=== PATIENT | female | born 1940 | race Caucasian/White ===

== ENCOUNTER 2016-04-25 06:57 | Day surgery (SDC) | payer BC ==
[~2016-04-25] VITALS: Ht 152.4 cm; Wt 88.5 kg
[~2016-04-25 06:57] MED LIST: AMLO-110 PO; AMR2 PO; ATEN-173 PO; ATOR-24 PO; EPP3 IM; FESO8TAB PO; MULT-506 PO; OXYC-57 PO; PRLSR20 PO; TRIA0.1C20 TOP; VITAMIN D TOP; [UNRECOGNIZED DRUG - OTHER] TOP
[2016-04-25] MEDS ORDERED: B-CO1CAP17 PO (07:25)
[2016-04-25] MEDS ORDERED: SEVE800T7 PO (07:26)
[2016-04-25 07:27] VITALS: BP 184/77; PULSE 78; TEMP 36.5; O2SAT 96; Ht 152.4 cm; Wt 88.5 kg
--- NOTE | 2016-04-25 08:01 | History and Physical ---
History & Physical CC: End stage renal disease and functioning right arm av fistula HPI: Mrs. Barboza has a right arm av fistula which is functioning well. She is here for removal of her permcath. The patient denies any complaints at this time, including headaches, fevers, chills, dizziness, chest pain, shortness of breath, abdominal pain, nausea, vomiting, diarrhea, constipation, dysuria, hematuria, rest pain, claudication or other complaints. The patient's allergies include bee stings and neosporin. Her home medications are reconciled in the chart and include the following: Amaryl, amlodipine, atenolol, Ditropan, Lipitor, omega 3 fatty acids, omeprazole, vitamin A and vitamin D3. The patient's past medical history is positive for diabetes mellitus, hypercholesterolemia, hypertension, heartburn, sleep apnea, skin cancer and chronic kidney disease stage IV. The patient's surgical history is positive for a fusion of her right ankle, carpal tunnel release, left knee replacement, right knee replacement, throat surgery and tubal ligation. Her family history is positive for heart disease in her father, type 2 diabetes mellitus in her mother. Social history is negative for tobacco, alcohol or drug use. Her review of systems is negative for fatigue, fever, sweats, weight loss, exercise intolerance, abnormal moles or rashes, vision changes or photophobia, ear pain, sinus problems or sore throat, cough, shortness of breath, hemoptysis or wheezing, chest pain, palpitations or syncope. The patient does admit to bilateral lower extremity mild edema, which is chronic. The patient denies abdominal pain, nausea, vomiting, diarrhea or constipation, dysuria, hematuria, muscle weakness, headaches, dizziness, numbness or seizures. On physical examination, patient's vital signs today are as follows: Blood pressure 138/72 with a heart rate of 72, respiratory rate of 18. Patient weighs 200 pounds. Constitutional: General: Patient is an obese, healthy- appearing, well-nourished, well-developed, elderly female in no acute distress. She ambulates without assistance and is active, alert and oriented x4 with normal recent and remote memory. Her head is normocephalic and atraumatic. Eyes: EOMI. ENMT exam demonstrates no hearing loss, rhinorrhea or pharyngeal erythema. Her neck is supple, nontender with midline trachea without masses or crepitus. Her lung exam demonstrates no dyspnea. They are clear to auscultation bilaterally. Cardiovascular exam demonstrate nondisplaced apical impulse with regular rate and rhythm without murmurs, lifts, heaves, thrills or gallops. Her peripheral pulses are full and equal in all extremities unless otherwise noted. Specifically, they are normal in her carotids, brachial, radial and femoral area. Her posterior tibial and dorsalis pedis pulses are +2 bilaterally. The patient demonstrates no bruits in her carotid, abdominal or femoral areas. Her abdomen is soft and nontender with normoactive bowel sounds in all 4 quadrants without guarding or rebound. There is no flank or CVA tenderness. Her musculoskeletal exam demonstrates normal tone and strength for age. Her bilateral upper extremities demonstrate no cyanosis, edema, clubbing, varicosities or ulcers. There is a right arm avf with a thrill and bruit. The patient's bilateral lower extremities demonstrate 1+ edema but no cyanosis, mottling, ulceration or gangrene. Neurologically, the patient has normal gait and station with grossly intact cranial nerves and grossly intact sensation. Assessment: Functioning avf right arm Plan: The patient is admitted for removal of her permcath. The procedure, as well as the risks, benefits and alternatives were discussed at length with the patient and her family. She expressed her understanding and agreement to proceed.
--- NOTE | 2016-04-25 08:01 | Procedure Note ---
Pre-Mod Sedation Assessment General Date of Moderate Sedation: Apr 25, 2016. Vital Signs: Vital Signs Past 12 Hours Date Time Temp Pulse Resp B/P Pulse Ox O2 Delivery O2 Flow Rate FiO2 04/25/16 07:27 36.5 78 20 184/77 96 Room Air Pre-Sedation Airway Assessment Smoking Status: Never Smoker Mallampati Classification: Class I ASA Classification: Class II Notes The planned sedation has been discussed with the patient and consent obtained. I have identified the patient, determined the appropriateness of sedation and have assessed the patient immediately prior to the procedure. All medicine(s) and interventions are by my order.
[2016-04-25] MEDS ORDERED: LIDOCAINE HCL 1% 20 ML VIAL ONE (08:11)
[2016-04-25] MEDS ORDERED: LIDOCAINE HCL 1% 20 ML VIAL INJ ONE (08:54)
--- NOTE | 2016-04-25 09:08 | [facility] Post Operative Brief Note ---
Immediate Operative Summary Operative Date Apr 25, 2016. Pre-Operative Diagnosis Functioning fistula Post-Operative Diagnosis same Procedure(s) Performed Perm Catheter Removal Surgeon Dr. Archibald Molybdenum Steamer Operator Surgeon(s) none Estimated Blood Loss 0 Findings Catheter and cuff removed Specimens A. explanted perm catheter Anesthesia local Complication(s) None Disposition
[2016-04-25 09:09] VITALS: BP 156/78; PULSE 81; TEMP 36.8; O2SAT 99
--- NOTE | 2016-04-25 09:10 | Discharge Instructions ---
Discharge Instructions Visit Reason for Visit: End Stage Renal Disease Discharge Discharge Diagnosis / Problem: Functioning fistla Discharge Goals Goal(s): Therapeutic intervention Activity Recommendations Activity Limitations: per Instructions/Follow-up section Anesthesia . Post Anesthesia Instructions: If you have had General Anesthesia or IV Sedation: * Do not drive today. * Resume driving when surgeon permits. * Do not make important decisions or sign legal documents today. * Call surgeon for: 1. Temperature elevations greater than 101 degrees F. 2. Uncontrollable pain. 3. Excessive bleeding. 4. Persistent nausea and vomiting. 5. Medication intolerance (nausea, vomiting or rash). * For nausea and vomiting use only clear liquids such as: tea, soda, bouillon until nausea subsides, then gradually increase diet as tolerated. * If you have any concerns or questions, call your surgeon's office. If physician is unavailable and it is an emergency, call 911 or go to the nearest emergency room. . Instructions / Follow-Up Instructions / Follow-Up Call [phone] with any questions or concerns. SPECIAL CARE INSTRUCTIONS: Medications: * Continue to take your medications as directed. If you have been given a prescription for Plavix, please fill it immediately and take as directed. Incision Care: * Your puncture site may have some bruising and minor swelling for about one week. * You will have a small dressing covering your puncture site. You may remove the dressing after 24 hours and shower. You may let the warm soapy water run over it, but be sure to dry the puncture site well and keep it dry. * DO NOT IMMERSE THE INCISION IN A TUB/POOL/etc. UNTIL HEALED. * Puncture sites should be kept covered with a band-aid until it begins to heal. Restrictions: * Depending on whether you leg or arm was punctured to access the arteries, you will be required to lay flat, hold your arm still, or both, for about 4 hours after the procedure to prevent bleeding. * Limit your activity for the first 48 hours. You may walk and go up and down steps. Avoid excessive bending or movement at the puncture site. Possible Complications: * Excessive Swelling - after blood flow is improved you may notice increased swelling in the lower legs. This is a normal response. This usually depends on the amount of blockages in the leg, how long they have been there prior to your procedure and how much blood flow was restored. Elevating your legs will help to improve this. Please notify our office ([phone] ) if the swelling does not go away after lying in bed overnight. * Infection/Drainage/Bleeding - Drainage or bleeding from the puncture site should be minimal. If you have excessive bleeding or drainage, call our office ([phone]) right away. * Pain - You may experience some mild pain or soreness at your puncture site. If your pain does not improve, please contact our office ([phone]). Call your doctor and seek emergent treatment if you develop: * Temperature above 101 degrees * Any fever or chills * Any redness or purulent drainage from the puncture site * Any new dusky/blue colored toes or feet with coolness or sharp or aching pain. SKIN IRRITATION: * You may experience some redness and/or swelling in the area where radiation was administered. If any skin irritation occurs, please contact your family physician. FOLLOW UP VISIT: Keep any scheduled doctor appointments. Diet Recommendations Recommended Home Diet: resume previous diet Procedures Procedures Performed: Perm Catheter Removal Pending Studies Studies pending at discharge: no Medical Emergencies . Who to Call and When: Medical Emergencies: If at any time you feel your situation is an emergency, please call 911 immediately. . Non-Emergent Contact Non-Emergency issues call your: Surgeon . . "Provider Documentation" section prepared by Jame Archibald.
--- NOTE | 2016-04-25 09:23 | DIAGNOSTIC IMAGING REPORT ---
DATE OF PROCEDURE: 04/25/2016 PREOPERATIVE DIAGNOSIS: Functioning fistula. POSTOPERATIVE DIAGNOSIS: Same. PROCEDURE: Removal of PermCath, right internal jugular vein. SURGEON: Dr. Archibald. ANESTHETIC: Local. PROCEDURE INDICATIONS: The patient is a 75-year-old female with a functioning fistula. She is here for removal of her PermCath. The patient understood the risks, options and benefits, and agreed to have this procedure. The patient was taken to the angio suite and placed in supine position. After right side of the neck, chest wall and catheter were prepped and draped in a sterile manner, local anesthetic was administered. Sutures were removed from the catheter. Using sharp and blunt dissection, the cuff was freed up. Using sharp dissection, the sheath around the catheter was incised. The catheter and cuff was removed in its entirety. Pressure was applied, adequate hemostasis was obtained. Sterile dressings were applied to the wound. The patient left the angio suite in good condition and tolerated the procedure well.
[2016-04-25 09:27] VITALS: BP 148/78; PULSE 77; O2SAT 98
[2016-04-25 09:40] VITALS: BP 159/80; PULSE 80; TEMP 36.7; O2SAT 99
[2016-04-25 09:55] VITALS: BP 176/91; PULSE 82; O2SAT 97
== END 2016-04-25 09:55 | disposition home or self-care (01) ==
LOC: C.ACU 06:57
PROVIDERS: ATTEND Surgery Vascular Surgery
DX: Z45.2 Encounter for adjustment and management of vascular access device (principal); I12.9 Hypertensive chronic kidney disease with stage 1 through stage 4 chronic kidney disease, or unspecified chronic kidney disease; N18.4 Chronic kidney disease, stage 4 (severe); E78.00 Pure hypercholesterolemia, unspecified; E11.22 Type 2 diabetes mellitus with diabetic chronic kidney disease; Z98.890 Other specified postprocedural states; Z96.653 Presence of artificial knee joint, bilateral; Z98.51 Tubal ligation status; Z82.49 Family history of ischemic heart disease and other diseases of the circulatory system; Z83.3 Family history of diabetes mellitus

== ENCOUNTER → 2016-05-11 | Outpatient (CLI) | payer BC ==
[~2016-05-11] MED LIST changes: -AMLO-110 PO; +B-CO1CAP17 PO; -MULT-506 PO; -OXYC-57 PO; +SEVE800T7 PO; -VITAMIN D TOP; -[UNRECOGNIZED DRUG - OTHER] TOP
--- NOTE | 2016-05-11 16:56 | MAMMOGRAPHY REPORT ---
BILATERAL DIGITAL SCREENING MAMMOGRAM WITH CAD: 05/11/2016 CLINICAL HISTORY: Routine screening. Patient has no complaints. TECHNIQUE: Current study was also evaluated with a Computer Aided Detection (CAD) system. Bilatera l CC and MLO views were obtained. COMPARISON: Comparison is made to exams dated: 02/26/2015 mammogram, 02/22/2013 mammogram, 02/25/2014 mammogram, 01/24/2012 mammogram, 01/17/2011 mammogram, and 01/14/2010 mammogram - [facility]. BREAST COMPOSITION: The tissue of both breasts is heterogeneously dense, which may obscure small ma sses. FINDINGS: No suspicious masses, calcifications, or areas of architectural distortion are noted in e ither breast. There has been no significant interval change compared to prior exams. Again noted ar e fluctuating multiple small round/oval benign-appearing masses scattered in bilateral breasts, most prominent in the right breast, which are considered benign given the multiplicity and bilaterality and likely represent cysts. IMPRESSION: ACR BI-RADS CATEGORY 2: BENIGN There is no mammographic evidence of malignancy. A 1 year screening mammogram is recommended. The p atient will receive written notification of the results. Approximately 10% of breast cancers are not detected with mammography. A negative mammographic repor t should not delay biopsy if a clinically suggestive mass is present. Marcia Garcia M.D. /:05/11/2016 16:44:53 Tube Room Cashier: Ondina MATOS)(M), [facility] letter sent: Normal 1/2 BI-RADS Code: ACR BI-RADS Category 2: Benign
== END | disposition home or self-care (01) ==
LOC: C.MAMM 13:57
PROVIDERS: ATTEND Obstetrics & Gynecology
DX: Z12.31 Encounter for screening mammogram for malignant neoplasm of breast (principal)

== ENCOUNTER → 2016-05-12 | Outpatient (CLI) | payer BC ==
--- NOTE | 2016-05-17 10:15 | CODING QUERY NO DIAGNOSIS ---
: 1940 TREATMENT RENDERED WITHOUT A DIAGNOSIS To promote full compliance with coding requirements relating to patient care, physician participation is requested in all cases of inventory transcriber uncertainty. Please assist us with providing a diagnosis/symptom for the test(s) below: A diagnosis/symptom was not documented on your Order. A valid diagnosis/symptom is required to bill all insurances. Please remember that we are unable to code a diagnosis of rule out, probable, possible, questionable, or suspected. Tests that require a diagnosis: * CALCIUM DOS: 05/12/16 DIAGNOSIS: Provider Signature: Date: Thank you Amie Suero Health Information Management Once completed, please kindly fax back to [phone] For questions please call [phone]
== END ==
LOC: C.LABSPEC 17:03
PROVIDERS: ATTEND Internal Medicine Nephrology
DX: E83.52 Hypercalcemia (principal)

== ENCOUNTER → 2016-11-09 | Outpatient (CLI) | payer BC ==
[2016-11-09 11:24] LABS: CHOLESTEROL/HDL RATIO 3.6; THYROID STIMULATING HORMONE 2.55 uIu/ml (0.300-4.500)
[2016-11-09 11:49] LABS: ESTIMATED AVERAGE GLUCOSE 103 mg/dl; HA1C FLAG Normal (Normal)
== END | disposition home or self-care (01) ==
LOC: C.LABBC 08:26
PROVIDERS: ATTEND Internal Medicine Pulmonary Disease
DX: I10 Essential (primary) hypertension (principal); E11.9 Type 2 diabetes mellitus without complications; G47.33 Obstructive sleep apnea (adult) (pediatric); E78.5 Hyperlipidemia, unspecified

== ENCOUNTER → 2017-05-15 | Outpatient (CLI) | payer BC ==
--- NOTE | 2017-05-16 14:38 | MAMMOGRAPHY REPORT ---
BILATERAL DIGITAL SCREENING MAMMOGRAM TOMOSYNTHESIS WITH CAD: 05/15/2017 CLINICAL HISTORY: Routine screening. TECHNIQUE: Breast tomosynthesis in addition to standard 2D mammography was performed. Current study was also evaluated with a Computer Aided Detection (CAD) system. COMPARISON: Comparison is made to exams dated: 05/11/2016 mammogram, 02/26/2015 mammogram, 02/25/2014 m ammogram, 02/22/2013 mammogram, 01/24/2012 mammogram, and 01/17/2011 mammogram - [facility] enter. BREAST COMPOSITION: The tissue of both breasts is heterogeneously dense, which may obscure small mas ses. FINDINGS: There are scattered punctate benign-appearing microcalcifications and minimal vascular calc ification in the breasts. Multiple bilateral circumscribed masses are scattered bilaterally, fluctua ting in size comparing to prior mammograms, most likely representing fluctuating cysts/fibrocystic ch maria esther. No suspicious spiculated or irregular mass, architectural distortion or cluster of suspicious microcalcifications is seen. IMPRESSION: ACR BI-RADS CATEGORY 1: NEGATIVE There is no mammographic evidence of malignancy. A 1 year screening mammogram is recommended. The pa tient will receive written notification of the results. Approximately 10% of breast cancers are not detected with mammography. A negative mammographic report should not delay biopsy if a clinically suggestive mass is present. Tiesha Garcia M.D. ay/:05/15/2017 16:39:29 Traffic Control Flagger: Pankaj MATOS)(Kamila), [facility] [address] letter sent: Normal 1/2 BI-RADS Code: ACR BI-RADS Category 1: Negative
== END | disposition home or self-care (01) ==
LOC: C.MAMM 14:03
PROVIDERS: ATTEND Obstetrics & Gynecology
DX: Z12.31 Encounter for screening mammogram for malignant neoplasm of breast (principal)

== ENCOUNTER → 2017-07-07 | Outpatient (CLI) | payer BC | END | disposition home or self-care (01) | LOC: C.RDSM 10:29 | PROVIDERS: ATTEND Orthopaedic Surgery | DX: M25.572 Pain in left ankle and joints of left foot (principal) ==

== ENCOUNTER 2019-02-15 06:13 | Inpatient (IN) ==
--- NOTE | 2019-02-01 16:02 | PAT Medication Instructions ---
Medication Instructions Date of Service February 01, 2019 Home Medications Medication Instructions Recorded apixaban 5 mg tablet 5 mg PO BID #60 tab 12/21/18 Myrbetriq 50 mg PO QAM ProRenal 1 dose PO UD atenolol 25 mg PO QAM atorvastatin [Lipitor] 40 mg PO PM glimepiride 2 mg PO QAM omeprazole 20 mg PO QAM docusate sodium [Stool Softener] 100 mg PO QAM epinephrine 0.3 mg/0.3 mL injection, auto-injector 0.3 mg SUBCUT UD PRN sevelamer carbonate 800 mg tablet 1,600 mg PO QPM apixaban 5 mg tablet 5 mg PO BID Continue as directed epinephrine 0.3 mg/0.3 mL injection, auto-injector 0.3 mg SUBCUT UD PRN ASK your prescriber and surgeon apixaban 5 mg tablet 5 mg PO BID DO NOT take the morning of surgery Myrbetriq 50 mg PO QAM ProRenal 1 dose PO UD glimepiride 2 mg PO QAM docusate sodium [Stool Softener] 100 mg PO QAM Take morning of surgery With a small sip of water, OTHERWISE NOTHING TO EAT OR DRINK AFTER MIDNIGHT: atenolol 25 mg PO QAM omeprazole 20 mg PO QAM Take evening before surgery ProRenal 1 dose PO UD atorvastatin [Lipitor] 40 mg PO PM sevelamer carbonate 800 mg tablet 1,600 mg PO QPM Other Notes If you have any questions please call us at [phone] or [phone] or [phone] or [phone]
--- NOTE | 2019-02-04 11:33 | Anesthesiology Consultation ---
Date of Service February 04, 2019 Assessment & Plan (1) Encounter for pre-operative examination: - Awaiting review preop testing (labs, EKG). - Awaiting PCP office visit scheduled 02/11 (Karla Leon, PAC; [facility])- per patient, visit is for preop evaulation. - ESRD: dialysis T/Th/Sat via RUE fisutla (RUE limb restriction). Ambrose gibbs BMP AM DOS. - Check BSG AM DOS - Eliquis s/p DVT 12/12/18- rx'd x two months (will be completed 02/11/19*)- surgeon aware Chart Review Chart Review: Patient seen in Pre Admission Testing Teaching & Discussion Pre-Anesthesia Teaching/Discussion Notes: Instructed NPO after midnight before surgery,except medications with 15 cc of water. Medication instructions provided according to the PAT guidelines. History Surgery Operation Date: 02/15/19 10:25 Proposed Procedures p L3-L4, L4-L5 Decompression and Fusion, Spinal Cord Monitoring - Celso Martinez, Height/Weight Height: 5 ft 0.25 in Weight: 87.3 kg Allergies Allergy/AdvReac Type Severity Reaction Status Date / Time bee venom protein (honey bee) Allergy Severe Anaphylaxis Verified 02/04/19 11:42 hornet venom Allergy Severe Anaphylaxis Verified 02/04/19 11:42 adhesive Allergy Mild local skin Verified 01/30/19 10:49 irritation bacitracin Allergy Mild Rash Verified 02/04/19 11:42 neomycin Allergy Mild Rash Verified 02/04/19 11:42 polymyxin B Allergy Mild Rash Verified 02/04/19 11:42 Medications Home Medications Medication Instructions Recorded Confirmed Last Taken Myrbetriq 50 mg PO QAM 07/19/18 01/30/19 11/28/18 ProRenal 1 dose PO UD 07/19/18 01/30/19 11/28/18 atenolol 25 mg PO QAM 07/19/18 01/30/19 11/28/18 atorvastatin [Lipitor] 40 mg PO PM 07/19/18 01/30/19 11/28/18 glimepiride 2 mg PO QAM 07/19/18 01/30/19 11/28/18 omeprazole 20 mg PO QAM 07/19/18 01/30/19 11/28/18 docusate sodium [Stool Softener] 100 mg PO QAM 10/11/18 01/30/19 11/28/18 epinephrine 0.3 mg/0.3 mL 0.3 mg SUBCUT UD PRN #1 ea 11/28/18 01/30/19 11/28/18 injection, auto-injector sevelamer carbonate 800 mg tablet 1,600 mg PO QPM tab 12/14/18 01/30/19 Unknown apixaban 5 mg tablet 5 mg PO BID #60 tab 12/21/18 01/30/19 Unknown Past Medical History Medical History DVT (deep venous thrombosis) RLE (12/12/18) felt 2/2 decreased mobility d/t spinal stenosis-- prescribed Eliquis x 2 months (to be completed 02/11/19*) Diabetes mellitus, type 2 NIDDM ESRD (end stage renal disease) T/Th/Sat at [facility] [place] via RUE AVF (follows with nephrology/Dr. Calhoun) GERD (gastroesophageal reflux disease) controlled History of basal cell carcinoma s/p excision Hyperlipemia Hypertension Limb alert care status RUE fistula Osteoarthritis Osteoporosis Peripheral neuropathy Sleep apnea CPAP Spastic bladder Spinal stenosis Exercise / Class Metabolic Activity III < 4 Walking/Shop/Light housework (walker for short distances, wheelchair for longer distances in setting of worsening back pain) Past Family History Family History Mother Family history of diabetes mellitus Arthritis Diabetes Brother Family hx of colon cancer Spina bifida Hypertension Colon cancer Father Kidney stones Past Surgical History Surgical History H/O dilation and curettage History of ankle fusion B/L History of basal cell carcinoma (BCC) excision History of bilateral tubal ligation History of carpal tunnel release B/L History of cataract surgery History of colonoscopy History of esophagogastroduodenoscopy (EGD) History of oral surgery History of tonsillectomy History of tooth extraction History of total knee replacement B/L S/P arteriovenous (AV) fistula creation X3 TO RUE (RUE + REVISIONS) Past Anesthesia History No Family Hx of Anesthesia Complications and Other "Slow to wake" History of PONV History of PONV Social History Smoking Status: Never smoker Do You Dip or Chew Tobacco: No Hx Alcohol Use: Yes Alcohol type: hard liquor alcohol intake frequency: holidays/special occasions only Alcohol Intake Frequency Comment: MIXED DRINK Hx Substance Use: No substance use type: does not use Review of Systems Patient denies chest pain, shortness of breath, cough, wheezing, palpitations. Physical Exam Vital Signs VITALS BP 125/75 P 74 TEMP 98.2 SP02 100%RA RESP 18 PHYSICAL Full neck and c-spine range of motion. Full TMJ range of motion. TMD 3 finger breaths Mallampati Score 3 Dentition: intact, several implants "all over" Lungs: clear throughout to auscultation Cardiac: regular rate and rhythm, no murmurs noted Spine: normal Carotid arteries: negative bruit Extremities: no edema Testing Chest X-Ray Date: 12/12/18 Findings: + NAD
[2019-02-04 12:53] LABS: Basophils # (auto) 0.02 K/uL (0-0.2); Basophils % (auto) 0.3 %; Eosinophils # (auto) 0.12 K/uL (0-0.5); Eosinophils % (auto) 2.1 %; Hematocrit (blood only) 37.1 % (37-47); Hemoglobin 11.7 g/dL (12.0-16.0); Immature Granulocytes # (auto) 0.02 K/uL (0.00-0.02); Immature Granulocytes % (auto) 0.3 %; Lymphocytes # (auto) 1.19 K/uL (1.2-3.4); Lymphocytes % (auto) 20.5 %; Mean Corpuscular Hemoglobin 31.5 pg (25-34); Mean Corpuscular Hgb Conc 31.5 g/dL (32-36); Mean Platelet Volume 12.1 fL (7.4-10.4); Monocytes # (auto) 0.55 K/uL (0.11-0.59); Monocytes % (auto) 9.5 %; Neutrophils % (auto) 67.3 %; Platelet Count 134 K/uL (130-400); RDW Coefficient of Variation 16.2 % (11.5-14.5); Red Blood Count 3.71 M/uL (4.2-5.4)
[2019-02-04 13:02] LABS: Appearance Urine Cloudy (Clear); Bilirubin Urine Negative (Negative); Blood Urine Trace (Negative); Color Urine Yellow; Glucose Urine UA Trace (Negative); Ketones Urine Negative (Negative); Leukocyte Esterase Urine 1+ (Negative); Nitrite Urine Negative (Negative); Urobilinogen Urine Negative (Negative); pH Urine 8.5 (4.5-7.5)
[2019-02-04 13:06] LABS: INR 1.1 (0.9-1.1); Partial Thromboplastin Time 27.2 Seconds (21.0-31.0); Prothrombin Time 11.4 Seconds (9.0-12.0)
[2019-02-04 13:10] LABS: Protein Urine 2+ (Negative)
[2019-02-04 13:11] LABS: Sulfosalicylic Acid Urine Positive (Negative)
[2019-02-04 13:16] LABS: Estimated Average Glucose 108 mg/dl; Hemoglobin A1C 5.4 % (4.5-5.6)
[2019-02-04 13:33] LABS: BUN Creatinine Ratio 11.2 (10-20); Calcium 9.1 mg/dl (8.5-10.1); Creatinine Clr Calc Pharmacy 9.5 ml/min; Est GFR (African American) 9.1; Est GFR (Non-African American) 7.8; Potassium 4.1 mmol/L (3.5-5.1)
[2019-02-04 13:42] LABS: Bacteria Urine 4+ (Negative); Epithelial Cell Urine >30 /lpf (0-5); RBC Urine 0-4 /hpf (0-4); WBC Urine >30 /hpf (0-5)
[~2019-02-15 06:13] MED LIST changes: +ACETAMINOPHEN 500 MG TAB PO SCH; -AMR2 PO; -ATEN-173 PO; -ATOR-24 PO; -B-CO1CAP17 PO; +CEFAZOLIN 2000MG 2,000 MG/15 ML SYR IV SCH; +CeleBREX 200 MG CAP PO SCH; -EPP3 IM; -FESO8TAB PO; +GABAPENTIN 300 MG CAP PO SCH; -PRLSR20 PO; -SEVE800T7 PO; +SODIUM CHLORIDE 0.9% 1000ML IV SCH; -TRIA0.1C20 TOP
[2019-02-15] MEDS ORDERED: LIDOCAINE HCL 2% 2 ML VIAL/AMP(20MG/ML) INFIL ONE (06:56)
[2019-02-15] MEDS ORDERED: fentaNYL citrate 100 MCG/2 ML VIAL ONE (06:56)
[2019-02-15] MEDS ORDERED: MIDAZOLAM HCL 1 MG/ML 2ML VIAL ONE (06:56)
[2019-02-15] MEDS ORDERED: DEXAMETHASONE SOD INJ 4 MG/ML VIAL ONE (06:56)
[2019-02-15] MEDS ORDERED: ONDANSETRON INJ 2 MG/ML 2 ML VIAL ONE (06:56)
[2019-02-15] MEDS ORDERED: PROPOFOL IV EMULSION 10 MG/ML 20 ML VIAL IV ONE (06:56)
[2019-02-15] MEDS ORDERED: GLYCOPYRROLATE 0.2 MG/ML VIAL ONE (06:56)
[2019-02-15] MEDS ORDERED: NEOSTIGMINE METHYLSULFATE 1 MG/ML 10ML VIAL ONE (06:56)
[2019-02-15] MEDS ORDERED: SCOPOLAMINE 1.5 MG TDSY TD ONE (06:59)
[2019-02-15] MEDS ORDERED: BUPIVACAINE/EPINEPHRINE 0.5% MPF 1:200,000 30 ML VIAL ONE (07:01)
[2019-02-15] MEDS ORDERED: SCOPOLAMINE 1.5 MG TDSY ONE (07:01)
[2019-02-15 07:14] LABS: BUN Creatinine Ratio 9.7 (10-20); Calcium 8.7 mg/dl (8.5-10.1); Creatinine Clr Calc Pharmacy 13.1 ml/min; Est GFR (African American) 13.3; Est GFR (Non-African American) 11.5; Potassium 3.9 mmol/L (3.5-5.1)
[2019-02-15] MEDS ORDERED: HYDROmorphone INJ 1 MG/ML SYRINGE IV PRN ×2 (07:25→12:51)
[2019-02-15] MEDS ORDERED: ONDANSETRON INJ 2 MG/ML 2 ML VIAL IV PRN ×2 (07:25→12:51)
[2019-02-15] MEDS ORDERED: ATROPINE SULFATE 0.1 MG/ML 10ML SYR IV PRN (07:25)
[2019-02-15] MEDS ORDERED: PROMETHAZINE HCL 12.5 MG in SODIUM CHLORIDE 0.9% 50 ML IV PRN ×2 (07:25→12:51)
[2019-02-15] MEDS ORDERED: LABETALOL HCL IV 5 MG/ML 20ML IV PRN (07:25)
--- NOTE | 2019-02-15 07:28 | History & Physical Bridge Note ---
Date of Service February 15, 2019 History & Physical Bridge Note I have examined the patient, reviewed the History & Physical and in the interval since the performance of the History & Physical I have noted the following changes of clinical significance: no changes noted
--- NOTE | 2019-02-15 07:29 | History & Physical Report ---
Date of Service February 15, 2019 Assessment & Plan (1) Spinal stenosis, lumbar region with neurogenic claudication: Decompression and fusion L3-L4 L4-L5 Present on Admission?: Yes History of Present Illness Chief Complaint: Back and leg pain Primary Care Provider: Lee Flores MD This is a 78-year-old female presents with chronic persistent back and leg pain. After failing extensive course of nonoperative care is here for surgical intervention. Allergies Allergy/AdvReac Type Severity Reaction Status Date / Time bee venom protein (honey bee) Allergy Severe Anaphylaxis Verified 02/15/19 06:34 hornet venom Allergy Severe Anaphylaxis Verified 02/15/19 06:34 adhesive Allergy Mild local skin Verified 02/15/19 06:34 irritation bacitracin Allergy Mild Rash Verified 02/15/19 06:34 neomycin Allergy Mild Rash Verified 02/15/19 06:34 polymyxin B Allergy Mild Rash Verified 02/15/19 06:34 Home Medications Home Medications Medication Instructions Recorded Confirmed Type Myrbetriq 50 mg PO QAM 07/19/18 02/15/19 History ProRenal 1 dose PO UD 07/19/18 02/15/19 History atenolol 25 mg PO QAM 07/19/18 02/15/19 History atorvastatin [Lipitor] 40 mg PO PM 07/19/18 02/15/19 History glimepiride 2 mg PO QAM 07/19/18 02/15/19 History omeprazole 20 mg PO QAM 07/19/18 02/15/19 History docusate sodium [Stool Softener] 100 mg PO QAM 10/11/18 02/15/19 History epinephrine 0.3 mg/0.3 mL 0.3 mg SUBCUT UD PRN #1 ea 11/28/18 02/15/19 History injection, auto-injector sevelamer carbonate 800 mg tablet 1,600 mg PO QPM tab 12/14/18 02/15/19 History Past Med/Surg History Family History Mother Family history of diabetes mellitus Arthritis Diabetes Brother Family hx of colon cancer Spina bifida Hypertension Colon cancer Father Kidney stones Social History Preferred Language: Jordanian Communication Ability: Effective Academic Coordinator Required: No Beliefs That Will Affect Care: None Current Living Situation: Spouse Other Information That Helps Us Care for You: No Feels Safe at Home: Yes Safety Concerns: Feels Safe At This Time Smoking Status: Never smoker Do You Dip or Chew Tobacco: No ; Second Hand Exposure: No ; Tobacco Cessation Education Requested by Patient: No Hx Alcohol Use: Yes Alcohol type: hard liquor Hx Substance Use: No Physical Exam Physical Exam: Patient is alert and oriented neurologically intact. Results & Data Vital Signs (Past 12 Hours) Vital Signs Temp Pulse Resp BP Pulse Ox 02/15/19 06:40 36.7 C 70 18 166/77 H 98
[2019-02-15] MEDS ORDERED: CHECK SCOPOLAMINE PATCH PLACEMENT SCH (08:00)
[2019-02-15] MEDS ORDERED: FLOSEAL HEMOSTATIC MATRIX 10ML TOP ONE (08:26)
[2019-02-15] MEDS ORDERED: HYDROmorphone INJ 2 MG/ML SYR/VIAL ONE (08:35)
[2019-02-15] MEDS ORDERED: ROCURONIUM BROMIDE 10 MG/ML 5 ML VIAL ONE (08:41)
[2019-02-15] MEDS ORDERED: PHENYLEPHRINE 100MCG/ML 5ML SYR ONE (08:41)
--- NOTE | 2019-02-15 10:25 | Operative Report ---
Post Operative Report Pre & Post Diagnosis Operation Date: 02/15/19 10:25 Pre-Op Diagnosis: Spinal stenosis, lumbar region with neurogenic claudication Spondylolisthesis L4-5. Post-Op Diagnosis: Spinal stenosis, lumbar region with neurogenic claudication Spondylolisthesis L4-5 I identified the patient and participated in the time-out.: Yes Procedure Operation Date: 02/15/19 10:25 Actual Procedures #1 lumbar decompression with bilateral medial facetectomies foraminotomies L2-3 L3-4 L4-5. #2 posterior spinal fusion L3-4 L4-5. #3 placement posterior instrumentation L3-4 L4-5. #4 placement of local autograft in the posterior lateral gutters. #5 placement infuse collagen sponge, mass graft in the posterior lateral gutters. Surgeon Celso Martinez, Private Client Advisor Bennie Aburto Estimated Blood Loss 200 Findings See Below The patient is 5 foot tall weighing over 88 kg with a BMI in excess of 37. The patient's body habitus did create significant technical difficulty throughout the procedure at at least 50% increase in operative time. Specimens None Indications Year spinal stenosis after failing extensive course of nonoperative care is here for surgical intervention. Description of Procedure Patient was met with identified and informed consent obtained. Patient was then taken to the operative suite underwent intubation placed in the prone position on the Piter table on top of the Chandler frame. All bony prominences well- padded eyes inspected to ensure no external pressure placed upon the peer at this point the lumbar spine was prepped and draped in normal sterile fashion. Sharp dissection with the assistance of Bovie cautery was then performed down to and exposing the lamina and transverse processes of L3-L4-L5 bilaterally. From a caudal cephalad fashion complete laminectomy of L4 L3 and partial laminectomy of L2 was performed including bilateral medial facetectomies and foraminotomies addressing severe stenosis. Pedicle screws were then placed in L3-L4-L5 bilaterally with assistance of fluoroscopy and the probably size keshia placed. Transverse processes of L3-L4-L5 were then burred to subcortical bleeding bone. Infuse collagen sponge master graft and local autograft placed in the posterior lateral gutters. 15 round MYRTLE drain inserted. The incision was then closed with 1 Vicryl in the fascia 2-0 Vicryl substantially and 4 Monocryl for final skin closure. Steri-Strips dressings placed. Patient will continue PACU stable condition. Please note Bennie Aburto present at the entire procedure involved the patient positioning complex portions of the surgery and final skin closure. Lastly spinal cord monitoring was utilized that the procedure no changes noted. I attest to the content of the Intraoperative Record and any orders documented therein. Any exceptions are noted below.
--- NOTE | 2019-02-15 10:53 | Fluoroscopy Report ---
INTRAOPERATIVE RADIOGRAPHS CLINICAL HISTORY: L3-L5 spinal fusion. Fluoroscopy time: 20 seconds. FINDINGS: 2 spot fluoroscopic views of the lumbar spine are obtained. There has been laminectomy and posterior fusion from L3-L5. Interpedicular screws are present at all levels. Orthopedic hardware ced ears intact. Minimal anterolisthesis is noted at L3-L4. IMPRESSION: Intraoperative images from laminectomy and posterior fusion from L3-L5 as above. Electronically signed by: Valentin Esquivel M.D. 02/15/2019 10:52 AM
--- NOTE | 2019-02-15 12:28 | Anesthesiology Progress Note ---
Date of Service February 15, 2019 Anesthesia Post Procedure Vital Signs Vital Signs: Temp Pulse Pulse Resp BP Pulse Ox 02/15/19 12:15 70 12 137/58 L 96 02/15/19 12:05 68 12 122/53 L 96 02/15/19 11:55 69 13 131/55 L 96 02/15/19 11:45 36.5 C 74 15 141/61 H 95 02/15/19 11:35 70 15 132/57 L 96 02/15/19 11:25 68 13 140/56 L 96 02/15/19 11:15 36.7 C 70 15 134/55 L 96 02/15/19 11:05 68 14 143/62 H 95 02/15/19 10:55 81 22 180/74 H 98 02/15/19 10:48 36.2 C L 81 15 163/57 H 97 02/15/19 06:40 36.7 C 70 18 166/77 H 98 Transfer of Care Handoff Completed per policy Notes Mental Status: alert / awake / arousable Patient Amnestic to Procedure: Yes Nausea / Vomiting: adequately controlled Pain: adequately controlled Airway Patency, RR, SpO2: stable & adequate BP & HR: stable & adequate Hydration State: stable & adequate Anesthetic Complications: no major complications apparent
[2019-02-15] MEDS: SODIUM CHLORIDE 0.9% 1000ML 1,000 ML IV SCH ×2 (12:50→21:01)
[2019-02-15] MEDS ORDERED: ALUMINUM/MAGNESIUM SUSP 30 ML UDC PO PRN (12:51)
[2019-02-15] MEDS ORDERED: ONDANSETRON 4 MG TAB PO PRN (12:51)
[2019-02-15] MEDS ORDERED: METOCLOPRAMIDE HCL INJ 5 MG/ML 2 ML VIAL IV PRN (12:51)
[2019-02-15] MEDS ORDERED: DO NOT ADMINISTER PNEUMOCOCCAL VACCINE PRN (12:51)
[2019-02-15] MEDS ORDERED: VIT B C IRON FUM FA D3 ZINC OX PO SCH (12:51)
[2019-02-15] MEDS ORDERED: LORazepam 0.5 MG TAB PO PRN (12:51)
[2019-02-15] MEDS ORDERED: MAGNESIUM HYDROXIDE SUSP 30 ML UDC PO PRN (12:51)
[2019-02-15] MEDS ORDERED: bisacodyL 10 MG SUPP PR PRN (12:51)
[2019-02-15] MEDS ORDERED: NALOXONE HCL 0.4 MG/1 ML VIAL/CARP IV PRN (12:51)
[2019-02-15] MEDS ORDERED: DO NOT ADMINISTER FLU VACCINE PRN (12:51)
[2019-02-15] MEDS ORDERED: ACETAMINOPHEN 1,000 MG/100 ML VIAL IV PRN (12:51)
[2019-02-15] MEDS ORDERED: HYDROmorphone INJ 0.5 MG/0.5 ML SYR IV PRN (12:51)
[2019-02-15] MEDS ORDERED: LORazepam 0.5 MG/1 ML VIAL IV PRN (12:51)
[2019-02-15] MEDS ORDERED: SOD PHOSPHATE/SOD BIPHOSPHATE ENEMA 132 ML BTL PR PRN (12:51)
[2019-02-15] MEDS ORDERED: OXYCODONE HCL IR 5 MG TAB (IMMEDIATE RELEASE) PO PRN (12:51)
[2019-02-15] MEDS ORDERED: ACETAMINOPHEN 500 MG TAB PO PRN (12:51)
[2019-02-15] MEDS ORDERED: FAMOTIDINE 20 MG TAB PO PRN (12:51)
--- NOTE | 2019-02-15 13:26 | Hospitalist Consultation ---
Date of Consultation February 15, 2019 Assessment & Plan (1) Lumbar spinal stenosis: (2) Spinal stenosis, lumbar region with neurogenic claudication: - POD #0 for elective decompression/fusion of L3-L5 by Dr. Martinez - Pain management, bowel regimen, PT/OT per the primary team - Repeat cbc with am labs (3) Hypertension: - Continue atenolol 25 mg QAM - BP appears stable at this point (4) Hyperlipidemia: - Continue on atorvastatin 40 mg QPM (5) Diabetes mellitus: - ISS with accuchecks achs, holding glimepiride while inpatient - HH/DM diet - Last A1C = 5.4 on 05/07/18 (6) ESRD (end stage renal disease) on dialysis: - Receives HD on -Mon, plan for nephro consultation to continue on normally scheduled dialysis for tomorrow. Pt reports got full session of dialysis yesterday. - Nephro consult - Continue Prorenal and sevelamer carbonate 1600 mg QPM as per COLLECTION MANAGER meds (7) Hx of deep venous thrombosis: - Holding eliquis 5 mg BID for now, hx of DVT (diagnosed 12/12/18) for which she was placed on this. On 02/06/19 repeat doppler determine no evidence of DVT within the right lower extremity. Has been off Eliquis since 02/10/19. Resume once cleared by surgical standpoint, can stop anticoagulation after 3 mo as long as was the first time provoked thromboembolic event, if pt with hx of other thromboembolic disease or unprovoked event then would recommend continue for life. (8) Obstructive sleep apnea: - Continue CPAP HS, family bringing in from home. (9) Secondary hyperparathyroidism: - Noted (10) Osteoporosis: - Noted, continue supplementation (11) Esophageal reflux: - Continue omeprazole Dispo: From home Thank you for involving us in the care of Mrs. Barboza. Please do not hesitate to call with questions or concerns. Medicine service will follow along. Supervising Physician Co-Signing Physician Notes I have seen the patient with Yulissa Barrios and agree with exam , assessment and plan. History of Present Illness Reason for Consultation: Medical management Requesting Physician: Dr. Martinez Attending Physician: Celso Martinez, DO History of Present Illness This is a 78 yo F with PMHx of HTN, HLD, hx of DVT on eliquis, DM type II, ESRD on HD (), GERD, spinal stenosis, DJD, diverticulosis of the sigmoid colon, ANA PAULA on CPAP therapy, osteoporosis, osteopenia, and secondary hyperparathyroidism. Pt underwent elective decompression and fusion of L3-L4 and L4-L5 today, 02/15/[address] Martinez. She was seen and examined on the floor. She is still quite groggy and falls asleep easily during my exam, but is able to answer questions appropriately, and follows commands such as moving her lower extremities. She denies any pain. Pt has not yet attempted to eat or drink anything. She reports family is coming to visit her soon and is bringing her CPAP to the hospital. Allergies Allergy/AdvReac Type Severity Reaction Status Date / Time bee venom protein (honey bee) Allergy Severe Anaphylaxis Verified 02/15/19 06:34 hornet venom Allergy Severe Anaphylaxis Verified 02/15/19 06:34 adhesive Allergy Mild local skin Verified 02/15/19 06:34 irritation bacitracin Allergy Mild Rash Verified 02/15/19 06:34 neomycin Allergy Mild Rash Verified 02/15/19 06:34 polymyxin B Allergy Mild Rash Verified 02/15/19 06:34 Home Medications Home Medications Medication Instructions Recorded Confirmed Type Myrbetriq 50 mg PO QAM 07/19/18 02/15/19 History ProRenal 1 dose PO UD 07/19/18 02/15/19 History atenolol 25 mg PO QAM 07/19/18 02/15/19 History atorvastatin [Lipitor] 40 mg PO PM 07/19/18 02/15/19 History glimepiride 2 mg PO QAM 07/19/18 02/15/19 History omeprazole 20 mg PO QAM 07/19/18 02/15/19 History docusate sodium [Stool Softener] 100 mg PO QAM 10/11/18 02/15/19 History epinephrine 0.3 mg/0.3 mL 0.3 mg SUBCUT UD PRN #1 ea 11/28/18 02/15/19 History injection, auto-injector sevelamer carbonate 800 mg tablet 1,600 mg PO QPM tab 12/14/18 02/15/19 History Patient History Family History Mother Family history of diabetes mellitus Arthritis Diabetes Brother Family hx of colon cancer Spina bifida Hypertension Colon cancer Father Kidney stones Social History Preferred Language: Amharic Communication Ability: Effective Sales Coach Required: No Beliefs That Will Affect Care: None Current Living Situation: Spouse Other Information That Helps Us Care for You: No Feels Safe at Home: Yes Safety Concerns: Feels Safe At This Time Smoking Status: Never smoker Do You Dip or Chew Tobacco: No ; Second Hand Exposure: No ; Tobacco Cessation Education Requested by Patient: No Hx Alcohol Use: Yes Alcohol type: hard liquor Hx Substance Use: No Review of Systems Review of Systems: Constitutional: No fever, sweats or chills Eyes: No diplopia, no worsening or blurred vision ENT: normal hearing, no trouble swallowing Respiratory: No cough, sputum, dyspnea at rest or on exertion Cardiovascular: No chest pain, tightness or palpitations Abdomen: No pain, nausea, vomiting, diarrhea or constipation Musculoskeletal: No joint pain, calf pain, swelling Neurologic: No weakness, numbness/tingling, , able to move feet, toes and sensation to light touch is diminished but present. Psychiatric: No anxiety or depression Skin: No rash or itch Physical Exam Physical Exam: General: awake, alert, no apparent distress, +obese Head: Normocephalic, atraumatic ENT: PERRL, EOMI, no pharyngeal exudate, mucous membranes moist Chest: Clear to auscultation, on 1L via NC, no adventitious breath sounds Cardiac: Regular rate and rhythm, no murmur, no JVD, normal peripheral pulses, good capillary refill Abdominal: NABS x 4 quadrants, soft, nontender to palpation, no rebound, guarding or tenderness Back: bandage c/d/i, MYRTLE drain in place Extremities: Normal inspection, 1+ peripheral edema, no erythema Psych: Normal mood and affect Neuro: AAO x 3, able to move toes and feet on command, reports sensation is dull but present and equal bilaterally, otherwise no gross motor deficits, speech is clear, no peripheral sensory deficits Results & Data Vital Signs (Past 12 Hours) Vital Signs Temp Pulse Pulse Resp BP Pulse Ox 02/15/19 12:35 36.5 C 68 14 124/55 L 96 02/15/19 12:25 71 14 140/56 L 97 02/15/19 12:15 70 12 137/58 L 96 02/15/19 12:05 68 12 122/53 L 96 02/15/19 11:55 69 13 131/55 L 96 02/15/19 11:45 36.5 C 74 15 141/61 H 95 02/15/19 11:35 70 15 132/57 L 96 02/15/19 11:25 68 13 140/56 L 96 02/15/19 11:15 36.7 C 70 15 134/55 L 96 02/15/19 11:05 68 14 143/62 H 95 02/15/19 10:55 81 22 180/74 H 98 02/15/19 10:48 36.2 C L 81 15 163/57 H 97 02/15/19 06:40 36.7 C 70 18 166/77 H 98 PG Care Time/CCT Total # of Minutes Spent Total Time Spent with Patient: Total time spent is greater than 50% in coordination of care (as documented) at patient's floor/unit and/or counseling patient:
[2019-02-15] MEDS ORDERED: GLUCOSE 10 TABS/TUBE PO PRN (13:34)
[2019-02-15] MEDS ORDERED: GLUCOSE 40% GEL 15 GM TUBE PO PRN (13:34)
[2019-02-15] MEDS ORDERED: GLUCAGON FOR INJ 1 MG VIAL SQ PRN (13:34)
[2019-02-15] MEDS ORDERED: CARBOHYDRATES FOR HYPOGLYCEMIA PO PRN (13:34)
[2019-02-15] MEDS ORDERED: DEXTROSE 50% 50 ML SYRINGE IV PRN (13:34)
[2019-02-15] MEDS: CEFAZOLIN 2000MG 2,000 MG/15 ML SYR IV SCH ×2 (15:44→23:19)
[2019-02-15] MEDS: INSULIN ASPART 100 UNITS/ML 3 ML PEN SC SCH ×2 (17:55→20:51)
[2019-02-15] MEDS: SEVELAMER HCL 800 MG TABLET PO SCH (20:50)
[2019-02-15] MEDS: DOCUSATE SODIUM/SENNA 50/8.6MG TAB PO SCH (20:50)
[2019-02-15] MEDS: ATORVASTATIN 40 MG TAB PO SCH (20:50)
[2019-02-16 05:24] LABS: Basophils # (auto) 0.01 K/uL (0-0.2); Basophils % (auto) 0.1 %; Eosinophils # (auto) 0.01 K/uL (0-0.5); Eosinophils % (auto) 0.1 %; Hematocrit (blood only) 29.1 % (37-47); Hemoglobin 9.6 g/dL (12.0-16.0); Immature Granulocytes # (auto) 0.05 K/uL (0.00-0.02); Immature Granulocytes % (auto) 0.4 %; Lymphocytes # (auto) 1.16 K/uL (1.2-3.4); Lymphocytes % (auto) 8.2 %; Mean Corpuscular Hemoglobin 31.5 pg (25-34); Mean Corpuscular Volume 95.4 fL (80-100); Mean Platelet Volume 10.9 fL (7.4-10.4); Monocytes % (auto) 8.5 %; Neutrophils # (auto) 11.72 K/uL (1.4-6.5); Neutrophils % (auto) 82.7 %; Platelet Count 141 K/uL (130-400); RDW Coefficient of Variation 16.8 % (11.5-14.5); RDW Standard Deviation 57.7 fL (36.4-46.3); Red Blood Count 3.05 M/uL (4.2-5.4); White Blood Count 14.15 K/uL (4.8-10.8)
[2019-02-16] MEDS: POLYETHYLENE (MIRALAX) 17 GM PACK PO SCH ×4 (05:55→23:11)
[2019-02-16 06:03] LABS: Calcium 8.2 mg/dl (8.5-10.1); Creatinine Clr Calc Pharmacy 10.6 ml/min; Est GFR (African American) 10.3; Est GFR (Non-African American) 8.8; Potassium 4.1 mmol/L (3.5-5.1)
[2019-02-16] MEDS ORDERED: Nursing to Pharmacy Communication ONE (07:05)
[2019-02-16] MEDS ORDERED: SODIUM CHLORIDE 0.9% 1000ML 1,000 ML IV PRN ×2 (08:59→09:22)
[2019-02-16] MEDS ORDERED: DOCUSATE SODIUM 100 MG CAP PO SCH (09:00)
[2019-02-16] MEDS: PANTOprazole 40 MG TAB PO SCH (09:29)
[2019-02-16] MEDS: GLIMEPIRIDE 2 MG TAB PO SCH (09:29)
[2019-02-16] MEDS: MIRABEGRON ER 25 MG TAB PO SCH (09:29)
[2019-02-16] MEDS: INSULIN ASPART 100 UNITS/ML 3 ML PEN SC SCH ×4 (09:31→20:58)
--- NOTE | 2019-02-16 09:38 | Orthopedic Progress Note ---
Date of Service February 16, 2019 Assessment & Plan (1) Spinal stenosis, lumbar region with neurogenic claudication: This time will initiate physical therapy monitor MYRTLE output anticipate rehab placement hopefully Monday. Present on Admission?: Yes Subjective Back pain is controlled leg symptoms improved. Physical Exam Physical Exam: On exam patient is in bed. She is good strength testing. Appears comfortable. Results & Data Vital Signs (Past 12 Hours) Vital Signs Temp Pulse Pulse Resp BP Pulse Ox 02/16/19 06:59 36.6 C 87 16 123/69 97 02/16/19 03:06 36.4 C L 75 16 125/74 98 02/15/19 23:15 36.4 C L 76 18 136/78 95
[2019-02-16] MEDS ORDERED: IRON SUCROSE 100 MG in SYRINGE 0 ML IV SCH (10:00)
[2019-02-16] MEDS ORDERED: EPOETIN ALFA 4,000 UNIT/ML VIAL IV SCH (10:00)
--- NOTE | 2019-02-16 12:18 | Nephrology Consultation ---
Date of Consultation February 16, 2019 Assessment & Plan (1) Spinal stenosis, lumbar region with neurogenic claudication: Postoperative day 1. Patient hopes to be discharged to in [facility] for continued therapy. (2) ESRD (end stage renal disease) on dialysis: On hemodialysis TTS. Orders for hemodialysis today were entered into the EMR discussed with the dialysis nurse electronics supervisor. The patient was seen evaluated during hemodialysis treatment. Av fistula is functioning well. Patient has an adequate blood flow. Blood pressure is acceptable. A fluid goal of 2 liters was established. This will bring the patient within range of her estimated dry weight. Electrolytes are acceptable. She will be maintained on a renal diet while inpatient. Medications are appropriate for kidney function. She remains on sevelamer q.a.c. for hyperphosphatemia. (3) Hypercalcemia: History of Present Illness Attending Physician: Celso Martinez, DO History of Present Illness Joan Barboza is a 78-year-old female with end-stage renal disease. She is on hemodialysis in center at [facility]. She dialyzes on a Monday, , Monday schedule. Joan completed her last hemodialysis treatment on without complications. She left at her estimated dry weight of 117.5 kilograms. Her renal impairment has been attributed to microvascular disease, hypertensive nephrosclerosis, interstitial scarring associated with manager terminal NSAID therapy. She started hemodialysis in November of 2015. The patient underwent surgical creation of a right wrist AV fistula by Dr. Archibald 12/05. She required revision of the fistula 07/06 when the venous limb had clotted off. The fistula was revised and the clot removed. [facility] elective decompression and fusion of L3-L4 and L4-L5. Past medical history is notable for longstanding hypertension, obesity, obstructive sleep apnea treated with CPAP, hyperlipidemia, history of DVT for which she had been treated with Eliquis. Diabetes mellitus type 2, severe osteoarthritis, spinal stenosis with her neurogenic claudication. Joan has anemia of chronic kidney disease as well as secondary hyperparathyroidism. She has had chronic hypercalcemia. She was seen and evaluated this morning prior to hemodialysis. I also re- evaluated the patient during hemodialysis later in the morning. Allergies Allergy/AdvReac Type Severity Reaction Status Date / Time bee venom protein (honey bee) Allergy Severe Anaphylaxis Verified 02/15/19 06:34 hornet venom Allergy Severe Anaphylaxis Verified 02/15/19 06:34 adhesive Allergy Mild local skin Verified 02/15/19 06:34 irritation bacitracin Allergy Mild Rash Verified 02/15/19 06:34 neomycin Allergy Mild Rash Verified 02/15/19 06:34 polymyxin B Allergy Mild Rash Verified 02/15/19 06:34 Home Medications Home Medications Medication Instructions Recorded Confirmed Type Myrbetriq 50 mg PO QAM 07/19/18 02/15/19 History ProRenal 1 dose PO UD 07/19/18 02/15/19 History atenolol 25 mg PO QAM 07/19/18 02/15/19 History atorvastatin [Lipitor] 40 mg PO PM 07/19/18 02/15/19 History glimepiride 2 mg PO QAM 07/19/18 02/15/19 History omeprazole 20 mg PO QAM 07/19/18 02/15/19 History docusate sodium [Stool Softener] 100 mg PO QAM 10/11/18 02/15/19 History epinephrine 0.3 mg/0.3 mL 0.3 mg SUBCUT UD PRN #1 ea 11/28/18 02/15/19 History injection, auto-injector sevelamer carbonate 800 mg tablet 1,600 mg PO QPM tab 12/14/18 02/15/19 History Patient History Medical History DVT (deep venous thrombosis) RLE (12/12/18) felt 2/2 decreased mobility d/t spinal stenosis-- prescribed Eliquis x 2 months (to be completed 02/11/19*) History of basal cell carcinoma s/p excision Limb alert care status RUE fistula Spastic bladder Surgical History H/O dilation and curettage (Resolved) History of ankle fusion (Resolved) B/L History of basal cell carcinoma (BCC) excision (Resolved) History of bilateral tubal ligation (Resolved) History of carpal tunnel release (Resolved) B/L History of cataract surgery (Resolved) History of colonoscopy (Resolved) History of esophagogastroduodenoscopy (EGD) (Resolved) History of oral surgery (Resolved) History of tonsillectomy (Resolved) History of tooth extraction (Resolved) History of total knee replacement (Resolved) B/L S/P arteriovenous (AV) fistula creation (Resolved) X3 TO RUE (RUE + REVISIONS) Family History Mother Family history of diabetes mellitus Arthritis Diabetes Brother Family hx of colon cancer Spina bifida Hypertension Colon cancer Father Kidney stones Social History Preferred Language: Central African Communication Ability: Effective Gullet Slitter Required: No Beliefs That Will Affect Care: None Current Living Situation: Spouse Other Information That Helps Us Care for You: No Feels Safe at Home: Yes Safety Concerns: Feels Safe At This Time Smoking Status: Never smoker Do You Dip or Chew Tobacco: No ; Second Hand Exposure: No ; Tobacco Cessation Education Requested by Patient: No Hx Alcohol Use: Yes Alcohol type: hard liquor Hx Substance Use: No Review of Systems Review of Systems: All systems reviewed & are unremarkable except as noted in HPI & below Physical Exam Constitutional: well developed and + obese; no acute distress Eyes: no scleral abnormality and no corneal abnormality ENMT: Mouth: no oral mucosal abnormality and oral mucous membranes not dry Neck: normal visual inspection, trachea midline and + thick neck Respiratory: normal respiratory effort Auscultation: lungs clear to auscultation bilaterally Cardiovascular: Rate/Rhythm: regular rate Heart Sounds: normal S1 and normal S2 Extremities: + AV fistula; no edema Gastrointestinal (Abdomen): Percussion/Palpation: abdomen soft; abdomen nontender Musculoskeletal: Extremities: no cyanosis and no clubbing Skin: normal turgor; no lesions Neurologic: Motor/Sensory: no tremor and no asterixis Psychiatric: Orientation: alert and oriented x 3 Results & Data Vital Signs (Past 12 Hours) Vital Signs Temp Pulse Pulse Pulse Resp BP BP 02/16/19 10:40 64 116/61 02/16/19 10:20 67 128/64 02/16/19 10:10 37.3 C 70 02/16/19 06:59 36.6 C 87 16 123/69 02/16/19 03:06 36.4 C L 75 16 125/74 Pulse Ox 02/16/19 10:40 02/16/19 10:20 02/16/19 10:10 02/16/19 06:59 97 02/16/19 03:06 98 Laboratory Results Laboratory Results - last 24 hr 02/15/19 02/15/19 02/15/19 13:41 17:13 20:40 WBC RBC Hgb Hct MCV MCH MCHC RDW Std Deviation RDW Coeff of Luis Plt Count MPV Immature Gran % (Auto) Neut % (Auto) Lymph % (Auto) Arthur % (Auto) Eos % (Auto) Baso % (Auto) Immature Gran # (Auto) Neut # (Auto) Lymph # (Auto) Arthur # (Auto) Eos # (Auto) Baso # (Auto) Sodium Potassium Chloride Carbon Dioxide Anion Gap BUN Creatinine Est Cr Clr Drug Dosing Est GFR ( Amer) Est GFR (Non-Af Amer) BUN/Creatinine Ratio Glucose POC Glucose 165 H 213 H Calcium Nasal Screen MRSA (PCR) Negative 02/16/19 02/16/19 02/16/19 04:47 04:47 08:15 WBC 14.15 H RBC 3.05 L Hgb 9.6 L Hct 29.1 L MCV 95.4 MCH 31.5 MCHC 33.0 RDW Std Deviation 57.7 H RDW Coeff of Luis 16.8 H Plt Count 141 MPV 10.9 H Immature Gran % (Auto) 0.4 Neut % (Auto) 82.7 Lymph % (Auto) 8.2 Arthur % (Auto) 8.5 Eos % (Auto) 0.1 Baso % (Auto) 0.1 Immature Gran # (Auto) 0.05 H Neut # (Auto) 11.72 H Lymph # (Auto) 1.16 L Arthur # (Auto) 1.20 H Eos # (Auto) 0.01 Baso # (Auto) 0.01 Sodium 140 Potassium 4.1 Chloride 104 Carbon Dioxide 27 Anion Gap 9.0 BUN 45 H Creatinine 4.51 H* D Est Cr Clr Drug Dosing 10.6 Est GFR ( Amer) 10.3 Est GFR (Non-Af Amer) 8.8 BUN/Creatinine Ratio 10.0 Glucose 76 POC Glucose 89 Calcium 8.2 L Nasal Screen MRSA (PCR) PG Care Time/CCT Total # of Minutes Spent Total Time Spent with Patient: Total time spent is greater than 50% in coordination of care (as documented) at patient's floor/unit and/or counseling patient:
[2019-02-16] MEDS: ATENOLOL 25 MG TABLET PO SCH (14:26)
[2019-02-16] MEDS: TRAMADOL HCL 50 MG TABLET PO PRN (14:30)
[2019-02-16] MEDS: ATORVASTATIN 40 MG TAB PO SCH (20:58)
[2019-02-16] MEDS: SEVELAMER HCL 800 MG TABLET PO SCH (20:58)
[2019-02-16] MEDS: DOCUSATE SODIUM/SENNA 50/8.6MG TAB PO SCH (20:58)
[2019-02-17] MEDS: POLYETHYLENE (MIRALAX) 17 GM PACK PO SCH ×3 (05:38→17:41)
[2019-02-17 06:37] LABS: Basophils # (auto) 0.02 K/uL (0-0.2); Basophils % (auto) 0.2 %; Eosinophils # (auto) 0.08 K/uL (0-0.5); Eosinophils % (auto) 0.7 %; Hematocrit (blood only) 29.5 % (37-47); Hemoglobin 9.5 g/dL (12.0-16.0); Immature Granulocytes # (auto) 0.06 K/uL (0.00-0.02); Immature Granulocytes % (auto) 0.5 %; Lymphocytes # (auto) 1.25 K/uL (1.2-3.4); Lymphocytes % (auto) 11.3 %; Mean Corpuscular Hemoglobin 31.5 pg (25-34); Mean Corpuscular Hgb Conc 32.2 g/dL (32-36); Mean Corpuscular Volume 97.7 fL (80-100); Mean Platelet Volume 10.5 fL (7.4-10.4); Monocytes % (auto) 11.8 %; Neutrophils # (auto) 8.34 K/uL (1.4-6.5); Neutrophils % (auto) 75.5 %; Platelet Count 117 K/uL (130-400); RDW Coefficient of Variation 17.2 % (11.5-14.5); RDW Standard Deviation 60.1 fL (36.4-46.3); Red Blood Count 3.02 M/uL (4.2-5.4); White Blood Count 11.05 K/uL (4.8-10.8)
[2019-02-17 07:08] LABS: BUN Creatinine Ratio 8.7 (10-20); Calcium 8.5 mg/dl (8.5-10.1); Creatinine Clr Calc Pharmacy 11.8 ml/min; Est GFR (African American) 11.7; Est GFR (Non-African American) 10.1; Potassium 4.3 mmol/L (3.5-5.1)
[2019-02-17] MEDS: ATENOLOL 25 MG TABLET PO SCH (09:33)
[2019-02-17] MEDS: PANTOprazole 40 MG TAB PO SCH (09:33)
[2019-02-17] MEDS: GLIMEPIRIDE 2 MG TAB PO SCH (09:33)
[2019-02-17] MEDS: MIRABEGRON ER 25 MG TAB PO SCH (09:34)
[2019-02-17] MEDS: INSULIN ASPART 100 UNITS/ML 3 ML PEN SC SCH ×4 (09:35→20:52)
--- NOTE | 2019-02-17 10:18 | Orthopedic Progress Note ---
Date of Service February 17, 2019 Assessment & Plan (1) Spinal stenosis, lumbar region with neurogenic claudication: At this time we will continue with physical therapy occupational therapy and I have encouraged her to get to the chair as much as possible certainly with every meal. Hoping for rehab placement Monday or Monday. Present on Admission?: Yes Subjective Back pain is controlled leg symptoms are improving. Physical Exam Physical Exam: On exam she is good strength testing appears comfortable. Results & Data Vital Signs (Past 12 Hours) Vital Signs Temp Pulse Pulse Resp BP Pulse Ox 02/17/19 07:16 36.8 C 73 16 136/72 94 02/17/19 06:12 36.4 C L 131/71 02/16/19 23:03 37.8 C H 82 18 133/65 94
--- NOTE | 2019-02-17 11:33 | Nephrology Progress Note ---
Date of Service February 17, 2019 Assessment & Plan (1) Spinal stenosis, lumbar region with neurogenic claudication: Postoperative day 2. Plan for discharge to inpatient rehabilitation for continued physical therapy within the next 24-48 hours. If the patient is discharged to [facility], we will be happy to continue to monitor. (2) ESRD (end stage renal disease) on dialysis: On hemodialysis TTS. AVF is functioning well. Estimated dry weight 86.2 kilograms. Patient dialyzes on 180 Optiflux dialyzer with a 2 potassium and 2 calcium bath. Blood pressure is acceptable. Electrolytes are acceptable. She has been maintained on a renal diet. Patient has known chronic hypercalcemia. Medications are appropriate for kidney function. She remains on sevelamer q.a.c. for hyperphosphatemia. (3) Hypercalcemia: (4) Anemia: 100 milligrams IV Venofer provided with hemodialysis yesterday. 62204 units of Epogen provided with hemodialysis yesterday. Subjective No acute events overnight. Tolerated hemodialysis yesterday without complications. Net UF 2 liters. Overall, she early feels well this morning. Pain is well controlled. Review of Systems Review of Systems: All systems reviewed & are unremarkable except as noted in HPI & below Physical Exam Constitutional: well developed and + obese; no acute distress Eyes: no scleral abnormality and no corneal abnormality ENMT: Mouth: no oral mucosal abnormality and oral mucous membranes not dry Neck: normal visual inspection, trachea midline and + thick neck Respiratory: normal respiratory effort Auscultation: lungs clear to auscultation bilaterally Cardiovascular: Rate/Rhythm: regular rate Heart Sounds: normal S1 and normal S2 Extremities: + AV fistula; no edema Gastrointestinal (Abdomen): Percussion/Palpation: abdomen soft; abdomen nontender Musculoskeletal: Extremities: no cyanosis and no clubbing Skin: normal turgor; no lesions Neurologic: Motor/Sensory: no tremor and no asterixis Psychiatric: Orientation: alert and oriented x 3 Results & Data Vital Signs (Past 12 Hours) Vital Signs Temp Pulse Resp BP Pulse Ox 02/17/19 07:16 36.8 C 73 16 136/72 94 02/17/19 06:12 36.4 C L 131/71 Laboratory Results Laboratory Results - last 24 hr 02/16/19 02/16/19 02/16/19 14:23 17:24 20:24 WBC RBC Hgb Hct MCV MCH MCHC RDW Std Deviation RDW Coeff of Luis Plt Count MPV Immature Gran % (Auto) Neut % (Auto) Lymph % (Auto) Elbert % (Auto) Eos % (Auto) Baso % (Auto) Immature Gran # (Auto) Neut # (Auto) Lymph # (Auto) Elbert # (Auto) Eos # (Auto) Baso # (Auto) Sodium Potassium Chloride Carbon Dioxide Anion Gap BUN Creatinine Est Cr Clr Drug Dosing Est GFR ( Amer) Est GFR (Non-Af Amer) BUN/Creatinine Ratio Glucose POC Glucose 115 H 186 H 164 H Calcium 02/17/19 02/17/19 02/17/19 06:24 06:24 08:04 WBC 11.05 H RBC 3.02 L Hgb 9.5 L Hct 29.5 L MCV 97.7 MCH 31.5 MCHC 32.2 RDW Std Deviation 60.1 H RDW Coeff of Luis 17.2 H Plt Count 117 L MPV 10.5 H Immature Gran % (Auto) 0.5 Neut % (Auto) 75.5 Lymph % (Auto) 11.3 Elbert % (Auto) 11.8 Eos % (Auto) 0.7 Baso % (Auto) 0.2 Immature Gran # (Auto) 0.06 H Neut # (Auto) 8.34 H Lymph # (Auto) 1.25 Elbert # (Auto) 1.30 H Eos # (Auto) 0.08 Baso # (Auto) 0.02 Sodium 136 Potassium 4.3 Chloride 102 Carbon Dioxide 24 Anion Gap 10.0 BUN 35 H Creatinine 4.04 H D Est Cr Clr Drug Dosing 11.8 Est GFR ( Amer) 11.7 Est GFR (Non-Af Amer) 10.1 BUN/Creatinine Ratio 8.7 L Glucose 118 H POC Glucose 120 H Calcium 8.5 PG Care Time/CCT Total # of Minutes Spent Total Time Spent with Patient: Total time spent is greater than 50% in coordination of care (as documented) at patient's floor/unit and/or counseling patient:
[2019-02-17] MEDS: TRAMADOL HCL 50 MG TABLET PO PRN (17:40)
[2019-02-17] MEDS: SEVELAMER HCL 800 MG TABLET PO SCH (20:38)
[2019-02-17] MEDS: ATORVASTATIN 40 MG TAB PO SCH (20:39)
[2019-02-17] MEDS: DOCUSATE SODIUM/SENNA 50/8.6MG TAB PO SCH (20:39)
[2019-02-18] MEDS: POLYETHYLENE (MIRALAX) 17 GM PACK PO SCH ×3 (02:38→13:12)
--- NOTE | 2019-02-18 08:04 | Anesthesiology Progress Note ---
Date of Service February 18, 2019 Anesthesia Post Procedure Vital Signs Vital Signs: Temp Pulse Resp BP Pulse Ox 02/18/19 07:15 36.7 C 75 18 135/78 95 02/17/19 22:48 36.5 C 69 16 138/67 94 02/17/19 15:12 36.8 C 66 16 129/66 99 Pain Intensity Back: Pain Intensity: 2 Notes Mental Status: alert / awake / arousable and participated in evaluation Nausea / Vomiting: adequately controlled Pain: adequately controlled Airway Patency, RR, SpO2: stable & adequate BP & HR: stable & adequate Hydration State: stable & adequate
[2019-02-18] MEDS: PANTOprazole 40 MG TAB PO SCH (08:07)
[2019-02-18] MEDS: GLIMEPIRIDE 2 MG TAB PO SCH (08:07)
[2019-02-18] MEDS: ATENOLOL 25 MG TABLET PO SCH (08:08)
[2019-02-18] MEDS: MIRABEGRON ER 25 MG TAB PO SCH (08:08)
[2019-02-18] MEDS: INSULIN ASPART 100 UNITS/ML 3 ML PEN SC SCH ×4 (08:10→21:09)
[2019-02-18] MEDS: TRAMADOL HCL 50 MG TABLET PO PRN (08:17)
--- NOTE | 2019-02-18 10:20 | Orthopedic Progress Note ---
Date of Service February 18, 2019 Assessment & Plan (1) Spinal stenosis, lumbar region with neurogenic claudication: This time she will continue physical therapy occupational therapy as tolerated. Will most likely discontinue her drain today. She is okay for discharge to rehab today or tomorrow. Present on Admission?: Yes Subjective Patient's leg pain is improving. Back pain well controlled. Physical Exam Physical Exam: On exam she is good strength testing appears comfortable. She is in bed. Results & Data Vital Signs (Past 12 Hours) Vital Signs Temp Pulse Resp BP Pulse Ox 02/18/19 07:15 36.7 C 75 18 135/78 95 02/17/19 22:48 36.5 C 69 16 138/67 94
--- NOTE | 2019-02-18 10:34 | Nephrology Progress Note ---
Date of Service February 18, 2019 Assessment & Plan (1) ESRD (end stage renal disease) on dialysis: -- Last HD Monday. Clinically euvolemic. No acute indication for HD today. Will schedule heparin free HD for am -- TTS HD: 3.5hrs, 2K 2Ca, F-180NR, EDW 86.2 kg (2) Anemia: -- Will provide KHANH w/ HD (3) Spinal stenosis, lumbar region with neurogenic claudication: -- POD #3 lumbar decompression -- Starting physical therapy Subjective Mrs. Barboza was seen & examined in her hospital room this morning. Her back discomfort is improved. Her primary concern is weakness. She hopes to get up and ambulate w/ physical therapy today Review of Systems Constitutional: + weakness; no fever and no chills Eyes: no worsening vision and no problem reported Ear, Nose, Mouth, Throat: no problem reported Respiratory: no cough and no dyspnea Cardiovascular: no chest pain, no palpitations and no edema Gastrointestinal: no abdominal pain, no nausea, no vomiting and no diarrhea/loose stools Genitourinary: no dysuria and no hematuria Musculoskeletal: + back pain Integumentary: no rash Neurologic: no falls, no dizziness and no confusion Physical Exam Constitutional: + frail appearing; not in distress Eyes: PERRL, conjunctivae normal, anicteric sclerae ENMT: external ear and nose normal, oropharynx normal Neck: trachea midline, no thyromegaly Respiratory: normal respiratory effort, lungs clear to auscultation Cardiovascular: RRR, no murmur, no edema Extremities: + AV fistula (+ bruit) Gastrointestinal (Abdomen): normal bowel sounds, soft, nontender, no hepatosplenomegaly Musculoskeletal: Extremities: no cyanosis Skin: no rashes, warm and dry Neurologic: awake; not confused Results & Data Vital Signs (Past 12 Hours) Vital Signs Temp Pulse Resp BP Pulse Ox 02/18/19 07:15 36.7 C 75 18 135/78 95 02/17/19 22:48 36.5 C 69 16 138/67 94 Laboratory Results Laboratory Tests 02/17/19 02/17/19 06:24 06:24 WBC 11.05 H Hgb 9.5 L Hct 29.5 L Plt Count 117 L Sodium 136 Potassium 4.3 Chloride 102 Carbon Dioxide 24 BUN 35 H Creatinine 4.04 H D Glucose 118 H PG Care Time/CCT Total # of Minutes Spent Total Time Spent with Patient: Total time spent is greater than 50% in coordination of care (as documented) at patient's floor/unit and/or counseling patient:
--- NOTE | 2019-02-18 13:17 | Hospitalist Progress Note ---
Date of Service February 18, 2019 Assessment & Plan (1) Lumbar spinal stenosis: (2) Spinal stenosis, lumbar region with neurogenic claudication: - s/p elective decompression/fusion of L3-L5 by Dr. Martinez - Pain management, bowel regimen, PT/OT per the primary team - hgb stable (3) Hypertension: - Continue atenolol 25 mg QAM - BP stable (4) Hyperlipidemia: - Continue on atorvastatin 40 mg QPM (5) Diabetes mellitus: - ISS with accuchecks achs, holding glimepiride while inpatient - HH/DM diet - Last A1C = 5.4 on 05/07/18 (6) ESRD (end stage renal disease) on dialysis: - Receives HD on -Mon, - Nephro consult - Continue Prorenal and sevelamer carbonate 1600 mg QPM as per RN VISITING meds - to have dialysis tomorrow (7) Hx of deep venous thrombosis: - Eliquis held since 02/10- had been taking since 12/12 for DVT. - On 02/06/19 repeat doppler determine no evidence of DVT within the right lower extremity. - Resume once cleared by surgical standpoint, follow with pcp for duration of therapy . (8) Obstructive sleep apnea: - Continue CPAP HS, (9) Secondary hyperparathyroidism: - Noted (10) Osteoporosis: - Noted, continue supplementation (11) Esophageal reflux: - Continue omeprazole Dispo: From home Thank you for involving us in the care of Mrs. Barboza. Please do not hesitate to call with questions or concerns. Medicine sign off at this time Supervising Physician Co-Signing Physician Notes I have seen and examined patient with ANTONY Soliz and agree with her assessment and plan. Subjective Ms. Barboza has no complaints. Tolerated therapy well. ROS Constitutional: no chills, aches, sweats or fever Respiratory: no sob,cough, sputum, or wheezing Cardiac: no chest pain, palpitations, edema, orthopnea or lightheadedness GI: no abdominal pain, nausea, vomiting, diarrhea or constipation : no dysuria or hesitancy Extremities: no joint pain or weakness Skin: no rash All other systems reviewed and negative Physical Exam Physical Exam: General: no distress Eyes: normal inspection, PERLL Respiratory: chest non tender, clear to auscultation, normal breath sounds, no respiratory distress, no accessory muscle use Cardiac: regular rate and rhythm, no rub or gallop, no murmur, no edema, no jvd GI/: active bowel sounds, no abd pain or tenderness, soft, non distended Extremities: normal range of motion, normal strength, non tender Neuro/Psych: alert and oriented x 3, normal mood and affect Skin: normal color, dry Results & Data Vital Signs (Past 12 Hours) Vital Signs Temp Pulse Resp BP Pulse Ox 02/18/19 07:15 36.7 C 75 18 135/78 95 PG Care Time/CCT Total # of Minutes Spent Total Time Spent with Patient: Total time spent is greater than 50% in co ordination of care (as documented) at patient's floor/unit and/or counseling patient:
[2019-02-18 15:18] VITALS: O2SAT 96
[2019-02-18] MEDS: DOCUSATE SODIUM/SENNA 50/8.6MG TAB PO SCH (20:49)
[2019-02-18] MEDS: ATORVASTATIN 40 MG TAB PO SCH (20:50)
[2019-02-18] MEDS: SEVELAMER HCL 800 MG TABLET PO SCH (20:50)
[2019-02-19 06:20] LABS: Hematocrit (blood only) 25.7 % (37-47); Hemoglobin 8.7 g/dL (12.0-16.0); Mean Corpuscular Hemoglobin 31.4 pg (25-34); Mean Corpuscular Hgb Conc 33.9 g/dL (32-36); Mean Corpuscular Volume 92.8 fL (80-100); Mean Platelet Volume 10.9 fL (7.4-10.4); Platelet Count 136 K/uL (130-400); RDW Coefficient of Variation 16.3 % (11.5-14.5); RDW Standard Deviation 55.2 fL (36.4-46.3); Red Blood Count 2.77 M/uL (4.2-5.4); White Blood Count 11.35 K/uL (4.8-10.8)
[2019-02-19 06:22] LABS: BUN Creatinine Ratio 10.8 (10-20); Calcium 8.2 mg/dl (8.5-10.1); Creatinine Clr Calc Pharmacy 7.8 ml/min; Est GFR (African American) 7.1; Est GFR (Non-African American) 6.1; Potassium 4.1 mmol/L (3.5-5.1)
[2019-02-19] MEDS ORDERED: EPOETIN ALFA 10,000 UNITS/ML VIAL IV SCH (07:00)
[2019-02-19] MEDS ORDERED: SODIUM CHLORIDE 0.9% 1000ML 1,000 ML IV PRN (07:00)
[2019-02-19] MEDS: PANTOprazole 40 MG TAB PO SCH (08:06)
[2019-02-19] MEDS: MIRABEGRON ER 25 MG TAB PO SCH (08:06)
[2019-02-19] MEDS: ATENOLOL 25 MG TABLET PO SCH (08:06)
[2019-02-19] MEDS: GLIMEPIRIDE 2 MG TAB PO SCH (08:06)
[2019-02-19] MEDS: TRAMADOL HCL 50 MG TABLET PO PRN ×2 (08:08→14:11)
[2019-02-19] MEDS: INSULIN ASPART 100 UNITS/ML 3 ML PEN SC SCH ×2 (08:47→12:59)
--- NOTE | 2019-02-19 10:21 | Nephrology Progress Note ---
Date of Service February 19, 2019 Assessment & Plan (1) ESRD (end stage renal disease) on dialysis: -- Heparin free HD today. Orders placed in EMR and HD RN notified -- TTS HD: 3.5hrs, 2K 2Ca, F-180NR, EDW 86.2 kg -- Outpatient orders for HD at [facility] written this am and provided to HD RN. Outpatient HD MD notified of pending transfer (2) Anemia: -- Will provide KHANH w/ HD (3) Spinal stenosis, lumbar region with neurogenic claudication: -- POD #4 lumbar decompression -- Starting physical therapy Subjective Mrs. Barboza was seen & examined in preparation for HD today. She was able to ambulate to the bathroom w/ physical therapy assistance this morning. She reports discomfort from her recent surgery but hopes to transfer to [facility] this afternoon for ongoing physical therapy Review of Systems Constitutional: + weakness; no fever and no chills Eyes: no worsening vision and no problem reported Ear, Nose, Mouth, Throat: no problem reported Respiratory: no cough and no dyspnea Cardiovascular: no chest pain, no palpitations and no edema Gastrointestinal: no abdominal pain, no nausea, no vomiting and no diarrhea/loose stools Genitourinary: no dysuria and no hematuria Musculoskeletal: + back pain Integumentary: no rash Neurologic: no falls, no dizziness and no confusion Physical Exam Constitutional: + frail appearing; not in distress Eyes: PERRL, conjunctivae normal, anicteric sclerae ENMT: external ear and nose normal, oropharynx normal Neck: trachea midline, no thyromegaly Respiratory: normal respiratory effort, lungs clear to auscultation Cardiovascular: RRR, no murmur, no edema Extremities: + AV fistula (+ bruit) Gastrointestinal (Abdomen): normal bowel sounds, soft, nontender, no hepatosplenomegaly Musculoskeletal: Extremities: no cyanosis Skin: no rashes, warm and dry Neurologic: awake; not confused Results & Data Vital Signs (Past 12 Hours) Vital Signs Temp Pulse Pulse Pulse Resp BP BP 02/19/19 10:00 64 130/60 02/19/19 09:54 37.1 C 71 66 16 146/67 H 02/19/19 09:40 64 130/68 02/19/19 09:17 37.1 C 71 02/18/19 23:35 36.6 C 66 16 146/67 H Pulse Ox 02/19/19 10:00 02/19/19 09:54 96 02/19/19 09:40 02/19/19 09:17 02/18/19 23:35 96 Laboratory Results Laboratory Tests 02/19/19 02/19/19 04:44 04:44 WBC 11.35 H Hgb 8.7 L Hct 25.7 L Plt Count 136 Sodium 132 L Potassium 4.1 Chloride 100 Carbon Dioxide 21 BUN 67 H D Creatinine 6.14 H* D PG Care Time/CCT Total # of Minutes Spent Total Time Spent with Patient: Total time spent is greater than 50% in coordination of care (as documented) at patient's floor/unit and/or counseling patient:
--- NOTE | 2019-02-19 11:16 | Discharge Summary ---
Date of Service February 19, 2019 Admission HPI Per Admitting Provider This is a 78-year-old female presents with chronic persistent back and leg pain. After failing extensive course of nonoperative care is here for surgical intervention. Principal Diagnosis Lumbar spinal stenosis with neurogenic claudication Discharge Data Allergies Allergy/AdvReac Type Severity Reaction Status Date / Time bee venom protein (honey bee) Allergy Severe Anaphylaxis Verified 02/15/19 06:34 hornet venom Allergy Severe Anaphylaxis Verified 02/15/19 06:34 adhesive Allergy Mild local skin Verified 02/15/19 06:34 irritation bacitracin Allergy Mild Rash Verified 02/15/19 06:34 neomycin Allergy Mild Rash Verified 02/15/19 06:34 polymyxin B Allergy Mild Rash Verified 02/15/19 06:34 Consultations 02/15/19 12:51 Consult Case Management - Discharge Planning Routine Consult Hospitalist Routine 02/15/19 18:08 Consult Nephrology Routine Procedures Performed Operation Date: 02/15/19 10:25 Actual Procedures p L3-L4, L4-L5 Decompression and Fusion, Application of BMP, with Spinal Cord Monitoring(Not Applicable) - Celso Martinez DO Ordered Studies 02/15/19 10:25 FL fluoroscopy <1hr Routine FL lumbar spine 2-3V Routine Hospital Course (1) Spinal stenosis, lumbar region with neurogenic claudication: Patient underwent multilevel lumbar decompression fusion tolerated as well as taken to the orthopedic floor postoperative. Postop day #1 to begin mob ilization tolerated physical therapy and Occupational Therapy progress the postop day #2 and 3 MYRTLE drain decreasing probably. Subsequent discharge to rehab on the postop day #4. Discharge orders instructions from the chart for further review. Total Time Total Time Spent Total Time Spent (In Minutes): 30 minutes Discharge Plan Discharge Items Patient Disposition: Transfer Inpatient Rehab Fac Reason For Visit: Spondylolisthesis Lumbosacral Region Discharge Diagnosis: ACTIVITY RECOMMENDATIONS: SELF CARE INSTRUCTIONS AFTER THORACIC/LUMBAR FUSIONS 1. You may walk to your tolerance. It is good exercise for your legs and back. Expect some back and intermittent leg aches and pains. 2. You may perform "counter-top" level activities (make a sandwich, jeanne with a project, etc.). 3. No bending or lifting of more than 10 pounds or back twisting of any nature (roll like a log when turning in bed). 4. You may ride in a car for 20-30 minutes at a time. No driving until after your first visit with your doctor. 5. Frequent changes of position and restricting sitting to 30 minutes at a time will help limit the amount of back spasms and stiffness you may experience. 6. You may discontinue the use of ambulatory aids (cane, crutches, etc.) once your strength and confidence allow. 7. You may solar business developer the shower and let water strike your incision when you arrive home at least once daily. Do not take a tub bath, sit in a hot tub or go into a swimming pool until after your first recheck in the office. SPECIAL CARE INSTRUCTIONS: VERY IMPORTANT TO READ AND REVIEW A. Your surgical incision has been closed with a cosmetic suture under the skin that will dissolve in about 6 weeks. In 14 days, you can use a pair of clean scissors and cut the suture that is left outside of the skin at the ends of your incision. 1. The small skin tapes can be removed 7 days after surgery if they have not fallen off by that point. 2. You may keep the wound open to air as much as possible to promote healing after post-op day number 5 unless told otherwise by your doctor. 3. If you think the wound looks like it is becoming infected (redness or worsening drainage) and/or you are experiencing fever, chill or worsening back pain and muscle spasms, contact the office so that we may evaluate you as soon as possible. B. Complications are uncommon, but please contact us if you have any signs or symptoms of: 1. wound infection (fever higher than 102.5 degrees F, redness, separation of wound, drainage, or increasing pain from the incision) 2. blood clots in legs (pain, swelling, redness and warmth in legs) 3. urinary tract infection (fever higher than 102.5 degrees F, burning upon urination or increased frequency of urination) 4. nerve problems (inability to walk on your toes or heels, numbness, loss of bowel or bladder control) 5. any other symptoms that concern you C. Please call the office at if you have any concerns or questions about your operation or recovery. D. No smoking! Smoking drastically decreases the chance of a solid fusion. E. Do not take any anti-inflammatory medications (Indocin, Advil, Motrin, Aspirin, Naprosyn, etc.) as these may inhibit the chance of a solid fusion. Tylenol is okay to take for pain. MANAGING PAIN AFTER SPINAL SURGERY 1. Narcotic medication is intended for short-term use and will be provided for surgical pain. Surgical pain usually lasts for a period of 4-6 weeks. Narcotic medication includes Percocet, Vicodin, Darvocet, Tylenol #3 or Lortab. 2. Longer-term pain is more appropriately treated with non-narcotic medication such as Tylenol ES. 3. Muscle spasm is not appropriately treated with narcotics. Muscle relaxers such as Soma, Flexeril or Skelaxin can be used along with Tylenol ES. 4. Remember that we all live with some "aches and pains". This is not unusual or uncommon after an injury or as we get older. a. Back pain is expected and may include muscle spasms for 4 to 6 weeks after surgery. The pain should gradually improve. If the pain worsens for no apparent reason, please contact the office. b. Intermittent leg pain may also be experienced and should not be concerned about unless it worsens for no apparent reason. If so, please contact the office. 5. We will provide appropriate medication within the normal guidelines of their prescribed use. We will also be very cautious and aware of potential abuse and extended duration of patients' medication needs. a. Pain medications are for your comfort and to assist with sleep and rest so that the tissue can heal. They are not provided in order to return to normal activity and should not be used through the day. To do so or worsening pain at night can result from ongoing tissue damage and d evelopment of tolerance to the prescribed medicine. 6. Please allow 2-3 days to process refills. Prescriptions will not be mailed but must be picked up at the office. FOLLOW UP VISIT: Keep your scheduled follow-up appointment. Any questions, please call the office at . Activity: Per Instructions section Non-emergency contact: Primary Care Provider Call non-emergency contact if: you have any medication questions Follow-up/Referrals: Lee Flores MD [Primary Care Provider] - Diet: Regular Addtl Attending Provider Instructions: ACTIVITY RECOMMENDATIONS: SELF CARE INSTRUCTIONS AFTER THORACIC/LUMBAR FUSIONS 1. You may walk to your tolerance. It is good exercise for your legs and back. Expect some back and intermittent leg aches and pains. 2. You may perform "counter-top" level activities (make a sandwich, jeanne with a project, etc.). 3. No bending or lifting of more than 10 pounds or back twisting of any nature (roll like a log when turning in bed). 4. You may ride in a car for 20-30 minutes at a time. No driving until after your first visit with your doctor. 5. Frequent changes of position and restricting sitting to 30 minutes at a time will help limit the amount of back spasms and stiffness you may experience. 6. You may discontinue the use of ambulatory aids (cane, crutches, etc.) once your strength and confidence allow. 7. You may solar business developer the shower and let water strike your incision when you arrive home at least once daily. Do not take a tub bath, sit in a hot tub or go into a swimming pool until after your first recheck in the office. SPECIAL CARE INSTRUCTIONS: VERY IMPORTANT TO READ AND REVIEW A. Your surgical incision has been closed with a cosmetic suture under the skin that will dissolve in about 6 weeks. In 14 days, you can use a pair of clean scissors and cut the suture that is left outside of the skin at the ends of your incision. 1. The small skin tapes can be removed 7 days after surgery if they have not fallen off by that point. 2. You may keep the wound open to air as much as possible to promote healing after post-op day number 5 unless told otherwise by your doctor. 3. If you think the wound looks like it is becoming infected (redness or worsening drainage) and/or you are experiencing fever, chill or worsening back pain and muscle spasms, contact the office so that we may evaluate you as soon as possible. B. Complications are uncommon, but please contact us if you have any signs or symptoms of: 1. wound infection (fever higher than 102.5 degrees F, redness, separation of wound, drainage, or increasing pain from the incision) 2. blood clots in legs (pain, swelling, redness and warmth in legs) 3. urinary tract infection (fever higher than 102.5 degrees F, burning upon urination or increased frequency of urination) 4. nerve problems (inability to walk on your toes or heels, numbness, loss of bowel or bladder control) 5. any other symptoms that concern you C. Please call the office at if you have any concerns or questions about your operation or recovery. D. No smoking! Smoking drastically decreases the chance of a solid fusion. E. Do not take any anti-inflammatory medications (Indocin, Advil, Motrin, Aspirin, Naprosyn, etc.) as these may inhibit the chance of a solid fusion. Tylenol is okay to take for pain. MANAGING PAIN AFTER SPINAL SURGERY 1. Narcotic medication is intended for short-term use and will be provided for surgical pain. Surgical pain usually lasts for a period of 4-6 weeks. Narcotic medication includes Percocet, Vicodin, Darvocet, Tylenol #3 or Lortab. 2. Longer-term pain is more appropriately treated with non-narcotic medication such as Tylenol ES. 3. Muscle spasm is not appropriately treated with narcotics. Muscle relaxers such as Soma, Flexeril or Skelaxin can be used along with Tylenol ES. 4. Remember that we all live with some "aches and pains". This is not unusual or uncommon after an injury or as we get older. a. Back pain is expected and may include muscle spasms for 4 to 6 weeks after surgery. The pain should gradually improve. If the pain worsens for no apparent reason, please contact the office. b. Intermittent leg pain may also be experienced and should not be concerned about unless it worsens for no apparent reason. If so, please contact the office. 5. We will provide appropriate medication within the normal guidelines of their prescribed use. We will also be very cautious and aware of potential abuse and extended duration of patients' medication needs. a. Pain medications are for your comfort and to assist with sleep and rest so that the tissue can heal. They are not provided in order to return to normal activity and should not be used through the day. To do so or worsening pain at night can result from ongoing tissue damage and development of tolerance to the prescribed medicine. 6. Please allow 2-3 days to process refills. Prescriptions will not be mailed but must be picked up at the office. FOLLOW UP VISIT: Keep your scheduled follow-up appointment. Any questions, please call the office at . Pending Studies at Discharge: No Stand-Alone Forms: [facility] Skilled Items Patient informed of condition?: Yes DNR: No Discharge Level of Care: Acute rehab Communicable Disease: No Discharge Prognosis: Stable Lines: None Urinary Catheter: No Medications and DC Order Prescriptions: Continued epinephrine 0.3 mg/0.3 mL auto-injector 0.3 mg subcut UD PRN (Reason: ALLERGY RELIEF) Qty: 1 RF: 0 sevelamer carbonate 800 mg tablet 1,600 mg PO QPM RF: 0 atorvastatin [Lipitor] 40 mg Tablet 40 mg PO PM RF: 0 atenolol 25 mg Tablet 25 mg PO QAM RF: 0 glimepiride 2 mg Tablet 2 mg PO QAM RF: 0 omeprazole 20 mg Tablet,Delayed Release (Dr/Ec) 20 mg PO QAM RF: 0 ProRenal 8 mg iron-800 mcg-1,000 unit Tablet 1 dose PO UD RF: 0 Myrbetriq 50 mg Tablet Extended Release 24 Hr 50 mg PO QAM RF: 0 docusate sodium [Stool Softener] 100 mg Capsule 100 mg PO QAM RF: 0 Discharge Orders: Discharge Order (Routine); Ordered 02/19/19 Ordered By: Celso Martinez Admission Data Admit Date/Time: 02/15/19 10:32 Attending Provider: Celso Martinez Admit Provider: Celso Martinez Primary Care Provider: Lee Flores Other Providers: [facility] ; Germaine Weiner ; Maksim Sandoval Other Interventions: Discharge Summary Assessment (RN) Last Done: 02/19/19 09:54
[2019-02-19 13:14] VITALS: BP 138/64; PULSE 64; TEMP 98.4
== END 2019-02-19 16:06 | DRG 459 ==
LOC: ASU 06:13 → 3E 10:32

== ENCOUNTER 2020-02-18 06:40 | Observation (INO) ==
--- NOTE | 2020-01-21 14:55 | PAT Medication Instructions ---
Medication Instructions Date of Service January 21, 2020 Home Medications Medication Instructions Recorded atenolol 25 mg tablet 25 mg PO QAM #90 tab 05/15/19 atorvastatin 40 mg tablet 40 mg PO PM #90 tab 05/15/19 blood sugar diagnostic #100 ea 05/15/19 glimepiride 2 mg tablet 2 mg PO QAM #90 tab 05/15/19 lancets 25 gauge #100 ea 05/15/19 mirabegron 50 mg tablet,extended 50 mg PO QAM #90 tab 05/15/19 release 24 hr omeprazole 20 mg tablet,delayed 20 mg PO QAM #90 tab 05/15/19 release fluticasone propionate 50 2 spray INTNAS DAILY #15.8 gm 05/20/19 mcg/actuation nasal spray,suspension epinephrine 0.3 mg/0.3 mL 0.3 mg SUBCUT UD PRN #1 ea 10/04/19 injection, auto-injector ProRenal 1 dose PO BID docusate sodium [Stool Softener] 100 mg PO QAM sevelamer carbonate 800 mg tablet 800 mg PO UD atenolol 25 mg tablet 25 mg PO QAM atorvastatin 40 mg tablet 40 mg PO PM glimepiride 2 mg tablet 2 mg PO QAM mirabegron 50 mg tablet,extended release 24 hr 50 mg PO QAM omeprazole 20 mg tablet,delayed release 20 mg PO QAM fluticasone propionate 50 mcg/actuation nasal spray,suspension 2 spray INTNAS DAILY epinephrine 0.3 mg/0.3 mL injection, auto-injector 0.3 mg SUBCUT UD PRN Continue as directed epinephrine 0.3 mg/0.3 mL injection, auto-injector 0.3 mg SUBCUT UD PRN STOP taking 2 weeks before surgery If surgery is within 2 weeks, stop taking as soon as possible. ProRenal 1 dose PO BID DO NOT take the morning of surgery docusate sodium [Stool Softener] 100 mg PO QAM glimepiride 2 mg tablet 2 mg PO QAM mirabegron 50 mg tablet,extended release 24 hr 50 mg PO QAM Take morning of surgery With a small sip of water, OTHERWISE NOTHING TO EAT OR DRINK AFTER MIDNIGHT: atenolol 25 mg tablet 25 mg PO QAM omeprazole 20 mg tablet,delayed release 20 mg PO QAM fluticasone propionate 50 mcg/actuation nasal spray,suspension 2 spray INTNAS DAILY sevelamer carbonate 800 mg tablet 800 mg PO UD Take evening before surgery atorvastatin 40 mg tablet 40 mg PO PM Other Notes If you have any questions please call us at [phone] or [phone] or [phone] or [phone]
--- NOTE | 2020-01-22 12:05 | Anesthesiology Consultation ---
Date of Service January 22, 2020 Assessment & Plan (1) Encounter for pre-operative examination: COVID Status: As of 01/21 assessment, patient denies travel to endemic area, known exposure/sick contacts, or symptoms of COVID19. Patient instructed that they and their household members must follow strict social distancing guidelines, wear a mask in public and avoid travel for 14 days prior to surgery. Preoperative COVID19 testing to be completed prior to surgery per surgeon's a rrangements (will do on 02/11). Patient made aware to self-isolate as much as possible between COVID testing and surgery. Patient is on dialysis T//MON. She is aware she cannot have surgery on her dialysis day and plans to [facility] move her to Monday for dialysis for that week (02/16). BMP AM DOS. Chart Review Chart Review: Acceptable Risk for Surgery (pending PCP clearance 01/28) and Patient seen in Pre Admission Testing Teaching & Discussion Instructed NPO after midnight before surgery, except medications with 15 cc of water. Medication instructions provided according to the PAT guidelines. History Surgery Operation Date: 02/18/20 10:50 Proposed Procedures p Right Total Knee Revision - Reggie Ramirez MD Height/Weight Height: 4 ft 11 in Weight: 85 kg Allergies Allergy/AdvReac Type Severity Reaction Status Date / Time bee venom protein (honey bee) Allergy Severe Anaphylaxis Verified 01/13/20 11:33 hornet venom Allergy Severe Anaphylaxis Verified 01/13/20 11:33 adhesive Allergy Mild local skin Verified 01/13/20 11:33 irritation bacitracin Allergy Mild Rash Verified 01/13/20 11:33 neomycin Allergy Mild Rash Verified 01/13/20 11:33 polymyxin B Allergy Mild Rash Verified 01/13/20 11:33 Medications Home Medications Medication Instructions Recorded Confirmed Last Taken ProRenal 1 dose PO BID 07/19/18 01/13/20 02/14/19 18:00 docusate sodium [Stool Softener] 100 mg PO QAM 10/11/18 01/13/20 02/14/19 08:00 sevelamer carbonate 800 mg tablet 800 mg PO UD tab 12/14/18 01/13/20 Unknown atenolol 25 mg tablet 25 mg PO QAM #90 tab 05/15/19 01/13/20 Unknown atorvastatin 40 mg tablet 40 mg PO PM #90 tab 05/15/19 01/13/20 Unknown blood sugar diagnostic #100 ea 05/15/19 11/01/19 Unknown glimepiride 2 mg tablet 2 mg PO QAM #90 tab 05/15/19 01/13/20 Unknown lancets 25 gauge #100 ea 05/15/19 11/01/19 Unknown mirabegron 50 mg tablet,extended 50 mg PO QAM #90 tab 05/15/19 01/13/20 Unknown release 24 hr omeprazole 20 mg tablet,delayed 20 mg PO QAM #90 tab 05/15/19 01/13/20 Unknown release fluticasone propionate 50 2 spray INTNAS DAILY #15.8 gm 05/20/19 01/13/20 Unknown mcg/actuation nasal spray,suspension epinephrine 0.3 mg/0.3 mL 0.3 mg SUBCUT UD PRN #1 ea 10/04/19 01/13/20 Unknown injection, auto-injector Past Medical History Medical History Aseptic loosening of prosthetic knee Deviated nasal septum Dialysis patient [facility] - yamin[facility], [place], [place] (has been on dialysis x 4 years) Diverticulosis DM type 2 (diabetes mellitus, type 2) DVT (deep venous thrombosis) RLE (12/12/18) felt 2/2 decreased mobility d/t spinal stenosis-- prescribed Eliquis x 2 months ESRD (end stage renal disease) Follows w/ Dr. Calhoun GERD (gastroesophageal reflux disease) History of basal cell carcinoma s/p excision HTN (hypertension) Hyperlipidemia Limb alert care status RUE fistula Osteoarthritis Sleep apnea CPAP Spastic bladder Spinal stenosis s/p lumbar fusion, ~ L4-L5, pt to have follow-up with Dr Martinez prior to surgery Exercise / Class Metabolic Activity III < 4 Walking/Shop/Light housework (Uses walker 2/2 lumbar surgery and knee instability; denies any SOB or CP with ambulation) Past Family History Family History Mother Family history of diabetes mellitus Arthritis Diabetes Stroke Brother Family hx of colon cancer Spina bifida Hypertension Colon cancer Heart disease Cancer Father Kidney stones Past Surgical History Surgical History H/O dilation and curettage History of ankle fusion B/L History of basal cell carcinoma (BCC) excision History of bilateral knee replacement History of bilateral tubal ligation History of carpal tunnel release B/L History of cataract surgery History of colonoscopy History of esophagogastroduodenoscopy (EGD) History of lumbosacral spine surgery decompression and fusion; hardware present; 02/15/2019 [place] History of oral surgery History of tonsillectomy History of tooth extraction S/P arteriovenous (AV) fistula creation X3 TO RUE (RUE + REVISIONS) Past Anesthesia History No Hx of Anesthesia Complications and No Family Hx of Anesthesia Complications History of PONV History of PONV (with general anesthesia, not spinals) and Hx of Motion Sickness (remote hx) Social History Smoking Status: Never smoker Do You Dip or Chew Tobacco: No Hx Alcohol Use: Yes Alcohol type: hard liquor alcohol intake frequency: holidays/special occasions only Hx Substance Use: No substance use type: does not use Review of Systems Pt denies any recent chest pain, shortness of breath, palpitations, cough, fever, URI, or uncontrolled acid reflux. Physical Exam Vital Signs BP: 143/70 P: 76bpm SPO2: 98% RA T: 98.6 F R: 16 ENMT Mouth: + dental restorations (many crowns and implants); no chipped teeth and no loose teeth Thyromental Distance: > or= 3.5 Finger Breadths Mallampati Class: I Neck + short neck and + limited neck extension Respiratory normal respiratory effort Auscultation: lungs clear to auscultation bilaterally Cardiovascular Rate/Rhythm: regular rate and regular rhythm Heart Sounds: no murmur Testing Laboratory Results 01/22/20 12:29 01/22/20 11:25 PT 11.1 Seconds (9.0-12.0) 01/22/20 12:29 INR 1.1 (0.9-1.1) 01/22/20 12:29 APTT 24.5 Seconds (21.0-31.0) 01/22/20 12:29 Hemoglobin A1c 5.5 % (4.5-5.6) 01/22/20 12:29 Blood Type A Positive 01/22/20 12:29 Antibody Screen NEGATIVE 01/22/20 12:29 Electrocardiogram Date: 01/22/20 Findings: + NSR @ (73bpm) iRBBB. Cannot r/o anterior infarct, age undetermined. Compared to EKG from 02/04/19, iRBBB is now present. Chest X-Ray Date: 01/22/20 Findings: + NAD
[2020-01-22 12:45] LABS: Basophils # (auto) 0.02 K/uL (0-0.2); Basophils % (auto) 0.3 %; Eosinophils # (auto) 0.08 K/uL (0-0.5); Eosinophils % (auto) 1.1 %; Hematocrit (blood only) 35.1 % (37-47); Hemoglobin 11.1 g/dL (12.0-16.0); Immature Granulocytes # (auto) 0.02 K/uL (0.00-0.02); Immature Granulocytes % (auto) 0.3 %; Lymphocytes # (auto) 1.41 K/uL (1.2-3.4); Lymphocytes % (auto) 19.9 %; Mean Corpuscular Hemoglobin 31.3 pg (25-34); Mean Corpuscular Hgb Conc 31.6 g/dL (32-36); Mean Corpuscular Volume 98.9 fL (80-100); Mean Platelet Volume 10.9 fL (7.4-10.4); Monocytes # (auto) 0.38 K/uL (0.11-0.59); Monocytes % (auto) 5.4 %; Neutrophils # (auto) 5.19 K/uL (1.4-6.5); Platelet Count 170 K/uL (130-400); RDW Coefficient of Variation 14.9 % (11.5-14.5); RDW Standard Deviation 52.5 fL (36.4-46.3); Red Blood Count 3.55 M/uL (4.2-5.4)
[2020-01-22 12:55] LABS: INR 1.1 (0.9-1.1); Partial Thromboplastin Ratio 0.9; Partial Thromboplastin Time 24.5 Seconds (21.0-31.0); Prothrombin Time 11.1 Seconds (9.0-12.0)
[2020-01-22 13:03] LABS: Estimated Average Glucose 111 mg/dl; Hemoglobin A1C 5.5 % (4.5-5.6)
--- NOTE | 2020-01-22 13:41 | XRay Report ---
XR chest Pre-admission PA/Lat CLINICAL HISTORY: Preoperative evaluation. COMPARISON STUDY: Chest radiograph December 12, 2018. FINDINGS: Lung volumes are normal. Lungs are clear. There is no pneumothorax or pleural effusion. Car diac size is stable. Mediastinal contours are normal. There is no evidence for pulmonary edema. IMPRESSION: No acute cardiopulmonary findings. ACT 112: Negative or not required by law. Electronically signed by: Andrew Kincaid M.D. 01/22/2020 1:40 PM
[2020-01-22 15:16] LABS: BUN Creatinine Ratio 7.8 (10-20); C Reactive Protein 0.29 mg/dl (0-0.29); Calcium 9.5 mg/dl (8.5-10.1); Creatinine Clr Calc Pharmacy 9.6 ml/min; Est GFR (African American) 9.8; Est GFR (Non-African American) 8.4; Potassium 3.7 mmol/L (3.5-5.1)
--- NOTE | 2020-02-15 12:23 | History and Physical Report ---
DATE OF ADMISSION: 02/18/2020 CHIEF COMPLAINT: Right knee pain, discomfort and disability. HISTORY OF PRESENT ILLNESS: The patient is a 79-year-old white female with multiple medical comorbidities including end-stage renal disease, long-term diabetes and history of a DVT in the past who presents for surgical treatment of her right knee. She had a right knee replaced by Dr. Zachary godinez in 1999. She did pretty well, but over the past several years, she has developed increased pain, discomfort and decreased ability to walk on this leg. She would really try and avoid surgery, but has become more debilitated by this and really cannot walk much at all. She does use an assistance device, but still having difficulty with that. She describes mostly velasquez pain. She gets startup pain. She uses a walker to get around. She is concerned that this immobility is only getting worse and she is almost wheelchair bound. There is no history of infection at the time of surgery. She has had no fevers. Otherwise, feeling well. PAST MEDICAL HISTORY: Significant for: 1. End-stage renal disease on dialysis. 2. Longstanding diabetes with fairly well controlled A1c of 5.5. 3. History of DVT in the calf without a PE. She is off anticoagulation. 4. Hypertension. 5. Sleep apnea with CPAP machine. 6. Obesity with a BMI of 38. 7. Spine arthritis. 8. Basal cell skin cancer. PAST SURGICAL HISTORY: Include: 1. Ankle fusion. 2. Back surgery years ago by Dr. Martinez. 3. Right knee replacement done 02/10/2000. 4. Left knee replacement 07/18/2002. 5. Carpal tunnel release. 6. Cataract surgery. 7. Oral surgery. 8. Tonsillectomy. 9. AV fistula placement. ALLERGIES: BACITRACIN, WHICH CAUSES A RASH. ALSO DESCRIBES RASHES TO NEOMYCIN, POLYMYXIN. CURRENT MEDICINES: Include: 1. Atenolol 25 mg a day. 2. Lipitor 40 mg a day. 3. Docusate sodium 100 mg a day. 4. Fluticasone nasal steroid spray. 5. Glimepiride 2 mg in the morning. 6. Omeprazole 20 mg a day. 7. Myrbetriq 50 mg in the morning. 8. Vitamin C. 9. Iron. 10. Sevelamer. SOCIAL HISTORY: A 79-year-old white female. She is . Does not smoke. FAMILY HISTORY: Noncontributory. REVIEW OF SYSTEMS: As above. She does have a history of a DVT in the past, but no PE. She is off anticoagulation. There is no known clotting disorder. It sounds like this is more of a superficial thrombosis. She has end-stage renal disease, on dialysis. No bleeding problems. No chest pain or shortness of breath. PHYSICAL EXAMINATION: GENERAL: Shows a pleasant elderly female. HEENT: Benign. NECK: Supple, no lymphadenopathy. LUNGS: Clear to auscultation. HEART: Has a regular rate and rhythm. ABDOMEN: Soft, nontender, nondistended. EXTREMITIES: Grossly neurovascularly intact except as follows. Examination of the right knee reveals the patient walks with use of a walker. Examination of the right knee reveals a moderate soft tissue envelope. She has got a well-healed incision. She has got varus deformity to her knee, which is increased with weightbearing. Range of motion is about 0-90. There is quite a bit of laxity to varus valgus stressing. She is neurologically intact. X-RAYS: X-rays of the right knee reviewed. Shows evidence of posterior stabilized total knee arthroplasty. The tibial tray is clearly loose and debonded from the cement mantle. Her tibia is tip into varus. There has been remodeling of the proximal tibia. The femoral component looks to be still afixed. ASSESSMENT: A 79-year-old white female with multiple medical comorbidities including end-stage renal disease, diabetes, history of deep venous thrombosis in the past, obesity, hypertension, sleep apnea with a loose total knee replacement, now 20 years out. Looks to be aseptic loosening. Her sed rate and C-reactive protein were normal. There are no clinical signs of infection. PLAN: We talked about treatment. We tried to treat her conservatively, but she has become more debilitated with this and she would like to have her knee fixed. We are going to take her to the operating room and do a right revision total knee arthroplasty. The risks and benefits of this procedure were explained to the patient including but not limited to deep venous thrombosis, pulmonary embolism, , infection, neurological injury, vascular injury, bleeding problem, pain, limited range of motion, stiffness, failure to relieve her symptoms, incomplete relief of symptoms, pain, fracture, need for blood transfusion, etc. I did talk to her that she is certainly at increased risk from any surgery due to her multiple comorbidities. She is aware of that. We will use deep venous thrombosis prophylaxis including thigh-high TEDs and SCDs. We will likely use a baby aspirin twice a day. We will see how she does in the hospital. She might need to go to rehab for a brief rehab stay postoperatively.
[~2020-02-18 06:40] MED LIST changes: +BUPIVACAINE 0.5 % 5 MG/1 ML PF 10ML VIAL ONE; +BUPIVACAINE LIPOSOME/PF 266 MG, BUPIVACAINE/EPINEPHRINE 50 ML, SODIUM CHLORIDE 0.9% 30 ... INFIL SCH; -CEFAZOLIN 2000MG 2,000 MG/15 ML SYR IV SCH; -CeleBREX 200 MG CAP PO SCH; +FAMOTIDINE 20 MG TAB PO SCH; +LR 60ML/HR IV SCH; +METOCLOPRAMIDE HCL 10 MG TABLET PO SCH; +MIDAZOLAM HCL 1 MG/ML 2ML VIAL ONE; +SODIUM CHLORIDE 0.9% 1,000 ML IV SCH; -SODIUM CHLORIDE 0.9% 1000ML IV SCH; +ceFAZolin 2000MG 2,000 MG/15 ML SYR IV SCH; +fentaNYL citrate 100 MCG/2 ML VIAL ONE
--- NOTE | 2020-02-18 06:54 | History & Physical Bridge Note ---
Date of Service February 18, 2020 History & Physical Bridge Note I have examined the patient, reviewed the History & Physical and in the interval since the performance of the History & Physical I have noted the following changes of clinical significance: no changes noted
[2020-02-18 08:05] LABS: Calcium 8.8 mg/dl (8.5-10.1); Creatinine Clr Calc Pharmacy 11.1 ml/min; Est GFR (African American) 11.7; Est GFR (Non-African American) 10.1; Potassium 3.7 mmol/L (3.5-5.1)
[2020-02-18] MEDS ORDERED: BUPIVACAINE/EPINEPHRINE 0.25% 1:200,000 30 ML VIAL ONE (08:51)
[2020-02-18] MEDS ORDERED: VANCOMYCIN HCL 1000MG/20ML VIAL ONE (08:52)
[2020-02-18] MEDS ORDERED: BACITRACIN INJ 50,000 UNIT VIAL ONE (08:52)
[2020-02-18] MEDS ORDERED: BUPIVACAINE LIPOSOME 1.3% 266 MG/20 ML VIAL ONE (08:52)
[2020-02-18] MEDS ORDERED: SODIUM CHLORIDE 0.9% PF 50 ML VIAL ONE (08:52)
[2020-02-18] MEDS ORDERED: PROPOFOL IV EMULSION 10 MG/ML 20 ML VIAL IV ONE (11:08)
[2020-02-18] MEDS ORDERED: TRANEXAMIC ACID / 0.7% NACL 1,000 MG/100 ML BAG IV STA (11:24)
--- NOTE | 2020-02-18 12:20 | Post Operative Brief Note ---
PG Immediate Post Op with CF Date of Surgery February 18, 2020 Pre & Post Diagnosis Operation Date: 02/18/20 08:50 Pre-Op Diagnosis: Aseptic Loosening Right Total Knee Replacement Post-Op Diagnosis: Aseptic Loosening Right Total Knee Replacement I identified the patient and participated in the time-out.: Yes Procedure Operation Date: 02/18/20 08:50 Actual Procedures p Right Total Knee Revision, Cemented(Right) - Reggie Ramirez MD Surgeon Reggie Ramirez MD Control Room Helper Mikel, PAC Estimated Blood Loss 200 Findings Consistent with Post-Op Diagnosis Fluids 350 cc Specimens Specimen Description: Microbiology #1- Right knee synovial fluid, out of room at 0949 Frozen #1- Right knee synovium, out of room at 0955 Drains Dowd Catheter Anesthesia Type Spinal MAC Complications none Disposition Accompanied Patient To Recovery: No Disposition: Recovery Room
[2020-02-18] MEDS ORDERED: CARBOHYDRATES FOR HYPOGLYCEMIA PO PRN (12:26)
[2020-02-18] MEDS ORDERED: GLUCOSE 10 TABS/TUBE PO PRN (12:26)
[2020-02-18] MEDS ORDERED: DEXTROSE 50% 50 ML SYRINGE IV PRN (12:26)
[2020-02-18] MEDS ORDERED: GLUCAGON FOR INJ 1 MG VIAL SQ PRN (12:26)
[2020-02-18] MEDS ORDERED: GLUCOSE 40% GEL 15 GM TUBE PO PRN (12:26)
--- NOTE | 2020-02-18 12:50 | XRay Report ---
XR knee RT 1 or 2V routine CLINICAL HISTORY: Postoperative evaluation. COMPARISON: Right tibia and fibula radiographs December 12, 2018. FINDINGS: Alignment of the revision longstem right knee arthroplasty is anatomic. The hardware is in tact. There is no periprosthetic fracture. There are no unexpected radiopaque foreign bodies. There a re skin laine. Intramedullary keshia within the distal right tibia is partially imaged. IMPRESSION: Expected findings following revision total right knee arthroplasty. ACT 112: Negative or not required by law. Electronically signed by: Andrew Kincaid M.D. 02/18/2020 12:49 PM
--- NOTE | 2020-02-18 13:31 | Operative Report ---
Post Operative Report Pre & Post Diagnosis Operation Date: 02/18/20 08:50 Pre-Op Diagnosis: Aseptic Loosening Right Total Knee Replacement Post-Op Diagnosis: Aseptic Loosening Right Total Knee Replacement I identified the patient and participated in the time-out.: Yes Procedure Operation Date: 02/18/20 08:50 Actual Procedures p Right Total Knee Revision, Cemented(Right) - Reggie Ramirez MD Surgeon Reggie Ramirez MD Facer Operator Mikel, PAC Estimated Blood Loss 200 Findings Consistent with Post-Op Diagnosis Operative findings revealed aseptic loosening of the tibial tray. She had a gross motion and destruction of the proximal tibia with extensive erosion around the tibial component. The femoral component was not grossly loose but was easily removed after using the salt lightly and a osteotome removal technique. The patella was still well fixed with fairly minimal wear. She did have extensive osteolysis around the entire knee. She had a very thin cortical shell around the proximal tibia around the tibial tubercle. She had extensive synovitis. Frozen section of the knee synovium revealed less than 5 polys per high-power field. Fluids 350 cc. Specimens Right knee synovium sent for a frozen section which revealed less than 5 polys per high-power field. Right knee joint fluid sent for stat Gram stain aerobic anaerobic culture. Drains None. Anesthesia Type Spinal MAC Complications none Disposition Accompanied Patient To Recovery: No Disposition: Recovery Room Indications Patient is a 79-year-old female with multiple medical comorbidities who has had a several year history of increasing right knee pain discomfort and disability. She had a right knee replaced about 20 years ago. Over the past several years she is developed increased pain discomfort and inability to ambulate. X-rays showed obvious debonding and loosening the tibial tray. She tried to manage this without surgery but her function continued to deteriorate. She now elected proceed with surgical treatment. She did have an infectious work-up with a normal sent sed rate and C-reactive protein. There is no clinical suspicion for infection. Description of Procedure : 1. Biomet Vanguard III 6062.5 right posterior stabilized femoral component with a 16 x 80 mm stem and a 5 mm offset. 2. Biomet size 67 tibial tray with a 14 x 80 mm stem with a 2.5 mm offset and small cruciate wing. 3. 16mm posterior stabilized polyethylene insert. The patient was taken to the operating identified and placed on the operating table supine position protectors were properly padded. IV antibiotics tried by anesthesia team. A spinal anesthetic and abductor canal block had provided in the holding area. Dowd catheter was placed in sterile fashion. Right thigh turn was then placed in the right lower extremities and prepped and draped in u sual sterile fashion. The right leg was elevated exsanguinated with use of an Esmarch and turns placed at 3 mmHg. An anterior approach to the right knee was then performed to longitudinal incision using the previous incision site. This was not extended. Sharp dissection was got through subcutaneous tissue down the extensor mechanism. A medial parapatellar arthrotomy incision was made. Some fluid was sent off for stat Gram stain and aerobic and anaerobic culture. The fluid did not look suspicious or infectious at all. Some subperiosteal dissection was carried out medially. There was a small crack in a hole in the proximal medial tibia from the a loose tibial tray. Down the fat tissue and scar tissue was resected from beneath patella tendon. The patella was then subluxated laterally and the knee was flexed. I then exposed the proximal tibia. The polyethylene was removed without difficulty. We could see that the tibial tray was also loose. I elected proceed with the femoral component at next. The margins of the femoral component were defined with use of a rongeur as well as a curette. The small saw was then used to break up the interface between the femoral component and the bone. I then used a stacked osteotome technique to remove the femoral component with very minimal bone damage. She did have quite a bit of underlying osteolysis. Attention drawn back to the tibia. The tibial component was now removed. I spent some time removing the cement which was in the IM canal. We were very careful not to do any more damage as the anterior shell was extremely thin where the patella tendon attached in the tibial tubercle proximally. Once the cement was removed I began reaming and reamed up to a size 14. I then used this to cut the tibia with about a 1 mm cut from the lateral side which was more prominent. This did leave a fairly large defect medially but it was a contained defect with some mild surrounding support. I then prepared the tibia for a 2.5 mm offset stem with a small cruciate wing. This implant was assembled in place. It covered the tibia fairly nicely. There was a defect medially but it was contained in the I decided just to fill that with cement. We left this implant in place and attention was drawn back to the femoral side. The distal femur turned with a sharp drill. I then reamed up to a size 16. We then used a 5 mm offset device. The distal femoral cut was made at 5 degrees and just a very thin cleanup cut of 1 mm. I then sized the femur to a 62.5. The AP cutting block was pinned parallel to the epicondylar axis and the anterior cut, anterior chamfer, posterior cut, posterior chamfer cuts were made. I then placed the box component and the box cut was made. The trial implant was assembled and placed and fit nicely in the femur. We then trialed the knee. The 16mm insert fit most appropriately. I examined the patella and I did not feel it needed any additional work. All trial implants were removed. We spent quite a bit of time debriding the bone edges of all fibrous tissue to allow for cement interdigitation. The permanent implants were assembled on the back table. I did inject locally with 100 cc of combination of 20 cc of Exparel, 30 cc normal saline, 50 cc of quarter percent Marcaine with epinephrine. I then did I did leave the tourniquet down for about 5 minutes as the components were finished being assembled. This tourniquet time was 100 minutes and and I did not initially think that we had enough time to cement before the 2-hour time limit. The tourniquet was let down for 5 minutes. Wrap the knee impacted. Once the components were assembled we reexsanguinated the knee. The wound was irrigated extensively. A double batch of Palacos G cement was mixed with additional gram of vancomycin. The femoral component was placed cementing the metaphyseal and surface. The tibial tray was then placed as well taking great care to protect the tenuous bone proximally. Of note, there was a defect in the anteromedial tibia but we bypassed this by quite a long distance and was felt to be acceptable. All extraneous cement was removed. A trial insert was placed and the knee was reduced and held in extension total cement hardened. I then examined the knee finally in elect to go with the 16mm implant. The trial implant was removed. I removed some extra pieces of cement posteriorly. I irrigated the wound extensively. The tourniquet was let down and hemostasis assured use electrocautery. The final total tourniquet time was 120minutes with a 5-minute break at the a 100-minute point. The 16mm mm permanent bearing was then placed and locked in place. Knee was reduced. The patella tracked nicely with no thumbs test. Attention drawn toward closing. The wound was irrigated cups ounce pulsatile lavage solution. The extensor mechanism closed with combination 1 PDS suture #1 Vicryl suture. The extensor mechanism checked found to be intact with the subcutaneous tissue then closed with 2 Dexon suture in a buried interrupted fashion skin was closed skin laine. Leg was then cleaned dried a sterile dressed composed Xeroform, 4 x 4's, sterile cast padding, Henry bandage were applied. Patient then transferred to the recovery room in stable condition. The patient tolerated procedure well and there are no complications. Brian Morin, my physician pathologist assistant, was present for the entire procedure. His assistance was essential and required for appropriate patient positioning, prepping and draping, surgical exposure, performing the technical details of the operation, placement the implants, closure of the wound, and placement of the sterile bandage. I attest to the content of the Intraoperative Record and any orders documented therein. Any exceptions are noted below.
[2020-02-18] MEDS ORDERED: NALOXONE HCL 0.4 MG/1 ML VIAL/CARP IV PRN (13:50)
[2020-02-18] MEDS ORDERED: HYDROmorphone INJ 0.5 MG/0.5 ML SYR IV PRN (13:50)
[2020-02-18] MEDS ORDERED: ONDANSETRON INJ 2 MG/ML 2 ML VIAL IV PRN (13:50)
[2020-02-18] MEDS ORDERED: SODIUM CHLORIDE 0.9% 1000ML 1,000 ML IV SCH (13:50)
[2020-02-18] MEDS ORDERED: MAGNESIUM HYDROXIDE SUSP 30 ML UDC PO PRN (13:50)
[2020-02-18] MEDS ORDERED: METOCLOPRAMIDE HCL INJ 5 MG/ML 2 ML VIAL IV PRN (13:50)
[2020-02-18] MEDS ORDERED: bisacodyL 10 MG SUPP PR PRN (13:50)
[2020-02-18] MEDS ORDERED: NO NSAIDS SCH (13:50)
--- NOTE | 2020-02-18 13:58 | Anesthesiology Progress Note ---
Date of Service February 18, 2020 Anesthesia Post Procedure Vital Signs Vital Signs: Temp Pulse Pulse Resp BP Pulse Ox 02/18/20 13:55 97.7 F 75 14 133/66 95 02/18/20 13:15 97.5 F L 70 16 120/64 95 02/18/20 13:05 97.5 F L 70 16 123/53 L 95 02/18/20 12:55 70 15 117/63 96 02/18/20 12:45 79 18 164/82 H 95 02/18/20 12:26 97.5 F L 79 18 142/80 H 95 02/18/20 07:51 69 18 137/66 98 02/18/20 07:16 99.1 F 76 16 124/55 L 95 Transfer of Care Handoff Completed per policy Notes Mental Status: alert / awake / arousable and participated in evaluation Patient Amnestic to Procedure: Yes Nausea / Vomiting: adequately controlled Pain: adequately controlled Airway Patency, RR, SpO2: stable & adequate BP & HR: stable & adequate Hydration State: stable & adequate Neuraxial Anesthesia: was administered and sensory block is resolving Anesthetic Complications: no major complications apparent and Pt Satisfied with anesthetic care
[2020-02-18] MEDS ORDERED: PHARMACY GLYCEMIC MGMT CONSULT PRN (13:59)
--- NOTE | 2020-02-18 14:13 | Nephrology Consultation ---
Date of Consultation February 18, 2020 Assessment & Plan (1) ESRD (end stage renal disease) on dialysis: ESRD on HD, on TTS schedule at [facility]. She was admitted and had elective right knee replacement. Had dialysis yesterday in anticipation of surgery today, currently electrolyte, blood pressure, volume status acceptable. -- No need for dialysis today, will monitor electrolyte and volume status tomorrow for any need for urgent dialysis otherwise plan for dialysis as her regular schedule. However, if Ortho plan to discharge pt on , we will do HD tomorrow to avoid dialysis day discharge. -- avoid IV fluid, fluid restriction to less than 1 L per day, low-salt, low- potassium diet. -- dose medications for GFR less than 10 -- continue on phosphate binder with meals -- Epogen for hemoglobin less than 10 will follow Thank you for allowing me to participate in your patient's care. It was a pleasure to see Joan (2) Hypertension: (3) Hyperlipidemia: (4) Anemia: (5) Secondary hyperparathyroidism: (6) Aseptic loosening of prosthetic knee: History of Present Illness Reason for Consultation: end-stage renal disease on hemodialysis Attending Physician: Reggie Ramirez MD History of Present Illness Joan Barboza is a 78-year-old female with ESRD on HD at [facility]. Admitted to the hospital and had elective right total knee arthroplasty. Nephrology consult requested to manage hemodialysis while inpatient. EMR records are reviewed in detail during patient's visit. Joan was admitted to hospital [facility] for elective right knee replacement and had the surgery this morning. Tolerated the surgery well. 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 She did have dialysis yesterday prior to hospital admission as surgery was planned for today. blood pressure, volume status and electrolyte acceptable. She had right wrist AV fistula by Dr. Archibald 12/05. Past medical history is notable for longstanding hypertension, obesity, obstructive sleep apnea treated with CPAP, hyperlipidemia, history of DVT for which she had been treated with Eliquis. Diabetes mellitus type 2, severe osteoarthritis, spinal stenosis with her neurogenic claudication. She denies any other symptom except postsurgical pain. Allergies Allergy/AdvReac Type Severity Reaction Status Date / Time bee venom protein (honey bee) Allergy Severe Anaphylaxis Verified 02/18/20 07:06 hornet venom Allergy Severe Anaphylaxis Verified 02/18/20 07:06 adhesive Allergy Mild local skin Verified 02/18/20 07:06 irritation bacitracin Allergy Mild Rash Verified 02/18/20 07:06 neomycin Allergy Mild Rash Verified 02/18/20 07:06 polymyxin B Allergy Mild Rash Verified 02/18/20 07:06 Home Medications Home Medications Medication Instructions Recorded Confirmed Type ProRenal 1 dose PO BID 07/19/18 02/18/20 History docusate sodium [Stool Softener] 100 mg PO QAM 10/11/18 02/18/20 History sevelamer carbonate 800 mg tablet 800 mg PO UD tab 12/14/18 01/13/20 History fluticasone propionate 50 2 spray INTNAS DAILY #15.8 gm 05/20/19 02/18/20 Rx mcg/actuation nasal spray,suspension epinephrine 0.3 mg/0.3 mL 0.3 mg SUBCUT UD PRN #1 ea 10/04/19 02/18/20 Rx injection, auto-injector atenolol 25 mg tablet 25 mg PO QAM #90 tab 01/29/20 02/18/20 Rx atorvastatin 40 mg tablet 40 mg PO PM #90 tab 01/29/20 02/18/20 Rx blood sugar diagnostic #100 ea 01/29/20 01/29/20 Rx glimepiride 2 mg tablet 2 mg PO QAM #90 tab 01/29/20 02/18/20 Rx lancets 25 gauge #100 ea 01/29/20 01/29/20 Rx mirabegron 50 mg tablet,extended 50 mg PO QAM #90 tab 01/29/20 02/18/20 Rx release 24 hr omeprazole 20 mg tablet,delayed 20 mg PO QAM #90 tab 01/29/20 02/18/20 Rx release Patient History Medical History Aseptic loosening of prosthetic knee Deviated nasal septum Dialysis patient [facility], [place] (has been on dialysis x 4 years) Diverticulosis DM type 2 (diabetes mellitus, type 2) DVT (deep venous thrombosis) RLE (12/12/18) felt 2/2 decreased mobility d/t spinal stenosis-- prescribed Eliquis x 2 months ESRD (end stage renal disease) Follows w/ Dr. Calhoun GERD (gastroesophageal reflux disease) History of basal cell carcinoma s/p excision HTN (hypertension) Hyperlipidemia Limb alert care status RUE fistula Osteoarthritis Sleep apnea CPAP Spastic bladder Spinal stenosis s/p lumbar fusion, ~ L4-L5, pt to have follow-up with Dr Martinez prior to surgery Surgical History H/O dilation and curettage History of ankle fusion B/L History of basal cell carcinoma (BCC) excision History of bilateral knee replacement History of bilateral tubal ligation History of carpal tunnel release B/L History of cataract surgery History of colonoscopy History of esophagogastroduodenoscopy (EGD) History of lumbosacral spine surgery decompression and fusion; hardware present; 02/15/2019 [place] History of oral surgery History of tonsillectomy History of tooth extraction S/P arteriovenous (AV) fistula creation X3 TO RUE (RUE + REVISIONS) Family History Mother Family history of diabetes mellitus Arthritis Diabetes Stroke Brother Family hx of colon cancer Spina bifida Hypertension Colon cancer Heart disease Cancer Father Kidney stones Social History Smoking Status: Never smoker Second Hand Exposure: No; Do You Dip or Chew Tobacco: No; Hx Alcohol Use: Yes Alcohol type: hard liquor Hx Substance Use: No Preferred Language: Azerbaijani Communication Ability: Effective Information Technology Coordinator Required: No Beliefs That Will Affect Care: None Current Living Situation: Spouse current occupational status: retired Feels Safe at Home: Yes Safety Concerns: Feels Safe At This Time Assistive Devices: None Review of Systems Review of Systems: All systems reviewed & are unremarkable except as noted in HPI & below Physical Exam Constitutional: WD/WN, vitals as above no acute distress Eyes: PERRL, conjunctivae normal, anicteric sclerae ENMT: external ear and nose normal, oropharynx normal Ears: no hearing impairment Neck: trachea midline Respiratory: normal respiratory effort, lungs clear to auscultation no respiratory distress and no cough Auscultation: no crackles, no rales and no wheezes Cardiovascular: RRR, no murmur, no edema Extremities: + AV fistula Gastrointestinal (Abdomen): normal bowel sounds, soft, nontender, no hepatosplenomegaly Percussion/Palpation: abdomen nontender, no guarding and abdomen not rigid Musculoskeletal: right lower extremity immobile, in dressing Skin: no rashes, warm and dry Neurologic: moves all extremities and awake Psychiatric: A+Ox3, euthymic affect Results & Data ([facility]) Vital Signs (Past 12 Hours) Vital Signs Temp Pulse Pulse Resp BP Pulse Ox 02/18/20 13:55 36.5 C 75 14 133/66 95 02/18/20 13:15 36.4 C L 70 16 120/64 95 02/18/20 13:05 36.4 C L 70 16 123/53 L 95 02/18/20 12:55 70 15 117/63 96 02/18/20 12:45 79 18 164/82 H 95 02/18/20 12:26 36.4 C L 79 18 142/80 H 95 02/18/20 07:51 69 18 137/66 98 02/18/20 07:16 37.3 C 76 16 124/55 L 95 PG Care Time/CCT Total # of Minutes Spent Total Time Spent with Patient: Total time spent is greater than 50% in coordination of care (as documented) at patient's floor/unit and/or counseling patient: Coding Level of Care Code 01791 Inpt Consult Level 5 Diagnoses ESRD (end stage renal disease) on dialysis N18.6; Z99.2 Hypertension I10 Hyperlipidemia E78.5 Anemia D64.9 Secondary hyperparathyroidism N25.81 Aseptic loosening of prosthetic knee T84.038A; Z96.659
--- NOTE | 2020-02-18 14:17 | Pharmacy Report ---
Glycemic Control Consultation - Date of Service February 18, 2020 - Scope Scope: Glycemic Pharmacist consulted for glycemic control and to write orders per [facility] inpatient glycemic control protocol. - Objective Weight: 85 kg Accuchecks BSG (last 24hrs): 02/18/20 02/18/20 02/18/20 07:11 07:13 12:29 Glucose 85 POC Glucose 92 125 H Laboratory Data (last 24hrs): 02/18/20 07:11 Potassium 3.7 Carbon Dioxide 32 Anion Gap 7.0 Creatinine 4.01 H Est Cr Clr Drug Dosing 11.1 HbA1c: Hemoglobin A1c 5.5 % (4.5-5.6) 01/22/20 12:29 - Recent Pertinent Medications Outpatient Anti-diabetic Regimen: * Glimepiride 2 mg PO qAM * A1c = 5.5% (01/22/2020) Risk Factors for Insulin Resistance: * Recent Surgery * POD #0 * Diet: * T2DM - Assessment & Plan Assessment & Plan: ASSESSMENT: * 79 yo F admitted s/p R TKA. Pharmacy is consulted for inpatient glycemic management. * Preop BSG was 92 mg/dL. Postop BSG was 125 mg/dL. * No steroids were administered perioperatively that I can see. * Start only bolus insulin based on weight/stress of 1-2 PLAN FOR INPATIENT GLYCEMIC CONTROL: * Holding outpatient oral diabetes medications * Basal insulin * None * Bolus insulin * NovoLog per scale ACHS or Q6hrs while NPO * Goal Range: Low 110 mg/dL - High 140 mg/dL * Correction Factor: 30 mg/dL/unit * Nutritional / Prandial insulin per carb ratio of 1 unit per 10 grams CHO consumed * Please note that the plan above was derived based on current level of insulin resistance and hospital stress. These recommendations are appropriate for inpatient admission only. Plan of care upon discharge will need to be reassessed to avoid potential outpatient hypo/hyperglycemia. Thank you.
[2020-02-18] MEDS: ACETAMINOPHEN 500 MG TAB PO SCH ×2 (14:48→21:07)
[2020-02-18] MEDS: FERROUS GLUCONATE 324 MG TAB PO SCH (17:36)
[2020-02-18] MEDS: SEVELAMER HCL 800 MG TABLET PO SCH (17:36)
[2020-02-18] MEDS: INSULIN ASPART 100 UNITS/ML 3 ML PEN SC SCH ×2 (17:38→21:08)
[2020-02-18] MEDS: ceFAZolin 2000MG 2,000 MG/15 ML SYR IV SCH (17:39)
--- NOTE | 2020-02-18 18:08 | Hospitalist Consultation ---
Date of Consultation February 18, 2020 Assessment & Plan (1) Post-operative state: S/p Right total knee revision with Dr. Ramirez 02/17 Pain control, dvt proph per primary Monitor for acute blood loss (2) Anemia: Anemia of chronic disease, baseline is around 9-11 CBC am (3) ESRD (end stage renal disease) on dialysis: Nephrology is consulted to manage dialysis Continue home sevalamer (4) Diabetes mellitus: Pharmacy consulted for diabetes management (5) Hyperlipidemia: Continue home atorvastatin (6) Hypertension: Continue home atenolol, Supervising Physician Co-Signing Physician Notes Patient seen and examined with Osiris HARDY. I agree with her exam findings, review of systems, assessment and plan. I personally reviewed the lab work and imaging as well. patient doing well after total knee revision, she said her TKA is 20 years old no chest pain, no dyspnea, no fever/chills appreciate nephrology consultation, likely plan for HD tomorrow - ESRD: had HD on Monday in anticipation of surgery on 02/17 likely get HD on 02/18 so as to avoid same day HD discharge - TKA revision: pain controlled, plan for PT/OT, discharge planning per ortho History of Present Illness Attending Physician: Reggie Ramirez MD History of Present Illness Ms. Barboza is doing well post op, no complaints. Pmhx: DMII, hld, GERD, overactive bladder, htn, ESRD Social: lives with , retired, never smoker, occasional alcohol Family: DMII, heart disease, pancreatic cancer, colon cancer Allergies Allergy/AdvReac Type Severity Reaction Status Date / Time bee venom protein (honey bee) Allergy Severe Anaphylaxis Verified 02/18/20 07:06 hornet venom Allergy Severe Anaphylaxis Verified 02/18/20 07:06 adhesive Allergy Mild local skin Verified 02/18/20 07:06 irritation bacitracin Allergy Mild Rash Verified 02/18/20 07:06 neomycin Allergy Mild Rash Verified 02/18/20 07:06 polymyxin B Allergy Mild Rash Verified 02/18/20 07:06 Home Medications Home Medications Medication Instructions Recorded Confirmed Type ProRenal 1 dose PO BID 07/19/18 02/18/20 History docusate sodium [Stool Softener] 100 mg PO QAM 10/11/18 02/18/20 History sevelamer carbonate 800 mg tablet 800 mg PO UD tab 12/14/18 01/13/20 History fluticasone propionate 50 2 spray INTNAS DAILY #15.8 gm 05/20/19 02/18/20 Rx mcg/actuation nasal spray,suspension epinephrine 0.3 mg/0.3 mL 0.3 mg SUBCUT UD PRN #1 ea 10/04/19 02/18/20 Rx injection, auto-injector atenolol 25 mg tablet 25 mg PO QAM #90 tab 01/29/20 02/18/20 Rx atorvastatin 40 mg tablet 40 mg PO PM #90 tab 01/29/20 02/18/20 Rx blood sugar diagnostic #100 ea 01/29/20 01/29/20 Rx glimepiride 2 mg tablet 2 mg PO QAM #90 tab 01/29/20 02/18/20 Rx lancets 25 gauge #100 ea 01/29/20 01/29/20 Rx mirabegron 50 mg tablet,extended 50 mg PO QAM #90 tab 01/29/20 02/18/20 Rx release 24 hr omeprazole 20 mg tablet,delayed 20 mg PO QAM #90 tab 01/29/20 02/18/20 Rx release Patient History Medical History Aseptic loosening of prosthetic knee Deviated nasal septum Dialysis patient [facility], Sat (has been on dialysis x 4 years) Diverticulosis DM type 2 (diabetes mellitus, type 2) DVT (deep venous thrombosis) RLE (12/12/18) felt 2/2 decreased mobility d/t spinal stenosis-- prescribed Eliquis x 2 months ESRD (end stage renal disease) Follows w/ Dr. Calhoun GERD (gastroesophageal reflux disease) History of basal cell carcinoma s/p excision HTN (hypertension) Hyperlipidemia Limb alert care status RUE fistula Osteoarthritis Sleep apnea CPAP Spastic bladder Spinal stenosis s/p lumbar fusion, ~ L4-L5, pt to have follow-up with Dr Martinez prior to surgery Surgical History (Updated 02/19/20 @ 07:13 by Kaleb Vick PA-C) H/O dilation and curettage History of ankle fusion B/L History of basal cell carcinoma (BCC) excision History of bilateral knee replacement History of bilateral tubal ligation History of carpal tunnel release B/L History of cataract surgery History of colonoscopy History of esophagogastroduodenoscopy (EGD) History of lumbosacral spine surgery decompression and fusion; hardware present; 02/15/2019 [place] History of oral surgery History of tonsillectomy History of tooth extraction S/P arteriovenous (AV) fistula creation X3 TO RUE (RUE + REVISIONS) Family History Mother Family history of diabetes mellitus Arthritis Diabetes Stroke Brother Family hx of colon cancer Spina bifida Hypertension Colon cancer Heart disease Cancer Father Kidney stones Social History Smoking Status: Never smoker Second Hand Exposure: No; Do You Dip or Chew Tobacco: No; Hx Alcohol Use: Yes Alcohol type: hard liquor Hx Substance Use: No Preferred Language: Yi Communication Ability: Effective Rural Service Engineer Required: No Beliefs That Will Affect Care: None marital status: Current Living Situation: Spouse current occupational status: retired Feels Safe at Home: Yes Safety Concerns: Feels Safe At This Time Assistive Devices: Walker Review of Systems Constitutional: no fever, no sweats and no body aches Respiratory: no cough and no dyspnea Cardiovascular: no chest pain, no palpitations and no lightheadedness Gastrointestinal: no abdominal pain, no nausea and no vomiting Genitourinary: no dysuria Musculoskeletal: no back pain and no joint pain Integumentary: no rash Physical Exam Physical Exam: General: no distress Eyes: normal inspection, PERLL Respiratory: chest non tender, clear to auscultation, normal breath sounds, no respiratory distress, no accessory muscle use Cardiac: regular rate and rhythm, no rub or gallop, no murmur, no edema, no jvd GI/: active bowel sounds, no abd pain or tenderness, soft, non distended Extremities: normal range of motion, normal strength, non tender Neuro/Psych: alert and oriented x 3, normal mood and affect Skin: normal color, dry Results & Data Results & Data ([facility]) Vital Signs (Past 12 Hours) Vital Signs Temp Pulse Pulse Resp BP Pulse Ox 02/18/20 16:24 36.2 C L 81 17 159/67 H 98 02/18/20 15:29 36.3 C L 82 16 153/74 H 97 02/18/20 14:43 36.4 C L 73 14 134/72 99 02/18/20 13:55 36.5 C 75 14 133/66 95 02/18/20 13:36 36.5 C 72 14 133/73 95 02/18/20 13:15 36.4 C L 70 16 120/64 95 02/18/20 13:05 36.4 C L 70 16 123/53 L 95 02/18/20 12:55 70 15 117/63 96 02/18/20 12:45 79 18 164/82 H 95 02/18/20 12:26 36.4 C L 79 18 142/80 H 95 02/18/20 07:51 69 18 137/66 98 02/18/20 07:16 37.3 C 76 16 124/55 L 95 PG Care Time/CCT Total # of Minutes Spent Total Time Spent with Patient: Total time spent is greater than 50% in coordination of care (as documented) at patient's floor/unit and/or counseling patient: Coding Level of Care Code 19048 Inpt Consult Level 4 Diagnoses Post-operative state Z98.890 Anemia D64.9 ESRD (end stage renal disease) on dialysis N18.6; Z99.2 Diabetes mellitus E11.9 Hyperlipidemia E78.5 Hypertension I10
[2020-02-18] MEDS ORDERED: TRANEXAMIC ACID / 0.7% NACL 1,000 MG/100 ML BAG IV SCH (18:23)
[2020-02-18] MEDS: SENNA 8.6 MG TAB PO SCH (21:07)
[2020-02-18] MEDS: DOCUSATE SODIUM 100 MG CAP PO SCH (21:07)
[2020-02-18] MEDS: ATORVASTATIN 40 MG TAB PO SCH (21:07)
[2020-02-18] MEDS: ASPIRIN 81 MG ECTAB PO SCH (21:07)
[2020-02-18] MEDS: traMADol HCL 50 MG TABLET PO PRN (22:35)
[2020-02-19] MEDS: ceFAZolin 2000MG 2,000 MG/15 ML SYR IV SCH (01:51)
[2020-02-19] MEDS: ACETAMINOPHEN 500 MG TAB PO SCH ×3 (06:08→21:39)
[2020-02-19] MEDS: traMADol HCL 50 MG TABLET PO PRN ×2 (06:09→12:17)
[2020-02-19 07:04] LABS: Hematocrit (blood only) 28.6 % (37-47); Hemoglobin 9.5 g/dL (12.0-16.0); Mean Corpuscular Hgb Conc 33.2 g/dL (32-36); Mean Corpuscular Volume 96.3 fL (80-100); Mean Platelet Volume 11.1 fL (7.4-10.4); Platelet Count 168 K/uL (130-400); RDW Coefficient of Variation 15.1 % (11.5-14.5); RDW Standard Deviation 52.3 fL (36.4-46.3); Red Blood Count 2.97 M/uL (4.2-5.4); White Blood Count 12.02 K/uL (4.8-10.8)
--- NOTE | 2020-02-19 07:18 | Orthopedic Progress Note ---
Date of Service February 19, 2020 Assessment & Plan (1) Status post revision of total replacement of right knee: Patient is postop day 1. Continue plan of care. Her pain is well controlled. Her nausea is improving. She will remain weightbearing as tolerated. She will continue DVT prophylaxis with ALESIA stockings and aspirin. She will likely be discharged to home health tomorrow. Admission and Anticipated Discharge Date Admission Date: February 18, 2020 Henri Franco is a 79-year-old female who Is 1 day status post right total knee revision. Patient denies any shortness of breath, chest pain, lightheadedness, dizziness. She states her nausea is subsiding. She has no new complaints today. She states her pain is mostly well controlled. Hemoglobin is 9.5 today. She has slightly elevated blood pressure today, otherwise vitals appear stable. Review of Systems Constitutional: no fever, no chills and no problem reported Eyes: as per Subjective / HPI; no problem reported Ear, Nose, Mouth, Throat: as per Subjective / HPI; no problem reported Respiratory: as per Subjective / HPI; no problem reported Cardiovascular: no edema and no problem reported Gastrointestinal: no nausea, no vomiting and no problem reported Musculoskeletal: as per Subjective / HPI Integumentary: as per Subjective / HPI; no problem reported Neurologic: no tingling, no paresthesia and no problem reported Psychiatric: no problem reported Endocrine: as per Subjective / HPI Hematologic / Lymphatic: as per Subjective / HPI Allergy / Immunological: no problem reported Physical Exam Musculoskeletal: Patient was laying comfortably in bed in no acute distress. She is well-developed well-nourished. She is alert and oriented x3. Right lower extremity: Patient is able to actively plantarflex and dorsiflex her bilateral feet. No erythema or ecchymosis. Incision site is covered with dressings. No obvious discharge. Leg lengths appear equal. +2 distal pulses. Neurovascularly intact. Results & Data ([facility]) Vital Signs (Past 12 Hours) Vital Signs Temp Pulse Resp BP Pulse Ox 02/19/20 06:27 89 20 144/77 H 91 02/19/20 04:00 36.7 C 89 20 130/70 95 02/18/20 23:10 36.7 C 78 18 113/63 98 02/18/20 19:20 36.4 C L 76 17 132/67 97 PG Care Time/CCT Total # of Minutes Spent Total Time Spent with Patient: Total time spent is greater than 50% in coordination of care (as documented) at patient's floor/unit and/or counseling patient: Coding Level of Care Code 01919 Subseq Hosp Care Lvl 1 Diagnoses Status post revision of total replacement of right knee Z96.651
[2020-02-19 07:51] LABS: BUN Creatinine Ratio 7.7 (10-20); Calcium 8.4 mg/dl (8.5-10.1); Creatinine Clr Calc Pharmacy 8.2 ml/min; Est GFR (African American) 8.1; Potassium 4.3 mmol/L (3.5-5.1)
[2020-02-19] MEDS: ATENOLOL 25 MG TABLET PO SCH (08:10)
[2020-02-19] MEDS: DOCUSATE SODIUM 100 MG CAP PO SCH ×2 (08:10→21:40)
[2020-02-19] MEDS: MIRABEGRON ER 25 MG TAB PO SCH (08:10)
[2020-02-19] MEDS: MULTIVITAMIN TAB PO SCH (08:10)
[2020-02-19] MEDS: FLUTICASONE PROPIONATE NA SPR 16 GM BTL NAE SCH (08:11)
[2020-02-19] MEDS: FERROUS GLUCONATE 324 MG TAB PO SCH ×2 (08:11→18:55)
[2020-02-19] MEDS: ASPIRIN 81 MG ECTAB PO SCH ×2 (08:11→21:40)
[2020-02-19] MEDS: SEVELAMER HCL 800 MG TABLET PO SCH ×3 (08:11→18:54)
[2020-02-19] MEDS: PANTOprazole 40 MG TAB PO SCH (08:11)
[2020-02-19] MEDS: NEPHROCAPS PO SCH (08:11)
[2020-02-19] MEDS: INSULIN ASPART 100 UNITS/ML 3 ML PEN SC SCH ×4 (08:41→21:38)
[2020-02-19] MEDS ORDERED: GLIMEPIRIDE 2 MG TAB PO SCH (09:00)
[2020-02-19] MEDS ORDERED: DOCUSATE SODIUM 100 MG CAP PO SCH (09:00)
--- NOTE | 2020-02-19 09:51 | Hospitalist Progress Note ---
Date of Service February 19, 2020 Assessment & Plan (1) Post-operative state: S/p Right total knee revision with Dr. Ramirez 02/17 Pain control, dvt proph per primary Monitor for acute blood loss, Hb is down a little at 9 but this appears to be around baseline repeat CBC tomorrow patient is stable from medical perspective will sign off for now plan for discharge to home with home health tomorrow please call with any changes (2) Anemia: Anemia of chronic disease, baseline is around 9-11 CBC am shows Hb is in the 9 range no concerns for excessive blood loss (3) ESRD (end stage renal disease) on dialysis: Nephrology is consulted to manage dialysis Continue home [facility] plan for HD today and then she can be discharged to home tomorrow, plan for HD on Monday which is normal schedule (4) Diabetes mellitus: Pharmacy consulted for diabetes management sugars stable (5) Hyperlipidemia: Continue home atorvastatin (6) Hypertension: Continue home atenolol, Admission and Anticipated Discharge Date Admission Date: February 18, 2020 Subjective patient doing great walked with therapy last night, therapy here this morning and she feels strong pain in knee is controlled eating well discussed plans with Dr. Weiner, will get HD today with plans for discharge tomorrow, orders written reviewed labs, hb is 9 but around her baseline electrolytes stable Review of Systems Review of Systems: All systems reviewed & are unremarkable except as noted in Subjective Musculoskeletal: + joint pain (right knee) Physical Exam Constitutional: WD/WN, vitals as above + overweight Neck: trachea midline, no thyromegaly Respiratory: normal respiratory effort, lungs clear to auscultation Cardiovascular: RRR, no murmur, no edema Extremities: + AV fistula (good thrill and bruit) Gastrointestinal (Abdomen): normal bowel sounds, soft, nontender, no hepatosplenomegaly Musculoskeletal: no cyanosis or clubbing, extremities motor strength 5/5 Skin: no rashes, warm and dry Neurologic: patellar DTR's 2+ bilat, sensation intact and PERRL, EOMI, accommodation nl, no face palsy, no dysarthria Psychiatric: A+Ox3, euthymic affect Results & Data Results & Data ([facility]) Vital Signs (Past 12 Hours) Vital Signs Temp Pulse Resp BP Pulse Ox 02/19/20 07:19 36.6 C 78 16 146/70 H 93 02/19/20 06:27 89 20 144/77 H 91 02/19/20 04:00 36.7 C 89 20 130/70 95 02/18/20 23:10 36.7 C 78 18 113/63 98 Laboratory Results Laboratory Results - last 24 hr 02/18/20 02/18/20 02/18/20 12:29 17:05 20:26 WBC RBC Hgb Hct MCV MCH MCHC RDW Std Deviation RDW Coeff of Luis Plt Count MPV Sodium Potassium Chloride Carbon Dioxide Anion Gap BUN Creatinine Est Cr Clr Drug Dosing Est GFR ( Amer) Est GFR (Non-Af Amer) BUN/Creatinine Ratio Glucose POC Glucose 125 H 216 H 150 H Calcium Hep Bs Antigen Hep Bs Antibody Hep Bs Antibody, Quant 02/19/20 02/19/20 02/19/20 06:27 06:27 06:27 WBC 12.02 H RBC 2.97 L Hgb 9.5 L Hct 28.6 L MCV 96.3 MCH 32.0 MCHC 33.2 RDW Std Deviation 52.3 H RDW Coeff of Luis 15.1 H Plt Count 168 MPV 11.1 H Sodium 136 Potassium 4.3 D Chloride 98 Carbon Dioxide 30 Anion Gap 8.0 BUN 42 H Creatinine 5.46 H* D Est Cr Clr Drug Dosing 8.2 Est GFR ( Amer) 8.1 Est GFR (Non-Af Amer) 7.0 BUN/Creatinine Ratio 7.7 L Glucose 102 H POC Glucose Calcium 8.4 L Hep Bs Antigen Pending Hep Bs Antibody Pending Hep Bs Antibody, Quant Pending 02/19/20 08:14 WBC RBC Hgb Hct MCV MCH MCHC RDW Std Deviation RDW Coeff of Luis Plt Count MPV Sodium Potassium Chloride Carbon Dioxide Anion Gap BUN Creatinine Est Cr Clr Drug Dosing Est GFR ( Amer) Est GFR (Non-Af Amer) BUN/Creatinine Ratio Glucose POC Glucose 106 H Calcium Hep Bs Antigen Hep Bs Antibody Hep Bs Antibody, Quant Medications Administered Current Inpatient Medications Acetaminophen (Acetaminophen 500 Mg Tab) 1,000 mg PO Q8 ELISE Stop: 03/19/20 13:59 Last Admin: 02/19/20 06:08 Dose: 1,000 mg Documented by: Aspirin (Aspirin 81 Mg Ectab) 81 mg PO BID ELISE Stop: 03/19/20 20:59 Last Admin: 02/19/20 08:11 Dose: 81 mg Documented by: Atenolol (Atenolol 25 Mg Tablet) 25 mg PO QAM [facility] Stop: 03/20/20 08:59 Last Admin: 02/19/20 08:10 Dose: 25 mg Documented by: Atorvastatin Calcium (Atorvastatin 40 Mg Tab) 40 mg PO PM [facility] Stop: 03/19/20 20:59 Last Admin: 02/18/20 21:07 Dose: 40 mg Documented by: Bisacodyl (Bisacodyl 10 Mg Supp) 10 mg SD DAILY PRN PRN Reason: Constipation Stop: 03/19/20 13:49 Dextrose (Dextrose 50% 50 Ml Syringe) 25 - 50 ml IV UD PRN; Protocol PRN Reason: Hypoglycemia Protocol Stop: 03/19/20 12:25 Docusate Sodium (Docusate Sodium 100 Mg Cap) 100 mg PO BID [facility] Stop: 03/19/20 20:59 Last Admin: 02/19/20 08:10 Dose: 100 mg Documented by: Ferrous Gluconate (Ferrous Gluconate 324 Mg Tab) 324 mg PO BIDM [facility] Stop: 03/19/20 16:59 Last Admin: 02/19/20 08:11 Dose: 324 mg Documented by: Fluticasone Propionate (Fluticasone Propionate Na Spr 16 Gm Btl) 2 sprays APRIL DAILY [facility] Stop: 03/20/20 08:59 Last Admin: 02/19/20 08:11 Dose: 2 sprays Documented by: Glucagon (Glucagon For Inj 1 Mg Vial) 1 mg SQ UD PRN; Protocol PRN Reason: Hypoglycemia Protocol Stop: 03/19/20 12:25 Glucose (Glucose 10 Tabs/Tube) 4 - 8 tabs PO UD PRN; Protocol PRN Reason: Hypoglycemia Protocol Stop: 03/19/20 12:25 Glucose (Glucose 40% Gel 15 Gm Tube) 15 - 30 gm PO UD PRN; Protocol PRN Reason: Hypoglycemia Protocol Stop: 03/19/20 12:25 Hydromorphone HCl (Hydromorphone Inj 0.5 Mg/0.5 Ml Syr) 0.5 mg IV Q4H PRN PRN Reason: Pain or Pre PT Stop: 03/03/20 13:49 Insulin Aspart (Insulin Aspart 100 Units/Ml 3 Ml Pen) 0 units SC ACHS [facility]; Protocol Stop: 03/19/20 16:29 Last Admin: 02/19/20 08:41 Dose: 1 units Documented by: Magnesium Hydroxide (Magnesium Hydroxide Susp 30 Ml Udc) 30 ml PO Q6H PRN PRN Reason: Constipation Stop: 03/19/20 13:49 Metoclopramide HCl (Metoclopramide Hcl Inj 5 Mg/Ml 2 Ml Vial) 10 mg IV Q6H PRN PRN Reason: Nausea And Vomiting Stop: 03/19/20 13:49 Mirabegron (Mirabegron Er 25 Mg Tab) [facility] Stop: 03/20/20 08:59 Last Admin: 02/19/20 08:10 Dose: 50 mg Documented by: Miscellaneous (Carbohydrates For Hypoglycemia ) 15 - 30 gm PO UD PRN PRN Reason: Hypoglycemia Protocol Stop: 03/19/20 12:25 Miscellaneous Information (Pharmacy Glycemic Mgmt Consult) 1 ea N/A UD PRN PRN Reason: Consult Stop: 03/19/20 13:58 Miscellaneous Medication (No Nsaids) 1 ea N/A UD [facility] Stop: 03/19/20 13:49 Multivitamins (Multivitamin Tab) 1 tab PO [facility] Stop: 03/20/20 08:59 Last Admin: 02/19/20 08:10 Dose: 1 tab Documented by: Naloxone HCl (Naloxone Hcl 0.4 Mg/1 Ml Vial/Carp) 0.1 mg IV Q5M PRN PRN Reason: Oversedation/Resp Depression Stop: 03/19/20 13:49 Ondansetron HCl (Ondansetron Inj 2 Mg/Ml 2 Ml Vial) 4 mg IV Q6H PRN PRN Reason: Nausea And Vomiting Stop: 03/19/20 13:49 Last Admin: 02/18/20 18:13 Dose: 4 mg Documented by: Pantoprazole Sodium (Pantoprazole 40 Mg Tab) 40 mg PO [facility]; Protocol Stop: 03/20/20 08:59 Last Admin: 02/19/20 08:11 Dose: 40 mg Documented by: Sennosides (Senna 8.6 Mg Tab) 17.[address] [facility] Stop: 03/19/20 20:59 Last Admin: 02/18/20 21:07 Dose: 17.2 mg Documented by: Sevelamer HCl (Sevelamer Hcl 800 Mg Tablet) 800 mg PO BID@0800,1200 [facility] Stop: 03/20/20 07:59 Last Admin: 02/19/20 08:11 Dose: 800 mg Documented by: Sevelamer HCl (Sevelamer Hcl 800 Mg Tablet) 1,600 mg PO QDD [facility]ISE Stop: 03/19/20 16:29 Last Admin: 02/18/20 17:36 Dose: 1,600 mg Documented by: Tramadol HCl (Tramadol Hcl 50 Mg Tablet) 50 - 100 mg PO Q6H PRN PRN Reason: Pain & Pre PT Stop: 03/19/20 13:49 Last Admin: 02/19/20 06:09 Dose: 50 mg Documented by: Vitamin B Complex/Folic Acid (Nephrocaps) 1 cap PO DAILY [facility]; Protocol Stop: 03/20/20 08:59 Last Admin: 02/19/20 08:11 Dose: 1 cap Documented by: PG Care Time/CCT Total # of Minutes Spent Total Time Spent with Patient: Total time spent is greater than 50% in coordination of care (as documented) at patient's floor/unit and/or counseling patient: Coding Level of Care Code 01334 Subseq Hosp Care Lvl 2 Diagnoses Post-operative state Z98.890 Anemia D64.9 ESRD (end stage renal disease) on dialysis N18.6; Z99.2 Diabetes mellitus E11.9 Hyperlipidemia E78.5 Hypertension I10
--- NOTE | 2020-02-19 10:09 | Pharmacy Report ---
Pharmacy Glycemic Sign Off Nt - Date of Service February 19, 2020 - Assessment & Plan ASSESSMENT: * Pharmacy was consulted by Dr. Zachariah Ramirez on 02/18/2020 for glycemic control and to write orders per [facility] inpatient glycemic control protocol. * Major changes made by pharmacy to antidiabetic regimen include: * Addition of Novolog to correct/cover carbohydrates * Patient has been receiving/requiring 5 units of insulin per day for adequate glycemic control * BSGs ranging 92 - 216 mg/dl * Regimen has only required minor adjustments over the past 48hrs to achieve this level of control * Do not anticipate further changes in patient status that would quickly deteriorate glycemic control (i.e. patient to be NPO for upcoming procedure, steroids tapering, starting tube feedings, etc). * Please see recommendations for outpatient antidiabetic regimen below. PLAN FOR INPATIENT GLYCEMIC CONTROL: No changes needed to current regimen. * Continue holding home glimepiride * Continue NovoLog per scale ACHS/Q6hrs while NPO * Goal range = 110 - 140 mg/dl * CF = 30 mg/dl/unit * CR = 1 unit for ever 10 g CHO consumed * Pharmacy is signing off of glycemic consult and will no longer be making adjustments to inpatient regimen. Please feel free to re-consult if needed. Thank you. DISCHARGE RECOMMENDATIONS: * A1c 5.5% on 01/22/2020. Would recommend discontinuing Glimepiride as patient's A1c is well below her goal.
--- NOTE | 2020-02-19 11:59 | Nephrology Progress Note ---
Date of Service February 19, 2020 Assessment & Plan (1) ESRD (end stage renal disease) on dialysis: ESRD on HD, on TTS schedule at [facility]. She was admitted and had elective right knee replacement. Had dialysis yesterday in anticipation of surgery today, currently electrolyte, blood pressure, volume status acceptable. -- dialysis today, with plan for discharge tomorrow to avoid dialysis day discharge. Next HD will be on Monday as out pt unit. -- avoid IV fluid, fluid restriction to less than 1 L per day, low-salt, low- potassium diet. -- dose medications for GFR less than 10 -- continue on phosphate binder with meals -- Epogen with HD today will follow (2) Hypertension: (3) Hyperlipidemia: (4) Anemia: (5) Secondary hyperparathyroidism: (6) Aseptic loosening of prosthetic knee: Admission and Anticipated Discharge Date Admission Date: February 18, 2020 Henri Franco was seen and examined in her room this am. Overall doing well, recovering form Rt knee surgery, doing PT. Review of Systems Review of Systems: All systems reviewed & are unremarkable except as noted in HPI & below Physical Exam Constitutional: well developed and well nourished; no acute distress Respiratory: normal respiratory effort, lungs clear to auscultation Cardiovascular: RRR, no murmur, no edema Neurologic: moves all extremities and awake; not confused Psychiatric: A+Ox3, euthymic affect Results & Data ([facility]) Vital Signs (Past 12 Hours) Vital Signs Temp Pulse Resp BP Pulse Ox 02/19/20 07:19 36.6 C 78 16 146/70 H 93 02/19/20 06:27 89 20 144/77 H 91 02/19/20 04:00 36.7 C 89 20 130/70 95 PG Care Time/CCT Total # of Minutes Spent Total Time Spent with Patient: Total time spent is greater than 50% in coordination of care (as documented) at patient's floor/unit and/or counseling patient: Coding Level of Care Code 10882 Subseq Hosp Care Lvl 3 Diagnoses ESRD (end stage renal disease) on dialysis N18.6; Z99.2 Hypertension I10 Hyperlipidemia E78.5 Anemia D64.9 Secondary hyperparathyroidism N25.81 Aseptic loosening of prosthetic knee T84.038A; Z96.659
[2020-02-19] MEDS ORDERED: EPOETIN ALFA 4,000 UNIT/ML VIAL IV SCH (12:30)
[2020-02-19] MEDS: SENNA 8.6 MG TAB PO SCH (21:40)
[2020-02-19] MEDS: ATORVASTATIN 40 MG TAB PO SCH (21:40)
[2020-02-20] MEDS: ACETAMINOPHEN 500 MG TAB PO SCH ×2 (05:57→14:10)
--- NOTE | 2020-02-20 08:03 | Progress Notes ---
DATE: 02/20/2020 SUBJECTIVE: A 79-year-old white female postop day 2 from a right revision knee arthroplasty. She is doing pretty well. Pain is controlled. She had dialysis yesterday. Denies any chest pain or shortness of breath. OBJECTIVE: VITAL SIGNS: Temperature 36.9. Vital signs stable. GENERAL: Shows a pleasant elderly female. She is lying in bed, looks reasonably comfortable this morning. EXTREMITIES: Examination of the right leg reveals the leg to be well aligned. Her incisions and dressings clean, dry and intact. She can dorsiflex and plantarflex her foot appropriately. She is neurologically intact. ASSESSMENT: A 79-year-old white female postop day 2 from a right knee revision arthroplasty. She is doing reasonably well. Pain is controlled. PLAN: 1. DVT prophylaxis including thigh-high TEDs, SCDs, and aspirin twice a day for 6 weeks. 2. PT/OT. She can fully weightbear as tolerated right leg. 3. Pain control, doing well with current pain regimen. 4. Medical management as per the medicine service. 5. Dialysis. She had dialysis yesterday. She will resume her normal schedule when she goes home. 6. Disposition: Plan to discharge to home with some home health later today.
[2020-02-20] MEDS: ASPIRIN 81 MG ECTAB PO SCH (08:31)
[2020-02-20] MEDS: NEPHROCAPS PO SCH (08:31)
[2020-02-20] MEDS: FERROUS GLUCONATE 324 MG TAB PO SCH (08:31)
[2020-02-20] MEDS: DOCUSATE SODIUM 100 MG CAP PO SCH (08:31)
[2020-02-20] MEDS: PANTOprazole 40 MG TAB PO SCH (08:31)
[2020-02-20] MEDS: MIRABEGRON ER 25 MG TAB PO SCH (08:31)
[2020-02-20] MEDS: SEVELAMER HCL 800 MG TABLET PO SCH ×2 (08:31→12:29)
[2020-02-20] MEDS: ATENOLOL 25 MG TABLET PO SCH (08:31)
[2020-02-20] MEDS: MULTIVITAMIN TAB PO SCH (08:31)
[2020-02-20] MEDS: FLUTICASONE PROPIONATE NA SPR 16 GM BTL NAE SCH (08:32)
[2020-02-20] MEDS: INSULIN ASPART 100 UNITS/ML 3 ML PEN SC SCH (08:33)
--- NOTE | 2020-02-20 10:33 | Nephrology Progress Note ---
Date of Service February 20, 2020 Assessment & Plan (1) ESRD (end stage renal disease) on dialysis: ESRD on HD, on TTS schedule at [facility]. She was admitted and had elective right knee replacement. Had dialysis yesterday in anticipation of surgery today, currently electrolyte, blood pressure, volume status acceptable. -- had dialysis yesterday with plan for discharge today.. Next HD will be on Monday as out pt unit. -- avoid IV fluid, fluid restriction to less than 1 L per day, low-salt, low- potassium diet. -- dose medications for GFR less than 10 -- continue on phosphate binder with meals -- Epogen with HD yesterday. will follow (2) Hypertension: (3) Hyperlipidemia: (4) Anemia: (5) Secondary hyperparathyroidism: (6) Aseptic loosening of prosthetic knee: Admission and Anticipated Discharge Date Admission Date: February 18, 2020 Henri Franco was seen and examined in her room this am. Overall doing well, re covering form Rt knee surgery, doing PT. Ready to go home. Review of Systems Review of Systems: All systems reviewed & are unremarkable except as noted in HPI & below Physical Exam Constitutional: well developed and well nourished; no acute distress Respiratory: normal respiratory effort, lungs clear to auscultation Cardiovascular: RRR, no murmur, no edema Neurologic: moves all extremities and awake; not confused Psychiatric: A+Ox3, euthymic affect Results & Data ([facility]) Vital Signs (Past 12 Hours) Vital Signs Temp Pulse Pulse Resp BP Pulse Ox 02/20/20 07:29 36.6 C 71 16 112/64 96 02/19/20 23:36 36.9 C 81 16 122/64 94 PG Care Time/CCT Total # of Minutes Spent Total Time Spent with Patient: Total time spent is greater than 50% in coordination of care (as documented) at patient's floor/unit and/or counseling patient: Coding Level of Care Code 55084 Subseq Hosp Care Lvl 2 Diagnoses ESRD (end stage renal disease) on dialysis N18.6; Z99.2 Hypertension I10 Hyperlipidemia E78.5 Anemia D64.9 Secondary hyperparathyroidism N25.81 Aseptic loosening of prosthetic knee T84.038A; Z96.659
[2020-02-20 15:33] LABS: Hepatitis B Surface Ab Quant 18.28 mIU/mL (>or=10mIU/mL Immune); Hepatitis B Surface Antibody Immune
[2020-02-20 15:42] LABS: Hepatitis B Surface Antigen Neg (Neg)
--- NOTE | 2020-02-24 15:31 | Discharge Summary ---
Date of Service February 24, 2020 Admission HPI Per Admitting Provider Documented in the H &P Admission Exam (Per Admitting) Constitutional Documented in the H & P Discharge Data Consultations 02/18/20 13:50 Consult Case Management - Discharge Planning Routine Consult Hospitalist Stat Consult Nephrology Routine Procedures Performed Operation Date: 02/18/20 08:50 Actual Procedures p Right Total Knee Revision, Cemented(Right) - Reggie Ramirez MD Hospital Course (1) Status post revision of total replacement of right knee: This patient is a 79 year old female admitted on 02/18/20 and underwent revision knee arthroplasty . She tolerated the procedure well and there were no complications. Transferred to the PACU post op and later to the orthopedic floor for further care. She was given ancef for antibiotic prophylaxis. She was also given ALESIA stockings, SCDs, and aspirin for DVT prophylaxis. Hemoglobin, hematocrit, and vital signs were monitored during her hospital stay and remained stable. Did not require any blood transfusions. The hospitalist service was consulted and saw him during his stay. There were no complications during his hospital stay. By post op day #2 the patient was tolerating a diabetic diet, pain was reasonably controlled with oral pain medicine, and she was participating in physical therapy. On post op day #2 the patient was discharged home and set up with home health care. she was given printed discharge instructions including prescriptions for extra strength tylenol, aspirin, iron supplement, and tramadol. Continue physical therapy, weight bearing as tolerated. Continue ALESIA stockings. Follow up approximately 2 weeks post op or sooner if there are problems or concerns. Coding Level of Care Code None Diagnoses Status post revision of total replacement of right knee Z96.651
== END 2020-02-20 14:38 | disposition home health service (06) ==
LOC: 3E 06:40 → ASU 06:40

== ENCOUNTER 2023-08-26 17:44 | Inpatient (IN) ==
--- NOTE | 2023-08-26 18:50 | Emergency Department Note ---
Impression & Plan Intractable low back pain, ESRD (end stage renal disease) on dialysis, Lumbosacral radiculopathy, Ambulatory dysfunction ED Provider Note NAME: AMOS THORNTON AGE: 82 SEX: F : 1940 ARRIVES VIA: Ambulance INFORMANT: Patient ED PROVIDER(S): Naresh De La O MD CHIEF COMPLAINT: Back pain PLAN: Disposition: Admit MEDICAL DECISION MAKING: The patient is a pleasant 82-year-old woman with a past medical history of end- stage renal disease on hemodialysis, Monday, osteoporosis, hyperparathyroidism, ANA PAULA, hypertension, hyperlipidemia who presents to the emergency department via EMS and accompanied by family for evaluation of worsening flare of back pain in the setting of being managed for sciatica where she was recently started on a prednisone taper and reports having improvement over the past couple of days but then worsening after having traveled for her granddaughters nursing graduation/"pending". She reports that she arranged to have dialysis yesterday because she wanted to go to the ceremony today with her family. She reports that it was an hour and a half drive to the location but due to a flare of her sciatica she had to be in a wheelchair the entire time and when they returned home from the day she was unable to ambulate getting out of the car and so EMS was called to bring her to the hospital. She denies any falls or acute onset of symptoms with heavy lifting. She reports she is scheduled to have an injection which she has had in the past but this is not until next week. Otherwise she denies any recent fevers, chills, cough, congestion. She does urinate daily and denies any burning with urination. On evaluation the patient is no acute distress, afebrile with stable vital signs. She appears euvolemic. She has a positive right straight leg raise. She has difficulty even sitting up due to flare of pain in her right lower lumbar/gluteal region. She has mild discomfort of the right lower lumbar region extending distally over the right PSIS. Distal PMS is intact. WBC and platelets within normal limits. H/H similar to prior. Chemistry without metabolic acidosis. Creatinine 3.4 in the setting of known end-stage renal disease on dialysis. Potassium 3.2 and electrolytes otherwise unremarkable. AST is 51, nonspecific and LFTs without significant abnormality. The patient was treated with IV APAP and Decadron as well as 1 mg of oral Valium. On reassessment the patient did report some improvement and was able to at least move her leg in the bed which was difficult to previously however still unable to even sit up on the side of the bed to perform an ambulatory trial. Thus, patient and family agree with plan for admission for PT OT and possible placement. Case was discussed with LARRY Mike PAC, with LARRY Prasad hospitalist who will evaluate the patient for admission. Triage Nursing notes reviewed and agree them. Prior/external medical records reviewed Vital Signs: reviewed Differential diagnosis: Musculoskeletal, disc herniation, fracture, metastatic disease, cord compression, discitis, sciatica, cauda equina, infection, aortic disease, renal colic, gastrointestinal, as well as other pathologies. ER treatment provided: See below. Diagnostics interpreted by me: Cardiac Monitoring: An order for continuous cardiac monitoring was placed and demonstrated normal sinus rhythm, 80 bpm, no ectopy. Laboratory studies: See below Imaging studies: See below Consultation(s): LARRY Mike PAC, with LARRY Prasad hospitalist HPI: The patient is a pleasant 82-year-old woman with a past medical history of end-stage renal disease on hemodialysis, Monday, osteoporosis, hyperparathyroidism, ANA PAULA, hypertension, hyperlipidemia who presents to the emergency department via EMS and accompanied by family for evaluation of worsening flare of back pain in the setting of being managed for sciatica where she was recently started on a prednisone taper and reports having improvement over the past couple of days but then worsening after having traveled for her granddaughters nursing graduation/"pending". She reports that she arranged to have dialysis yesterday because she wanted to go to the ceremony today with her family. She reports that it was an hour and a half drive to the location but due to a flare of her sciatica she had to be in a wheelchair the entire time and when they returned home from the day she was unable to ambulate getting out of the car and so EMS was called to bring her to the hospital. She denies any falls or acute onset of symptoms with heavy lifting. She reports she is scheduled to have an injection which she has had in the past but this is not until next week. Otherwise she denies any recent fevers, chills, cough, congestion. She does urinate daily and denies any burning with urination. ROS: See above HPI for pertinent positives & negatives. A total of 10 systems reviewed and were otherwise negative. VITALS:See Below PHYSICAL EXAMINATION: GENERAL: Awake, alert, in no distress, BMI 36.5. HENT: Normocephalic, atraumatic. Oropharynx unremarkable. EYES: Normal conjunctiva. Sclera non-icteric. NECK: Supple. No nuchal rigidity. FROM. No JVD. RESPIRATORY: Clear to auscultation. CARDIAC: Regular rate, normal rhythm. Extremities warm and well perfused. Pulses equal. ABDOMEN: Soft, non-distended. No tenderness to palpation. No rebound or guarding. No masses. MUSCULOSKELETAL: Chest examination reveals no tenderness. The back is symmetrical on inspection without obvious abnormality. There is no CVA tenderness to palpation. Positive right straight leg raise. She has difficulty even sitting up due to flare of pain in her right lower lumbar/gluteal region. She has mild discomfort of the right lower lumbar region extending distally over the right PSIS. Distal PMS is intact. LOWER EXTREMITIES: Calves are equal size bilaterally and non-tender. No edema. No discoloration. NEURO: Normal sensorium. No sensory or motor deficits noted. DTRs wnl. No clonus. SKIN: No rash or jaundice noted. Naresh De La O MD Past Med/Surg History Medical History Chronic SI joint pain injection 05/2023 [place] Nausea and vomiting after administration of anesthetic agent Constipation Dysphagia History of revision of total replacement of right knee joint (~02/18/20) @ [facility] Trochanteric bursitis, right hip Deviated nasal septum Osteoarthritis Diverticulosis GERD (gastroesophageal reflux disease) Spinal stenosis s/p lumbar fusion, ~ L4-L5, pt to have follow-up with Dr Martinez prior to surgery Hyperlipidemia HTN (hypertension) Sleep apnea CPAP DM type 2 (diabetes mellitus, type 2) hx -- no current medication Dialysis patient [facility] [place], [place], [place] (has been on dialysis x 4 years) ESRD (end stage renal disease) Follows w/ Dr. Calhoun DVT (deep venous thrombosis) RLE (12/12/18) felt 2/2 decreased mobility d/t spinal stenosis-- prescribed Eliquis x 2 months Spastic bladder History of basal cell carcinoma s/p excision Limb alert care status RUE fistula Surgical History S/P epidural steroid injection right SI joint injection History of bilateral knee replacement History of lumbosacral spine surgery decompression and fusion; hardware present; 02/15/2019 [place] H/O dilation and curettage S/P arteriovenous (AV) fistula creation X3 TO RUE (RUE + REVISIONS) History of cataract surgery History of oral surgery History of tooth extraction History of tonsillectomy History of bilateral tubal ligation History of carpal tunnel release B/L History of ankle fusion B/L History of esophagogastroduodenoscopy (EGD) History of colonoscopy Family History Mother Family history of diabetes mellitus Arthritis Diabetes Stroke Brother Family hx of colon cancer Spina bifida Hypertension Colon cancer Heart disease Cancer Father Kidney stones Social History Smoking Status: Never smoker Second Hand Exposure: No; Do You Dip or Chew Tobacco: No; Hx Alcohol Use: Yes Alcohol type: hard liquor Hx Substance Use: No Preferred Language: Kazakh Communication Ability: Effective Visual Impairment: No Limitations Ceramic Coater Machine Required: No Beliefs That Will Affect Care: None marital status: Current Living Situation: Spouse current occupational status: retired Other Information That Helps Us Care for You: No Feels Safe at Home: Yes Safety Concerns: Feels Safe At This Time Assistive Devices: CPAP, Glasses and Walker Allergies Allergies Allergy/AdvReac Type Severity Reaction Status Date / Time bee venom protein (honey bee) Allergy Severe Anaphylaxis Verified 08/15/23 09:51 hornet venom Allergy Severe Anaphylaxis Verified 08/15/23 09:51 adhesive Allergy Mild local skin Verified 08/15/23 09:51 irritation bacitracin Allergy Mild Rash Verified 08/15/23 09:51 neomycin Allergy Mild Rash Verified 08/15/23 09:51 polymyxin B Allergy Mild Rash Verified 08/15/23 09:51 Home Meds Home Medications Medication Instructions Recorded Confirmed docusate sodium 100 mg capsule 100 mg PO QAM 10/11/18 08/26/23 (Stool Softener) sevelamer carbonate 800 mg tablet 800 mg PO UD 12/14/18 08/26/23 (Renvela) vit B complx, C-iron 8 mg-folic 1 tab PO DAILY 02/22/22 08/26/23 acid 800 mcg-D3 1,000 unit-zinc tablet (ProRenal) prednisone 10 mg tablet 10 mg PO UD 08/26/23 08/26/23 Previous Rx's Medication Instructions Recorded epinephrine 0.3 mg/0.3 mL 0.3 mg (0.3 mL) subcut Q15M PRN 10/26/22 injection, auto-injector anaphylaxis #1 ea atorvastatin 40 mg tablet (Lipitor) 40 mg PO PM #90 tabs 07/03/23 metoprolol succinate 50 mg 50 mg PO DAILY #90 tabs 07/03/23 tablet,extended release 24 hr mirabegron 50 mg tablet,extended 50 mg PO QAM #90 tabs 07/03/23 release 24 hr (Myrbetriq) omeprazole 20 mg tablet,delayed 20 mg PO QAM #90 tabs 07/03/23 release Results & Data (ED) Vital Signs Vital Signs - 24 hr 08/26/23 17:53 08/26/23 18:34 08/26/23 19:41 Temperature 36.4 C L Temperature Source Oral Pulse Rate 85 Pulse Rate [Right Finger] 74 Respiratory Rate 19 17 17 Respiratory Effort / Characteristics Non-Labored Non-Labored Spontaneous Non-Labored Respiratory Depth Normal Normal Normal Blood Pressure 180/78 H Blood Pressure [Left Arm] 142/76 H Blood Pressure Mean 112 Blood Pressure Mean [Left Arm] 98 Pulse Oximetry 99 97 98 Oxygen Delivery Method Room Air Room Air Room Air Sepsis Recent Fever Within 48 Hours No Sepsis New/Unexplained Change in Mental Status N/A Sepsis Action Taken by Nursing No Action Required Laboratory Data Attestation: I reviewed the patient's lab results. 08/26/23 19:16 08/26/23 19:16 Lab Results 08/26/23 Range/Units 19:16 WBC 10.23 (4.8-10.8) K/ul RBC 3.63 L (4.20-5.40) M/uL Hgb 11.0 L (12.0-16.0) g/dl Hct 34.0 L (37.0-47.0) % MCV 93.7 (80.0-100.0) fL MCH 30.3 (25.0-34.0) pg MCHC 32.4 (32.0-36.0) g/dL RDW Std Deviation 51.9 H (36.4-46.3) fL RDW Coeff of Luis 15.2 H (11.5-14.5) % Plt Count 177 (130-400) K/uL MPV 11.0 (9.4-12.4) fL Immature Gran % (Auto) 1.0 % Neut % (Auto) 80.1 % Lymph % (Auto) 9.6 % Lamar % (Auto) 8.8 % Eos % (Auto) 0.2 % Baso % (Auto) 0.3 % Neut # (Auto) 8.20 H (1.40-6.50) K/uL Lymph # (Auto) 0.98 L (1.20-3.40) K/uL Lamar # (Auto) 0.90 H (0.11-0.59) K/uL Eos # (Auto) 0.02 (0.00-0.50) K/uL Baso # (Auto) 0.03 (0.00-0.20) K/uL Immature Gran # (Auto) 0.10 (0.01-0.20) K/uL PT 10.9 (9.0-12.0) Seconds INR 1.0 (0.9-1.1) Sodium 141 (136-145) mmol/L Potassium 3.2 L (3.5-5.1) mmol/L Chloride 100 (98-107) mmol/L Carbon Dioxide 30 (21-32) mmol/L Anion Gap 11 (3-11) BUN 28 H (6-23) mg/dl Creatinine 3.48 H (0.6-1.2) mg/dl Est Cr Clr Drug Dosing 12.0 ml/min Est GFR ( Amer) 13.6 ml/min Est GFR (Non-Af Amer) 11.8 ml/min BUN/Creatinine Ratio 8.0 L (10-20) Glucose 150 H (70-99(Fasting)) mg/dl Calcium 7.9 L (8.6-10.3) mg/dl Phosphorus 2.7 (2.5-4.9) mg/dl Magnesium 1.7 (1.7-2.4) mg/dl Total Bilirubin 0.6 (0.2-1.0) mg/dl AST 51 H (13-39) U/L ALT 30 (7-52) U/L Alkaline Phosphatase 143 H (34-104) U/L Total Protein 6.4 (6.0-8.3) gm/dl Albumin 3.4 (3.4-5.0) gm/dl Globulin 3.0 (2.5-4.0) gm/dl Albumin/Globulin Ratio 1.1 (0.9-2) Administered Medications Acetaminophen (Acetaminophen 325 Mg Tab) 650 mg PO Q6H ELISE Stop: 09/26/23 00:00 Last Admin: 08/26/23 23:17 Dose: 650 mg Documented By: RAJNI Hydromorphone HCl (Hydromorphone Inj 0.5 Mg/0.5 Ml Syr) 0.5 mg IV Q4H PRN PRN Reason: Pain(5+) Stop: 09/09/23 21:42 Last Admin: 08/27/23 00:48 Dose: 0.5 mg Documented By: RAJNI Insulin Aspart (Insulin Aspart Per Unit Charge) 0 units SC ACHS ELISE Stop: 09/25/23 21:59 Last Admin: 08/26/23 22:52 Dose: Not Given Documented By: DAVID Co-signed By: RAJNI Discontinued Medications Dexamethasone Sodium Phosphate (DexamethasonePf 10 Mg/Ml Vial) 10 mg IV NOW ONE Stop: 08/26/23 19:05 Last Admin: 08/26/23 19:29 Dose: 10 mg Documented By: DAVID Diazepam (Diazepam 2 Mg Tablet) 1 mg PO NOW ONE Stop: 08/26/23 19:05 Last Admin: 08/26/23 19:29 Dose: 1 mg Documented By: DAVID Acetaminophen (Ofirmev) 1,000 mg in 100 mls @ 400 mls/hr IV NOW STA Stop: 08/26/23 19:18 Last Infusion: 08/26/23 19:51 Dose: Infused Documented By: Admin: 08/26/23 19:29 Dose: 400 mls/hr Documented By: DAVID Potassium Chloride (Potassium Chloride Crtab 20 Meq Tabcr) 20 meq PO NOW STA Stop: 08/26/23 21:48 Last Admin: 08/26/23 22:05 Dose: 20 meq Documented By: [facility] Discharge Plan Visit Data Chief Complaint: Leg Injury/Pain ED Provider: Naresh De La O Discharge Problem: Intractable low back pain, ESRD (end stage renal disease) on dialysis, Lumbosacral radiculopathy, Ambulatory dysfunction Discharge Instructions Interventions: ED Discharge Assessment Last Done: 08/27/23 00:19
[2023-08-26] MEDS: diazePAM 2 MG TABLET PO ONE (19:29)
[2023-08-26] MEDS: ACETAMINOPHEN 1,000 MG/100 ML VIAL IV STA (19:29)
[2023-08-26] MEDS: dexAMETHasone**PF** 10 MG/ML VIAL IV ONE (19:29)
[2023-08-26 19:34] LABS: Basophils # (auto) 0.03 K/uL (0.00-0.20); Basophils % (auto) 0.3 %; Eosinophils # (auto) 0.02 K/uL (0.00-0.50); Eosinophils % (auto) 0.2 %; Lymphocytes # (auto) 0.98 K/uL (1.20-3.40); Lymphocytes % (auto) 9.6 %; Mean Corpuscular Hemoglobin 30.3 pg (25.0-34.0); Mean Corpuscular Hgb Conc 32.4 g/dL (32.0-36.0); Mean Corpuscular Volume 93.7 fL (80.0-100.0); Monocytes % (auto) 8.8 %; Neutrophils % (auto) 80.1 %; Platelet Count 177 K/uL (130-400); RDW Coefficient of Variation 15.2 % (11.5-14.5); RDW Standard Deviation 51.9 fL (36.4-46.3); Red Blood Count 3.63 M/uL (4.20-5.40); White Blood Count 10.23 K/ul (4.8-10.8)
[2023-08-26 19:40] LABS: Prothrombin Time 10.9 Seconds (9.0-12.0)
[2023-08-26 19:59] LABS: Albumin Globulin Ratio 1.1 (0.9-2); Albumin Level 3.4 gm/dl (3.4-5.0); Bilirubin,Total 0.6 mg/dl (0.2-1.0); Calcium 7.9 mg/dl (8.6-10.3); Est GFR (African American) 13.6 ml/min; Est GFR (Non-African American) 11.8 ml/min; Magnesium 1.7 mg/dl (1.7-2.4); Phosphorus 2.7 mg/dl (2.5-4.9); Potassium 3.2 mmol/L (3.5-5.1); Total Protein 6.4 gm/dl (6.0-8.3)
--- NOTE | 2023-08-26 21:19 | History & Physical Report ---
Date of Service August 26, 2023 Assessment & Plan (1) Acute exacerbation of chronic low back pain: Plan: -Admit to med/tele -Currently stable and non-toxic appearing -Was recovering from an acute exacerbation of her chronic low back pain with prednisone taper started on 08/23 >No recent trauma, initial exacerbation occurred after long episode of house cleaning -Was unable to get out of the car this evening after a long day of travel and sitting -No red flag symptoms -Will obtain CT of the lumbar spine wo con for further evaluation -Will continue daily IV dexamethasone at 10 mg for now -Start heat, scheduled tylenol, prn dilaudid for severe pain -Fall precautions, PT/OT consults -BL SCD's for DVT PPX -DMII/Renal diet -AM CBC, CMP, mag (2) Hypokalemia: Plan: -3.2 on arrival -Will give 20 meq PO KCL to avoid hyperkalemia with her ESRD -Monitor am electrolytes (3) ESRD (end stage renal disease) on dialysis: Plan: -Normal schedule is TTSat -Adjusted her schedule this past week so last round of HD was 08/24 -Renal function and electrolytes are stable -Continue home meds -Nephrology consult placed (4) Diabetes mellitus: Plan: -Monitor BSG ACHS, goal is 110-160 -Will start CF 50 and CR 15 for now -Pharmacy glycemic consult placed while on steroids (5) Obstructive sleep apnea: Plan: -HS CPAP ordered Plan The patient was discussed with Dr. Church at the time of the admission History of Present Illness Chief Complaint: Acute on chronic back pain Primary Care Provider: Lee Flores MD Joan is an 82 year old female with a PMH significant for lumbar spinal stenosis, ESRD on HD TTSat, previous hx of DVT. DM, HTN, ANA PAULA, gastritis who presented to the [facility] ED on 08/26/23 after her chronic low back pain flared due to increased time sitting today while traveling to and from her Granddaughter's graduation. The patient reported had recently started a prednisone taper on 08/24/23 from her PCP for the initial flare and was improving. She had a long car ride to and from her Granddaughter's graduation and also was in a wheelchair during the ceremony itself. When she returned home this evening her pain was so severe she could not get out of the car. She was initially noted to be hypertensive on arrival at 180/76 but was otherwise stable. Labs were significant for a potassium of 3.2. Imaging was not obtained in the ED as the patient did not have recent trauma and symptoms slowly progressed during the day without red flag symptoms. The patient was given 10 mg IV dexamethasone, 1gm IV tylenol, and 1mg PO Diazepam with minimal improvement in symptoms. At the time of the exam the patient was lying in bed in no acute distress with her and daughter bedside. Her initial back flare occurred approximately 3 weeks ago. She was cleaning up a mess on the floor of their home and had to bend over multiple times. No recent trauma. She started the prednisone taper from her PCP on 08/23 which seemed to be helping. Confirms that her back was very still this evening with radicular back pain down the RLE, which she experiences with exacerbation of her chronic back pain. Denies saddle anesthesia, loss of bowel or bladder function compared to baseline, and new pa resthesias. She last had dialysis yesterday as she adjusted her schedule so she could see her Granddaughter graduate. She is a full code. Please refer to Dr. Cassidy's attestation for any changes to the treatment plan Allergies Allergy/AdvReac Type Severity Reaction Status Date / Time bee venom protein (honey bee) Allergy Severe Anaphylaxis Verified 08/15/23 09:51 hornet venom Allergy Severe Anaphylaxis Verified 08/15/23 09:51 adhesive Allergy Mild local skin Verified 08/15/23 09:51 irritation bacitracin Allergy Mild Rash Verified 08/15/23 09:51 neomycin Allergy Mild Rash Verified 08/15/23 09:51 polymyxin B Allergy Mild Rash Verified 08/15/23 09:51 Home Medications Medication Instructions Recorded Confirmed Type docusate sodium 100 mg capsule 100 mg PO QAM 10/11/18 08/26/23 History (Stool Softener) sevelamer carbonate 800 mg tablet 800 mg PO UD 12/14/18 08/26/23 History (Renvela) vit B complx, C-iron 8 mg-folic 1 tab PO DAILY 02/22/22 08/26/23 History acid 800 mcg-D3 1,000 unit-zinc tablet (ProRenal) epinephrine 0.3 mg/0.3 mL 0.3 mg (0.3 mL) subcut Q15M PRN 10/26/22 08/26/23 Rx injection, auto-injector anaphylaxis #1 ea atorvastatin 40 mg tablet (Lipitor) 40 mg PO PM #90 tabs 07/03/23 08/26/23 Rx metoprolol succinate 50 mg 50 mg PO DAILY #90 tabs 07/03/23 08/26/23 Rx tablet,extended release 24 hr mirabegron 50 mg tablet,extended 50 mg PO QAM #90 tabs 07/03/23 08/26/23 Rx release 24 hr (Myrbetriq) omeprazole 20 mg tablet,delayed 20 mg PO QAM #90 tabs 07/03/23 08/26/23 Rx release prednisone 10 mg tablet 10 mg PO UD 08/26/23 08/26/23 History Past Med/Surg History Medical History Chronic SI joint pain injection 05/2023 [place] Nausea and vomiting after administration of anesthetic agent Constipation Dysphagia History of revision of total replacement of right knee joint (~02/18/20) @ [facility] Trochanteric bursitis, right hip Deviated nasal septum Osteoarthritis Diverticulosis GERD (gastroesophageal reflux disease) Spinal stenosis s/p lumbar fusion, ~ L4-L5, pt to have follow-up with Dr Martinez prior to surgery Hyperlipidemia HTN (hypertension) Sleep apnea CPAP DM type 2 (diabetes mellitus, type 2) hx -- no current medication Dialysis patient [facility], [facility], [place] (has been on dialysis x 4 years) ESRD (end stage renal disease) Follows w/ Dr. Calhoun DVT (deep venous thrombosis) RLE (12/12/18) felt 2/2 decreased mobility d/t spinal stenosis-- prescribed Eliquis x 2 months Spastic bladder History of basal cell carcinoma s/p excision Limb alert care status RUE fistula Surgical History S/P epidural steroid injection right SI joint injection History of bilateral knee replacement History of lumbosacral spine surgery decompression and fusion; hardware present; 02/15/2019 [place] H/O dilation and curettage S/P arteriovenous (AV) fistula creation X3 TO RUE (RUE + REVISIONS) History of cataract surgery History of oral surgery History of tooth extraction History of tonsillectomy History of bilateral tubal ligation History of carpal tunnel release B/L History of ankle fusion B/L History of esophagogastroduodenoscopy (EGD) History of colonoscopy Family History Mother Family history of diabetes mellitus Arthritis Diabetes Stroke Brother Family hx of colon cancer Spina bifida Hypertension Colon cancer Heart disease Cancer Father Kidney stones Social History Smoking Status: Never smoker Second Hand Exposure: No; Do You Dip or Chew Tobacco: No; Hx Alcohol Use: Yes Alcohol type: hard liquor Hx Substance Use: No Preferred Language: [place] Communication Ability: Effective Visual Impairment: No Limitations Neuro Intensivist Physician Required: No Beliefs That Will Affect Care: None marital status: Current Living Situation: Spouse current occupational status: retired Feels Safe at Home: Yes Assistive Devices: CPAP, Glasses and Walker Physical Exam Physical Exam: Physical Exam: General: In no acute distress, stated age, well-nourished, non-toxic appearing HEENT: Normocephalic, atraumatic, no scleral icterus, pupils around round, symmetrical, and reactive to light, moist mucus membranes, trachea midline, no thyromegaly Chest/Pulm: No respiratory distress, symmetrical chest expansion, clear breath sounds throughout Cardiac: RRR, no murmurs noted Abdomen: Negative for ascites and bruising, normoactive bowel sounds, soft, non-tender to palpation throughout Musculoskeletal: Tenderness to palpation over the right buttocks with radiation down the RLE, symmetrical strength in BL LE's with significant exacerbation of pain with straight leg raise of the RLE Extremities: Radial, dorsalis pedis, and posterior tibial pulses are intact and symmetrical, no edema noted in the BL LE's Skin: Warm, dry, no rashes , lesions, or scars noted Neuro: Alert and oriented to person, place, month, year, and president, no focal defects, intact sensation and distal reflexes in the BL LE's Psych: No acute distress, calm and cooperative during the exam Results & Data Results & Data Vital Signs (Past 12 Hours) Vital Signs Temp Pulse Pulse Resp BP BP Pulse Ox 08/26/23 19:41 74 17 142/76 H 98 08/26/23 18:34 17 97 08/26/23 17:53 36.4 C L 85 19 180/78 H 99 O2 Del Method 08/26/23 19:41 Room Air 08/26/23 18:34 Room Air 08/26/23 17:53 Room Air Laboratory Results Abnormal lab results 08/26/23 Range/Units 19:16 RBC 3.63 L (4.20-5.40) M/uL Hgb 11.0 L (12.0-16.0) g/dl Hct 34.0 L (37.0-47.0) % RDW Std Deviation 51.9 H (36.4-46.3) fL RDW Coeff of Luis 15.2 H (11.5-14.5) % Neut # (Auto) 8.20 H (1.40-6.50) K/uL Lymph # (Auto) 0.98 L (1.20-3.40) K/uL Will # (Auto) 0.90 H (0.11-0.59) K/uL Potassium 3.2 L (3.5-5.1) mmol/L BUN 28 H (6-23) mg/dl Creatinine 3.48 H (0.6-1.2) mg/dl BUN/Creatinine Ratio 8.0 L (10-20) Glucose 150 H (70-99(Fasting)) mg/dl Calcium 7.9 L (8.6-10.3) mg/dl AST 51 H (13-39) U/L Alkaline Phosphatase 143 H (34-104) U/L Code Status & VTE Plan Code Status Full code VTE Prophylaxis Plan VTE Prophylaxis will be ordered: Yes Supervising Physician Co-Signing Physician Notes Attending addendum: I have physically seen this patient, have supervised the BELKIS's activities, and agree with the H&P unless as otherwise noted. Assessment and Plan: Acute exacerbation of chronic low back pain- Had been on a prednisone taper, but then had a flareup yesterday due to prolonged standing at the ceremony No recent CT scan, so will order CT lumbar spine Dexamethasone 10 mg IV daily Has appointment for follow-up injections with Dr. Wilson next week, which have been helpful in the past Hypokalemia Potassium 3.2 on admission Give a single dose of KCl 20 mEq ESRD on HD- Usual schedule is Monday, and Monday Consult nephrology Diabetes mellitus- Glucose 150 on admission Placed on Accu-Cheks with NovoLog SSI as noted ANA PAULA- CPAP at bedtime PG Care Time/CCT Total # of Minutes Spent Total Time Spent with Patient: Total time spent is greater than 50% in coordination of care (as documented) at patient's floor/unit and/or counseling patient: C[place] [address] INT INP/OBS CARE 2/55MIN Patient Type Established Medical Decision Making Moderate Complexity Diagnoses Acute exacerbation of chronic low back pain M54.50; G89.29 Hypokalemia E87.6 ESRD (end stage renal disease) on dialysis N18.6; Z99.2 Diabetes mellitus E11.9 Obstructive sleep apnea G47.33
[2023-08-26] MEDS ORDERED: CARBOHYDRATES FOR HYPOGLYCEMIA PO PRN (21:36)
[2023-08-26] MEDS ORDERED: DEXTROSE 50% 50 ML SYRINGE IV PRN (21:36)
[2023-08-26] MEDS ORDERED: GLUCOSE 40% GEL 15 GM TUBE PO PRN (21:36)
[2023-08-26] MEDS ORDERED: GLUCAGON FOR INJ 1 MG VIAL SQ PRN (21:36)
[2023-08-26] MEDS ORDERED: GLUCOSE 10 TAB/TUBE PO PRN (21:36)
[2023-08-26] MEDS ORDERED: PHARMACY GLYCEMIC MGMT CONSULT PRN (21:37)
[2023-08-26] MEDS ORDERED: NALOXONE HCL 0.4 MG/1 ML VIAL/CARP IV PRN (21:41)
[2023-08-26] MEDS: POTASSIUM CHLORIDE CRTAB 20 MEQ TABCR PO STA (22:05)
[2023-08-26] MEDS: INSULIN ASPART PER UNIT CHARGE SC SCH (22:52)
[2023-08-26] MEDS: ACETAMINOPHEN 325 MG TAB PO SCH (23:17)
[2023-08-27] MEDS: HYDROmorphone INJ 0.5 MG/0.5 ML SYR IV PRN (00:48)
[2023-08-27 05:13] LABS: Basophils # (auto) 0.01 K/uL (0.00-0.20); Basophils % (auto) 0.1 %; Hematocrit (blood only) 33.6 % (37.0-47.0); Hemoglobin 10.8 g/dl (12.0-16.0); Immature Granulocytes # (auto) 0.12 K/uL (0.01-0.20); Immature Granulocytes % (auto) 1.4 %; Lymphocytes # (auto) 0.72 K/uL (1.20-3.40); Lymphocytes % (auto) 8.6 %; Mean Corpuscular Hgb Conc 32.1 g/dL (32.0-36.0); Mean Corpuscular Volume 93.3 fL (80.0-100.0); Monocytes # (auto) 0.36 K/uL (0.11-0.59); Monocytes % (auto) 4.3 %; Neutrophils # (auto) 7.15 K/uL (1.40-6.50); Neutrophils % (auto) 85.6 %; Platelet Count 158 K/uL (130-400); RDW Standard Deviation 51.8 fL (36.4-46.3); White Blood Count 8.36 K/ul (4.8-10.8)
[2023-08-27 05:14] LABS: Prothrombin Time 10.9 Seconds (9.0-12.0)
[2023-08-27 05:29] LABS: BUN Creatinine Ratio 9.6 (10-20); Creatinine Clr Calc Pharmacy 11.4 ml/min; Est GFR (African American) 12.8 ml/min; Est GFR (Non-African American) 11.1 ml/min; Magnesium 1.7 mg/dl (1.7-2.4); Potassium 3.5 mmol/L (3.5-5.1)
--- NOTE | 2023-08-27 08:32 | Hospitalist Progress Note ---
Date of Service August 27, 2023 Assessment & Plan (1) Acute exacerbation of chronic low back pain: Plan: Acute on chronic low back pain with RLE radicular pain or sciatica, history of lumbar spinal stenosis Typically gets injections for this pain from Dr. Wilson, she has 1 scheduled on 08/30 -Was recovering from an acute exacerbation of her chronic low back pain with prednisone taper started on 08/23 >No recent trauma, initial exacerbation occurred after long episode of house cleaning, then long car ride and sitting in wheelchair for her granddaughters graduation this weekend -No red flag symptoms other than her age, no fevers chills no leukocytosis no personal history of cancer. Does have osteoporosis recently completed treatment with Dr. Arteaga -CT of the lumbar spine pending -Treated with IV dexamethasone and benzodiazepine - continue prednisone 40 mg daily and taper -cont heat, scheduled tylenol, prn dilaudid for severe pain, added as needed low-dose oxycodone for moderate pain -Fall precautions, PT/OT consults may be on medical unit, no indication for tele (2) Hypokalemia: Plan: -3.2 on arrival, treated with 20 K po and resolved. 3.5 today (3) ESRD (end stage renal disease) on dialysis: Plan: -Normal schedule is TTSat, access RUE AVF -Adjusted her schedule this past week so last round of HD was 08/24 -Continue home meds -Nephrology consulted -A.m. labs ordered, dialysis tomorrow versus Monday (4) Diabetes mellitus: Plan: -Monitor BSG ACHS, goal is 110-160 -Will start CF 50 and CR 15 for now -Pharmacy glycemic consult placed while on steroids (5) Obstructive sleep apnea: Plan: -HS CPAP ordered Plan DVT ppx - history of DVT. SCDs currently. Start SQ heparin Admission and Anticipated Discharge Date Admission Date: August 26, 2023 Subjective She really feels much better today with respect to right lower extremity sciatica type pain. Yesterday she was completely locked up. Overnight she had an episode of severe pain radiating down right leg from buttock area was treated with 0.5 mg hydromorphone IV x 1 reports significant relief after that. Moving her right leg around in bed still causes pain however improved compared to yesterday Physical Exam 2 Physical Exam: PHYSICAL EXAMINATION Last 24h vital signs reviewed, see documentation in flowsheet General: comfortable appearing, no distress, lying pretty flat on bed HEENT: Normocephalic, atraumatic, pupils round and equal, sclerae anicteric, no conjunctival injection, moist mucus membranes Lungs: Normal respiratory effort. Clear to auscultation bilaterally. No RRW Heart: Regular rate and rhythm, no murmurs. No JVD Abdomen: Soft, nontender, nondistended. Bowel sounds present. Extremities: Warm, dry, well-perfused. No extremity edema. Right upper extremity with AV fistula positive for thrill, right lower extremity notable for TKR incision well-healed, tolerates some range of motion at the hip and minimal amount of straight leg raise both of these maneuvers aggravate pain Neuro: Alert and oriented x 4, face symmetric, moves 4 extremities well Psych: Normal affect and behavior Results & Data Results & Data Vital Signs (Past 12 Hours) Vital Signs Pulse Pulse Pulse Resp BP BP Pulse Ox 08/27/23 07:35 08/27/23 07:25 70 14 96 08/27/23 07:22 71 08/27/23 04:00 74 18 173/83 H 95 08/27/23 03:59 69 13 95 08/27/23 03:02 73 14 161/77 H 93 08/27/23 02:20 74 20 175/90 H 92 08/27/23 02:00 80 17 175/90 H 96 08/27/23 01:45 75 17 178/93 H 95 08/27/23 01:11 78 16 158/80 H 93 08/27/23 01:11 78 16 158/80 H 96 08/27/23 00:30 08/27/23 00:18 80 08/26/23 23:03 81 21 164/94 H 96 08/26/23 23:00 88 20 164/94 H 08/26/23 22:09 82 17 173/83 H 95 08/26/23 21:59 77 21 98 Pulse Ox O2 Del Method O2 Del Method 08/27/23 07:35 96 Room Air 08/27/23 07:25 08/27/23 07:22 08/27/23 04:00 08/27/23 03:59 08/27/23 03:02 08/27/23 02:20 CPAP 08/27/23 02:00 08/27/23 01:45 08/27/23 01:11 08/27/23 01:11 CPAP 08/27/23 00:30 Room Air, CPAP 08/27/23 00:18 08/26/23 23:03 Room Air 08/26/23 23:00 08/26/23 22:09 Room Air 08/26/23 21:59 Laboratory Results 08/27/23 04:18 08/27/23 04:18 PG Care Time/CCT Total # of Minutes Spent Total Time Spent with Patient: Total time spent is greater than 50% in coordination of care (as documented) at patient's floor/unit and/or counseling patient: Coding Level of Care Code 90577 SUB INP/OBS CARE 2/35MIN Diagnoses Acute exacerbation of chronic low back pain M54.50; G89.29 Hypokalemia E87.6 ESRD (end stage renal disease) on dialysis N18.6; Z99.2 Diabetes mellitus E11.9 Obstructive sleep apnea G47.33
[2023-08-27] MEDS ORDERED: DEXAMETHASONE SOD INJ 4 MG/ML VIAL IV SCH (09:00)
[2023-08-27] MEDS ORDERED: dexAMETHasone 10 MG in SYRINGE 0 ML IV SCH (09:00)
[2023-08-27] MEDS: SEVELAMER CARBONATE 800 MG TAB PO SCH ×2 (09:23→17:36)
[2023-08-27] MEDS: NEPHROCAPS PO SCH (09:23)
[2023-08-27] MEDS: predniSONE 20 MG TAB PO SCH (09:23)
[2023-08-27] MEDS: METOPROLOL SUCC 50MG EXT REL TAB PO SCH (09:23)
[2023-08-27] MEDS: DOCUSATE SODIUM 100 MG CAP PO SCH (09:23)
[2023-08-27] MEDS: PANTOprazole 40 MG TAB PO SCH (09:23)
[2023-08-27] MEDS: VIBEGRON 75 MG TAB PO SCH (09:23)
--- NOTE | 2023-08-27 10:44 | Nephrology Consultation ---
Date of Consultation August 27, 2023 Assessment & Plan (1) ESRD (end stage renal disease) on dialysis: TTS. BP and volume status are acceptable. Electrolytes controlled. Outpatient Rx 3.5 hrs, 180 optiflux, 350/800, 2K, 137Na, 35HCO3. RUE AVF. EDW 79. Medications are appropriately dosed for IHD. Chronic, stable anemia. Renal diet. Repeat metabolic profile and CBC tomorrow AM. Next HD tomorrow versus Monday. (2) Secondary hyperparathyroidism: Maintained on Sensipar as outpatient. Renvela with meals for hyperphosphatemia. (3) Spinal stenosis, lumbar region with neurogenic claudication: Physical therapy evaluation pending. Pain controlled with Valium and dexamethasone. Restarted PO prednisone. History of Present Illness Reason for Consultation: ESRD TTSat, amitted for back pain Requesting Physician: Osiris Duran MD Attending Physician: Osiirs Duran MD History of Present Illness Mrs. 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 Medical history notable for obesity, DMII, hypertension, lower extremity DVT --> Eliquis, osteoporosis (Evenity completed May), CKD/MBD with sPTH, and severe OA/DJD (s/p ankle fusion, lumbar spine fusion, TKA). She dialyzes TTS at [facility] under the care of Dr. Calhoun. Joan has been tolerating dialysis well. No recent complications with treatment noted. Her outpatient Rx is TTS 3.5 hours, 180 optiflux, 350/800, 2K, 137Na, 35HCO3. EDW 79 kg. Joan has a well functioning RUE AVF. She dialyzed on an adjusted schedule last week so she could attend her granddaughter's graduation yesterday. Dialysis treatments were completed on 08/21, 08/23, and 08/24. She left treatment on 08/24 at 78.5 kg. Clearances have been at goal. Joan has not required KHANH therapy since June. sPTH is managed with Sensipar 60 mg QHD with Renvela for hyperphosphatemia. In July, GI evaluation was completed for dysphagia and change in bowel habits. Several polyps were removed from the colon. EGD demonstrated mild chronic gastritis. Joan follows closely with orthopedics and rheumatology for her osteoarthritis. She has been struggling with recent sciatica. Symptoms flared after bending over to clean her home. She started oral prednisone with some initial relief on August 24. Unfortunately, after traveling yesterday, pain was significantly worse and she was unable to transfer. She presented to the ER for additional evaluation. Joan has been admitted for symptom control and PT evaluation. Allergies Allergy/AdvReac Type Severity Reaction Status Date / Time bee venom protein (honey bee) Allergy Severe Anaphylaxis Verified 08/15/23 09:51 hornet venom Allergy Severe Anaphylaxis Verified 08/15/23 09:51 adhesive Allergy Mild local skin Verified 08/15/23 09:51 irritation bacitracin Allergy Mild Rash Verified 08/15/23 09:51 neomycin Allergy Mild Rash Verified 08/15/23 09:51 polymyxin B Allergy Mild Rash Verified 08/15/23 09:51 Home Medications Medication Instructions Recorded Confirmed Type docusate sodium 100 mg capsule 100 mg PO QAM 10/11/18 08/26/23 History (Stool Softener) sevelamer carbonate 800 mg tablet 800 mg PO UD 12/14/18 08/26/23 History (Renvela) vit B complx, C-iron 8 mg-folic 1 tab PO DAILY 02/22/22 08/26/23 History acid 800 mcg-D3 1,000 unit-zinc tablet (ProRenal) epinephrine 0.3 mg/0.3 mL 0.3 mg (0.3 mL) subcut Q15M PRN 10/26/22 08/26/23 Rx injection, auto-injector anaphylaxis #1 ea atorvastatin 40 mg tablet (Lipitor) 40 mg PO PM #90 tabs 07/03/23 08/26/23 Rx metoprolol succinate 50 mg 50 mg PO DAILY #90 tabs 07/03/23 08/26/23 Rx tablet,extended release 24 hr mirabegron 50 mg tablet,extended 50 mg PO QAM #90 tabs 07/03/23 08/26/23 Rx release 24 hr (Myrbetriq) omeprazole 20 mg tablet,delayed 20 mg PO QAM #90 tabs 07/03/23 08/26/23 Rx release prednisone 10 mg tablet 10 mg PO UD 08/26/23 08/26/23 History Patient History Medical History Chronic SI joint pain injection 05/2023 [place] Nausea and vomiting after administration of anesthetic agent Constipation Dysphagia History of revision of total replacement of right knee joint (~02/18/20) @ [facility] Trochanteric bursitis, right hip Deviated nasal septum Osteoarthritis Diverticulosis GERD (gastroesophageal reflux disease) Spinal stenosis s/p lumbar fusion, ~ L4-L5, pt to have follow-up with Dr Martinez prior to surgery Hyperlipidemia HTN (hypertension) Sleep apnea CPAP DM type 2 (diabetes mellitus, type 2) hx -- no current medication Dialysis patient [facility] [place], [place], [place] (has been on dialysis x 4 years) ESRD (end stage renal disease) Follows w/ Dr. Calhoun DVT (deep venous thrombosis) RLE (12/12/18) felt 2/2 decreased mobility d/t spinal stenosis-- prescribed Eliquis x 2 months Spastic bladder History of basal cell carcinoma s/p excision Limb alert care status RUE fistula Surgical History S/P epidural steroid injection right SI joint injection History of bilateral knee replacement History of lumbosacral spine surgery decompression and fusion; hardware present; 02/15/2019 [place] H/O dilation and curettage S/P arteriovenous (AV) fistula creation X3 TO RUE (RUE + REVISIONS) History of cataract surgery History of oral surgery History of tooth extraction History of tonsillectomy History of bilateral tubal ligation History of carpal tunnel release B/L History of ankle fusion B/L History of esophagogastroduodenoscopy (EGD) History of colonoscopy Family History Mother Family history of diabetes mellitus Arthritis Diabetes Stroke Brother Family hx of colon cancer Spina bifida Hypertension Colon cancer Heart disease Cancer Father Kidney stones Social History Smoking Status: Never smoker Second Hand Exposure: No; Do You Dip or Chew Tobacco: No; Hx Alcohol Use: Yes Alcohol type: hard liquor Hx Substance Use: No Preferred Language: Cambodian Communication Ability: Effective Visual Impairment: No Limitations Histotechnologist Supervisor Required: No Beliefs That Will Affect Care: None marital status: Current Living Situation: Spouse current occupational status: retired Other Information That Helps Us Care for You: No Feels Safe at Home: Yes Safety Concerns: Feels Safe At This Time Assistive Devices: CPAP, Glasses and Walker Review of Systems Review of Systems: All systems reviewed & are unremarkable except as noted in HPI & below Physical Exam Constitutional: well developed; no acute distress Eyes: no scleral abnormality and no corneal abnormality ENMT: Mouth: no oral mucosal abnormality and oral mucous membranes not dry Neck: normal visual inspection, trachea midline and + thick neck Respiratory: normal respiratory effort Auscultation: lungs clear to auscultation bilaterally Cardiovascular: Rate/Rhythm: regular rate Heart Sounds: normal S1 and normal S2 Extremities: + AV fistula; no edema Gastrointestinal (Abdomen): Percussion/Palpation: abdomen soft; abdomen nontender Musculoskeletal: Extremities: no cyanosis and no clubbing Skin: normal turgor; no lesions Neurologic: Motor/Sensory: no tremor and no asterixis Psychiatric: Orientation: alert and oriented x 3 Results & Data Vital Signs (Past 12 Hours) Vital Signs Temp Pulse Pulse Resp BP BP Pulse Ox 08/27/23 09:16 36.5 C 77 24 151/76 H 97 08/27/23 07:35 08/27/23 07:25 70 14 96 08/27/23 07:22 71 08/27/23 04:00 74 18 173/83 H 95 08/27/23 03:59 69 13 95 08/27/23 03:02 73 14 161/77 H 93 08/27/23 02:20 74 20 175/90 H 92 08/27/23 02:00 80 17 175/90 H 96 08/27/23 01:45 75 17 178/93 H 95 08/27/23 01:11 78 16 158/80 H 93 08/27/23 01:11 78 16 158/80 H 96 08/27/23 00:30 08/27/23 00:18 80 08/26/23 23:03 81 21 164/94 H 96 08/26/23 23:00 88 20 164/94 H Pulse Ox O2 Del Method O2 Del Method 08/27/23 09:16 Room Air 08/27/23 07:35 96 Room Air 08/27/23 07:25 08/27/23 07:22 08/27/23 04:00 08/27/23 03:59 08/27/23 03:02 08/27/23 02:20 CPAP 08/27/23 02:00 08/27/23 01:45 08/27/23 01:11 08/27/23 01:11 CPAP 08/27/23 00:30 Room Air, CPAP 08/27/23 00:18 08/26/23 23:03 Room Air 08/26/23 23:00 Laboratory Results Laboratory Results - last 24 hr 08/26/23 08/26/23 08/26/23 19:16 22:08 23:20 WBC 10.23 RBC 3.63 L Hgb 11.0 L Hct 34.0 L MCV 93.7 MCH 30.3 MCHC 32.4 RDW Std Deviation 51.9 H RDW Coeff of Luis 15.2 H Plt Count 177 MPV 11.0 Immature Gran % (Auto) 1.0 Neut % (Auto) 80.1 Lymph % (Auto) 9.6 [place] % (Auto) 8.8 Eos % (Auto) 0.2 Baso % (Auto) 0.3 Neut # (Auto) 8.20 H Lymph # (Auto) 0.98 L [place] # (Auto) 0.90 H Eos # (Auto) 0.02 Baso # (Auto) 0.03 Immature Gran # (Auto) 0.10 PT 10.9 INR 1.0 Sodium 141 Potassium 3.2 L Chloride 100 Carbon Dioxide 30 Anion Gap 11 BUN 28 H Creatinine 3.48 H Est Cr Clr Drug Dosing 12.0 Est GFR ( Amer) 13.6 Est GFR (Non-Af Amer) 11.8 BUN/Creatinine Ratio 8.0 L Glucose 150 H POC Glucose 136 H Calcium 7.9 L Phosphorus 2.7 Magnesium 1.7 Total Bilirubin 0.6 AST 51 H ALT 30 Alkaline Phosphatase 143 H Total Protein 6.4 Albumin 3.4 Globulin 3.0 Albumin/Globulin Ratio 1.1 Nasal Screen MRSA (PCR) Negative 08/27/23 08/27/23 04:18 07:56 WBC 8.36 RBC 3.60 L Hgb 10.8 L Hct 33.6 L MCV 93.3 MCH 30.0 MCHC 32.1 RDW Std Deviation 51.8 H RDW Coeff of Luis 15.0 H Plt Count 158 MPV 11.0 Immature Gran % (Auto) 1.4 Neut % (Auto) 85.6 Lymph % (Auto) 8.6 [place] % (Auto) 4.3 Eos % (Auto) 0.0 Baso % (Auto) 0.1 Neut # (Auto) 7.15 H Lymph # (Auto) 0.72 L [place] # (Auto) 0.36 Eos # (Auto) 0.00 Baso # (Auto) 0.01 Immature Gran # (Auto) 0.12 PT 10.9 INR 1.0 Sodium 140 Potassium 3.5 Chloride 100 Carbon Dioxide 29 Anion Gap 11 BUN 35 H Creatinine 3.66 H Est Cr Clr Drug Dosing 11.4 Est GFR ( Amer) 12.8 Est GFR (Non-Af Amer) 11.1 BUN/Creatinine Ratio 9.6 L Glucose 160 H POC Glucose 129 H Calcium 8.0 L Phosphorus Magnesium 1.7 Total Bilirubin AST ALT Alkaline Phosphatase Total Protein Albumin Globulin Albumin/Globulin Ratio Nasal Screen MRSA (PCR) PG Care Time/CCT Total # of Minutes Spent Total Time Spent with Patient: Total time spent is greater than 50% in coordination of care (as documented) at patient's floor/unit and/or counseling patient: Coding Level of Care Code 03403 IN/OBS CONSULT LVL 4,60M Diagnoses ESRD (end stage renal disease) on dialysis N18.6; Z99.2 Secondary hyperparathyroidism N25.81 Spinal stenosis, lumbar region with neurogenic claudication M48.062
[2023-08-27] MEDS: oxyCODONE HCL IR 5 MG TAB (IMMEDIATE RELEASE) PO PRN (15:48)
[2023-08-27] MEDS: ATORVASTATIN 40 MG TAB PO SCH (20:45)
[2023-08-27] MEDS: HEPARIN SOD 5,000 UNIT/0.5 ML VIAL SQ SCH (20:58)
[2023-08-28 06:47] LABS: Hemoglobin 11.8 g/dl (12.0-16.0); Mean Corpuscular Hemoglobin 30.1 pg (25.0-34.0); Mean Corpuscular Hgb Conc 32.8 g/dL (32.0-36.0); Mean Corpuscular Volume 91.8 fL (80.0-100.0); Mean Platelet Volume 11.3 fL (9.4-12.4); Platelet Count 192 K/uL (130-400); RDW Coefficient of Variation 15.2 % (11.5-14.5); RDW Standard Deviation 50.7 fL (36.4-46.3); Red Blood Count 3.92 M/uL (4.20-5.40)
[2023-08-28 06:59] LABS: BUN Creatinine Ratio 10.8 (10-20); Calcium 7.9 mg/dl (8.6-10.3); Creatinine Clr Calc Pharmacy 8.7 ml/min; Est GFR (African American) 9.7 ml/min; Est GFR (Non-African American) 8.4 ml/min; Magnesium 1.6 mg/dl (1.7-2.4); Potassium 3.3 mmol/L (3.5-5.1)
--- NOTE | 2023-08-28 10:21 | Nephrology Progress Note ---
Date of Service August 28, 2023 Assessment & Plan (1) ESRD (end stage renal disease) on dialysis: Plan: TTS. BP and volume status are acceptable. Electrolytes controlled. Outpatient Rx 3.5 hrs, 180 optiflux, 350/800, 2K, 137Na, 35HCO3. RUE AVF. EDW 79. Medications are appropriately dosed for IHD. Chronic, stable anemia. Renal diet. Repeat metabolic profile and CBC tomorrow AM. Next HD tomorrow. (2) Secondary hyperparathyroidism: Plan: Maintained on Sensipar as outpatient. Renvela with meals for hyperphosphatemia. (3) Spinal stenosis, lumbar region with neurogenic claudication: Plan: Physical therapy. Pain controlled. Remains on PO prednisone. Admission and Anticipated Discharge Date Admission Date: August 26, 2023 Subjective No acute events overnight. Joan feels well this morning. Back pain improved. Denies significant radicular symptoms at this time. Review of Systems Review of Systems: All systems reviewed & are unremarkable except as noted in HPI & below Physical Exam Constitutional: well developed; no acute distress Eyes: no scleral abnormality and no corneal abnormality ENMT: Mouth: no oral mucosal abnormality and oral mucous membranes not dry Neck: normal visual inspection, trachea midline and + thick neck Respiratory: normal respiratory effort Auscultation: lungs clear to auscultation bilaterally Cardiovascular: Rate/Rhythm: regular rate Heart Sounds: normal S1 and normal S2 Extremities: + AV fistula; no edema Gastrointestinal (Abdomen): Percussion/Palpation: abdomen soft; abdomen nontender Musculoskeletal: Extremities: no cyanosis and no clubbing Skin: normal turgor; no lesions Neurologic: Motor/Sensory: no tremor and no asterixis Psychiatric: Orientation: alert and oriented x 3 Results & Data Vital Signs (Past 12 Hours) Vital Signs Temp Pulse Pulse Resp BP Pulse Ox Pulse Ox 08/28/23 09:15 08/28/23 07:11 36.5 C 76 20 160/75 H 97 08/28/23 07:05 97 08/28/23 03:04 71 16 94 08/27/23 22:30 74 18 96 O2 Del Method O2 Del Method 08/28/23 09:15 Room Air 08/28/23 07:11 Room Air 08/28/23 07:05 Room Air 08/28/23 03:04 08/27/23 22:30 Laboratory Results Laboratory Results - last 24 hr 08/27/23 08/27/23 08/27/23 12:18 16:46 16:47 WBC RBC Hgb Hct MCV MCH MCHC RDW Std Deviation RDW Coeff of Luis Plt Count MPV Sodium Potassium Chloride Carbon Dioxide Anion Gap BUN Creatinine Est Cr Clr Drug Dosing Est GFR ( Amer) Est GFR (Non-Af Amer) BUN/Creatinine Ratio Glucose POC Glucose 183 H 328 H* 145 H Calcium Magnesium 08/27/23 08/27/23 08/28/23 16:50 20:14 05:54 WBC 12.90 H RBC 3.92 L Hgb 11.8 L Hct 36.0 L MCV 91.8 MCH 30.1 MCHC 32.8 RDW Std Deviation 50.7 H RDW Coeff of Luis 15.2 H Plt Count 192 MPV 11.3 Sodium 139 Potassium 3.3 L Chloride 100 Carbon Dioxide 29 Anion Gap 10 BUN 50 H Creatinine 4.61 H* D Est Cr Clr Drug Dosing 8.7 Est GFR ( Amer) 9.7 Est GFR (Non-Af Amer) 8.4 BUN/Creatinine Ratio 10.8 Glucose 103 H POC Glucose 122 H 147 H Calcium 7.9 L Magnesium 1.6 L 08/28/23 07:41 WBC RBC Hgb Hct MCV MCH MCHC RDW Std Deviation RDW Coeff of Luis Plt Count MPV Sodium Potassium Chloride Carbon Dioxide Anion Gap BUN Creatinine Est Cr Clr Drug Dosing Est GFR ( Amer) Est GFR (Non-Af Amer) BUN/Creatinine Ratio Glucose POC Glucose 101 H Calcium Magnesium PG Care Time/CCT Total # of Minutes Spent Total Time Spent with Patient: Total time spent is greater than 50% in coordination of care (as documented) at patient's floor/unit and/or counseling patient: Coding Level of Care Code 50540 SUB INP/OBS CARE 3/50MIN Diagnoses ESRD (end stage renal disease) on dialysis N18.6; Z99.2 Secondary hyperparathyroidism N25.81 Spinal stenosis, lumbar region with neurogenic claudication M48.062
--- NOTE | 2023-08-28 17:16 | Hospitalist Progress Note ---
Date of Service August 28, 2023 Assessment & Plan (1) Acute exacerbation of chronic low back pain: Plan: Acute on chronic low back pain with RLE radicular pain or sciatica, history of lumbar spinal stenosis (moderate on previous MRI) Typically gets injections for this pain from Dr. Wilson, she has 1 scheduled on 08/30 -Was recovering from an acute exacerbation of her chronic low back pain with prednisone taper started on 08/23 >No recent trauma, initial exacerbation occurred after long episode of house cleaning, then long car ride and sitting in wheelchair for her granddaughters graduation this weekend -No red flag symptoms other than her age, no fevers chills no leukocytosis no personal history of cancer. Does have osteoporosis recently completed treatment with Dr. Arteaga -Treated with IV dexamethasone and benzodiazepine, hydromorphone IV in the ED - continue prednisone 40 mg daily and taper -cont heat, scheduled tylenol, prn dilaudid for severe pain, added as needed low-dose oxycodone for moderate pain -Fall precautions, PT/OT consults - not able to ambulate, rehab recommended -consider repeat spine imaging if not improved. hip fracture seems unlikely because pain starts in buttock/SI region and radiates down in radicular pattern. (2) Hypokalemia: Plan: -3.2 on arrival, treated with 20 K po and resolved to 3.5, 3.3 today did not replace because of ESRD, not dialyzing until tomorrow -AM BMP (3) ESRD (end stage renal disease) on dialysis: Plan: -Normal schedule is TTSat, access RUE AVF -Adjusted her schedule this past week so last round of HD was 08/24 -Continue home meds -Nephrology consulted -dialysis tomorrow per patient (4) Diabetes mellitus: Plan: -Monitor BSG ACHS, goal is 110-160 -Will start CF 50 and CR 15 for now -Pharmacy glycemic consult placed while on steroids -BG at goal 08/27 (5) Obstructive sleep apnea: Plan: -HS CPAP ordered Plan DVT ppx - history of DVT. cont SQ heparin Admission and Anticipated Discharge Date Admission Date: August 26, 2023 Subjective RLE sciatica pain improved but continues Was unable to ambulate with PT/OT - required max and mod assist just to stand and could only side step minimally Endorses she feels weaker than normal Physical Exam 2 Physical Exam: PHYSICAL EXAMINATION Last 24h vital signs reviewed, see documentation in flowsheet General: comfortable appearing, no distress, sitting EOB HEENT: Normocephalic, atraumatic, pupils round and equal, sclerae anicteric, no conjunctival injection, moist mucus membranes Lungs: Normal respiratory effort. Clear to auscultation bilaterally. No RRW Heart: Regular rate and rhythm, no murmurs. No JVD Abdomen: Soft, nontender, nondistended. Bowel sounds present. Extremities: Warm, dry, well-perfused. has lower extremity edema. Right upper extremity with AV fistula positive for thrill, right lower extremity notable for TKR incision well-healed, observed sit-->stand with OT required max 1PA and stood 2 minutes, could not side step - resulted in buckling Neuro: Alert and oriented x 4, face symmetric, moves 4 extremities well Psych: Normal affect and behavior Results & Data Results & Data Vital Signs (Past 12 Hours) Vital Signs Temp Pulse Pulse Resp BP Pulse Ox Pulse Ox 08/28/23 15:27 36.6 C 70 18 184/78 H 97 08/28/23 09:15 08/28/23 07:11 36.5 C 76 20 160/75 H 97 08/28/23 07:05 97 O2 Del Method O2 Del Method 08/28/23 15:27 Room Air 08/28/23 09:15 Room Air 08/28/23 07:11 Room Air 08/28/23 07:05 Room Air Laboratory Results 08/28/23 05:54 08/28/23 05:54 PG Care Time/CCT Total # of Minutes Spent Total Time Spent with Patient: Total time spent is greater than 50% in coordination of care (as documented) at patient's floor/unit and/or counseling patient: Coding Level of Care Code 95322 SUB INP/OBS CARE 2/35MIN Diagnoses Acute exacerbation of chronic low back pain M54.50; G89.29 Hypokalemia E87.6 ESRD (end stage renal disease) on dialysis N18.6; Z99.2 Diabetes mellitus E11.9 Obstructive sleep apnea G47.33
[2023-08-29 08:53] LABS: BUN Creatinine Ratio 12.5 (10-20); Calcium 7.9 mg/dl (8.6-10.3); Est GFR (African American) 7.1 ml/min; Est GFR (Non-African American) 6.1 ml/min; Magnesium 1.7 mg/dl (1.7-2.4); Potassium 3.6 mmol/L (3.5-5.1)
--- NOTE | 2023-08-29 11:15 | Nephrology Progress Note ---
Date of Service August 29, 2023 Assessment & Plan (1) ESRD (end stage renal disease) on dialysis: Plan: TTS. Orders for HD today were entered into the EHR and reviewed with the pipe connector. Outpatient Rx 3.5 hrs, 180 optiflux, 350/800, 2K, 137Na, 35HCO3. RUE AVF. EDW 79. Medications are appropriately dosed for IHD. Chronic, stable anemia. Renal diet. Repeat metabolic profile and CBC tomorrow AM. Next HD tomorrow. (2) Secondary hyperparathyroidism: Plan: Maintained on Sensipar as outpatient. Renvela with meals for hyperphosphatemia. (3) Spinal stenosis, lumbar region with neurogenic claudication: Plan: Physical therapy. Pain controlled. Remains on PO prednisone. Admission and Anticipated Discharge Date Admission Date: August 26, 2023 Subjective No acute events overnight. Joan feels reasonably well this morning. Activity tolerance limited by pain. She was able to sit on the side of the bed but not comfortably. Back pain started to flare and is now improving back in bed. She is looking forward to working with PT at rehab. Review of Systems Review of Systems: All systems reviewed & are unremarkable except as noted in HPI & below Physical Exam Constitutional: well developed; no acute distress Eyes: no scleral abnormality and no corneal abnormality ENMT: Mouth: no oral mucosal abnormality and oral mucous membranes not dry Neck: normal visual inspection, trachea midline and + thick neck Respiratory: normal respiratory effort Auscultation: lungs clear to auscultation bilaterally Cardiovascular: Rate/Rhythm: regular rate Heart Sounds: normal S1 and normal S2 Extremities: + AV fistula; no edema Gastrointestinal (Abdomen): Percussion/Palpation: abdomen soft; abdomen nontender Musculoskeletal: Extremities: no cyanosis and no clubbing Skin: normal turgor; no lesions Neurologic: Motor/Sensory: no tremor and no asterixis Psychiatric: Orientation: alert and oriented x 3 Results & Data Vital Signs (Past 12 Hours) Vital Signs Temp Pulse Pulse Resp BP Pulse Ox O2 Del Method 08/29/23 07:56 36.3 C L 71 16 186/66 H 97 Room Air 08/29/23 02:32 70 22 93 Laboratory Results Laboratory Results - last 24 hr 08/28/23 08/28/23 08/28/23 11:43 16:47 20:12 Sodium Potassium Chloride Carbon Dioxide Anion Gap BUN Creatinine Est Cr Clr Drug Dosing Est GFR ( Amer) Est GFR (Non-Af Amer) BUN/Creatinine Ratio Glucose POC Glucose 133 H 172 H 130 H Calcium Magnesium 08/29/23 08/29/23 07:30 07:51 Sodium 138 Potassium 3.6 Chloride 99 Carbon Dioxide 26 Anion Gap 13 H BUN 75 H D Creatinine 5.98 H* D Est Cr Clr Drug Dosing 7.0 Est GFR ( Amer) 7.1 Est GFR (Non-Af Amer) 6.1 BUN/Creatinine Ratio 12.5 Glucose 100 H POC Glucose 103 H Calcium 7.9 L Magnesium 1.7 PG Care Time/CCT Total # of Minutes Spent Total Time Spent with Patient: Total time spent is greater than 50% in coordination of care (as documented) at patient's floor/unit and/or counseling patient: Coding Level of Care Code 22927 SUB INP/OBS CARE 3/50MIN Diagnoses ESRD (end stage renal disease) on dialysis N18.6; Z99.2 Secondary hyperparathyroidism N25.81 Spinal stenosis, lumbar region with neurogenic claudication M48.062
--- NOTE | 2023-08-29 13:09 | Pharmacy Report ---
Pharmacy Glycemic Short Note 2 - Date of Service August 29, 2023 - Glycemic Short BSG Results (Last 24 hours): 08/28/23 08/28/23 08/29/23 16:47 20:12 07:30 Glucose 100 H POC Glucose 172 H 130 H 08/29/23 08/29/23 07:51 11:57 Glucose POC Glucose 103 H 141 H OUTPATIENT ANTIDIABETIC REGIMEN: * n/a * HbA1c: unreliable in the setting of HD ASSESSMENT: * Ms Barboza is an 82yo diabetic F admitted on 08/25 for back pain. * Pt received one dose of IV dexamethasone on 08/25 and has been receiving prednisone 40mg PO daily for the past few days. * Novolog was added to provide correctional/prandial coverage while on steroids. * BSGs have been well-controlled on current regimen. * Pt is to receive dialysis today and again tomorrow. PLAN FOR INPATIENT GLYCEMIC CONTROL: * Hold outpatient oral diabetes medications * Basal insulin * none at this time * Bolus insulin * NovoLog per scale ACHS or Q6hrs while NPO * Goal Range: Low 120 mg/dL - High 150 mg/dL * Correction Factor: 25 mg/dL/unit * Nutritional / Prandial insulin per carb ratio of 1 unit per 7 grams CHO consumed
--- NOTE | 2023-08-29 14:17 | Hospitalist Progress Note ---
Date of Service August 29, 2023 Assessment & Plan (1) Acute exacerbation of chronic low back pain: Plan: Ongoing Acute on chronic low back pain with RLE radicular pain Last MRI of l-spine was several years ago Does have prior history of lumbar spinal stenosis surgery - fusion L3-L5 by Dr Martinez in 2019 Typically gets steroid injections by Dr. Wilson - next was scheduled on 08/30 recently prescribed prednisone on 08/23 as outpatient this has been continued in the hospital No fall or trauma, but pain worsened after long episode of house cleaning, then long car ride and sitting in wheelchair for her granddaughters graduation recently remains on scheduled tylenol, prn dilaudid for severe pain, low-dose oxycodone for moderate pain add lidoderm patches due to inability to ambulate -- and previously was independent & very functional - will obtain x-rays of l-spine and MRI of l-spine once results are available will consult appropriate services (Dr Martinez, etc) if needed (2) Right hip pain: Plan: patient with significant pain in right hip, particularly lateral aspect has severe limitation in ROM both active & passive although no reported trauma or fall will obtain x-rays of right hip to assess for OA, etc contributing to dysfunction & pain (3) Abdominal distension: Plan: constipation? check KUB x-ray and go from there (4) Hypokalemia: Plan: replaced resolved (5) ESRD (end stage renal disease) on dialysis: Plan: appreciate nephrology assistance typical schedule - //Sat access - RUE AVF (6) Diabetes mellitus: Plan: most recent a1c was <6% but may not be accurate due to mild anemia however, with that said, BSGs have been well-controlled even on steroids appreciate Pharmacy glycemic consult (7) Obstructive sleep apnea: Plan: cont HS CPAP Plan DVT ppx - cont SQ heparin 5000 units BID Admission and Anticipated Discharge Date Admission Date: August 26, 2023 Subjective patient lying in bed comfortably during the visit she reports she overall feels better from pain standpoint, but she "can't even sit at the side of the bed" prior to coming to hospital she was fully ambulatory and doing most ADLs at home she mentions attending her grand-daughter's nursing school graduation last week as well PT note from yesterday states she stood at side of bed with rolling walker unable to take any steps or lift her feet due to pain max assist x 2 to get back to bed reports pain in right thigh and pain in low back on right can't lift her right thigh off the bed but able to do so on left Review of Systems Review of Systems: gen - no fevers; chronic poor-fair appetite cv - no chest pain pulm - no dyspnea GI - no abd pain but states she was constipated yesterday Physical Exam Physical Exam: gen - pleasant, lying in bed neck - no JVD mouth - MMM heart - RRR, s1 s2, 1/6 MINI LSB lungs - CTA b/l abd - distended, BS+, NT ext - pulses 2+ b/l, no edema musculo - right passive ROM of right hip she has pain; with active ROM she has severely limited ability to flex the right hip; tender over lateral aspect of right hip to palpation; mildly tender to palpation over right paraspinal lumbar region neuro - distal strength of b/l ankles 5/5 (dorsiflexion/plantarflexion); left hip flexion 5/5 strength Results & Data Results & Data Vital Signs (Past 12 Hours) Vital Signs Temp Pulse Pulse Resp BP Pulse Ox O2 Del Method 08/29/23 07:56 36.3 C L 71 16 186/66 H 97 Room Air 08/29/23 02:32 70 22 93 Laboratory Results Laboratory Results - last 48 hr 08/28/23 08/28/23 08/28/23 11:43 16:47 20:12 WBC RBC Hgb Hct MCV MCH MCHC RDW Std Deviation RDW Coeff of Luis Plt Count MPV Immature Gran % (Auto) Neut % (Auto) Lymph % (Auto) [place] % (Auto) Eos % (Auto) Baso % (Auto) Neut # (Auto) Lymph # (Auto) [place] # (Auto) Eos # (Auto) Baso # (Auto) Immature Gran # (Auto) ESR Sodium Potassium Chloride Carbon Dioxide Anion Gap BUN Creatinine Est Cr Clr Drug Dosing Est GFR ( Amer) Est GFR (Non-Af Amer) BUN/Creatinine Ratio Glucose POC Glucose 133 H 172 H 130 H Calcium Magnesium Total Bilirubin AST ALT Alkaline Phosphatase C-Reactive Protein Total Protein Albumin Globulin Albumin/Globulin Ratio 08/29/23 08/29/23 08/29/23 07:30 07:51 11:57 WBC RBC Hgb Hct MCV MCH MCHC RDW Std Deviation RDW Coeff of Luis Plt Count MPV Immature Gran % (Auto) Neut % (Auto) Lymph % (Auto) [place] % (Auto) Eos % (Auto) Baso % (Auto) Neut # (Auto) Lymph # (Auto) [place] # (Auto) Eos # (Auto) Baso # (Auto) Immature Gran # (Auto) ESR Sodium 138 Potassium 3.6 Chloride 99 Carbon Dioxide 26 Anion Gap 13 H BUN 75 H D Creatinine 5.98 H* D Est Cr Clr Drug Dosing 7.0 Est GFR ( Amer) 7.1 Est GFR (Non-Af Amer) 6.1 BUN/Creatinine Ratio 12.5 Glucose 100 H POC Glucose 103 H 141 H Calcium 7.9 L Magnesium 1.7 Total Bilirubin AST ALT Alkaline Phosphatase C-Reactive Protein Total Protein Albumin Globulin Albumin/Globulin Ratio 08/29/23 08/29/23 17:50 20:07 WBC RBC Hgb Hct MCV MCH MCHC RDW Std Deviation RDW Coeff of Luis Plt Count MPV Immature Gran % (Auto) Neut % (Auto) Lymph % (Auto) [place] % (Auto) Eos % (Auto) Baso % (Auto) Neut # (Auto) Lymph # (Auto) [place] # (Auto) Eos # (Auto) Baso # (Auto) Immature Gran # (Auto) ESR Sodium Potassium Chloride Carbon Dioxide Anion Gap BUN Creatinine Est Cr Clr Drug Dosing Est GFR ( Amer) Est GFR (Non-Af Amer) BUN/Creatinine Ratio Glucose POC Glucose 163 H 144 H Calcium Magnesium Total Bilirubin AST ALT Alkaline Phosphatase C-Reactive Protein Total Protein Albumin Globulin Albumin/Globulin Ratio PG Care Time/CCT Total # of Minutes Spent Total Time Spent with Patient: Total time spent is greater than 50% in coordination of care (as documented) at patient's floor/unit and/or counseling patient: Coding Level of Care Code 54937 SUB INP/OBS CARE 3/50MIN Diagnoses Acute exacerbation of chronic low back pain M54.50; G89.29 Right hip pain M25.551 Abdominal distension R14.0 Hypokalemia E87.6 ESRD (end stage renal disease) on dialysis N18.6; Z99.2 Diabetes mellitus E11.9 Obstructive sleep apnea G47.33
[2023-08-29] MEDS: POLYETHYLENE (MIRALAX) 17 GM PACK PO SCH (17:54)
[2023-08-29] MEDS: LIDOCAINE 5% 1 PATCH TD SCH (17:54)
--- NOTE | 2023-08-29 22:05 | Magnetic Resonance Report ---
Exam(s): MRI L SPINE Without Contrast EXAM: MR Lumbar Spine Without Intravenous Contrast CLINICAL HISTORY: Reason for exam: severe RLE radic pain, known L-spine disease. TECHNIQUE: Magnetic resonance images of the lumbar spine without intravenous contrast in multiple planes. COMPARISON: Comparison made to prior plain film images of the lumbar spine from August 29, 2023. FINDINGS: Vertebrae: There are 5 lumbar type vertebral bodies with a mild levoscoliosis and normal lumbar lordosis. There is a mild grade 1 antral listhesis of L4 on L5 measuring 7 mm and anterolisthesis of L5 on S1 measuring 7 mm. Otherwise, there is normal vertebral body height and alignment. Patient is status post posterior decompression and fusion of L3, L4 and L5 with a stricture screws and connecting rods in place. No acute fracture. There is increased edema signal at L2-3, L3-4 and L5-S1. Spinal cord: The conus is normal size, shape and signal characteristics, terminating at L1-L2. Soft tissues: There is extensive edema within the paraspinous muscles and left to the right prevertebral soft tissues. There is advanced atrophy of the iliopsoas, paraspinous and intraspinous musculature. The aorta and IVC flow voids are intact. Advanced atrophy of the kidneys with bilateral cysts. IMPRESSION: Findings concerning for early acute discovertebral osteomyelitis at L2-3 and L3-4 with extensive prevertebral soft tissue swelling. Recommend postcontrast imaging for further evaluation. Communications: Verify Receipt Electronically signed by: Arlen Jean Baptiste MD 08/29/23 22:04 PM
[2023-08-30] MEDS ORDERED: VANCOMYCIN CONSULT ACTIVE PRN (01:20)
--- NOTE | 2023-08-30 01:51 | Communication Note ---
Date of Service: August 30, 2023 Patient underwent lumbar spine MRI as ordered by daytime hospitalist, I was contacted by nursing regarding the report of the MRI. The MRI result showed "findings consistent for early acute discovertebral osteomyelitis at L2-3 and L3-4 with extensive prevertebral soft tissue swelling. Recommend postcontrast imaging for further evaluation". Upon receiving this result, I ordered new blood work including CBC with diff, CMP, ESR, CRP and blood cultures. IV antibiotics were also started with Ceftriaxone and Vancomycin, considering the patient has ESRD on dialysis I notified pharmacy to assist with appropriate renal dosing. Regarding the additional post-contrast imaging recommended, due to her ESRD this would have to be timed in relation to her next dialysis session (she typically has dialysis Tues/Thurs/Sat). I went to bedside and discussed the above findings with Joan and the tentative plan to start antibiotics to which she was agreeable.
[2023-08-30 02:03] LABS: Basophils # (auto) 0.03 K/uL (0.00-0.20); Basophils % (auto) 0.2 %; Eosinophils # (auto) 0.02 K/uL (0.00-0.50); Eosinophils % (auto) 0.1 %; Hematocrit (blood only) 34.5 % (37.0-47.0); Hemoglobin 11.4 g/dl (12.0-16.0); Immature Granulocytes # (auto) 0.44 K/uL (0.01-0.20); Immature Granulocytes % (auto) 3.2 %; Lymphocytes # (auto) 1.12 K/uL (1.20-3.40); Mean Corpuscular Hemoglobin 30.2 pg (25.0-34.0); Mean Corpuscular Volume 91.5 fL (80.0-100.0); Mean Platelet Volume 10.7 fL (9.4-12.4); Monocytes # (auto) 0.97 K/uL (0.11-0.59); Neutrophils # (auto) 11.34 K/uL (1.40-6.50); Neutrophils % (auto) 81.5 %; Platelet Count 171 K/uL (130-400); RDW Coefficient of Variation 15.5 % (11.5-14.5); RDW Standard Deviation 51.9 fL (36.4-46.3); Red Blood Count 3.77 M/uL (4.20-5.40); White Blood Count 13.92 K/ul (4.8-10.8)
[2023-08-30] MEDS: VANCOMYCIN HCL 1,750 MG in SODIUM CHLORIDE 0.9% 500 ML IV STA (02:13)
[2023-08-30 02:33] LABS: Albumin Globulin Ratio 1.1 (0.9-2); Albumin Level 3.2 gm/dl (3.4-5.0); BUN Creatinine Ratio 10.8 (10-20); Bilirubin,Total 0.5 mg/dl (0.2-1.0); C Reactive Protein 2.19 mg/dl (0-0.5); Calcium 8.1 mg/dl (8.6-10.3); Creatinine Clr Calc Pharmacy 8.9 ml/min; Est GFR (African American) 9.6 ml/min; Est GFR (Non-African American) 8.3 ml/min; Globulin 2.8 gm/dl (2.5-4.0); Potassium 3.8 mmol/L (3.5-5.1)
[2023-08-30] MEDS: cefTRIAXone SODIUM 2,000 MG/50 ML BAG IV SCH (02:50)
--- NOTE | 2023-08-30 07:05 | XRay Report ---
KUB CLINICAL HISTORY: Abdominal distension; impaction? COMPARISON STUDY: CT of the abdomen and pelvis February 22, 2022. FINDINGS: There are postoperative findings within the lumbosacral spine. The bowel gas pattern is nor mal. There is a moderate amount stool within the colon and rectum. Note is made of a displaced angula niru basicervical fracture of the right femoral neck. IMPRESSION: 1. Displaced angulated right basicervical femoral neck fracture. 2. No evidence for a bowel obstruction. 3. Moderate amount of stool within the colon and rectum. ACT 112: Negative or not required by law. Electronically signed by: Andrew Kincaid M.D. 08/30/2023 7:03 AM
--- NOTE | 2023-08-30 07:17 | XRay Report ---
XR lumbar spine 2-3V CLINICAL HISTORY: h/o lumbar fusion, back pain COMPARISON STUDY: Lumbar spine MRI December 14, 2018. Lumbar spine fluoroscopic images February 15 9. FINDINGS: There are postoperative findings consistent with L3-L5 decompression and fusion. The hardwa re is intact. There is grade one anterolisthesis of L3 on L4, L4 and L5 and L5 and S1. No acute fract ures are identified. There is moderate disc space narrowing at L2-L3. IMPRESSION: 1. No lumbar spine fractures. 2. Status post L3-L5 decompression and fusion. 3. Grade I anterolisthesis of L3 on L4, L4 on L5 and L5 on S1. ACT 112: Negative or not required by law. Electronically signed by: Andrew Kincaid M.D. 08/30/2023 7:16 AM
--- NOTE | 2023-08-30 07:23 | XRay Report ---
XR hip RT min 2V CLINICAL HISTORY: ?OA right hip? TECHNIQUE: 2 views of the right hip and single frontal view of the pelvis were obtained. Comparison: Comparison is made to pelvic radiograph 06/27/2018 FINDINGS: There is impacted and angulated fracture of the right femoral neck. Degenerative changes are seen and there is posterior fixation hardware spanning L4-S1. Vascular calcifications are noted. IMPRESSION: Impacted angulated fracture of the right femoral neck. ACT 112: Negative or not required by law. Electronically signed by: Samir Garcia M.D. 08/30/2023 7:21 AM
[2023-08-30] MEDS ORDERED: Nursing to Pharmacy Communication SCH ×2 (08:15→16:15)
--- NOTE | 2023-08-30 09:09 | Hospitalist Progress Note ---
Date of Service August 30, 2023 Assessment & Plan (1) Pathological fracture of right hip due to age-related osteoporosis: Plan: x-rays obtained last yesterday which demonstrated R hip fracture. suspect this is subacute - probably occurred 7+ days ago when she began to have severe back pain, right leg pain, and ambulatory dysfunction. no h/o fall or trauma. patient made complete bedrest. NPO. I spoke directly with MANGO Cox as well as Dr Reggie Ramirez from [facility]. To OR today for ORIF. From CV standpoint she is optimized. Prior to her recent back injury and right leg injury she was very active & functional carrying on all ADLs without limitation. Stable from nephrology standpoint - she received HD yesterday and volume status is euvolemic. Electrolytes are acceptable. Although MRI lumbar spine (see below) is abnormal and shows ? diskitis there is fairly low suspicion for this. [id number] we will be consulting Dr Minor for his opinion. Even if there is brewing diskitis the hip needs to be addressed especially since it likely happened 7+ days ago. appreciate ortho assistance. I updated the patient and her this am with all of the above information. (2) Acute exacerbation of chronic low back pain: Plan: Ongoing Acute on chronic low back pain with RLE radicular pain Last MRI of l-spine was several years ago Does have prior history of lumbar spinal stenosis surgery - fusion L3-L5 by Dr Martinez in 2019 Typically gets steroid injections by Dr. Wilson - next was scheduled on 08/30 recently prescribed prednisone on 08/23 as outpatient this has been continued in the hospital No fall or trauma, but pain worsened after long episode of house cleaning, then long car ride and sitting in wheelchair for her granddaughters graduation recently remains on scheduled tylenol, prn dilaudid for severe pain, low-dose oxycodone for moderate pain, lidoderm patches MRI l-spine with ?diskitis --> Dr Minor consulted I did speak with him by phone We discussed that ideally she have repeat MRI w/ contrast to get a better look at this but there is risk in CKD patients of nephrogenic fibrosis would need to speak with Dr Mai about IV gadolinium if MRI w/ contrast not possible then perhaps CT w/ contrast or tagged wbc scan/bone scan? started on IV vancomycin last pm blood cx's drawn and are pending CRP noted - 2 low suspicion for diskitis but need to see this thru (3) Abnormal MRI, lumbar spine: Plan: see above in #1, #2 (4) Right hip pain: Plan: 2nd to fracture see #1 above to OR today with Dr Ramirez -- appreciate his assistance (5) Abdominal distension: Plan: 2nd constipation KUB x-ray with mod-severe constipation will address post-op after her R hip surgery -- will need senna + miralax at minimum (6) Hypokalemia: Plan: replaced resolved (7) ESRD (end stage renal disease) on dialysis: Plan: appreciate nephrology assistance typical schedule - //Mon access - RUE AVF (8) Diabetes mellitus: Plan: most recent a1c was <6% but may not be accurate due to mild anemia however, with that said, BSGs have been well-controlled even on steroids appreciate Pharmacy glycemic consult (9) Obstructive sleep apnea: Plan: cont HS CPAP Plan DVT ppx - cont SQ heparin 5000 units BID - held for surgery today lengthy discussions held with MANGO Cox from orthopedics; Dr Ramirez from ortho; and Dr Minor from ortho-spine update given to pt's at bedside also had correspondence with Dr Mai re: safety of using gadolinium contrast for MRI l-spine he will behavioral school counselors patient tomorrow about this from CV standpoint patient is optimized for surgery which at this point is urgent as the hip fracture is likely 7+ days old CV risk is at least moderate complex care coordination today - about 90 minutes of time spent today on all care activities Admission and Anticipated Discharge Date Admission Date: August 26, 2023 Subjective I had a lengthy discussion early this morning with patient and her about all test results from yesterday Informed them that the hip x-rays on right showed a fracture of hip Suspect subacute - probably happened 7+ days ago when her back & right leg started hurting at home Again no trauma/fall by history Also informed them about MRI l-spine showing ?diskitis and that I have consulted ortho-spine to review her case Explained that the diskitis is questionable at this point - will need more imaging also discussed the KUB x-ray showing mod-severe constipation patient's pain is largely unchanged from yesterday - same locations in right low back and right hip/right thigh Review of Systems Review of Systems: CV - no chest pain pulm - no dyspnea GI - no pain or N/V Physical Exam Physical Exam: gen - pleasant, lying in bed comfortably during the visit neck - no JVD mouth - MM dry this morning heart - RRR, s1 s2, 1/6 MINI LSB lungs - CTA b/l abd - distended - no change; BS+, NT ext - pulses 2+ b/l, <1+ edema b/l musculo - I did not examine the hip or back today - that portion was deferred Results & Data Results & Data Vital Signs (Past 12 Hours) Vital Signs Temp Pulse Pulse Resp BP Pulse Ox O2 Del Method 08/30/23 07:07 36.8 C 74 18 177/70 H 96 Room Air 08/30/23 03:43 16 08/29/23 22:59 78 30 H 96 Laboratory Results Laboratory Results - last 24 hr 08/29/23 08/29/23 08/29/23 11:57 17:50 20:07 WBC RBC Hgb Hct MCV MCH MCHC RDW Std Deviation RDW Coeff of Luis Plt Count MPV Immature Gran % (Auto) Neut % (Auto) Lymph % (Auto) [place] % (Auto) Eos % (Auto) Baso % (Auto) Neut # (Auto) Lymph # (Auto) [place] # (Auto) Eos # (Auto) Baso # (Auto) Immature Gran # (Auto) ESR Sodium Potassium Chloride Carbon Dioxide Anion Gap BUN Creatinine Est Cr Clr Drug Dosing Est GFR ( Amer) Est GFR (Non-Af Amer) BUN/Creatinine Ratio Glucose POC Glucose 141 H 163 H 144 H Calcium Total Bilirubin AST ALT Alkaline Phosphatase C-Reactive Protein Total Protein Albumin Globulin Albumin/Globulin Ratio 08/30/23 08/30/23 01:41 07:44 WBC 13.92 H RBC 3.77 L Hgb 11.4 L Hct 34.5 L MCV 91.5 MCH 30.2 MCHC 33.0 RDW Std Deviation 51.9 H RDW Coeff of Luis 15.5 H Plt Count 171 MPV 10.7 Immature Gran % (Auto) 3.2 Neut % (Auto) 81.5 Lymph % (Auto) 8.0 [place] % (Auto) 7.0 Eos % (Auto) 0.1 Baso % (Auto) 0.2 Neut # (Auto) 11.34 H Lymph # (Auto) 1.12 L [place] # (Auto) 0.97 H Eos # (Auto) 0.02 Baso # (Auto) 0.03 Immature Gran # (Auto) 0.44 H ESR 49 H Sodium 136 Potassium 3.8 Chloride 101 Carbon Dioxide 25 Anion Gap 10 BUN 50 H D Creatinine 4.65 H* D Est Cr Clr Drug Dosing 8.9 Est GFR ( Amer) 9.6 Est GFR (Non-Af Amer) 8.3 BUN/Creatinine Ratio 10.8 Glucose 119 H POC Glucose 98 Calcium 8.1 L Total Bilirubin 0.5 AST 33 ALT 29 Alkaline Phosphatase 110 H C-Reactive Protein 2.19 H Total Protein 6.0 Albumin 3.2 L Globulin 2.8 Albumin/Globulin Ratio 1.1 Diagnostic Findings Hip X-Ray 08/29/23 14:15 XR hip RT min 2V CLINICAL HISTORY: ?OA right hip? TECHNIQUE: 2 views of the right hip and single frontal view of the pelvis were obtained. Comparison: Comparison is made to pelvic radiograph 06/27/2018 FINDINGS: There is impacted and angulated fracture of the right femoral neck. Degenerative changes are seen and there is posterior fixation hardware spanning L4-S1. Vascular calcifications are noted. IMPRESSION: Impacted angulated fracture of the right femoral neck. ACT 112: Negative or not required by law. Electronically signed by: Samir Garcia M.D. 08/30/2023 7:21 AM Lumbar Spine MRI 08/29/23 14:15 CR Exam(s): MRI L SPINE Without Contrast EXAM: MR Lumbar Spine Without Intravenous Contrast CLINICAL HISTORY: Reason for exam: severe RLE radic pain, known L-spine disease. TECHNIQUE: Magnetic resonance images of the lumbar spine without intravenous contrast in multiple planes. COMPARISON: Comparison made to prior plain film images of the lumbar spine from August 29, 2023. FINDINGS: Vertebrae: There are 5 lumbar type vertebral bodies with a mild levoscoliosis and normal lumbar lordosis. There is a mild grade 1 antral listhesis of L4 on L5 measuring 7 mm and anterolisthesis of L5 on S1 measuring 7 mm. Otherwise, there is normal vertebral body height and alignment. Patient is status post posterior decompression and fusion of L3, L4 and L5 with a stricture screws and connecting rods in place. No acute fracture. There is increased edema signal at L2-3, L3-4 and L5-S1. Spinal cord: The conus is normal size, shape and signal characteristics, terminating at L1-L2. Soft tissues: There is extensive edema within the paraspinous muscles and left to the right prevertebral soft tissues. There is advanced atrophy of the iliopsoas, paraspinous and intraspinous musculature. The aorta and IVC flow voids are intact. Advanced atrophy of the kidneys with bilateral cysts. IMPRESSION: Findings concerning for early acute discovertebral osteomyelitis at L2-3 and L3-4 with extensive prevertebral soft tissue swelling. Recommend postcontrast imaging for further evaluation. Communications: Verify Receipt Electronically signed by: Arlen Jean Baptiste MD 08/29/23 22:04 PM Lumbar Spine X-Ray 08/29/23 14:15 XR lumbar spine 2-3V CLINICAL HISTORY: h/o lumbar fusion, back pain COMPARISON STUDY: Lumbar spine MRI December 14, 2018. Lumbar spine fluoroscopic images February 15, 2019. FINDINGS: There are postoperative findings consistent with L3-L5 decompression and fusion. The hardware is intact. There is grade one anterolisthesis of L3 on L4, L4 and L5 and L5 and S1. No acute fractures are identified. There is moderate disc space narrowing at L2-L3. IMPRESSION: 1. No lumbar spine fractures. 2. Status post L3-L5 decompression and fusion. 3. Grade I anterolisthesis of L3 on L4, L4 on L5 and L5 on S1. ACT 112: Negative or not required by law. Electronically signed by: Andrew Kincaid M.D. 08/30/2023 7:16 AM KUB X-Ray 08/29/23 14:17 KUB CLINICAL HISTORY: Abdominal distension; impaction? COMPARISON STUDY: CT of the abdomen and pelvis February 22, 2022. FINDINGS: There are postoperative findings within the lumbosacral spine. The bowel gas pattern is normal. There is a moderate amount stool within the colon and rectum. Note is made of a displaced angulated basicervical fracture of the right femoral neck. IMPRESSION: 1. Displaced angulated right basicervical femoral neck fracture. 2. No evidence for a bowel obstruction. 3. Moderate amount of stool within the colon and rectum. ACT 112: Negative or not required by law. Electronically signed by: Andrew Kincaid M.D. 08/30/2023 7:03 AM PG Care Time/CCT Total # of Minutes Spent Total Time Spent with Patient: Total time spent is greater than 50% in coordination of care (as documented) at patient's floor/unit and/or counseling patient: Prolonged Care Time Prolonged Care Time: Yes Total Prolonged Care Time: 90 Coding Level of Care Code 31969 SUB INP/OBS CARE 3/50MIN (25 - SIGNIFICANT, SEPARATELY IDENTIFIABLE ) Diagnoses Pathological fracture 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 Acute exacerbation of chronic low back pain M54.50; G89.29 Abnormal MRI, lumbar spine R93.7 Right hip pain M25.551 Abdominal distension R14.0 Hypokalemia E87.6 ESRD (end stage renal disease) on dialysis N18.6; Z99.2 Diabetes mellitus E11.9 Obstructive sleep apnea G47.33 Additional Codes Prolonged Care Time - Prolonged Care Time: Yes ([id number])
--- NOTE | 2023-08-30 10:30 | Anesthesiology Consultation ---
Date of Service August 30, 2023 Assessment & Plan (1) Encounter for pre-operative examination: Chart Review Chart Review: Acceptable Risk for Surgery (will get preop baseline ECG) History Surgery Operation Date: 08/30/23 11:50 Proposed Procedures p Right Cemented Bipolar - Reggie Ramirez MD Height/Weight Height: 4 ft 11 in Weight: 81.9 kg Allergies Allergy/AdvReac Type Severity Reaction Status Date / Time bee venom protein (honey bee) Allergy Severe Anaphylaxis Verified 08/15/23 09:51 hornet venom Allergy Severe Anaphylaxis Verified 08/15/23 09:51 adhesive Allergy Mild local skin Verified 08/15/23 09:51 irritation bacitracin Allergy Mild Rash Verified 08/15/23 09:51 neomycin Allergy Mild Rash Verified 08/15/23 09:51 polymyxin B Allergy Mild Rash Verified 08/15/23 09:51 Medications Home Medications Medication Instructions Recorded Confirmed Last Taken docusate sodium 100 mg capsule 100 mg PO QAM 10/11/18 08/26/23 08/14/23 (Stool Softener) sevelamer carbonate 800 mg tablet 800 mg PO UD 12/14/18 08/26/23 06/08/22 (Renvela) vit B complx, C-iron 8 mg-folic 1 tab PO DAILY 02/22/22 08/26/23 08/14/23 acid 800 mcg-D3 1,000 unit-zinc tablet (ProRenal) epinephrine 0.3 mg/0.3 mL 0.3 mg (0.3 mL) subcut Q15M PRN 10/26/22 08/26/23 Unknown injection, auto-injector anaphylaxis #1 ea atorvastatin 40 mg tablet (Lipitor) 40 mg PO PM #90 tabs 07/03/23 08/26/23 08/14/23 metoprolol succinate 50 mg 50 mg PO DAILY #90 tabs 07/03/23 08/26/23 08/15/23 06:00 tablet,extended release 24 hr mirabegron 50 mg tablet,extended 50 mg PO QAM #90 tabs 07/03/23 08/26/23 08/14/23 release 24 hr (Myrbetriq) omeprazole 20 mg tablet,delayed 20 mg PO QAM #90 tabs 07/03/23 08/26/23 08/14/23 release prednisone 10 mg tablet 10 mg PO UD 08/26/23 08/26/23 Unknown Active Medications Generic Name Dose Route Start Last Admin Trade Name Freq PRN Reason Stop Dose Admin Acetaminophen 650 mg 08/27/23 00:00 08/30/23 04:54 Acetaminophen 325 Mg Tab PO 09/26/23 00:00 650 mg Q6H ELISE Administration Atorvastatin Calcium 40 mg 08/27/23 21:00 08/29/23 21:51 Atorvastatin 40 Mg Tab PO 09/26/23 20:59 40 mg PM ELISE Administration Docusate Sodium 100 mg 08/27/23 09:00 08/30/23 08:12 Docusate Sodium 100 Mg Cap PO 09/26/23 08:59 100 mg QAM ELISE Administration Heparin Sodium (Porcine) 5,000 units 08/27/23 21:00 08/30/23 07:58 Heparin Sod 5,000 Unit/0.5 Ml Vial SQ 09/26/23 20:59 Not Given Q12 ELISE Ceftriaxone Sodium 2,000 mg in 50 mls @ 100 mls/hr 08/30/23 01:30 08/30/23 03:20 Rocephin IV 10/11/23 01:29 Infused Q24H ELISE Infusion Lidocaine 2 patch 08/29/23 14:30 08/30/23 08:04 Lidocaine 5% 1 Patch TD 09/28/23 14:29 2 patch QAM ELISE Administration Metoprolol Succinate 50 mg 08/27/23 09:00 08/30/23 08:03 Metoprolol Succ 50mg Ext Rel Tab PO 09/26/23 08:59 50 mg DAILY ELISE Administration Miscellaneous 1 each 08/29/23 21:00 08/29/23 21:51 Remove Lidoderm Patch N/A 09/28/23 20:59 1 each DAILY@2100 ELISE Administration Oxycodone HCl 5 mg 08/27/23 13:50 08/27/23 15:48 Oxycodone Hcl Ir 5 Mg Tab (Immediate Release) PO 09/10/23 13:59 5 mg Q6H PRN Administration Moderate Pain (Scale 4, 5, 6) Pantoprazole Sodium 40 mg 08/27/23 09:00 08/30/23 08:03 Pantoprazole 40 Mg Tab PO 09/26/23 08:59 40 mg QAM ELISE Administration Polyethylene Glycol 17 gm 08/29/23 14:30 08/30/23 08:05 Polyethylene (Miralax) 17 Gm Pack PO 09/28/23 14:29 Not Given DAILY ELISE Prednisone 40 mg 08/27/23 09:00 08/29/23 08:01 Prednisone 20 Mg Tab PO 09/26/23 08:59 40 mg DAILY ELISE Administration Sevelamer Carbonate 800 mg 08/27/23 08:00 08/30/23 08:05 Sevelamer Carbonate 800 Mg Tab PO 09/26/23 07:59 Not Given BID@0800,1200 ELISE Sevelamer Carbonate 1,600 mg 08/27/23 17:00 08/29/23 17:55 Sevelamer Carbonate 800 Mg Tab PO 09/26/23 16:59 1,600 mg DAILY@1700 ELISE Administration Vibegron 75 mg 08/27/23 09:00 08/30/23 08:04 Vibegron 75 Mg Tab PO 09/26/23 08:59 75 mg DAILY ELISE Administration Vitamin B Complex/Folic Acid 1 cap 08/27/23 09:00 08/30/23 08:04 Nephrocaps PO 09/26/23 08:59 1 cap DAILY ELISE Administration Past Medical History Medical History Chronic SI joint pain injection 05/2023 [place] Nausea and vomiting after administration of anesthetic agent Constipation Dysphagia History of revision of total replacement of right knee joint (~02/18/20) @ [facility] Trochanteric bursitis, right hip Deviated nasal septum Osteoarthritis Diverticulosis GERD (gastroesophageal reflux disease) Spinal stenosis s/p lumbar fusion, ~ L4-L5, pt to have follow-up with Dr Martinez prior to surgery Hyperlipidemia HTN (hypertension) Sleep apnea CPAP DM type 2 (diabetes mellitus, type 2) hx -- no current medication Dialysis patient [facility] - [place], [place], [place] (has been on dialysis x 4 years) ESRD (end stage renal disease) Follows w/ Dr. Calhoun DVT (deep venous thrombosis) RLE (12/12/18) felt 2/2 decreased mobility d/t spinal stenosis-- prescribed Eliquis x 2 months Spastic bladder History of basal cell carcinoma s/p excision Limb alert care status RUE fistula Past Family History Family History Mother Family history of diabetes mellitus Arthritis Diabetes Stroke Brother Family hx of colon cancer Spina bifida Hypertension Colon cancer Heart disease Cancer Father Kidney stones Past Surgical History Surgical History S/P epidural steroid injection right SI joint injection History of bilateral knee replacement History of lumbosacral spine surgery decompression and fusion; hardware present; 02/15/2019 [place] H/O dilation and curettage S/P arteriovenous (AV) fistula creation X3 TO RUE (RUE + REVISIONS) History of cataract surgery History of oral surgery History of tooth extraction History of tonsillectomy History of bilateral tubal ligation History of carpal tunnel release B/L History of ankle fusion B/L History of esophagogastroduodenoscopy (EGD) History of colonoscopy Social History Smoking Status: Never smoker Do You Dip or Chew Tobacco: No Hx Alcohol Use: Yes Alcohol type: hard liquor alcohol intake frequency: holidays/special occasions only Hx Substance Use: No substance use type: does not use Physical Exam Vital Signs Last Vital Signs Temp 36.8 C 08/30/23 07:07 Pulse 74 08/30/23 07:07 Resp 18 08/30/23 07:07 BP 177/70 H 08/30/23 07:07 Pulse Ox 96 08/30/23 07:07 O2 Del Method Room Air 08/30/23 07:07 Testing Laboratory Results 08/30/23 01:41 08/30/23 01:41 PT 10.9 Seconds (9.0-12.0) 08/27/23 04:18 INR 1.0 (0.9-1.1) 08/27/23 04:18 08/30/23 07:44 POC Glucose 98 Laboratory Tests 06/21/23 08/30/23 08:18 01:41 WBC 13.92 H Hgb 11.4 L Plt Count 171 Potassium 3.8 Creatinine 4.65 H* D Hemoglobin A1c 5.6
--- NOTE | 2023-08-30 10:54 | Orthopedic Consultation ---
Date of Service August 30, 2023 Assessment & Plan (1) Pathological fracture of right hip due to age-related osteoporosis: She was educated on this problem with her hip and we discussed treatment for it. We recommend surgical management for this, specifically cemented arthroplasty. Procedure was explained including risks, benefits, and alternatives to surgery. She wishes to proceed, consent obtained. She is npo. Ortho spine has been consulted regarding this diskitis/osteomyelitis situation. Her esr and crp are elevated. Discussed with Dr. Ramirez. History of Present Illness Reason for Consultation: . right hip fracture Requesting Physician: . Attending Physician: Yadiel Elizondo MD .Joan is a 82 year old patient admitted 4 days ago with some back pain, buttock pain, and pain down her right leg. She states that about a month ago her had a colonoscopy, had some bleeding at night after the procedure, and she was cleaning that up. She feels maybe this contributed to her worsening back pain and symptoms. She does have a history of lumbar fusion and has also had injections in her back. 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 She was brought to [facility] by EMS. She did have some spine imaging done, which was questionable for possible osteomyelitis apparently. Xrays of her pelvis and right hip yesterday revealed a displaced right femoral neck fracture. She does have some lateral hip pain. No groin pain. She normally ambulates with a walker or cane. Allergies Allergy/AdvReac Type Severity Reaction Status Date / Time bee venom protein (honey bee) Allergy Severe Anaphylaxis Verified 08/15/23 09:51 hornet venom Allergy Severe Anaphylaxis Verified 08/15/23 09:51 adhesive Allergy Mild local skin Verified 08/15/23 09:51 irritation bacitracin Allergy Mild Rash Verified 08/15/23 09:51 neomycin Allergy Mild Rash Verified 08/15/23 09:51 polymyxin B Allergy Mild Rash Verified 08/15/23 09:51 Home Medications Medication Instructions Recorded Confirmed Type docusate sodium 100 mg capsule 100 mg PO QAM 10/11/18 08/26/23 History (Stool Softener) sevelamer carbonate 800 mg tablet 800 mg PO UD 12/14/18 08/26/23 History (Renvela) vit B complx, C-iron 8 mg-folic 1 tab PO DAILY 02/22/22 08/26/23 History acid 800 mcg-D3 1,000 unit-zinc tablet (ProRenal) epinephrine 0.3 mg/0.3 mL 0.3 mg (0.3 mL) subcut Q15M PRN 10/26/22 08/26/23 Rx injection, auto-injector anaphylaxis #1 ea atorvastatin 40 mg tablet (Lipitor) 40 mg PO PM #90 tabs 07/03/23 08/26/23 Rx metoprolol succinate 50 mg 50 mg PO DAILY #90 tabs 07/03/23 08/26/23 Rx tablet,extended release 24 hr mirabegron 50 mg tablet,extended 50 mg PO QAM #90 tabs 07/03/23 08/26/23 Rx release 24 hr (Myrbetriq) omeprazole 20 mg tablet,delayed 20 mg PO QAM #90 tabs 07/03/23 08/26/23 Rx release prednisone 10 mg tablet 10 mg PO UD 08/26/23 08/26/23 History Past Med/Surg History Medical History Chronic SI joint pain injection 05/2023 [place] Nausea and vomiting after administration of anesthetic agent Constipation Dysphagia History of revision of total replacement of right knee joint (~02/18/20) @ [facility] Trochanteric bursitis, right hip Deviated nasal septum Osteoarthritis Diverticulosis GERD (gastroesophageal reflux disease) Spinal stenosis s/p lumbar fusion, ~ L4-L5, pt to have follow-up with Dr Martinez prior to surgery Hyperlipidemia HTN (hypertension) Sleep apnea CPAP DM type 2 (diabetes mellitus, type 2) hx -- no current medication Dialysis patient [facility] - [place], [place], [place] (has been on dialysis x 4 years) ESRD (end stage renal disease) Follows w/ Dr. Calhoun DVT (deep venous thrombosis) RLE (12/12/18) felt 2/2 decreased mobility d/t spinal stenosis-- prescribed Eliquis x 2 months Spastic bladder History of basal cell carcinoma s/p excision Limb alert care status RUE fistula Surgical History S/P epidural steroid injection right SI joint injection History of bilateral knee replacement History of lumbosacral spine surgery decompression and fusion; hardware present; 02/15/2019 [place] H/O dilation and curettage S/P arteriovenous (AV) fistula creation X3 TO RUE (RUE + REVISIONS) History of cataract surgery History of oral surgery History of tooth extraction History of tonsillectomy History of bilateral tubal ligation History of carpal tunnel release B/L History of ankle fusion B/L History of esophagogastroduodenoscopy (EGD) History of colonoscopy Family History Mother Family history of diabetes mellitus Arthritis Diabetes Stroke Brother Family hx of colon cancer Spina bifida Hypertension Colon cancer Heart disease Cancer Father Kidney stones Social History Smoking Status: Never smoker Second Hand Exposure: No; Do You Dip or Chew Tobacco: No; Hx Alcohol Use: Yes Alcohol type: hard liquor Hx Substance Use: No Preferred Language: Hebrew Communication Ability: Effective Visual Impairment: No Limitations Content Development Specialist Required: No Beliefs That Will Affect Care: None marital status: Current Living Situation: Spouse current occupational status: retired Feels Safe at Home: Yes Assistive Devices: Cane, Walker and Wheelchair Review of Systems All systems reviewed & are unremarkable except as noted in HPI & below. Physical Exam .alert and oriented. NAD. Right leg: She has a lidocaine patch on the lateral hip area. She is tender to palpation around the right hip. She has pain with limited range of motion of the right hip. She can move her toes appropriately, has previous ankle fusion so ankles are stiff. Sensation intact to touch. Results & Data Results & Data Laboratory Results . Diagnostic Findings .xray of the pelvis and right hip shows a displaced femoral neck fracture PG Care Time/CCT Total # of Minutes Spent Total Time Spent with Patient: Total time spent is greater than 50% in coordination of care (as documented) at patient's floor/unit and/or counseling patient: Coding Level of Care Code 28261 IN/OBS CONSULT LVL 4,60M (57 - DECISION FOR SURGERY) Diagnoses Pathological fracture 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
[2023-08-30] MEDS ORDERED: PROPOFOL IV EMULSION 10 MG/ML 20 ML VIAL IV ONE (11:59)
[2023-08-30] MEDS ORDERED: DEXAMETHASONE SOD INJ 4 MG/ML VIAL ONE (11:59)
[2023-08-30] MEDS ORDERED: LIDOCAINE 2% 2 ML VIAL/AMP(20MG/ML) INFIL ONE (11:59)
[2023-08-30] MEDS ORDERED: fentaNYL citrate PF 100 MCG/2 ML VIAL ONE ×2 (11:59→13:48)
[2023-08-30] MEDS ORDERED: ONDANSETRON INJ 2 MG/ML 2 ML VIAL ONE (11:59)
[2023-08-30] MEDS ORDERED: MIDAZOLAM HCL 1 MG/ML 2ML VIAL ONE (11:59)
[2023-08-30] MEDS: INSULIN ASPART PER UNIT CHARGE SC SCH ×2 (12:07→17:13)
[2023-08-30] MEDS: SODIUM CHLORIDE 0.9% 1,000 ML IV SCH (12:18)
[2023-08-30] MEDS ORDERED: ATROPINE SULFATE 0.1 MG/ML 10ML SYR IV PRN (12:41)
--- NOTE | 2023-08-30 12:56 | History & Physical Bridge Note ---
Date of Service August 30, 2023 History & Physical Bridge Note I have examined the patient, reviewed the History & Physical and in the interval since the performance of the History & Physical I have noted the following changes of clinical significance: no changes noted
[2023-08-30] MEDS: ceFAZolin 2000MG 2,000 MG/15 ML SYR IV ONE (13:25)
[2023-08-30] MEDS ORDERED: ROCURONIUM BROMIDE 10 MG/ML 5 ML VIAL IV ONE (13:48)
[2023-08-30] MEDS ORDERED: SUGAMMADEX SODIUM 200 MG/2 ML VIAL IV ONE (13:49)
[2023-08-30] MEDS: VANCOMYCIN HCL 1000MG/20ML VIAL ONE (13:57)
--- NOTE | 2023-08-30 14:30 | Pharmacy Report ---
Pharmacy PK ABX Note - Date of Service August 30, 2023 - Assessment and Plan Assessment 82 year old F receiving vancomcyin/ceftriaxone for treatment of vertebral osteomyelitis. Blood cultures pending. Patient is ESRD with dialysis schedule [facility] Vancomycin will be dosed by levels. Will obtain pre-dialysis level 5/9 AM. Plan Vancomycin * Loading dose: 1750 mg IV x 1 * Random level ordered for 5/9 AM. Pharmacy will continue to follow and will adjust dose/frequency as necessary. Thank you. Pharmacy has transitioned to AUC monitoring for vancomycin. AUC/REHANA is the preferred PK/PD target and is associated with decreased risk of nephrotoxicity compared to traditional trough targets.
[2023-08-30] MEDS: BUPIVACAINE/EPINEPHRINE 0.5% MPF 1:200,000 30 ML VIAL ONE (14:32)
--- NOTE | 2023-08-30 14:54 | Operative Report ---
PG Post Operative Report Pre & Post Diagnosis Operation Date: 08/30/23 11:50 Pre-Op Diagnosis: Right subacute displaced femoral neck fracture Post-Op Diagnosis: Right subacute displaced femoral neck fracture I identified the patient and participated in the time-out.: Yes Procedure Operation Date: 08/30/23 11:50 Actual Procedures p Right Cemented Bipolar(Right) - Reggie Ramirez MD Surgeon Reggie Ramirez MD Truck Cleaner Brian Morin PA-C Estimated Blood Loss 150 Findings Consistent with Post-Op Diagnosis Specimens Right femoral head sent for pathology Anesthesia Type General Complications none Disposition Accompanied Patient To Recovery: No Indications Patient is an 82-year-old female with multiple medical comorbidities had about a week history of markedly increasing right hip and leg pain and decreased ability to ambulate. She was admitted to the hospital initially thinking this was coming from her back. She was fairly active in the past and then over the weekend was unable to ambulate. On exam today she was noticed to have increasing hip pain. X-rays reveal displaced femoral neck fracture. Patient is been medically optimized indicated for surgical repair. Description of Procedure Operative implants consist of: 1. Mark size 11 right LD/fracture femoral stem with a 10 the centralizer. 2. +3/22 mm articular ball. 3. 41 mm bipolar shell and liner. 4. Large cement restrictor. The patient was taken to the operating, identified, placed on the operating table in the supine position. All contact areas were appropriately padded. IV antibiotics were provided by anesthesia team. She has been getting vancomycin we also gave her some Ancef immediately preop. General anesthetic was implemented. A Dowd catheter was placed in sterile fashion. The patient was then placed in the left lateral cubitus position. An axillary roll was placed. Distal Birkett position was used for positioning. The right hip and leg were then scrubbed with Hibiclens, prepped with DuraPrep and then draped in the usual sterile fashion. A posterolateral approach to the right hip was then performed to a curvilinear incision centered over the greater trochanter. Sharp dissection carried through subcutaneous tissue down the hip abductor and IT band.. Tissues were quite edematous. An incision was made in the IT band gluteal fascia. The underlying greater bursa was very thickened and hemorrhagic and traumatized. We excised this. The piriformis and external rotators along with the posterior hip joint capsule were then released from the posterior aspect of the hip as a single layer. Great care was taken throughout the procedure protect the sciatic nerve at all times. The hip was then internally rotated. A femoral neck osteotomy cut was made towards the base of the fracture site. Did not go quite to the base of the fracture as it was holding down the lesser trochanter. The femoral neck was removed. The femur was retracted anteriorly. The femoral head was removed. I sized the femoral head to a size 41. The attention was then drawn the femur. The proximal femur was entered with a cookie cutter followed by canal finder and lateralizing reamer. I then broached beginning the size 10 progressing up to a 12. Could not quite get the 12 down. If it distally but proximally was fairly tight and I then went fracture her bone. We elected to place an 11 implant. We elected to use a +3 neck in order to maximize her length as the cut was pretty low. Unfortunately with her small head size we had to use a 22 head and the longus and neck length was a +3. We then trialed the hip and hip appeared stable. We elect to place these implants. All trial implants were removed. Just a large cement restrictor was placed distally. A double batch Palacos G cement was mixed. I did add an additional 2 g of vancomycin due to concern with some degree of systemic infection. A size 11 LDA/fracture stem was placed. I tried to maximize anteversion. Once the cement hardened a +3 articular ball and 41 bipolar shell and liner was placed. Hip was located and once again found to be stable. Attention then drawn toward closing. The wound was irrigated copious also pulsatile lavage solution. I did inject locally with 60 cc of half percent Marcaine with epinephrine. The posterior capsule was then repaired with #2 Tycron suture. The IT band gluteal fascia then closed in 1 PDS suture running fashion. Subcutaneous tissues then closed with 2 layers of the deep layer #2 Vicryl suture and then the subcutaneous tissue with 2-0 Dexon suture in a buried interrupted fashion. Skin was closed skin laine. Leg was then cleaned and dried and sterile Prevena VAC dressing was applied. I used this due to her very edematous soft tissue structure and fairly thick envelope. The patient was then brought out of general esthesia and transferred to the recovery room in stable condition. Patient tolerated the procedure well and there were no complications. Brian Morin, my physician reference assistant, was present for the entire procedure. His assistance was essential and required for appropriate patient positioning, prepping and draping, surgical exposure, performing the technical details of the operation, placement the implants, closure of the wound, and placement of the sterile bandage. I attest to the content of the Intraoperative Record and any orders documented therein. Any exceptions are noted below.
[2023-08-30] MEDS: ONDANSETRON INJ 2 MG/ML 2 ML VIAL IV PRN (15:11)
[2023-08-30] MEDS: HYDROmorphone INJ 1 MG/ML SYRINGE IV PRN (15:28)
[2023-08-30] MEDS: DROPERIDOL 5 MG/2 ML VIAL IV PRN (15:36)
--- NOTE | 2023-08-30 15:39 | XRay Report ---
AP PELVIS, CROSSTABLE LATERAL RIGHT HIP History: Right total hip arthroplasty. Right hip fracture. Postop. FINDINGS: The patient is status post a right hip hemiarthroplasty. The hardware is intact. No fractur e or dislocation. Skin laine are in place. IMPRESSION: Right hip hemiarthroplasty. No evidence for hardware complication ACT 112: Negative or not required by law. Electronically signed by: Pierre Burnett M.D. 08/30/2023 3:37 PM
--- NOTE | 2023-08-30 15:54 | Anesthesiology Progress Note ---
Date of Service August 30, 2023 Anesthesia Post Procedure Vital Signs Vital Signs: Temp Pulse Pulse Pulse Pulse Pulse Resp 08/30/23 15:45 88 12 08/30/23 15:35 91 H 19 08/30/23 15:25 95 H 21 08/30/23 15:15 96 H 17 08/30/23 15:05 96 H 21 08/30/23 14:56 36.2 C L 93 H 24 08/30/23 12:14 36.7 C 76 20 08/30/23 07:07 36.8 C 74 18 08/30/23 03:43 16 08/29/23 22:59 78 30 H 08/29/23 20:10 36.5 C 78 18 08/29/23 19:39 08/29/23 18:00 36.6 C 74 18 08/29/23 17:45 36.7 C 69 08/29/23 17:00 74 08/29/23 16:30 73 08/29/23 16:00 73 BP BP Pulse Ox O2 Del Method O2 Flow Rate 08/30/23 15:45 158/61 H 93 Room Air 0 08/30/23 15:35 164/83 H 96 Room Air 0 08/30/23 15:25 158/65 H 97 Room Air 0 08/30/23 15:15 159/65 H 96 Room Air 0 08/30/23 15:05 164/66 H 97 Room Air 0 08/30/23 14:56 184/98 H 98 Oxymask 8 08/30/23 12:14 155/77 H 98 Room Air 08/30/23 07:07 177/70 H 96 Room Air 08/30/23 03:43 08/29/23 22:59 96 08/29/23 20:10 167/69 H 95 Room Air 08/29/23 19:39 CPAP 08/29/23 18:00 145/74 H 96 Room Air 08/29/23 17:45 125/62 08/29/23 17:00 99/50 L 08/29/23 16:30 125/63 08/29/23 16:00 124/61 Pain Intensity Right Leg: Pain Intensity: 4 Transfer of Care Handoff Completed per policy Notes Mental Status: alert / awake / arousable Patient Amnestic to Procedure: Yes Nausea / Vomiting: adequately controlled Pain: adequately controlled Airway Patency, RR, SpO2: stable & adequate BP & HR: stable & adequate Hydration State: stable & adequate Anesthetic Complications: no major complications apparent and Pt Satisfied with anesthetic care
[2023-08-30] MEDS ORDERED: predniSONE 10 MG TABLET PO SCH (15:58)
--- NOTE | 2023-08-30 18:48 | Anesthesiology Progress Note ---
Date of Service August 30, 2023 Anesthesia Post Procedure Vital Signs Vital Signs: Temp Pulse Pulse Pulse Pulse Pulse Resp 08/30/23 18:10 36.4 C L 77 18 08/30/23 17:10 36.4 C L 78 18 08/30/23 16:37 36.4 C L 83 16 08/30/23 16:10 36.3 C L 88 16 08/30/23 15:55 85 16 08/30/23 15:45 88 12 08/30/23 15:35 91 H 19 08/30/23 15:25 95 H 21 08/30/23 15:15 96 H 17 08/30/23 15:05 96 H 21 08/30/23 14:56 36.2 C L 93 H 24 08/30/23 12:14 36.7 C 76 20 08/30/23 07:07 36.8 C 74 18 08/30/23 03:43 16 08/29/23 22:59 78 30 H 08/29/23 20:10 36.5 C 78 18 08/29/23 19:39 BP Pulse Ox O2 Del Method O2 Flow Rate 08/30/23 18:10 150/66 H 98 Nasal Cannula 2 08/30/23 17:10 150/66 H 98 Room Air 2 08/30/23 16:37 161/68 H 96 Nasal Cannula 2 08/30/23 16:10 163/68 H 93 Room Air 08/30/23 15:55 150/58 H 94 Room Air 0 08/30/23 15:45 158/61 H 93 Room Air 0 08/30/23 15:35 164/83 H 96 Room Air 0 08/30/23 15:25 158/65 H 97 Room Air 0 08/30/23 15:15 159/65 H 96 Room Air 0 08/30/23 15:05 164/66 H 97 Room Air 0 08/30/23 14:56 184/98 H 98 Oxymask 8 08/30/23 12:14 155/77 H 98 Room Air 08/30/23 07:07 177/70 H 96 Room Air 08/30/23 03:43 08/29/23 22:59 96 08/29/23 20:10 167/69 H 95 Room Air 08/29/23 19:39 CPAP Pain Intensity Right Leg: Pain Intensity: 4 Transfer of Care Handoff Completed per policy Notes Mental Status: alert / awake / arousable and participated in evaluation Patient Amnestic to Procedure: Yes Nausea / Vomiting: adequately controlled Pain: adequately controlled Airway Patency, RR, SpO2: stable & adequate BP & HR: stable & adequate Hydration State: stable & adequate Anesthetic Complications: no major complications apparent and Pt Satisfied with anesthetic care
--- NOTE | 2023-08-30 19:09 | Nephrology Progress Note ---
Date of Service August 30, 2023 Assessment & Plan (1) ESRD (end stage renal disease) on dialysis: Plan: TTS. Outpatient Rx 3.5 hrs, 180 optiflux, 350/800, 2K, 137Na, 35HCO3. RUE AVF. EDW 79. Medications are appropriately dosed for IHD. Renal diet. Repeat metabolic profile and CBC tomorrow AM. Next HD tomorrow. (2) Secondary hyperparathyroidism: Plan: Maintained on Sensipar as outpatient. Renvela with meals for hyperphosphatemia. (3) Spinal stenosis, lumbar region with neurogenic claudication: Plan: MRI concerning discitis/osteomyelitis in the lumber spine. Ortho spine consult pending. 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 POD#0 s/p ORIF by Dr. Ramirez. Admission and Anticipated Discharge Date Admission Date: August 26, 2023 Subjective No acute events overnight. HD treatment stopped early yesterday due to clotting at ~3 hours. Review of Systems Review of Systems: All systems reviewed & are unremarkable except as noted in HPI & below Physical Exam Constitutional: well developed; no acute distress Eyes: no scleral abnormality and no corneal abnormality ENMT: Mouth: no oral mucosal abnormality and oral mucous membranes not dry Neck: normal visual inspection, trachea midline and + thick neck Respiratory: normal respiratory effort Auscultation: lungs clear to auscultation bilaterally Cardiovascular: Rate/Rhythm: regular rate Heart Sounds: normal S1 and normal S2 Extremities: + AV fistula; no edema Gastrointestinal (Abdomen): Percussion/Palpation: abdomen soft; abdomen nontender Musculoskeletal: Extremities: no cyanosis and no clubbing Skin: normal turgor; no lesions Neurologic: Motor/Sensory: no tremor and no asterixis Psychiatric: Orientation: alert and oriented x 3 Results & Data Vital Signs (Past 12 Hours) Vital Signs Temp Pulse Pulse Resp BP Pulse Ox O2 Del Method 08/30/23 18:10 36.4 C L 77 18 150/66 H 98 Nasal Cannula 08/30/23 17:10 36.4 C L 78 18 150/66 H 98 Room Air 08/30/23 16:37 36.4 C L 83 16 161/68 H 96 Nasal Cannula 08/30/23 16:10 36.3 C L 88 16 163/68 H 93 Room Air 08/30/23 15:55 85 16 150/58 H 94 Room Air 08/30/23 15:45 88 12 158/61 H 93 Room Air 08/30/23 15:35 91 H 19 164/83 H 96 Room Air 08/30/23 15:25 95 H 21 158/65 H 97 Room Air 08/30/23 15:15 96 H 17 159/65 H 96 Room Air 08/30/23 15:05 96 H 21 164/66 H 97 Room Air 08/30/23 14:56 36.2 C L 93 H 24 184/98 H 98 Oxymask 08/30/23 12:14 36.7 C 76 20 155/77 H 98 Room Air O2 Flow Rate 08/30/23 18:10 2 08/30/23 17:10 2 08/30/23 16:37 2 08/30/23 16:10 08/30/23 15:55 0 08/30/23 15:45 0 08/30/23 15:35 0 08/30/23 15:25 0 08/30/23 15:15 0 08/30/23 15:05 0 08/30/23 14:56 8 08/30/23 12:14 Laboratory Results Laboratory Results - last 24 hr 08/29/23 08/30/23 08/30/23 20:07 01:41 07:44 WBC 13.92 H RBC 3.77 L Hgb 11.4 L Hct 34.5 L MCV 91.5 MCH 30.2 MCHC 33.0 RDW Std Deviation 51.9 H RDW Coeff of Luis 15.5 H Plt Count 171 MPV 10.7 Immature Gran % (Auto) 3.2 Neut % (Auto) 81.5 Lymph % (Auto) 8.0 [place] % (Auto) 7.0 Eos % (Auto) 0.1 Baso % (Auto) 0.2 Neut # (Auto) 11.34 H Lymph # (Auto) 1.12 L [place] # (Auto) 0.97 H Eos # (Auto) 0.02 Baso # (Auto) 0.03 Immature Gran # (Auto) 0.44 H ESR 49 H Sodium 136 Potassium 3.8 Chloride 101 Carbon Dioxide 25 Anion Gap 10 BUN 50 H D Creatinine 4.65 H* D Est Cr Clr Drug Dosing 8.9 Est GFR ( Amer) 9.6 Est GFR (Non-Af Amer) 8.3 BUN/Creatinine Ratio 10.8 Glucose 119 H POC Glucose 144 H 98 Calcium 8.1 L Total Bilirubin 0.5 AST 33 ALT 29 Alkaline Phosphatase 110 H C-Reactive Protein 2.19 H Total Protein 6.0 Albumin 3.2 L Globulin 2.8 Albumin/Globulin Ratio 1.1 Blood Type Antibody Screen 08/30/23 08/30/23 08/30/23 09:02 11:35 15:02 WBC RBC Hgb Hct MCV MCH MCHC RDW Std Deviation RDW Coeff of Luis Plt Count MPV Immature Gran % (Auto) Neut % (Auto) Lymph % (Auto) [place] % (Auto) Eos % (Auto) Baso % (Auto) Neut # (Auto) Lymph # (Auto) [place] # (Auto) Eos # (Auto) Baso # (Auto) Immature Gran # (Auto) ESR Sodium Potassium Chloride Carbon Dioxide Anion Gap BUN Creatinine Est Cr Clr Drug Dosing Est GFR ( Amer) Est GFR (Non-Af Amer) BUN/Creatinine Ratio Glucose POC Glucose 103 H 123 H Calcium Total Bilirubin AST ALT Alkaline Phosphatase C-Reactive Protein Total Protein Albumin Globulin Albumin/Globulin Ratio Blood Type A Positive Antibody Screen NEGATIVE 08/30/23 16:36 WBC RBC Hgb Hct MCV MCH MCHC RDW Std Deviation RDW Coeff of Luis Plt Count MPV Immature Gran % (Auto) Neut % (Auto) Lymph % (Auto) [place] % (Auto) Eos % (Auto) Baso % (Auto) Neut # (Auto) Lymph # (Auto) [place] # (Auto) Eos # (Auto) Baso # (Auto) Immature Gran # (Auto) ESR Sodium Potassium Chloride Carbon Dioxide Anion Gap BUN Creatinine Est Cr Clr Drug Dosing Est GFR ( Amer) Est GFR (Non-Af Amer) BUN/Creatinine Ratio Glucose POC Glucose 122 H Calcium Total Bilirubin AST ALT Alkaline Phosphatase C-Reactive Protein Total Protein Albumin Globulin Albumin/Globulin Ratio Blood Type Antibody Screen PG Care Time/CCT Total # of Minutes Spent Total Time Spent with Patient: Total time spent is greater than 50% in coordination of care (as documented) at patient's floor/unit and/or counseling patient: Coding Level of Care Code 18492 SUB INP/OBS CARE 3/50MIN Diagnoses ESRD (end stage renal disease) on dialysis N18.6; Z99.2 Secondary hyperparathyroidism N25.81 Spinal stenosis, lumbar region with neurogenic claudication M48.062 Pathological fracture 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
[2023-08-30] MEDS: ceFAZolin 2000MG 2,000 MG/15 ML SYR IV SCH (20:07)
[2023-08-31 05:59] LABS: Basophils # (auto) 0.06 K/uL (0.00-0.20); Basophils % (auto) 0.4 %; Eosinophils # (auto) 0.11 K/uL (0.00-0.50); Eosinophils % (auto) 0.7 %; Hematocrit (blood only) 32.5 % (37.0-47.0); Hemoglobin 10.9 g/dl (12.0-16.0); Immature Granulocytes % (auto) 3.2 %; Lymphocytes # (auto) 0.97 K/uL (1.20-3.40); Lymphocytes % (auto) 6.1 %; Mean Corpuscular Hemoglobin 30.6 pg (25.0-34.0); Mean Corpuscular Hgb Conc 33.5 g/dL (32.0-36.0); Mean Corpuscular Volume 91.3 fL (80.0-100.0); Mean Platelet Volume 11.1 fL (9.4-12.4); Monocytes # (auto) 1.43 K/uL (0.11-0.59); Neutrophils # (auto) 12.75 K/uL (1.40-6.50); Neutrophils % (auto) 80.6 %; Platelet Count 217 K/uL (130-400); RDW Coefficient of Variation 15.6 % (11.5-14.5); RDW Standard Deviation 51.9 fL (36.4-46.3); Red Blood Count 3.56 M/uL (4.20-5.40); White Blood Count 15.82 K/ul (4.8-10.8)
[2023-08-31 06:43] LABS: BUN Creatinine Ratio 12.3 (10-20); Calcium 8.1 mg/dl (8.6-10.3); Creatinine Clr Calc Pharmacy 8.3 ml/min; Est GFR (African American) 8.4 ml/min; Est GFR (Non-African American) 7.2 ml/min; Potassium 4.6 mmol/L (3.5-5.1)
--- NOTE | 2023-08-31 07:29 | Surgery Progress Note ---
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 Orthopedically she seems to be doing well. Pain is controlled. Hips located. She is neurologically intact. No other obvious issues. Plan: 1. DVT prophylaxis including thigh-high teds, SCDs, subcu heparin as per the primary care service. 2. PT/OT. She can fully weight-bear as tolerated. Does [place] hip precautions. 3. Pain control doing okay with current pain regimen. 4. Medical management as per the medicine service. 5. Disposition she is orthopedically okay for discharge anytime medically stable. I did see her back 2 to 3 weeks out from surgery. Any orthopedic questions can be directed at [phone] Admission and Anticipated Discharge Date Admission Date: August 26, 2023 Subjective 1 from a right cemented bipolar hip arthroplasty for fracture. She is doing pretty well this morning. Denies any real significant pain. No chest pain or shortness of breath. Not feeling dizzy or lightheaded. No new complaints. Physical Exam Physical Exam: The patient is a pleasant elderly female. She is lying in bed. She is awake alert and oriented. Examination of the right leg reveals a Prevena VAC dressing to be in place. Leg lengths are equal. Thigh is soft and supple. She is neurologically intact. Results & Data Vital Signs (Past 12 Hours) Vital Signs Temp Pulse Pulse Resp BP Pulse Ox Pulse Ox 08/31/23 06:56 36.7 C 86 16 148/69 H 95 08/31/23 03:00 37.2 C 80 18 168/70 H 96 08/31/23 02:25 18 08/30/23 23:00 37 C 71 20 165/67 H 100 08/30/23 21:55 75 24 94 08/30/23 20:07 08/30/23 20:07 100 O2 Del Method O2 Del Method O2 Flow Rate O2 Flow Rate 08/31/23 06:56 Room Air 08/31/23 03:00 Room Air 08/31/23 02:25 2 08/30/23 23:00 Nasal Cannula 2 08/30/23 21:55 2 08/30/23 20:07 Nasal Cannula, Nasal CPAP 2 08/30/23 20:07 Nasal Cannula, Nasal CPAP 2 Laboratory Results Hemoglobin is 10.9. Hematocrit is 32.5. 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
--- NOTE | 2023-08-31 10:05 | Nephrology Progress Note ---
Date of Service August 31, 2023 Assessment & Plan (1) ESRD (end stage renal disease) on dialysis: Plan: TTS. Orders for HD today entered into the EHR and reviewed with the aerobics instructor. Outpatient Rx 3.5 hrs, 180 optiflux, 350/800, 2K, 137Na, 35HCO3. RUE AVF. EDW 7 9. Medications are appropriately dosed for IHD. Renal diet. Iron profile will be updated with next set of labs. (2) Secondary hyperparathyroidism: Plan: Maintained on Sensipar as outpatient. Renvela with meals for hyperphosphatemia. (3) Spinal stenosis, lumbar region with neurogenic claudication: Plan: MRI concerning discitis/osteomyelitis in the lumber spine. I'd discussed possible follow up MRI with contrast with Dr. Elizondo. Ortho spine consultation pending. Joan and I discussed possible risks/benefits of MRI w/. She related that someone from ortho told her that no additional evaluation or imaging would be required. 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 POD#1 s/p ORIF by Dr. Ramirez. Admission and Anticipated Discharge Date Admission Date: August 26, 2023 Subjective No acute events overnight. Joan was able to sit up on the side of the bed this AM. She denies significant pain. She is pleased with her surgical outcome. She does not endorse back pain at this time. She denies any radicular pain. No fevers or chills. She is breathing comfortably. She does feel slightly constipated. Review of Systems Review of Systems: All systems reviewed & are unremarkable except as noted in HPI & below Physical Exam Constitutional: well developed; no acute distress Eyes: no scleral abnormality and no corneal abnormality ENMT: Mouth: no oral mucosal abnormality and oral mucous membranes not dry Neck: normal visual inspection, trachea midline and + thick neck Respiratory: normal respiratory effort Auscultation: lungs clear to auscultation bilaterally Cardiovascular: Rate/Rhythm: regular rate Heart Sounds: normal S1 and normal S2 Extremities: + AV fistula; no edema Gastrointestinal (Abdomen): Percussion/Palpation: abdomen soft; abdomen nontender Musculoskeletal: Extremities: no cyanosis and no clubbing Skin: normal turgor; no lesions Neurologic: Motor/Sensory: no tremor and no asterixis Psychiatric: Orientation: alert and oriented x 3 Results & Data Vital Signs (Past 12 Hours) Vital Signs Temp Pulse Resp BP Pulse Ox O2 Del Method O2 Flow Rate 08/31/23 09:28 Room Air 08/31/23 06:56 36.7 C 86 16 148/69 H 95 Room Air 08/31/23 03:00 37.2 C 80 18 168/70 H 96 Room Air 08/31/23 02:25 18 2 08/30/23 23:00 37 C 71 20 165/67 H 100 Nasal Cannula 2 Laboratory Results Laboratory Results - last 24 hr 08/30/23 08/30/23 08/30/23 09:02 11:35 15:02 WBC RBC Hgb Hct MCV MCH MCHC RDW Std Deviation RDW Coeff of Luis Plt Count MPV Immature Gran % (Auto) Neut % (Auto) Lymph % (Auto) [place] % (Auto) Eos % (Auto) Baso % (Auto) Neut # (Auto) Lymph # (Auto) [place] # (Auto) Eos # (Auto) Baso # (Auto) Immature Gran # (Auto) Sodium Potassium Chloride Carbon Dioxide Anion Gap BUN Creatinine Est Cr Clr Drug Dosing Est GFR ( Amer) Est GFR (Non-Af Amer) BUN/Creatinine Ratio Glucose POC Glucose 103 H 123 H Calcium 25-OH Vitamin D Total Random Vancomycin Blood Type A Positive Antibody Screen NEGATIVE 08/30/23 08/30/23 08/31/23 16:36 20:34 05:25 WBC 15.82 H RBC 3.56 L Hgb 10.9 L Hct 32.5 L MCV 91.3 MCH 30.6 MCHC 33.5 RDW Std Deviation 51.9 H RDW Coeff of Luis 15.6 H Plt Count 217 MPV 11.1 Immature Gran % (Auto) 3.2 Neut % (Auto) 80.6 Lymph % (Auto) 6.1 [place] % (Auto) 9.0 Eos % (Auto) 0.7 Baso % (Auto) 0.4 Neut # (Auto) 12.75 H Lymph # (Auto) 0.97 L [place] # (Auto) 1.43 H Eos # (Auto) 0.11 Baso # (Auto) 0.06 Immature Gran # (Auto) 0.50 H Sodium 137 Potassium 4.6 D Chloride 101 Carbon Dioxide 23 Anion Gap 13 H BUN 64 H Creatinine 5.20 H* D Est Cr Clr Drug Dosing 8.3 Est GFR ( Amer) 8.4 Est GFR (Non-Af Amer) 7.2 BUN/Creatinine Ratio 12.3 Glucose 114 H POC Glucose 122 H 172 H Calcium 8.1 L 25-OH Vitamin D Total 60.7 Random Vancomycin 13.0 Blood Type Antibody Screen 08/31/23 07:36 WBC RBC Hgb Hct MCV MCH MCHC RDW Std Deviation RDW Coeff of Luis Plt Count MPV Immature Gran % (Auto) Neut % (Auto) Lymph % (Auto) [place] % (Auto) Eos % (Auto) Baso % (Auto) Neut # (Auto) Lymph # (Auto) [place] # (Auto) Eos # (Auto) Baso # (Auto) Immature Gran # (Auto) Sodium Potassium Chloride Carbon Dioxide Anion Gap BUN Creatinine Est Cr Clr Drug Dosing Est GFR ( Amer) Est GFR (Non-Af Amer) BUN/Creatinine Ratio Glucose POC Glucose 108 H Calcium 25-OH Vitamin D Total Random Vancomycin Blood Type Antibody Screen PG Care Time/CCT Total # of Minutes Spent Total Time Spent with Patient: Total time spent is greater than 50% in coordination of care (as documented) at patient's floor/unit and/or counseling patient: Coding Level of Care Code 72262 SUB INP/OBS CARE 3/50MIN Diagnoses ESRD (end stage renal disease) on dialysis N18.6; Z99.2 Secondary hyperparathyroidism N25.81 Spinal stenosis, lumbar region with neurogenic claudication M48.062 Pathological fracture 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
--- NOTE | 2023-08-31 10:54 | Pharmacy Report ---
Pharmacy PK ABX Note - Date of Service August 31, 2023 - Assessment and Plan Assessment 08/30: * POD #1 s/p right cemented bipolar hip arthroplasty for fracture. * Random vanc level with AM labs resulted at 13 mcg/mL. * Patient is ordered HD today. Will redose patient post-HD. * Opted to repeat random level on 510 AM to assess for baseline clearance of vanc per patient appears to have significant urine output (200-800 ml/day per I&Os). After this, pre-HD levels are preferred. 08/29: 82 year old F receiving vancomcyin/ceftriaxone for treatment of vertebral osteomyelitis. Blood cultures pending. Patient is ESRD with dialysis schedule [facility] [place] Vancomycin will be dosed by levels. Will obtain pre-dialysis level 08/30 AM. Plan Vancomycin * 1000 mg IV x 1 after HD * Random level /10 AM Pharmacy will continue to follow and will adjust dose/frequency as necessary. Thank you. Pharmacy has transitioned to AUC monitoring for vancomycin. AUC/REHANA is the preferred PK/PD target and is associated with decreased risk of nephrotoxicity compared to traditional trough targets.
[2023-08-31] MEDS: HYDROmorphone INJ 0.5 MG/0.5 ML SYR IV PRN (11:06)
[2023-08-31] MEDS: SENNA 8.6 MG TAB PO SCH (13:36)
[2023-08-31] MEDS: VANCOMYCIN HCL 1,000 MG in SODIUM CHLORIDE 0.9% 250 ML IV SCH (13:59)
--- NOTE | 2023-08-31 15:16 | Hospitalist Progress Note ---
Date of Service August 31, 2023 Assessment & Plan (1) Pathological fracture of right hip due to age-related osteoporosis: Plan: POD #1 s/p ORIF by Dr Reggie Ramirez for her subacute right hip fracture. Ortho pleased today from hip standpoint. DVT proph - heparin 5000 BID. 25-OH vit D level - wnl. Pain meds - not tolerating oxycodone or dilaudid; stop both. Start scheduled tylenol 500mg TID. Start norco 7.5's q6h prn. Adjust as needed. Cont bowel regimen of senna/miralax. (2) Acute exacerbation of chronic low back pain: Plan: Ongoing but seems to be improved Acute on chronic low back pain with RLE radicular pain Does have prior history of lumbar spinal stenosis surgery - fusion L3-L5 by Dr Martinez in 2019 Typically gets steroid injections by Dr. Wilson - next was scheduled on 08/30 recently prescribed prednisone on 08/23 as outpatient this has been continued in the hospital - plan to wean from 40mg today to 20mg tomorrow then cont weaning to off No fall or trauma, but pain worsened after long episode of house cleaning, then long car ride and sitting in wheelchair for her granddaughters graduation recently MRI l-spine with ?diskitis --> Dr Minor consulted We discussed that ideally she have repeat MRI w/ contrast to get a better look at this but there is risk in CKD patients of nephrogenic fibrosis if MRI w/ contrast not possible then perhaps CT w/ contrast or tagged wbc scan /bone scan? other option is simply following clinically and repeating an MRI in about 1-2 weeks for interval change started on IV vancomycin, day #2 blood cx's drawn and are pending but thus far negative CRP noted - 2 low suspicion for diskitis but need to see this thru (3) Abnormal MRI, lumbar spine: Plan: see above in #2 (4) Right hip pain: Plan: 2nd to fracture see #1 above s/p ORIF by Dr Ramirez (5) Abdominal distension: Plan: 2nd constipation KUB x-ray with mod-severe constipation finally moving bowels cont senna + miralax for maintenance (6) Hypokalemia: Plan: replaced resolved (7) ESRD (end stage renal disease) on dialysis: Plan: appreciate nephrology assistance typical schedule - /Thurs/Sat access - RUE AVF (8) Diabetes mellitus: Plan: most recent a1c was <6% but may not be accurate due to mild anemia however, with that said, BSGs have been well-controlled even on steroids cont novolog SSI (9) Obstructive sleep apnea: Plan: cont HS CPAP Plan DVT ppx - cont SQ heparin 5000 units BID cont PT/OT - rehab advised post-d/c Admission and Anticipated Discharge Date Admission Date: August 26, 2023 Subjective pt very tearful during the visit apparently had gotten oxycodone for pain but it was not effective IV dilaudid then given following the above she became emotionally labile she was going from topic to topic, mentioning first names of people I did not know at one point she said "Alcides told me I was loopy-doopy" she would then start talking about having incontinence of bowel and how embarrassed she was during my visit she was free of right hip pain or back pain (again had just received IV pain meds) denied any dyspnea it was very hard to have her focus during the visit and provide meaningful history/ROS today Review of Systems Review of Systems: limited ROS - no chest pain, no dyspnea, no abd pain Physical Exam Physical Exam: gen - tearful, emotionally labile, but no pain/distress; confused neck - no JVD mouth - MM again slightly dry heart - RRR, s1 s2, 1/6 MINI LSB lungs - CTA b/l abd - distended - no change; BS+, NT ext - pulses 2+ b/l, trace edema b/l musculo - dressings intact right hip region/right lateral thigh psych - confused and emotionally labile Results & Data Results & Data Vital Signs (Past 12 Hours) Vital Signs Temp Pulse Pulse Pulse Resp BP BP 08/31/23 13:00 79 125/60 08/31/23 12:30 81 119/57 L 08/31/23 12:00 79 129/58 L 08/31/23 11:30 76 108/50 L 08/31/23 11:00 75 135/55 L 08/31/23 10:30 73 118/52 L 08/31/23 10:00 74 130/50 L 08/31/23 09:36 36.5 C 81 08/31/23 09:28 08/31/23 06:56 36.7 C 86 16 148/69 H Pulse Ox O2 Del Method 08/31/23 13:00 08/31/23 12:30 08/31/23 12:00 08/31/23 11:30 08/31/23 11:00 08/31/23 10:30 08/31/23 10:00 08/31/23 09:36 08/31/23 09:28 Room Air 08/31/23 06:56 95 Room Air Laboratory Results Laboratory Results - last 24 hr 08/30/23 08/30/23 08/31/23 16:36 20:34 05:25 WBC 15.82 H RBC 3.56 L Hgb 10.9 L Hct 32.5 L MCV 91.3 MCH 30.6 MCHC 33.5 RDW Std Deviation 51.9 H RDW Coeff of Luis 15.6 H Plt Count 217 MPV 11.1 Immature Gran % (Auto) 3.2 Neut % (Auto) 80.6 Lymph % (Auto) 6.1 [place] % (Auto) 9.0 Eos % (Auto) 0.7 Baso % (Auto) 0.4 Neut # (Auto) 12.75 H Lymph # (Auto) 0.97 L [place] # (Auto) 1.43 H Eos # (Auto) 0.11 Baso # (Auto) 0.06 Immature Gran # (Auto) 0.50 H Sodium 137 Potassium 4.6 D Chloride 101 Carbon Dioxide 23 Anion Gap 13 H BUN 64 H Creatinine 5.20 H* D Est Cr Clr Drug Dosing 8.3 Est GFR ( Amer) 8.4 Est GFR (Non-Af Amer) 7.2 BUN/Creatinine Ratio 12.3 Glucose 114 H POC Glucose 122 H 172 H Calcium 8.1 L 25-OH Vitamin D Total 60.7 Random Vancomycin 13.0 08/31/23 08/31/23 07:36 13:35 WBC RBC Hgb Hct MCV MCH MCHC RDW Std Deviation RDW Coeff of Luis Plt Count MPV Immature Gran % (Auto) Neut % (Auto) Lymph % (Auto) [place] % (Auto) Eos % (Auto) Baso % (Auto) Neut # (Auto) Lymph # (Auto) [place] # (Auto) Eos # (Auto) Baso # (Auto) Immature Gran # (Auto) Sodium Potassium Chloride Carbon Dioxide Anion Gap BUN Creatinine Est Cr Clr Drug Dosing Est GFR ( Amer) Est GFR (Non-Af Amer) BUN/Creatinine Ratio Glucose POC Glucose 108 H 196 H Calcium 25-OH Vitamin D Total Random Vancomycin PG Care Time/CCT Total # of Minutes Spent Total Time Spent with Patient: Total time spent is greater than 50% in coordination of care (as documented) at patient's floor/unit and/or counseling patient: Coding Level of Care Code 99444 SUB INP/OBS CARE 2/35MIN Diagnoses Pathological fracture 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 Acute exacerbation of chronic low back pain M54.50; G89.29 Abnormal MRI, lumbar spine R93.7 Right hip pain M25.551 Abdominal distension R14.0 Hypokalemia E87.6 ESRD (end stage renal disease) on dialysis N18.6; Z99.2 Diabetes mellitus E11.9 Obstructive sleep apnea G47.33
--- NOTE | 2023-08-31 15:32 | Orthopedic Consultation ---
Date of Service August 31, 2023 History of Present Illness Reason for Consultation: MRI abnormality potentially suggestive of discitis lumbar spine. Requesting Physician: . Attending Physician: Yadiel Elizondo MD 82 year old female with a PMH significant for lumbar spinal stenosis, status post prior L3-L5 fusion from [address] Martinez. ESRD on HD TTSat, previous hx of DVT. DM, HTN, ANA PAULA, gastritis who presented to the [facility] ED on 08/26/23. Developed pain in the right hip, she had been helping her who had bleeding status post a lower GI endoscopy procedure. She developed pain in the right hip, she did present to the emergency room with x-rays revealing a right hip fracture. On the thought that there may be some low back pain component, an MRI was performed, the interpretation suggested that along with degenerative changes there is a possibility of discitis involving L3-4 and L4-5 discs, along with degenerative changes involving L5-S1. She had been to her granddaughters graduation and tolerated this a fair without any significant issues or low back pain. Her initial back flare occurred approximately 3 weeks ago. She was cleaning up a mess on the floor of their home and had to bend over multiple times. No recent trauma. She started the prednisone taper from her PCP on 08/23 which seemed to be helping. Confirms that her back was very still this evening with radicular back pain down the RLE, which she experiences with exacerbation of her chronic back pain. Denies saddle anesthesia, loss of bowel or bladder function compared to baseline, and new paresthesias. She last had dialysis yesterday as she adjusted her schedule so she could see her Granddaughter graduate. She is a full code. Exam reveals the patient not to complain about any low back pain currently, palpation of her lower lumbar spine and mid lumbar spine was unremarkable. She had appropriate strength for EHL ankle plantar dorsiflexion also knee extension. EXAM: MR Lumbar Spine Without Intravenous Contrast from August 29, 2023. CLINICAL HISTORY: Reason for exam: severe RLE radic pain, known L-spine disease. TECHNIQUE: Magnetic resonance images of the lumbar spine without intravenous contrast in multiple planes. COMPARISON: Comparison made to prior plain film images of the lumbar spine from August 29, 2023. FINDINGS: Vertebrae: There are 5 lumbar type vertebral bodies with a mild levoscoliosis and normal lumbar lordosis. There is a mild grade 1 antral listhesis of L4 on L5 measuring 7 mm and anterolisthesis of L5 on S1 measuring 7 mm. Otherwise, there is normal vertebral body height and alignment. Patient is status post posterior decompression and fusion of L3, L4 and L5 with a stricture screws and connecting rods in place. No acute fracture. There is increased edema signal at L2-3, L3-4 and L5-S1. Spinal cord: The conus is normal size, shape and signal characteristics, terminating at L1-L2. Soft tissues: There is extensive edema within the paraspinous muscles and left to the right prevertebral soft tissues. There is advanced atrophy of the iliopsoas, paraspinous and intraspinous musculature. The aorta and IVC flow voids are intact. Advanced atrophy of the kidneys with bilateral cysts. IMPRESSION: Findings concerning for early acute discovertebral osteomyelitis at L2-3 and L3- 4 with extensive prevertebral soft tissue swelling. Recommend postcontrast imaging for further evaluation. MRI images from August 28 were reviewed, my separate interpretation, reveals degenerative changes at L5-S1 with some limited anterolisthesis due to facet arthropathy, fixation at L3-L5 appears to be unremarkable. There is no evidence of any fractures, there is some limited changes involving the L3-4 and L4-5 discs which may be degenerative versus indicating discitis. Impression: Patient is asymptomatic in terms of any low back pain, MRI findings as noted at the disc levels as stated. Plan: Today I spent time talking with the patient and her , I related that without her having low back pain, my suspicion for discitis is limited. Due to her renal issues we cannot obtain a contrast study to help with the decision making, the hip fracture needs to be addressed regardless. Continued monitoring would be the best next step, with potentially a follow-up MRI. Allergies Allergy/AdvReac Type Severity Reaction Status Date / Time bee venom protein (honey bee) Allergy Severe Anaphylaxis Verified 08/15/23 09:51 hornet venom Allergy Severe Anaphylaxis Verified 08/15/23 09:51 adhesive Allergy Mild local skin Verified 08/15/23 09:51 irritation bacitracin Allergy Mild Rash Verified 08/15/23 09:51 neomycin Allergy Mild Rash Verified 08/15/23 09:51 polymyxin B Allergy Mild Rash Verified 08/15/23 09:51 Home Medications Medication Instructions Recorded Confirmed Type docusate sodium 100 mg capsule 100 mg PO QAM 10/11/18 08/26/23 History (Stool Softener) sevelamer carbonate 800 mg tablet 800 mg PO UD 12/14/18 08/26/23 History (Renvela) vit B complx, C-iron 8 mg-folic 1 tab PO DAILY 02/22/22 08/26/23 History acid 800 mcg-D3 1,000 unit-zinc tablet (ProRenal) epinephrine 0.3 mg/0.3 mL 0.3 mg (0.3 mL) subcut Q15M PRN 10/26/22 08/26/23 Rx injection, auto-injector anaphylaxis #1 ea atorvastatin 40 mg tablet (Lipitor) 40 mg PO PM #90 tabs 07/03/23 08/26/23 Rx metoprolol succinate 50 mg 50 mg PO DAILY #90 tabs 07/03/23 08/26/23 Rx tablet,extended release 24 hr mirabegron 50 mg tablet,extended 50 mg PO QAM #90 tabs 07/03/23 08/26/23 Rx release 24 hr (Myrbetriq) omeprazole 20 mg tablet,delayed 20 mg PO QAM #90 tabs 07/03/23 08/26/23 Rx release prednisone 10 mg tablet 10 mg PO UD 08/26/23 08/26/23 History Past Med/Surg History Medical History Chronic SI joint pain injection 05/2023 [place] Nausea and vomiting after administration of anesthetic agent Constipation Dysphagia History of revision of total replacement of right knee joint (~02/18/20) @ [facility] Trochanteric bursitis, right hip Deviated nasal septum Osteoarthritis Diverticulosis GERD (gastroesophageal reflux disease) Spinal stenosis s/p lumbar fusion, ~ L4-L5, pt to have follow-up with Dr Martinez prior to surgery Hyperlipidemia HTN (hypertension) Sleep apnea CPAP DM type 2 (diabetes mellitus, type 2) hx -- no current medication Dialysis patient [facility] [place], [place], [place] (has been on dialysis x 4 years) ESRD (end stage renal disease) Follows w/ Dr. Calhoun DVT (deep venous thrombosis) RLE (12/12/18) felt 2/2 decreased mobility d/t spinal stenosis-- prescribed Eliquis x 2 months Spastic bladder History of basal cell carcinoma s/p excision Limb alert care status RUE fistula Surgical History S/P epidural steroid injection right SI joint injection History of bilateral knee replacement History of lumbosacral spine surgery decompression and fusion; hardware present; 02/15/2019 [place] H/O dilation and curettage S/P arteriovenous (AV) fistula creation X3 TO RUE (RUE + REVISIONS) History of cataract surgery History of oral surgery History of tooth extraction History of tonsillectomy History of bilateral tubal ligation History of carpal tunnel release B/L History of ankle fusion B/L History of esophagogastroduodenoscopy (EGD) History of colonoscopy Family History Mother Family history of diabetes mellitus Arthritis Diabetes Stroke Brother Family hx of colon cancer Spina bifida Hypertension Colon cancer Heart disease Cancer Father Kidney stones Social History Smoking Status: Never smoker Second Hand Exposure: No; Do You Dip or Chew Tobacco: No; Hx Alcohol Use: Yes Alcohol type: hard liquor Hx Substance Use: No Preferred Language: German Communication Ability: Effective Visual Impairment: No Limitations Retort Pre Cooker Required: No Beliefs That Will Affect Care: None marital status: Current Living Situation: Spouse current occupational status: retired Feels Safe at Home: Yes Assistive Devices: Cane, Walker and Wheelchair Review of Systems All systems reviewed & are unremarkable except as noted in HPI & below. Physical Exam . Results & Data Results & Data Laboratory Results . Diagnostic Findings . PG Care Time/CCT Total # of Minutes Spent Total Time Spent with Patient: Total time spent is greater than 50% in coordination of care (as documented) at patient's floor/unit and/or counseling patient: Coding Level of Care Code 51118 IN/OBS CONSULT LVL 3,45M
[2023-08-31] MEDS: ACETAMINOPHEN 500 MG TAB PO SCH (20:07)
--- NOTE | 2023-09-01 05:51 | Electrocardiogram Report ---
Test Reason : Blood Pressure : / mmHG Vent. Rate : 069 BPM Atrial Rate : 069 BPM P-R Int : 160 ms QRS Dur : 144 ms QT Int : 446 ms P-R-T Axes : 072 -13 -09 degrees QTc Int : 477 ms Normal sinus rhythm Right bundle branch block Abnormal ECG When compared with ECG of 22-FEB-2022 12:42, QT has shortened Confirmed by Sanjiv Ballard ([id number]) on 09/01/2023 5:50:43 AM Referred By: REFERRED SELF Confirmed By:Sanjiv Ballard
--- NOTE | 2023-09-01 07:50 | Surgery Progress Note ---
Date of Service September 01, 2023 Assessment & Plan (1) Pathological fracture of right hip due to age-related osteoporosis: Plan: 82-year-old female with multiple medical comorbidities now 2 days out from a right cemented bipolar hip arthroplasty for fracture. From the orthopedic standpoint she is doing fine. Got multiple medical issues. Plan: 1. DVT prophylaxis including thigh-high teds, SCDs, subcu heparin twice a day. 2. PT/OT. She can fully weight-bear as tolerated in the right leg. Does [employer] hip precautions. 3. Wound care. She got the Prevena VAC dressing in place. She will leave that in for a total of 1 week postop. 4. Medical management as per the medicine service. 5. Disposition. She is orthopedically okay for discharge anytime medically stable. I did see her back 2 to 3 weeks out from surgery date. Any orthopedic questions can be directly [phone] Admission and Anticipated Discharge Date Admission Date: August 26, 2023 Subjective 82-year-old female postop day 2 from cemented bipolar hip arthroplasty for fracture. Sounds like she had a bad day yesterday. Feeling better this morning. Pain is very well-controlled. Denies much in the way of pain. Physical Exam Physical Exam: Physical exam shows a pleasant elderly female. She is lying bed looks pretty pretty comfortable. A little difficulty making out what she is saying. Examination of the right hip reveals the dressing be clean dry and intact. She got a Prevena VAC dressing in place. Thigh is soft and supple. She can dorsiflex and plantarflex her foot appropriately. Results & Data Vital Signs (Past 12 Hours) Vital Signs Temp Pulse Pulse Resp BP Pulse Ox O2 Del Method 09/01/23 07:30 37.2 C 84 16 131/70 96 Room Air 09/01/23 04:14 17 08/31/23 21:00 72 23 96 08/31/23 20:05 36.7 C 90 14 133/70 96 Room Air 08/31/23 20:02 Room Air, Nasal CPAP Laboratory Results Labs are pending PG Care Time/CCT Total # of Minutes Spent Total Time Spent with Patient: Total time spent is greater than 50% in coordination of care (as documented) at patient's floor/unit and/or counseling patient: Coding Level of Care Code 92882 Post Operative Follow-Up Diagnoses Pathological fracture of right hip due to age-related osteoporosis M80.759I
[2023-09-01 07:59] LABS: Hematocrit (blood only) 32.9 % (37.0-47.0); Hemoglobin 10.8 g/dl (12.0-16.0); Mean Corpuscular Hemoglobin 30.1 pg (25.0-34.0); Mean Corpuscular Hgb Conc 32.8 g/dL (32.0-36.0); Mean Corpuscular Volume 91.6 fL (80.0-100.0); Mean Platelet Volume 11.1 fL (9.4-12.4); Platelet Count 175 K/uL (130-400); RDW Coefficient of Variation 15.7 % (11.5-14.5); RDW Standard Deviation 51.8 fL (36.4-46.3); Red Blood Count 3.59 M/uL (4.20-5.40); White Blood Count 15.37 K/ul (4.8-10.8)
[2023-09-01] MEDS: predniSONE 20 MG TAB PO SCH (08:05)
--- NOTE | 2023-09-01 10:43 | Nephrology Progress Note ---
Date of Service September 01, 2023 Assessment & Plan (1) ESRD (end stage renal disease) on dialysis: Plan: TTS. Completed treatment yesterday with adequate clearance and UF. Next HD planned for tomorrow. Outpatient Rx 3.5 hrs, 180 optiflux, 350/800, 2K, 137Na, 35HCO3. RUE AVF. EDW 79. Medications are appropriately dosed for IHD. Renal diet. Iron profile will be updated with next set of labs. (2) Secondary hyperparathyroidism: Plan: Maintained on Sensipar as outpatient. Renvela with meals for hyperphosphatemia. (3) Spinal stenosis, lumbar region with neurogenic claudication: Plan: MRI with possible discitis/osteomyelitis in the lumber spine. I'd discussed possible follow up MRI with contrast with Dr. Elizondo. Ortho spine consultation pending. Joan and I discussed possible risks/benefits of MRI w/. There is no plan for additional evaluation at this time. 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 POD#2 s/p ORIF by Dr. Ramirez. Admission and Anticipated Discharge Date Admission Date: August 26, 2023 Subjective Tolerated HD well yesterday. No complications with treatment. Noted changes in mental status with pain medications. This has improved this AM. Joan was resting comfortably in bed at the time of my assessment. She denies significant pain. She denies dyspnea. Review of Systems Review of Systems: All systems reviewed & are unremarkable except as noted in HPI & below Physical Exam Constitutional: well developed; no acute distress Eyes: no scleral abnormality and no corneal abnormality ENMT: Mouth: no oral mucosal abnormality and oral mucous membranes not dry Neck: normal visual inspection, trachea midline and + thick neck Respiratory: normal respiratory effort Auscultation: lungs clear to auscultation bilaterally Cardiovascular: Rate/Rhythm: regular rate Heart Sounds: normal S1 and normal S2 Extremities: + AV fistula; no edema Gastrointestinal (Abdomen): Percussion/Palpation: abdomen soft; abdomen nontender Musculoskeletal: Extremities: no cyanosis and no clubbing Skin: normal turgor; no lesions Neurologic: Motor/Sensory: no tremor and no asterixis Psychiatric: Orientation: alert and oriented x 3 Results & Data Vital Signs (Past 12 Hours) Vital Signs Temp Pulse Resp BP Pulse Ox O2 Del Method 09/01/23 07:30 36.8 C 84 16 131/82 96 Room Air 09/01/23 07:30 37.2 C 16 131/70 96 Room Air 09/01/23 04:14 17 Laboratory Results Laboratory Results - last 24 hr 08/31/23 08/31/23 08/31/23 13:35 16:37 20:21 WBC RBC Hgb Hct MCV MCH MCHC RDW Std Deviation RDW Coeff of Luis Plt Count MPV POC Glucose 196 H 262 H 182 H Random Vancomycin 09/01/23 09/01/23 07:24 07:37 WBC 15.37 H RBC 3.59 L Hgb 10.8 L Hct 32.9 L MCV 91.6 MCH 30.1 MCHC 32.8 RDW Std Deviation 51.8 H RDW Coeff of Luis 15.7 H Plt Count 175 MPV 11.1 POC Glucose 121 H Random Vancomycin 16.5 PG Care Time/CCT Total # of Minutes Spent Total Time Spent with Patient: Total time spent is greater than 50% in coordination of care (as documented) at patient's floor/unit and/or counseling patient: Coding Level of Care Code 44368 SUB INP/OBS CARE 3/50MIN Diagnoses ESRD (end stage renal disease) on dialysis N18.6; Z99.2 Secondary hyperparathyroidism N25.81 Spinal stenosis, lumbar region with neurogenic claudication M48.062 Pathological fracture 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
--- NOTE | 2023-09-01 12:44 | Pharmacy Report ---
Pharmacy PK ABX Note - Date of Service September 01, 2023 - Assessment and Plan Assessment 08/31: * Reviewed vancomycin random this AM 16.5mcg/mL, residual urine output continuing yesterday. Will give a small redose this afternoon to ensure achievement of therapeutic goal due to the severity of infection 08/30: * POD #1 s/p right cemented bipolar hip arthroplasty for fracture. * Random vanc level with AM labs resulted at 13 mcg/mL. * Patient is ordered HD today. Will redose patient post-HD. * Opted to repeat random level on 08/31 AM to assess for baseline clearance of vanc per patient appears to have significant urine output (200-800 ml/day per I&Os). After this, pre-HD levels are preferred. 08/29: 82 year old F receiving vancomcyin/ceftriaxone for treatment of vertebral osteomyelitis. Blood cultures pending. Patient is ESRD with dialysis schedule [facility] Vancomycin will be dosed by levels. Will obtain pre-dialysis level 08/30 AM. Plan Vancomycin * 500 mg IV x 1 this afternoon * Pre-dialysis level 09/01 AM Pharmacy will continue to follow and will adjust dose/frequency as necessary. Thank you. Pharmacy has transitioned to AUC monitoring for vancomycin. AUC/REHANA is the preferred PK/PD target and is associated with decreased risk of nephrotoxicity compared to traditional trough targets.
[2023-09-01] MEDS: VANCOMYCIN HCL 500 MG in NSS 100mL IV ONE (14:29)
--- NOTE | 2023-09-01 14:39 | Pharmacy Report ---
Pharmacy Glycemic Short Note 2 - Date of Service September 01, 2023 - Glycemic Short BSG Results (Last 24 hours): 08/31/23 08/31/23 09/01/23 16:37 20:21 07:37 POC Glucose 262 H 182 H 121 H 09/01/23 11:57 POC Glucose 190 H OUTPATIENT ANTIDIABETIC REGIMEN: * n/a * HbA1c: unreliable in the setting of HD ASSESSMENT: 08/31: * Joan received 25 units of bolus insulin yesterday * Fasting BSGs within goal range, no indication for basal insulin despite oral prednisone taper (prednisone 20mg today, 10mg starting tomorrow) * Novolog loosened proactively due to prednisone tapering, carbohydrate ratio tightened again with lunch due to BSG spike 08/28: * Ms Barboza is an 82yo diabetic F admitted on 08/25 for back pain. * Pt received one dose of IV dexamethasone on 08/25 and has been receiving prednisone 40mg PO daily for the past few days. * Novolog was added to provide correctional/prandial coverage while on steroids. * BSGs have been well-controlled on current regimen. * Pt is to receive dialysis today and again tomorrow. PLAN FOR INPATIENT GLYCEMIC CONTROL: * Hold outpatient oral diabetes medications * Basal insulin * none at this time * Bolus insulin * NovoLog per scale ACHS or Q6hrs while NPO * Goal Range: Low 120 mg/dL - High 150 mg/dL * Correction Factor: 30 mg/dL/unit * Nutritional / Prandial insulin per carb ratio of 1 unit per 9 grams CHO consumed
--- NOTE | 2023-09-01 20:26 | Hospitalist Progress Note ---
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 Ortho pleased with her hip status. DVT proph - heparin 5000 BID. 25-OH vit D level - wnl. Pain meds - cont scheduled tylenol 500mg TID. Cont norco 7.5's q6h prn. Cont bowel regimen of senna/miralax. (2) Acute exacerbation of chronic low back pain: Plan: Improved/resolved Acute on chronic low back pain with RLE radicular pain - latter seems improved/resolved as well Does have prior history of lumbar spinal stenosis surgery - fusion L3-L5 by Dr Martinez in 2019 Typically gets steroid injections by Dr. Wilson - next was scheduled on 08/30 recently prescribed prednisone on 08/23 as outpatient this has been continued in the hospital - plan to wean from 20mg today to 10mg tomorrow then stop steroids completely No fall or trauma, but pain worsened after long episode of house cleaning, then long car ride and sitting in wheelchair for her granddaughters graduation recently MRI l-spine with ?diskitis --> Dr Minor consulted CRP 2 We discussed that ideally she have repeat MRI w/ contrast to get a better look at this but there is risk in CKD patients of nephrogenic fibrosis if MRI w/ contrast not possible then perhaps CT w/ contrast or tagged wbc scan/bone scan? other option is simply following clinically and repeating an MRI in about 1-2 weeks for interval change at this point there is low suspicion overall for diskitis - no back pain today, no fevers, etc blood cx's remain negative if they stay negative overnight will stop rocephin & vancomycin IV (3) Abnormal MRI, lumbar spine: Plan: see above in #2 (4) Right hip pain: Plan: 2nd to fracture see #1 above s/p ORIF by Dr Ramirez (5) Abdominal distension: Plan: 2nd constipation KUB x-ray with mod-severe constipation finally moving bowels cont senna + miralax for maintenance does she have element of ileus ? (6) Hypokalemia: Plan: replaced resolved (7) ESRD (end stage renal disease) on dialysis: Plan: appreciate nephrology assistance typical schedule - /Thurs/Sat access - RUE AVF (8) Diabetes mellitus: Plan: most recent a1c was <6% but may not be accurate due to mild anemia however, with that said, BSGs have been well-controlled even on steroids cont novolog [facility] pharmacy glycemic management appreciated (9) Obstructive sleep apnea: Plan: cont HS CPAP (10) Acute encephalopathy: Plan: toxic, from pain meds resolved Plan DVT ppx - cont SQ heparin 5000 units BID cont PT/OT - rehab advised post-d/c, she is wanting [facility] updated at bedside today Admission and Anticipated Discharge Date Admission Date: August 26, 2023 Subjective resting comfortably in bed denies any significant back or R hip pain at rest she did sit in the chair for a while today states she worked with PT and did not have severe pain with walking (walked 6 feet with PT per their note) eating fair 2 stools documented for yesterday denies any radicular symptoms of the RLE no fevers or chills Review of Systems Review of Systems: gen - fatigued cv - no chest pain; no orthopnea pulm - no cough or congestion GI - still bloated but no N/V Physical Exam Physical Exam: gen - no confusion today; at bedside and says she is "more like herself today"; NAD; comfortable neck - no JVD mouth - MM less dry today heart - RRR, s1 s2, 1/6 MINI LSB lungs - CTA b/l abd - distended mod-severe;BS+, NT ext - pulses 2+ b/l, trace-1+ edema b/l psych - awake/alert/oriented Results & Data Results & Data Vital Signs (Past 12 Hours) Vital Signs Temp Pulse Resp BP Pulse Ox O2 Del Method 09/01/23 20:22 37.1 C 79 14 119/79 95 Room Air 09/01/23 16:22 36.4 C L 82 16 134/63 93 Room Air Laboratory Results Laboratory Results - last 24 hr 09/01/23 09/01/23 09/01/23 07:24 07:37 11:57 WBC 15.37 H RBC 3.59 L Hgb 10.8 L Hct 32.9 L MCV 91.6 MCH 30.1 MCHC 32.8 RDW Std Deviation 51.8 H RDW Coeff of Luis 15.7 H Plt Count 175 MPV 11.1 POC Glucose 121 H 190 H Random Vancomycin 16.5 09/01/23 16:28 WBC RBC Hgb Hct MCV MCH MCHC RDW Std Deviation RDW Coeff of Luis Plt Count MPV POC Glucose 176 H Random Vancomycin Diagnostic Findings blood cx's neg to date PG Care Time/CCT Total # of Minutes Spent Total Time Spent with Patient: Total time spent is greater than 50% in coordination of care (as documented) at patient's floor/unit and/or counseling patient: Coding Level of Care Code 51072 SUB INP/OBS CARE 2/35MIN Diagnoses Pathological fracture 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 Acute exacerbation of chronic low back pain M54.50; G89.29 Abnormal MRI, lumbar spine R93.7 Right hip pain M25.551 Abdominal distension R14.0 Hypokalemia E87.6 ESRD (end stage renal disease) on dialysis N18.6; Z99.2 Diabetes mellitus E11.9 Obstructive sleep apnea G47.33 Acute encephalopathy G93.40
[2023-09-02] MEDS: HYDROCODONE/ACETAMINOPHEN 7.5/325MG TAB PO PRN (05:38)
[2023-09-02 05:45] LABS: Hematocrit (blood only) 31.3 % (37.0-47.0); Hemoglobin 10.7 g/dl (12.0-16.0); Mean Corpuscular Hemoglobin 30.7 pg (25.0-34.0); Mean Corpuscular Hgb Conc 34.2 g/dL (32.0-36.0); Mean Corpuscular Volume 89.9 fL (80.0-100.0); Mean Platelet Volume 11.2 fL (9.4-12.4); Platelet Count 200 K/uL (130-400); RDW Coefficient of Variation 15.8 % (11.5-14.5); RDW Standard Deviation 51.2 fL (36.4-46.3); Red Blood Count 3.48 M/uL (4.20-5.40); White Blood Count 14.93 K/ul (4.8-10.8)
[2023-09-02 06:10] LABS: Albumin Level 2.9 gm/dl (3.4-5.0); BUN Creatinine Ratio 11.6 (10-20); Calcium 8.6 mg/dl (8.6-10.3); Creatinine Clr Calc Pharmacy 9.2 ml/min; Est GFR (African American) 9.4 ml/min; Est GFR (Non-African American) 8.1 ml/min; Phosphorus 4.6 mg/dl (2.5-4.9); Potassium 4.3 mmol/L (3.5-5.1)
[2023-09-02] MEDS: predniSONE 10 MG TABLET PO SCH (08:12)
--- NOTE | 2023-09-02 09:10 | Nephrology Progress Note ---
Date of Service September 02, 2023 Assessment & Plan (1) ESRD (end stage renal disease) on dialysis: Plan: * HD today. Orders have been entered into EMR and HD RN notified * Outpatient Rx 3.5 hrs, 180 optiflux, 350/800, 2K, 137Na, 35HCO3. RUE AVF. EDW 79. (2) Secondary hyperparathyroidism: Plan: * Maintained on Sensipar as outpatient. Renvela with meals for hyperphosphatemia. (3) Spinal stenosis, lumbar region with neurogenic claudication: Plan: * MRI with possible discitis/osteomyelitis in the lumber spine. 08/31/23 Orthopedic evaluation was that without low back pain concern for discitis was low. Recommended continued monitoring w/ follow up MRI if symptoms develop (4) Pathological fracture of right hip due to age-related osteoporosis: Plan: * R displaced femoral neck fracture s/p cemented bipolar arthroplasty 08/30/23 * Continue PT * Awaiting transfer to [facility] or [facility] Admission and Anticipated Discharge Date Admission Date: August 26, 2023 Subjective Mrs. Barboza was evaluated in her hospital room this morning. She denied fever, angina, dyspnea or hip discomfort. She was awaiting HD this am. Mrs. Barboza hopes to be transferred to [facility] once a bed is available Review of Systems Constitutional: no fever Eyes: no problem reported Ear, Nose, Mouth, Throat: no problem reported Respiratory: no cough and no dyspnea Cardiovascular: no chest pain Gastrointestinal: no abdominal pain, no nausea, no vomiting and no diarrhea/loose stools Genitourinary: no dysuria and no hematuria Physical Exam Constitutional: + frail appearing Eyes: PERRL, conjunctivae normal, anicteric sclerae ENMT: external ear and nose normal, oropharynx normal Neck: trachea midline, no thyromegaly Respiratory: normal respiratory effort, lungs clear to auscultation Cardiovascular: RRR, no murmur, no edema R arm AVF + bruit Gastrointestinal (Abdomen): normal bowel sounds, soft, nontender, no hepatosplenomegaly Skin: no rashes, warm and dry Neurologic: Speech / Cognition: normal speech and normal cognition Results & Data Vital Signs (Past 12 Hours) Vital Signs Temp Pulse Pulse Resp BP Pulse Ox O2 Del Method 09/02/23 07:13 36.4 C L 82 16 135/63 95 Room Air 09/01/23 22:14 79 24 96 Laboratory Results Laboratory Results - last 24 hr 09/01/23 09/01/23 09/01/23 11:57 16:28 20:44 WBC RBC Hgb Hct MCV MCH MCHC RDW Std Deviation RDW Coeff of Luis Plt Count MPV Sodium Potassium Chloride Carbon Dioxide Anion Gap BUN Creatinine Est Cr Clr Drug Dosing Est GFR ( Amer) Est GFR (Non-Af Amer) BUN/Creatinine Ratio Glucose POC Glucose 190 H 176 H 202 H Calcium Phosphorus Iron TIBC Unsaturated IBC Transferrin % Sat Ferritin Albumin Random Vancomycin 09/02/23 09/02/23 05:21 07:45 WBC 14.93 H RBC 3.48 L Hgb 10.7 L Hct 31.3 L MCV 89.9 MCH 30.7 MCHC 34.2 RDW Std Deviation 51.2 H RDW Coeff of Luis 15.8 H Plt Count 200 MPV 11.2 Sodium 133 L Potassium 4.3 Chloride 97 L Carbon Dioxide 24 Anion Gap 12 H BUN 55 H Creatinine 4.75 H* D Est Cr Clr Drug Dosing 9.2 Est GFR ( Amer) 9.4 Est GFR (Non-Af Amer) 8.1 BUN/Creatinine Ratio 11.6 Glucose 111 H POC Glucose 104 H Calcium 8.6 Phosphorus 4.6 Iron 62 TIBC 144 L Unsaturated IBC 82 L Transferrin % Sat 43 Ferritin 1817.0 H Albumin 2.9 L Random Vancomycin 16.2 PG Care Time/CCT Total # of Minutes Spent Total Time Spent with Patient: Total time spent is greater than 50% in coordination of care (as documented) at patient's floor/unit and/or counseling patient: Coding Level of Care Code 06395 SUB INP/OBS CARE 3/50MIN Diagnoses ESRD (end stage renal disease) on dialysis N18.6; Z99.2 Secondary hyperparathyroidism N25.81 Spinal stenosis, lumbar region with neurogenic claudication M48.062 Pathological fracture 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
--- NOTE | 2023-09-02 12:53 | Orthopedic Progress Note ---
Date of Service September 02, 2023 Subjective Patient seen and examined, she was sitting upright in a chair, she notes no significant low back pain. Palpation the lower lumbar spine did not reveal any pain and there was no findings to suggest an infectious process. White count today at 14.93 without increase from previous draw. Impression: At this time I suspect that the MRI findings do not reveal a discitis and less further findings were to indicate this is an active process, the changes may be related to just degeneration. Recommend continue monitoring and perhaps additional imaging if suspicion increases. Review of Systems All systems reviewed & are unremarkable except as noted in HPI & below. Physical Exam . Results & Data Results & Data Laboratory Results . Diagnostic Findings . PG Care Time/CCT Total # of Minutes Spent Total Time Spent with Patient: Total time spent is greater than 50% in coordination of care (as documented) at patient's floor/unit and/or counseling patient: Coding Level of Care Code 22865 SUB INP/OBS CARE 2/35MIN
[2023-09-02] MEDS ORDERED: VANCOMYCIN HCL 1,000 MG in SODIUM CHLORIDE 0.9% 250 ML IV SCH (16:00)
--- NOTE | 2023-09-02 18:23 | Hospitalist Progress Note ---
Date of Service September 02, 2023 Assessment & Plan (1) Pathological fracture of right hip due to age-related osteoporosis: Plan: POD #3 s/p ORIF by Dr Reggie Ramirez for her subacute right hip fracture. Very stable from ortho standpoint. DVT proph - heparin 5000 BID. 25-OH vit D level - wnl. Pain meds - cont scheduled tylenol 500mg TID. Cont norco 7.5's q6h prn. needing very little of such. Cont bowel regimen of senna/miralax. May need to titrate. WBAT on RLE. Cont PT/OT. Rehab plan post-d/c -- she is hopeful for [facility]; back up plan - [facility]. (2) Acute exacerbation of chronic low back pain: Plan: Resolved Acute on chronic low back pain with RLE radicular pain - latter also resolved Does have prior history of lumbar spinal stenosis surgery - fusion L3-L5 by Dr Martinez in 2019 Typically gets steroid injections by Dr. Wilson - next was scheduled on 08/30 recently prescribed prednisone on 08/23 as outpatient this has been continued in the hospital - plan to give 10mg today then stop all steroids No fall or trauma, but pain worsened after long episode of house cleaning, then long car ride and sitting in wheelchair for her granddaughters graduation recently MRI l-spine with ?diskitis --> Dr Minor consulted CRP only 2 She has NO back pain today; NO RLE radicular pain Thus, MRI findings likely due to advanced DJD rather than infection With that said in ideal setting would have contrast MRI but there is risk in CKD patients of nephrogenic fibrosis if MRI w/ contrast not possible then perhaps CT w/ contrast or tagged wbc scan/bone scan? other option is simply following clinically and repeating an MRI in about 1-2 weeks for interval change; favoring this option at this point there is low suspicion overall for diskitis blood cx's remain negative can stop rocephin & vancomycin IV (3) Abnormal MRI, lumbar spine: Plan: see above in #2 (4) Right hip pain: Plan: 2nd to fracture see #1 above s/p ORIF by Dr Ramirez (5) Abdominal distension: Plan: 2nd constipation KUB x-ray with mod-severe constipation finally moving bowels but they are small will likely need miralax titrated cont senna (6) Hypokalemia: Plan: replaced resolved (7) ESRD (end stage renal disease) on dialysis: Plan: appreciate nephrology assistance typical schedule - //Sat access - RUE AVF (8) Diabetes mellitus: Plan: most recent a1c was <6% but may not be accurate due to mild anemia however, with that said, BSGs have been well-controlled even on steroids cont novolog [facility] glycemic management appreciated (9) Obstructive sleep apnea: Plan: cont HS CPAP (10) Acute encephalopathy: Plan: toxic, from pain meds resolved (11) Candidiasis of mouth and esophagus: Plan: nystatin solution 5ml QID swish/spit x 7 days (12) Dietary restriction: Plan: I removed the mince/moist texture today - I am uncertain why she was on this Will have speech perform swallow eval but she reports no dysphagia Will ask nephrology if Low K portion of diet can be held - her dietary choices will increase dramatically with this gone she has had NO issues with her K (if anything it was low recently) Will ask nutrition/fitness sales associate to meet with her to go over her diet Plan DVT ppx - cont SQ heparin 5000 units BID cont PT/OT - rehab advised post-d/c, she is wanting [facility] will ask SW to submit for auth updated at bedside again today Admission and Anticipated Discharge Date Admission Date: August 26, 2023 Subjective no events overnight she was wanting to talk about her dietary choices today she is upset that she has very few options for her meals she is also on a minced/moist diet and doesn't understand why she denies any prior history of dysphagia or swallowing problem only has occasional problems with pills I reviewed her chart - can't find any note from speech therapy or video swallow minimal to no pain R hip; only had a small amount of discomfort with transferring to chair denies any back pain or right leg radicular pain Review of Systems Review of Systems: cv - no chest pain pulm - no dyspnea GI - still distended and not having good BMs psych - very emotional and tearful; "I get like this on dialysis days" Physical Exam Physical Exam: gen - sitting in bed comfortably, NAD, oriented; very upset about dietary choices and tearful as well neck - no JVD mouth - MMM; thrush plaques on buccal mucosa heart - RRR, s1 s2, 1/6 MINI LSB lungs - CTA b/l abd - distended mod-severe - no change;BS+, NT ext - pulses 2+ b/l, trace-1+ edema b/l psych - awake/alert/oriented but very tearful today skin - dressings intact R lateral hip; mild R thigh swelling Results & Data Results & Data Vital Signs (Past 12 Hours) Vital Signs Temp Pulse Pulse Pulse Resp BP BP 09/02/23 15:55 36.5 C 74 139/69 09/02/23 15:30 80 110/52 L 09/02/23 15:00 73 114/57 L 09/02/23 14:30 74 98/52 L 09/02/23 14:00 73 113/50 L 09/02/23 13:30 71 114/56 L 09/02/23 13:00 72 105/50 L 09/02/23 12:30 69 126/55 L 09/02/23 11:57 36.5 C 80 09/02/23 07:40 09/02/23 07:13 36.4 C L 82 16 135/63 Pulse Ox O2 Del Method 09/02/23 15:55 09/02/23 15:30 09/02/23 15:00 09/02/23 14:30 09/02/23 14:00 09/02/23 13:30 09/02/23 13:00 09/02/23 12:30 09/02/23 11:57 09/02/23 07:40 Room Air 09/02/23 07:13 95 Room Air Laboratory Results Laboratory Results - last 24 hr 09/01/23 09/02/23 09/02/23 20:44 05:21 07:45 WBC 14.93 H RBC 3.48 L Hgb 10.7 L Hct 31.3 L MCV 89.9 MCH 30.7 MCHC 34.2 RDW Std Deviation 51.2 H RDW Coeff of Luis 15.8 H Plt Count 200 MPV 11.2 Sodium 133 L Potassium 4.3 Chloride 97 L Carbon Dioxide 24 Anion Gap 12 H BUN 55 H Creatinine 4.75 H* D Est Cr Clr Drug Dosing 9.2 Est GFR ( Amer) 9.4 Est GFR (Non-Af Amer) 8.1 BUN/Creatinine Ratio 11.6 Glucose 111 H POC Glucose 202 H 104 H Calcium 8.6 Phosphorus 4.6 Iron 62 TIBC 144 L Unsaturated IBC 82 L Transferrin % Sat 43 Ferritin 1817.0 H Albumin 2.9 L Random Vancomycin 16.2 09/02/23 09/02/23 11:47 16:37 WBC RBC Hgb Hct MCV MCH MCHC RDW Std Deviation RDW Coeff of Luis Plt Count MPV Sodium Potassium Chloride Carbon Dioxide Anion Gap BUN Creatinine Est Cr Clr Drug Dosing Est GFR ( Amer) Est GFR (Non-Af Amer) BUN/Creatinine Ratio Glucose POC Glucose 142 H 111 H Calcium Phosphorus Iron TIBC Unsaturated IBC Transferrin % Sat Ferritin Albumin Random Vancomycin PG Care Time/CCT Total # of Minutes Spent Total Time Spent with Patient: Total time spent is greater than 50% in coordination of care (as documented) at patient's floor/unit and/or counseling patient: Coding Level of Care Code 94737 SUB INP/OBS CARE 2/35MIN Diagnoses Pathological fracture 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 Acute exacerbation of chronic low back pain M54.50; G89.29 Abnormal MRI, lumbar spine R93.7 Right hip pain M25.551 Abdominal distension R14.0 Hypokalemia E87.6 ESRD (end stage renal disease) on dialysis N18.6; Z99.2 Diabetes mellitus E11.9 Obstructive sleep apnea G47.33 Acute encephalopathy G93.40 Candidiasis of mouth and esophagus B37.81; B37.0 Dietary restriction Z71.3
[2023-09-03] MEDS ORDERED: Nursing to Pharmacy Communication SCH (02:00)
[2023-09-03 06:47] LABS: Hematocrit (blood only) 31.3 % (37.0-47.0); Hemoglobin 10.4 g/dl (12.0-16.0); Mean Corpuscular Hemoglobin 30.6 pg (25.0-34.0); Mean Corpuscular Hgb Conc 33.2 g/dL (32.0-36.0); Mean Corpuscular Volume 92.1 fL (80.0-100.0); Mean Platelet Volume 11.1 fL (9.4-12.4); Platelet Count 172 K/uL (130-400); RDW Standard Deviation 53.6 fL (36.4-46.3); White Blood Count 9.68 K/ul (4.8-10.8)
[2023-09-03] MEDS: POLYETHYLENE (MIRALAX) 17 GM PACK PO SCH (09:06)
--- NOTE | 2023-09-03 09:11 | Nephrology Progress Note ---
Date of Service September 03, 2023 Assessment & Plan (1) ESRD (end stage renal disease) on dialysis: Plan: * Patient was dialyzed yesterday for 2 L UF. PRP is pending this am. Volume status is acceptable. No acute indication for HD today * Outpatient Rx 3.5 hrs, 180 optiflux, 350/800, 2K, 137Na, 35HCO3. RUE AVF. EDW 79. (2) Secondary hyperparathyroidism: Plan: * Maintained on Sensipar as outpatient. Renvela with meals for hyperphosphatemia. (3) Spinal stenosis, lumbar region with neurogenic claudication: Plan: * MRI with possible discitis/osteomyelitis in the lumber spine. 08/31/23 Orthopedic evaluation was that without low back pain concern for discitis was low. Recommended continued monitoring w/ follow up MRI if symptoms develop (4) Pathological fracture of right hip due to age-related osteoporosis: Plan: * R displaced femoral neck fracture s/p cemented bipolar arthroplasty 08/30/23 * Continue PT * Awaiting transfer to [facility] or [facility] Admission and Anticipated Discharge Date Admission Date: August 26, 2023 Subjective Mrs. Barboza was evaluated in her hospital room this morning. She denied fever, angina, dyspnea or hip discomfort. She was visiting with her grandchildren from [place]. Mrs. Barboza hopes to be transferred to [facility] once a bed is available Review of Systems Constitutional: no fever Eyes: no problem reported Ear, Nose, Mouth, Throat: no problem reported Respiratory: no cough and no dyspnea Cardiovascular: no chest pain Gastrointestinal: no abdominal pain, no nausea, no vomiting and no diarrhea/loose stools Genitourinary: no dysuria and no hematuria Physical Exam Constitutional: + frail appearing Eyes: PERRL, conjunctivae normal, anicteric sclerae ENMT: external ear and nose normal, oropharynx normal Neck: trachea midline, no thyromegaly Respiratory: normal respiratory effort, lungs clear to auscultation Cardiovascular: RRR, no murmur, no edema Gastrointestinal (Abdomen): normal bowel sounds, soft, nontender, no hepatosplenomegaly Skin: no rashes, warm and dry Neurologic: Speech / Cognition: normal speech and normal cognition Results & Data Vital Signs (Past 12 Hours) Vital Signs Temp Pulse Resp BP Pulse Ox O2 Del Method 09/03/23 07:07 36.6 C 81 16 152/68 H 98 Room Air 09/03/23 03:11 18 09/02/23 22:19 24 95 09/02/23 21:20 Room Air Laboratory Results Laboratory Results - last 24 hr 09/02/23 09/02/23 09/02/23 11:47 16:37 21:18 WBC RBC Hgb Hct MCV MCH MCHC RDW Std Deviation RDW Coeff of Luis Plt Count MPV Sodium Potassium Chloride Carbon Dioxide Anion Gap BUN Creatinine Est Cr Clr Drug Dosing Est GFR ( Amer) Est GFR (Non-Af Amer) BUN/Creatinine Ratio Glucose POC Glucose 142 H 111 H 171 H Calcium 09/03/23 09/03/23 06:08 07:45 WBC 9.68 RBC 3.40 L Hgb 10.4 L Hct 31.3 L MCV 92.1 MCH 30.6 MCHC 33.2 RDW Std Deviation 53.6 H RDW Coeff of Luis 16.0 H Plt Count 172 MPV 11.1 Sodium Pending Potassium Pending Chloride Pending Carbon Dioxide Pending Anion Gap Pending BUN 33 H D Creatinine Pending Est Cr Clr Drug Dosing Pending Est GFR ( Amer) Pending Est GFR (Non-Af Amer) Pending BUN/Creatinine Ratio Pending Glucose Pending POC Glucose 108 H Calcium Pending PG Care Time/CCT Total # of Minutes Spent Total Time Spent with Patient: Total time spent is greater than 50% in coordination of care (as documented) at patient's floor/unit and/or counseling patient: Coding Level of Care Code 37552 SUB INP/OBS CARE 3/50MIN Diagnoses ESRD (end stage renal disease) on dialysis N18.6; Z99.2 Secondary hyperparathyroidism N25.81 Spinal stenosis, lumbar region with neurogenic claudication M48.062 Pathological fracture 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
[2023-09-03] MEDS: NYSTATIN SUSP 500,000 U/5 ML UDC PO SCH (09:13)
[2023-09-03 13:46] LABS: BUN Creatinine Ratio 9.2 (10-20); Calcium 8.5 mg/dl (8.6-10.3); Est GFR (African American) 13.1 ml/min; Est GFR (Non-African American) 11.3 ml/min; Potassium 4.2 mmol/L (3.5-5.1)
--- NOTE | 2023-09-03 18:07 | Hospitalist Progress Note ---
Date of Service September 03, 2023 Assessment & Plan (1) Pathological fracture of right hip due to age-related osteoporosis: Plan: POD #4 s/p ORIF by Dr Reggie Ramirez for her subacute right hip fracture. Very stable from ortho standpoint. DVT proph - heparin 5000 BID. 25-OH vit D level - wnl. Pain meds - cont scheduled tylenol 500mg TID. Cont norco 7.5's q6h prn. needing very little of such. Cont bowel regimen of senna/miralax. Increase latter to TID dosing. Once she opens up lower it to BID. WBAT on RLE. Cont PT/OT. Rehab plan post-d/c -- she is hopeful for [facility]; back up plan - [facility]. Asked SW to submit for auth for [facility]. (2) Acute exacerbation of chronic low back pain: Plan: Resolved Acute on chronic low back pain with RLE radicular pain - latter also resolved Does have prior history of lumbar spinal stenosis surgery - fusion L3-L5 by Dr Martinez in 2019 Typically gets steroid injections by Dr. Wilson - next was scheduled on 08/30 recently prescribed prednisone on 08/23 as outpatient this has been continued in the hospital - plan to give 10mg today then stop all steroids No fall or trauma, but pain worsened after long episode of house cleaning, then long car ride and sitting in wheelchair for her granddaughters graduation recently MRI l-spine with ?diskitis --> Dr Minor consulted CRP only 2 She has NO back pain today; NO RLE radicular pain Thus, MRI findings likely due to advanced DJD rather than infection With that said in ideal setting would have contrast MRI but there is risk in CKD patients of nephrogenic fibrosis if MRI w/ contrast not possible then perhaps CT w/ contrast or tagged wbc scan/bone scan? other option is simply following clinically and repeating an MRI in about 1-2 weeks for interval change; favoring this option at this point there is low suspicion overall for diskitis blood cx's remain negative previous rocephin & vancomycin have been off 2+ days (3) Abnormal MRI, lumbar spine: Plan: see above in #2 (4) Right hip pain: Plan: 2nd to fracture see #1 above s/p ORIF by Dr Ramirez pain essentially resolved (5) Abdominal distension: Plan: 2nd constipation KUB x-ray with mod-severe constipation increase miralax to TID dosing cont senna (6) Hypokalemia: Plan: replaced resolved (7) ESRD (end stage renal disease) on dialysis: Plan: appreciate nephrology assistance typical schedule - //Sat access - RUE AVF (8) Diabetes mellitus: Plan: controlled most recent a1c was <6% but may not be accurate due to mild anemia however, with that said, BSGs have been well-controlled even on steroids cont novolog [facility] glycemic management appreciated (9) Obstructive sleep apnea: Plan: cont HS CPAP (10) Acute encephalopathy: Plan: toxic, from pain meds resolved (11) Candidiasis of mouth and esophagus: Plan: nystatin solution 5ml QID swish/spit x 7 days (12) Dietary restriction: Plan: I removed the mince/moist texture appreciate speech therapy consult - no dysphagia nephrology removed low K diet -- no issues with K while here (if anything was low early in the stay) Plan DVT ppx - cont heparin 5000 units BID cont PT/OT - rehab advised post-d/c, she is wanting [facility] will ask SW to submit for auth today updated at bedside yesterday Admission and Anticipated Discharge Date Admission Date: August 26, 2023 Subjective patient much happier today diet has been liberalized no further low K diet; no further minced/moist diet speech saw -- no dysphagia did ok with PT today - she had minimal to no pain with transferring/walking still has not had a satisfying bowel movement NO back pain NO RLE radicular pain Review of Systems Review of Systems: gen - no fevers or chills cv - no chest pain pulm - no dyspnea or CASTRO GI - bloating continues but no N/V Physical Exam Physical Exam: gen - sitting in chair comfortably, NAD neck - no JVD mouth - MMM; thrush plaques on buccal mucosa remain (mild) heart - RRR, s1 s2, 1/6 MINI LSB lungs - CTA b/l abd - distended mod-severe - no change; BS+, NT ext - pulses 2+ b/l, trace edema b/l psych - awake/alert/oriented; not tearful today skin - dressings intact R lateral hip; mild R thigh swelling unchanged Results & Data Results & Data Vital Signs (Past 12 Hours) Vital Signs Temp Pulse Resp BP Pulse Ox O2 Del Method 09/03/23 14:45 36.7 C 77 16 143/64 H 98 Room Air 09/03/23 07:20 Room Air 09/03/23 07:07 36.6 C 81 16 152/68 H 98 Room Air Laboratory Results Laboratory Results - last 24 hr 09/02/23 09/03/23 09/03/23 21:18 06:08 07:45 WBC 9.68 RBC 3.40 L Hgb 10.4 L Hct 31.3 L MCV 92.1 MCH 30.6 MCHC 33.2 RDW Std Deviation 53.6 H RDW Coeff of Luis 16.0 H Plt Count 172 MPV 11.1 Sodium 138 Potassium 4.2 Chloride 100 Carbon Dioxide 29 Anion Gap 9 BUN 33 H D Creatinine 3.60 H D Est Cr Clr Drug Dosing 12.0 Est GFR ( Amer) 13.1 Est GFR (Non-Af Amer) 11.3 BUN/Creatinine Ratio 9.2 L Glucose 99 POC Glucose 171 H 108 H Calcium 8.5 L 09/03/23 09/03/23 12:00 16:35 WBC RBC Hgb Hct MCV MCH MCHC RDW Std Deviation RDW Coeff of Luis Plt Count MPV Sodium Potassium Chloride Carbon Dioxide Anion Gap BUN Creatinine Est Cr Clr Drug Dosing Est GFR ( Amer) Est GFR (Non-Af Amer) BUN/Creatinine Ratio Glucose POC Glucose 145 H 136 H Calcium PG Care Time/CCT Total # of Minutes Spent Total Time Spent with Patient: Total time spent is greater than 50% in coordination of care (as documented) at patient's floor/unit and/or counseling patient: Coding Level of Care Code 62048 SUB INP/OBS CARE 2/35MIN Diagnoses Pathological fracture 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 Acute exacerbation of chronic low back pain M54.50; G89.29 Abnormal MRI, lumbar spine R93.7 Right hip pain M25.551 Abdominal distension R14.0 Hypokalemia E87.6 ESRD (end stage renal disease) on dialysis N18.6; Z99.2 Diabetes mellitus E11.9 Obstructive sleep apnea G47.33 Acute encephalopathy G93.40 Candidiasis of mouth and esophagus B37.81; B37.0 Dietary restriction Z71.3
[2023-09-04 06:24] LABS: Hematocrit (blood only) 28.5 % (37.0-47.0); Hemoglobin 9.3 g/dl (12.0-16.0); Mean Corpuscular Hemoglobin 29.4 pg (25.0-34.0); Mean Corpuscular Hgb Conc 32.6 g/dL (32.0-36.0); Mean Corpuscular Volume 90.2 fL (80.0-100.0); Mean Platelet Volume 10.9 fL (9.4-12.4); Platelet Count 156 K/uL (130-400); RDW Coefficient of Variation 15.9 % (11.5-14.5); RDW Standard Deviation 51.6 fL (36.4-46.3); Red Blood Count 3.16 M/uL (4.20-5.40)
[2023-09-04 07:05] LABS: BUN Creatinine Ratio 11.1 (10-20); Calcium 8.5 mg/dl (8.6-10.3); Creatinine Clr Calc Pharmacy 9.5 ml/min; Est GFR (Non-African American) 8.7 ml/min; Potassium 4.2 mmol/L (3.5-5.1)
--- NOTE | 2023-09-04 08:37 | Nephrology Progress Note ---
Date of Service September 04, 2023 Assessment & Plan (1) ESRD (end stage renal disease) on dialysis: Plan: * Volume status and electrolyte balance are acceptable. No acute indication for HD today * Outpatient Rx 3.5 hrs, 180 optiflux, 350/800, 2K, 137Na, 35HCO3. RUE AVF. EDW 79. (2) Secondary hyperparathyroidism: Plan: * Maintained on Sensipar as outpatient. Renvela with meals for hyperphosphatemi a. (3) Spinal stenosis, lumbar region with neurogenic claudication: Plan: * MRI with possible discitis/osteomyelitis in the lumber spine. 08/31/23 Orthopedic evaluation was that without low back pain concern for discitis was low. Recommended continued monitoring w/ follow up MRI if symptoms develop (4) Pathological fracture of right hip due to age-related osteoporosis: Plan: * R displaced femoral neck fracture s/p cemented bipolar arthroplasty 08/30/23 * Continue PT * Awaiting transfer to [facility] or [facility] Admission and Anticipated Discharge Date Admission Date: August 26, 2023 Subjective Mrs. Barboza was evaluated in her hospital room this morning. She denied fever, angina, dyspnea or hip discomfort. PT helped her to walk to the yesterday. Mrs. Barboza hopes to be transferred to [facility] once a bed is available Review of Systems Constitutional: no fever Eyes: no problem reported Ear, Nose, Mouth, Throat: no problem reported Respiratory: no cough and no dyspnea Cardiovascular: no chest pain Gastrointestinal: no abdominal pain, no nausea, no vomiting and no diarr hea/loose stools Genitourinary: no dysuria and no hematuria Physical Exam Constitutional: + frail appearing Eyes: PERRL, conjunctivae normal, anicteric sclerae ENMT: external ear and nose normal, oropharynx normal Neck: trachea midline, no thyromegaly Respiratory: normal respiratory effort, lungs clear to auscultation Cardiovascular: RRR, no murmur, no edema Gastrointestinal (Abdomen): normal bowel sounds, soft, nontender, no hepatosplenomegaly Skin: no rashes, warm and dry Neurologic: Speech / Cognition: normal speech and normal cognition Results & Data Vital Signs (Past 12 Hours) Vital Signs Temp Pulse Resp BP Pulse Ox O2 Del Method 09/04/23 07:26 36.8 C 77 15 173/68 H 98 Room Air 09/04/23 02:36 20 97 09/03/23 22:27 20 96 Laboratory Results Laboratory Results - last 24 hr 09/03/23 09/03/23 09/03/23 06:08 12:00 16:35 WBC RBC Hgb Hct MCV MCH MCHC RDW Std Deviation RDW Coeff of Luis Plt Count MPV Sodium 138 Potassium 4.2 Chloride 100 Carbon Dioxide 29 Anion Gap 9 BUN Creatinine 3.60 H D Est Cr Clr Drug Dosing 12.0 Est GFR ( Amer) 13.1 Est GFR (Non-Af Amer) 11.3 BUN/Creatinine Ratio 9.2 L Glucose 99 POC Glucose 145 H 136 H Calcium 8.5 L 09/03/23 09/04/23 09/04/23 21:05 05:58 07:42 WBC 9.30 RBC 3.16 L Hgb 9.3 L Hct 28.5 L MCV 90.2 MCH 29.4 MCHC 32.6 RDW Std Deviation 51.6 H RDW Coeff of Luis 15.9 H Plt Count 156 MPV 10.9 Sodium 136 Potassium 4.2 Chloride 100 Carbon Dioxide 25 Anion Gap 11 BUN 50 H Creatinine 4.49 H D Est Cr Clr Drug Dosing 9.5 Est GFR ( Amer) 10.0 Est GFR (Non-Af Amer) 8.7 BUN/Creatinine Ratio 11.1 Glucose 97 POC Glucose 158 H 104 H Calcium 8.5 L PG Care Time/CCT Total # of Minutes Spent Total Time Spent with Patient: Total time spent is greater than 50% in coordination of care (as documented) at patient's floor/unit and/or counseling patient: Coding Level of Care Code 03959 SUB INP/OBS CARE 3/50MIN Diagnoses ESRD (end stage renal disease) on dialysis N18.6; Z99.2 Secondary hyperparathyroidism N25.81 Spinal stenosis, lumbar region with neurogenic claudication M48.062 Pathological fracture 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
--- NOTE | 2023-09-04 10:07 | Pharmacy Report ---
Pharmacy Glycemic Sign Off Nt - Date of Service September 04, 2023 - Assessment & Plan ASSESSMENT: * Pharmacy consulted for glycemic management. * Patient no longer on prednisone. * BSG's have been well managed on loosened Novolog monotherapy, with current parameters looser than a moderate stress estimate for her weight. * Pharmacy will sign off glycemic management at this time - Dr. Elizondo aware. PLAN FOR INPATIENT GLYCEMIC CONTROL: No changes needed to current regimen. * No basal insulin * Continue NovoLog per scale ACHS/Q6hrs while NPO * Goal range = 110 140 mg/dl * CF = 30 mg/dl/unit * CR = 1 unit for ever 12 g CHO consumed * Pharmacy is signing off of glycemic consult and will no longer be making adjustments to inpatient regimen. Please feel free to re-consult if needed. Thank you.
--- NOTE | 2023-09-04 20:04 | Hospitalist Progress Note ---
Date of Service September 04, 2023 Assessment & Plan (1) Pathological fracture of right hip due to age-related osteoporosis: Plan: POD #5 s/p ORIF by Dr Reggie Ramirez for her subacute right hip fracture. Very stable from ortho standpoint. DVT proph - heparin 5000 BID. 25-OH vit D level - wnl. Pain meds - cont scheduled tylenol 500mg TID. Cont norco 7.5's q6h prn. needing very little of such. Cont bowel regimen of senna/miralax - lower TID to BID dosing of latter. WBAT on RLE. Cont PT/OT. Rehab plan post-d/c -- she is hopeful for [facility]; back up plan - [facility]. [facility] auth pending. (2) Acute exacerbation of chronic low back pain: Plan: Acute on chronic low back pain with RLE radicular pain - RESOLVED Does have prior history of lumbar spinal stenosis surgery - fusion L3-L5 by Dr Martinez in 2019 Typically gets steroid injections by Dr. Wilson - next was scheduled on 08/30 as outpatient recently prescribed prednisone on 08/23 as outpatient this had been continued in the hospital - completed a taper on 09/03/23 No fall or trauma, but pain worsened after long episode of house cleaning, then long car ride and sitting in wheelchair for her granddaughters graduation recen tly MRI l-spine with ?diskitis --> Dr Minor consulted CRP only 2 Blood cx's negative She has had NO back pain over the last few days; NO RLE radicular pain pain eitehr Thus, MRI findings likely due to advanced DJD rather than infection - low suspicion for latter With that said in ideal setting would have contrast MRI but there is risk in CKD patients of nephrogenic fibrosis if MRI w/ contrast not possible then perhaps CT w/ contrast or tagged wbc scan/bone scan? Plan - would repeat a noncontrast MRI lumbar spine in about 2 weeks post-discharge and have her f/u with Dr Minor in his office for recheck (3) Abnormal MRI, lumbar spine: Plan: see above in #2 (4) Right hip pain: Plan: 2nd to fracture see #1 above s/p ORIF by Dr Ramirez pain resolved (5) Abdominal distension: Plan: 2nd constipation IMPROVED TODAY KUB x-ray had shown mod-severe constipation cont miralax BID cont senna daily (6) Hypokalemia: Plan: replaced resolved (7) ESRD (end stage renal disease) on dialysis: Plan: appreciate nephrology assistance typical schedule - //Mon access - RUE AVF (8) Diabetes mellitus: Plan: controlled most recent a1c was <6% but may not be accurate due to mild anemia however, with that said, BSGs have been well-controlled even on steroids cont novolog [facility] glycemic management appreciated (9) Obstructive sleep apnea: Plan: cont HS CPAP (10) Acute encephalopathy: Plan: toxic, from pain meds resolved (11) Candidiasis of mouth and esophagus: Plan: nystatin solution 5ml QID swish/spit x 7 days improved (12) Dietary restriction: Plan: I removed the mince/moist texture appreciate speech therapy consult - no dysphagia nephrology removed low K diet -- no issues with K while here (if anything was low early in the stay) patient pleased her diet has been liberalized Plan DVT ppx - cont heparin 5000 units BID cont PT/OT - rehab advised post-d/c, she is wanting [facility] PENDING; hopefully will hear on 09/04 updated at bedside today Admission and Anticipated Discharge Date Admission Date: August 26, 2023 Subjective pt sitting in chair eating her meal at bedside had good day no new acute issues no back pain no RLE pain no right hip pain (minimal if any during times of ambulation) is getting OOB to chair finally with 2 large BMs - abdomen feels better Review of Systems Review of Systems: cv - no chest pain pulm - no dyspnea, no cough GI - no N/V Physical Exam Physical Exam: gen - sitting in chair comfortably, NAD - looks well today neck - no JVD mouth - MMM; thrush plaques improved heart - RRR, s1 s2, 1/6 MINI LSB lungs - CTA b/l abd - distension improved today; BS+, NT ext - pulses 2+ b/l, trace edema b/l psych - awake/alert/oriented skin - dressings intact R lateral hip; drain intact; mild R thigh swelling unchanged Results & Data Results & Data Vital Signs (Past 12 Hours) Vital Signs Temp Pulse Resp BP Pulse Ox O2 Del Method 09/04/23 19:56 36.3 C L 75 16 154/82 H 99 Room Air 09/04/23 14:41 36.7 C 75 16 151/65 H 98 Room Air Laboratory Results Laboratory Results - last 24 hr 09/03/23 09/04/23 09/04/23 21:05 05:58 07:42 WBC 9.30 RBC 3.16 L Hgb 9.3 L Hct 28.5 L MCV 90.2 MCH 29.4 MCHC 32.6 RDW Std Deviation 51.6 H RDW Coeff of Luis 15.9 H Plt Count 156 MPV 10.9 Sodium 136 Potassium 4.2 Chloride 100 Carbon Dioxide 25 Anion Gap 11 BUN 50 H Creatinine 4.49 H D Est Cr Clr Drug Dosing 9.5 Est GFR ( Amer) 10.0 Est GFR (Non-Af Amer) 8.7 BUN/Creatinine Ratio 11.1 Glucose 97 POC Glucose 158 H 104 H Calcium 8.5 L 09/04/23 09/04/23 11:35 16:55 WBC RBC Hgb Hct MCV MCH MCHC RDW Std Deviation RDW Coeff of Luis Plt Count MPV Sodium Potassium Chloride Carbon Dioxide Anion Gap BUN Creatinine Est Cr Clr Drug Dosing Est GFR ( Amer) Est GFR (Non-Af Amer) BUN/Creatinine Ratio Glucose POC Glucose 120 H 89 Calcium PG Care Time/CCT Total # of Minutes Spent Total Time Spent with Patient: Total time spent is greater than 50% in coordination of care (as documented) at patient's floor/unit and/or counseling patient: Coding Level of Care Code 58917 SUB INP/OBS CARE 2/35MIN Diagnoses Pathological fracture 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 Acute exacerbation of chronic low back pain M54.50; G89.29 Abnormal MRI, lumbar spine R93.7 Right hip pain M25.551 Abdominal distension R14.0 Hypokalemia E87.6 ESRD (end stage renal disease) on dialysis N18.6; Z99.2 Diabetes mellitus E11.9 Obstructive sleep apnea G47.33 Acute encephalopathy G93.40 Candidiasis of mouth and esophagus B37.81; B37.0 Dietary restriction Z71.3
[2023-09-04] MEDS: POLYETHYLENE (MIRALAX) 17 GM PACK PO SCH (21:16)
[2023-09-05] MEDS ORDERED: SODIUM CHLORIDE 0.9% 1,000 ML IV PRN (07:00)
[2023-09-05 07:25] LABS: Basophils # (auto) 0.06 K/uL (0.00-0.20); Basophils % (auto) 0.6 %; Eosinophils # (auto) 0.15 K/uL (0.00-0.50); Eosinophils % (auto) 1.4 %; Hemoglobin 10.2 g/dl (12.0-16.0); Immature Granulocytes # (auto) 0.48 K/uL (0.01-0.20); Immature Granulocytes % (auto) 4.6 %; Lymphocytes % (auto) 8.7 %; Mean Corpuscular Hemoglobin 30.5 pg (25.0-34.0); Mean Corpuscular Hgb Conc 32.9 g/dL (32.0-36.0); Mean Corpuscular Volume 92.8 fL (80.0-100.0); Mean Platelet Volume 10.7 fL (9.4-12.4); Monocytes # (auto) 1.17 K/uL (0.11-0.59); Monocytes % (auto) 11.3 %; Neutrophils # (auto) 7.62 K/uL (1.40-6.50); Neutrophils % (auto) 73.4 %; Platelet Count 161 K/uL (130-400); RDW Coefficient of Variation 15.9 % (11.5-14.5); RDW Standard Deviation 52.8 fL (36.4-46.3); Red Blood Count 3.34 M/uL (4.20-5.40); White Blood Count 10.38 K/ul (4.8-10.8)
--- NOTE | 2023-09-05 08:35 | Nephrology Progress Note ---
Date of Service September 05, 2023 Assessment & Plan (1) ESRD (end stage renal disease) on dialysis: Plan: * Will provide HD today according to outpatient orders. Orders have been entered into EMR and HD RN notified * Outpatient Rx 3.5 hrs, 180 optiflux, 350/800, 2K, 137Na, 35HCO3. RUE AVF. EDW 79. (2) Secondary hyperparathyroidism: Plan: * Patient reports thrush following general anesthesia and has difficulty swallowing Renvela. Will stop phosphate binder during hospitalization and resume as outpatient (3) Spinal stenosis, lumbar region with neurogenic claudication: Plan: * MRI with possible discitis/osteomyelitis in the lumber spine. 08/31/23 Orthopedic evaluation was that without low back pain concern for discitis was low. Recommended continued monitoring w/ follow up MRI if symptoms develop (4) Pathological fracture of right hip due to age-related osteoporosis: Plan: * R displaced femoral neck fracture s/p cemented bipolar arthroplasty 08/30/23 * Continue PT * Awaiting transfer to [facility] or [facility] Admission and Anticipated Discharge Date Admission Date: August 26, 2023 Subjective Mrs. Barboza was evaluated in her hospital room this morning. She denied fever, angina, dyspnea or hip discomfort. She had just completed PT this morning. Mrs. Barboza hopes to be transferred to [facility] once a bed is available Review of Systems Constitutional: no fever Eyes: no problem reported Ear, Nose, Mouth, Throat: no problem reported Respiratory: no cough and no dyspnea Cardiovascular: no chest pain Gastrointestinal: no abdominal pain, no nausea, no vomiting and no diarrhea/loose stools Genitourinary: no dysuria and no hematuria Physical Exam Constitutional: + frail appearing Eyes: PERRL, conjunctivae normal, anicteric sclerae ENMT: external ear and nose normal, oropharynx normal Neck: trachea midline, no thyromegaly Respiratory: normal respiratory effort, lungs clear to auscultation Cardiovascular: RRR, no murmur, no edema AVF + bruit Gastrointestinal (Abdomen): normal bowel sounds, soft, nontender, no hepatosplenomegaly Skin: no rashes, warm and dry Neurologic: Speech / Cognition: normal speech and normal cognition Results & Data Vital Signs (Past 12 Hours) Vital Signs Temp Pulse Resp BP Pulse Ox O2 Del Method 09/05/23 07:13 36.3 C L 76 20 162/69 H 98 CPAP 09/05/23 03:00 21 96 09/04/23 21:20 Room Air 09/04/23 21:00 19 95 Laboratory Results Laboratory Results - last 24 hr 09/04/23 09/04/23 09/04/23 11:35 16:55 20:30 WBC RBC Hgb Hct MCV MCH MCHC RDW Std Deviation RDW Coeff of Luis Plt Count MPV Immature Gran % (Auto) Neut % (Auto) Lymph % (Auto) [place] % (Auto) Eos % (Auto) Baso % (Auto) Neut # (Auto) Lymph # (Auto) [place] # (Auto) Eos # (Auto) Baso # (Auto) Immature Gran # (Auto) POC Glucose 120 H 89 138 H 09/05/23 09/05/23 07:03 07:37 WBC 10.38 RBC 3.34 L Hgb 10.2 L Hct 31.0 L MCV 92.8 MCH 30.5 MCHC 32.9 RDW Std Deviation 52.8 H RDW Coeff of Luis 15.9 H Plt Count 161 MPV 10.7 Immature Gran % (Auto) 4.6 Neut % (Auto) 73.4 Lymph % (Auto) 8.7 [place] % (Auto) 11.3 Eos % (Auto) 1.4 Baso % (Auto) 0.6 Neut # (Auto) 7.62 H Lymph # (Auto) 0.90 L [place] # (Auto) 1.17 H Eos # (Auto) 0.15 Baso # (Auto) 0.06 Immature Gran # (Auto) 0.48 H POC Glucose 108 H PG Care Time/CCT Total # of Minutes Spent Total Time Spent with Patient: Total time spent is greater than 50% in coordination of care (as documented) at patient's floor/unit and/or counseling patient: Coding Level of Care Code 25110 SUB INP/OBS CARE 3/50MIN Diagnoses ESRD (end stage renal disease) on dialysis N18.6; Z99.2 Secondary hyperparathyroidism N25.81 Spinal stenosis, lumbar region with neurogenic claudication M48.062 Pathological fracture 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
--- NOTE | 2023-09-05 10:59 | Surgery Progress Note ---
Date of Service September 05, 2023 Assessment & Plan (1) Pathological fracture of right hip due to age-related osteoporosis: Plan: 82-year-old female with multiple medical comorbidities now up to 6 days out from a left cemented bipolar hip arthroplasty for fracture. Orthopedically she is doing well. Pain is controlled. Hips located. She is neurologically intact. Plan: She can continue with the weight-bear as tolerated. The Prevena VAC dressing will be removed tomorrow. Routine wound care after that with daily dressing changes. Needs to continue hip precautions. She can fully weight-bear as tolerated. She is orthopedically stable for discharge anytime medically stable. She is hoping to go to [facility]. She will need to follow back with me 2 to 3 weeks out from surgery date. Any orthopedic questions can be directly [phone]. Admission and Anticipated Discharge Date Admission Date: August 26, 2023 Subjective 82-year-old female now 6 days out from a right cemented bipolar hip arthroplasty for fracture. Orthopedically she is doing well. She really use denies much in the way of the hip or leg pain. No other complaints. Physical Exam Physical Exam: Physical examination was a pleasant elderly female. She is lying in bed. She awake alert and oriented. Examination of the right hip and leg reveals the Prevena VAC dressing in place. Thigh is soft and supple. Leg lengths are equal. She can dorsiflex and plantarflex her foot appropriately. Results & Data Vital Signs (Past 12 Hours) Vital Signs Temp Pulse Resp BP Pulse Ox O2 Del Method 09/05/23 08:00 Room Air 09/05/23 07:13 36.3 C L 76 20 162/69 H 98 CPAP 09/05/23 03:00 21 96 Laboratory Results Hemoglobin is 10.2. Hematocrit 31.0. PG Care Time/CCT Total # of Minutes Spent Total Time Spent with Patient: Total time spent is greater than 50% in coordination of care (as documented) at patient's floor/unit and/or counseling patient: Coding Level of Care Code None Diagnoses Pathological fracture 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
[2023-09-05] MEDS: HEPARIN SOD (PORCINE) 1000 UNIT/ML IV ONE (11:40)
[2023-09-05] MEDS: HEPARIN SOD (PORCINE) 1000 UNIT/ML IV SCH (11:41)
--- NOTE | 2023-09-05 17:21 | Hospitalist Progress Note ---
Date of Service September 05, 2023 Assessment & Plan (1) Pathological fracture of right hip due to age-related osteoporosis: Plan: 82-year-old woman with ESRD on dialysis admitted with initial symptoms of right buttock pain radiating down posterior right leg and wrapping around to foot consistent with sciatica/radicular pain. This was initially treated successfully with steroids but she was unable to tolerate standing or ambulation. X-ray of hip was obtained showing hip fracture. ORIF by Dr Reggie Ramirez 08/29 for her subacute right hip fracture. unclear when this happened because she did not report any falls. Very stable from ortho standpoint. DVT proph - heparin 5000 BID. 25-OH vit D level - wnl. Pain meds - cont scheduled tylenol 500mg TID. Cont norco 7.5's q6h prn. needing very little of such. Cont bowel regimen of senna/miralax WBAT on RLE. Cont PT/OT. Rehab plan post-d/c -- she is hopeful for [facility]; back up plan - [facility]. [facility] auth pending. Please follow-up with Dr. Ramirez (2) Acute exacerbation of chronic low back pain: Plan: Acute on chronic low back pain with RLE radicular pain - RESOLVED Does have prior history of lumbar spinal stenosis surgery - fusion L3-L5 by Dr Martinez in 2019 Typically gets steroid injections by Dr. Wilson - next was scheduled on 08/30 as outpatient recently prescribed prednisone on 08/23 as outpatient this had been continued in the hospital - completed a taper on 09/03/23 No fall or trauma, but pain worsened after long episode of house cleaning, then long car ride and sitting in wheelchair for her granddaughters graduation recently MRI l-spine with ?diskitis --> Dr Minor consulted CRP only 2 Blood cx's negative She has had NO back pain this week; NO RLE radicular pain pain either Thus, MRI findings likely due to advanced DJD rather than infection - low suspicion for discitis Plan - would repeat a noncontrast MRI lumbar spine in about 2 weeks post-discharge and have her f/u with Dr Minor in his office (3) Abnormal MRI, lumbar spine: Plan: see above in #2 (4) Right hip pain: Plan: 2nd to fracture see #1 above s/p ORIF by Dr Ramirez pain resolved (5) Abdominal distension: Plan: 2nd constipation improved, last BM 09/03 continue twice daily MiraLAX and senna (6) Hypokalemia: Plan: replaced resolved (7) ESRD (end stage renal disease) on dialysis: Plan: appreciate nephrology assistance typical schedule - //Sat access - RUE AVF (8) Diabetes mellitus: Plan: controlled most recent a1c was <6% but may not be accurate due to mild anemia however, with that said, BSGs have been well-controlled even on steroids cont novolog [facility] glycemic management appreciated at goal 09/04 (9) Obstructive sleep apnea: Plan: cont HS CPAP (10) Acute encephalopathy: Plan: toxic, from pain meds resolved (11) Candidiasis of mouth and esophagus: Plan: nystatin solution 5ml QID swish/spit x 7 days improved Plan DVT ppx - cont heparin 5000 units BID cont PT/OT - rehab advised post-d/c, she is wanting [facility] PEND[facility] updated at bedside 09/03 Admission and Anticipated Discharge Date Admission Date: August 26, 2023 Subjective seen on dialysis today she is a little sleepy her right hip pain is well- controlled she does not have any shortness of breath or chest pain Physical Exam 2 Physical Exam: PHYSICAL EXAMINATION Last 24h vital signs reviewed, see documentation in flowsheet General: sleeping during dialysis treatment but easily aroused to voice HEENT: Normocephalic, atraumatic, pupils round and equal, sclerae anicteric, no conjunctival injection, moist mucus membranes Lungs: Normal respiratory effort. Clear to auscultation bilaterally. No RRW Heart: Regular rate and rhythm, no murmurs. No JVD Abdomen: Soft, nontender, nondistended. Bowel sounds present. Extremities: Warm, dry, well-perfused. has lower extremity edema. Right upper extremity with AV fistula and use, right hip surgical incision dressed clean dry and intact Neuro: Alert and oriented x 4, face symmetric, moves 4 extremities well Psych: Normal affect and behavior Results & Data Results & Data Vital Signs (Past 12 Hours) Vital Signs Temp Pulse Pulse Pulse Resp BP BP 09/05/23 14:49 36.5 C 90 16 148/62 H 09/05/23 14:05 36.6 C 84 150/54 H 09/05/23 13:50 36.6 C 84 150/54 H 09/05/23 13:45 87 131/54 L 09/05/23 13:30 91 H 146/57 H 09/05/23 13:00 87 128/57 L 09/05/23 12:30 84 138/57 L 09/05/23 12:00 79 146/58 H 09/05/23 11:30 81 149/56 H 09/05/23 11:00 78 151/59 H 09/05/23 10:30 77 151/58 H 09/05/23 10:15 72 159/62 H 09/05/23 10:00 36.7 C 75 09/05/23 08:00 09/05/23 07:13 36.3 C L 76 20 162/69 H Pulse Ox O2 Del Method 09/05/23 14:49 100 Room Air 09/05/23 14:05 09/05/23 13:50 09/05/23 13:45 09/05/23 13:30 09/05/23 13:00 09/05/23 12:30 09/05/23 12:00 09/05/23 11:30 09/05/23 11:00 09/05/23 10:30 09/05/23 10:15 09/05/23 10:00 09/05/23 08:00 Room Air 09/05/23 07:13 98 CPAP Laboratory Results 09/05/23 07:03 09/04/23 05:58 PG Care Time/CCT Total # of Minutes Spent Total Time Spent with Patient: Total time spent is greater than 50% in coordination of care (as documented) at patient's floor/unit and/or counseling patient: Coding Level of Care Code 34041 SUB INP/OBS CARE 1/25MIN Diagnoses Pathological fracture 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 Acute exacerbation of chronic low back pain M54.50; G89.29 Abnormal MRI, lumbar spine R93.7 Right hip pain M25.551 Abdominal distension R14.0 Hypokalemia E87.6 ESRD (end stage renal disease) on dialysis N18.6; Z99.2 Diabetes mellitus E11.9 Obstructive sleep apnea G47.33 Acute encephalopathy G93.40 Candidiasis of mouth and esophagus B37.81; B37.0
[2023-09-06 07:32] LABS: Hematocrit (blood only) 30.6 % (37.0-47.0); Hemoglobin 10.1 g/dl (12.0-16.0); Mean Corpuscular Hemoglobin 30.6 pg (25.0-34.0); Mean Corpuscular Volume 92.7 fL (80.0-100.0); Mean Platelet Volume 10.6 fL (9.4-12.4); Platelet Count 175 K/uL (130-400); RDW Standard Deviation 53.8 fL (36.4-46.3)
[2023-09-06 07:53] LABS: BUN Creatinine Ratio 10.2 (10-20); Calcium 8.7 mg/dl (8.6-10.3); Creatinine Clr Calc Pharmacy 11.6 ml/min; Est GFR (African American) 13.1 ml/min; Est GFR (Non-African American) 11.3 ml/min; Potassium 4.4 mmol/L (3.5-5.1)
--- NOTE | 2023-09-06 08:50 | Nephrology Progress Note ---
Date of Service September 06, 2023 Assessment & Plan (1) ESRD (end stage renal disease) on dialysis: Plan: * No acute indication for HD today. Will reassess in am * Outpatient Rx 3.5 hrs, 180 optiflux, 350/800, 2K, 137Na, 35HCO3. RUE AVF. EDW 79. (2) Secondary hyperparathyroidism: Plan: * Patient reports thrush following general anesthesia and has difficulty swallowing Renvela. Phosphate binder has been stopped due to difficulty swallowing. Will resume as outpatient (3) Spinal stenosis, lumbar region with neurogenic claudication: Plan: * MRI with possible discitis/osteomyelitis in the lumber spine. 08/31/23 Orthopedic evaluation was that without low back pain concern for discitis was low. Recommended continued monitoring w/ follow up MRI if symptoms develop (4) Pathological fracture of right hip due to age-related osteoporosis: Plan: * R displaced femoral neck fracture s/p cemented bipolar arthroplasty 08/30/23 * Continue PT * Awaiting transfer to [facility] or [facility] Admission and Anticipated Discharge Date Admission Date: August 26, 2023 Subjective Mrs. Barboza was evaluated in her hospital room this morning. She denied fever, angina, dyspnea or hip discomfort. She was dialyzed yesterday for 2.3 L UF without complication. Mrs. Barboza hopes to be transferred to [facility] once a bed is available Review of Systems Constitutional: no fever Eyes: no problem reported Ear, Nose, Mouth, Throat: no problem reported Respiratory: no cough and no dyspnea Cardiovascular: no chest pain Gastrointestinal: no abdominal pain, no nausea, no vomiting and no diarrhea/loose stools Genitourinary: no dysuria and no hematuria Physical Exam Constitutional: + frail appearing Eyes: PERRL, conjunctivae normal, anicteric sclerae ENMT: external ear and nose normal, oropharynx normal Neck: trachea midline, no thyromegaly Respiratory: normal respiratory effort, lungs clear to auscultation Cardiovascular: RRR, no murmur, no edema AVF + bruit Gastrointestinal (Abdomen): normal bowel sounds, soft, nontender, no hepatosplenomegaly Skin: no rashes, warm and dry Neurologic: Speech / Cognition: normal speech and normal cognition Results & Data Vital Signs (Past 12 Hours) Vital Signs Temp Pulse Pulse Pulse Resp BP Pulse Ox 09/06/23 07:37 36.3 C L 79 17 148/72 H 98 09/06/23 06:18 80 153/71 H 09/06/23 04:12 80 22 96 09/05/23 22:52 85 20 95 O2 Del Method 09/06/23 07:37 Room Air 09/06/23 06:18 09/06/23 04:12 09/05/23 22:52 Laboratory Results Laboratory Results - last 24 hr 09/05/23 09/05/23 09/05/23 14:43 16:28 20:33 WBC RBC Hgb Hct MCV MCH MCHC RDW Std Deviation RDW Coeff of Luis Plt Count MPV Sodium Potassium Chloride Carbon Dioxide Anion Gap BUN Creatinine Est Cr Clr Drug Dosing Est GFR ( Amer) Est GFR (Non-Af Amer) BUN/Creatinine Ratio Glucose POC Glucose 98 183 H 133 H Calcium 09/06/23 09/06/23 06:32 07:55 WBC 10.40 RBC 3.30 L Hgb 10.1 L Hct 30.6 L MCV 92.7 MCH 30.6 MCHC 33.0 RDW Std Deviation 53.8 H RDW Coeff of Luis 16.0 H Plt Count 175 MPV 10.6 Sodium 139 Potassium 4.4 Chloride 102 Carbon Dioxide 28 Anion Gap 9 BUN 37 H Creatinine 3.61 H Est Cr Clr Drug Dosing 11.6 Est GFR ( Amer) 13.1 Est GFR (Non-Af Amer) 11.3 BUN/Creatinine Ratio 10.2 Glucose 94 POC Glucose 108 H Calcium 8.7 PG Care Time/CCT Total # of Minutes Spent Total Time Spent with Patient: Total time spent is greater than 50% in coordination of care (as documented) at patient's floor/unit and/or counseling patient: Coding Level of Care Code 69920 SUB INP/OBS CARE 3/50MIN Diagnoses ESRD (end stage renal disease) on dialysis N18.6; Z99.2 Secondary hyperparathyroidism N25.81 Spinal stenosis, lumbar region with neurogenic claudication M48.062 Pathological fracture 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
--- NOTE | 2023-09-06 11:05 | Orthopedic Progress Note ---
Date of Service September 06, 2023 Assessment & Plan (1) Pathological fracture of right hip due to age-related osteoporosis: She was seen and examined by Dr. Ramirez. She is POD #7 from cemented bipolar hemiarthroplasty. Discharge is pending to either [facility] or [facility]. Continue prevena vac dressing. PT/OT: wbat Continue hip precautions. Follow up approximately 2-3 weeks post op with Dr. Ramirez in the office. Subjective .82 year old patient POD #7 from right hip bipolar hemiarthroplasty for a fracture. She's doing reasonably well. Pain controlled. No new complaints. The cartridge was changed overnight in the prevena vac dressing. Review of Systems All systems reviewed & are unremarkable except as noted in HPI & below. Physical Exam .alert and oriented. NAD Sitting in bedside chair. Dressing intact and appears to be functioning appropriately. Able to dorsiflex and plantarflex appropriately. Results & Data Results & Data Laboratory Results . Diagnostic Findings . PG Care Time/CCT Total # of Minutes Spent Total Time Spent with Patient: Total time spent is greater than 50% in coordination of care (as documented) at patient's floor/unit and/or counseling patient: Coding Level of Care Code 94378 Post Operative Follow-Up Diagnoses Pathological fracture 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
--- NOTE | 2023-09-06 12:22 | XRay Report ---
SINGLE VIEW CHEST CLINICAL HISTORY: Renal insufficiency. Screening for dialysis. FINDINGS: An AP, portable, upright chest radiograph is compared to study dated 02/22/2022. The examina tion is degraded by portable technique and patient rotation. The heart is enlarged noting atheroscle rotic calcification of the thoracic aorta. The pulmonary vasculature is noncontrast. Chronic intersti tial thickening is similar to previous. Question airspace opacities in the right upper and lower lung . The left lung appears clear. No large pleural effusion or pneumothorax is seen. The skeletal struct ures are osteopenic. The bony thorax is grossly intact. Advanced arthritic change is noted in the socorro ulders. IMPRESSION: 1. The examination is significantly degraded by patient rotation. 2. Question airspace opacities in the right upper and lower lung. This is not well assessed due to th e degree of rotation and may be artifactual. A dedicated PA and lateral examination is recommended fo r further assessment. 3. Cardiomegaly without radiographic evidence of congestive failure. ACT 112: Negative or not required by law. Electronically signed by: Valentin Esquivel M.D. 09/06/2023 12:20 PM
--- NOTE | 2023-09-06 18:43 | Hospitalist Progress Note ---
Date of Service September 06, 2023 Assessment & Plan (1) Pathological fracture of right hip due to age-related osteoporosis: Plan: 82-year-old woman with ESRD on dialysis admitted with initial symptoms of right buttock pain radiating down posterior right leg and wrapping around to foot consistent with sciatica/radicular pain. This was initially treated successfully with steroids but she was unable to tolerate standing or ambulation. X-ray of hip was obtained showing hip fracture. ORIF by Dr Reggie Ramirez 08/29 for her subacute right hip fracture. unclear when this happened because she did not report any falls. Very stable from ortho standpoint. DVT proph - heparin 5000 BID. 25-OH vit D level - wnl. Pain meds - cont scheduled tylenol 500mg TID. Cont norco 7.5's q6h prn. needing very little of such. Cont bowel regimen of senna/miralax WBAT on RLE. Cont PT/OT. Please follow-up with Dr. Ramirez 2-3 weeks (2) Acute exacerbation of chronic low back pain: Plan: Acute on chronic low back pain with RLE radicular pain - RESOLVED Does have prior history of lumbar spinal stenosis surgery - fusion L3-L5 by Dr Martinez in 2019 Typically gets steroid injections by Dr. Wilson - next was scheduled on 08/30 as outpatient recently prescribed prednisone on 08/23 as outpatient this had been continued in the hospital - completed a taper on 09/03/23 No fall or trauma, but pain worsened after long episode of house cleaning, then long car ride and sitting in wheelchair for her granddaughters graduation recently MRI l-spine with ?diskitis --> Dr Minor consulted CRP only 2 Blood cx's negative She has had NO back pain this week; NO RLE radicular pain pain either Thus, MRI findings likely due to advanced DJD rather than infection - low suspicion for discitis Plan - would repeat a noncontrast MRI lumbar spine in about 2 weeks post-discharge and have her f/u with Dr Minor in his office (3) Abnormal MRI, lumbar spine: Plan: see above in #2 (4) Hypokalemia: Plan: replaced resolved (5) ESRD (end stage renal disease) on dialysis: Plan: appreciate nephrology assistance typical schedule - //Sat access - RUE AVF (6) Diabetes mellitus: Plan: controlled most recent a1c was <6% but may not be accurate due to mild anemia however, with that said, BSGs have been well-controlled even on steroids cont novolog [facility] glycemic management appreciated at goal 09/05 (7) Obstructive sleep apnea: Plan: cont HS CPAP (8) Acute encephalopathy: Plan: toxic, from pain meds resolved (9) Candidiasis of mouth and esophagus: Plan: nystatin solution 5ml QID swish/spit x 7 days improved Plan CBC and BMP reviewed 09/05 and stable/unremarkable DVT ppx - cont heparin 5000 units BID cont PT/OT - rehab advised post-d/c, I completed peer to peer call with her insurance today who declined acute rehab, will approve subacute rehab submitted Auth discussed with care coordination ordered chest x-ray and hepatitis B core antibody for screening for admission to [facility] dialysis center updated at bedside 09/03 Admission and Anticipated Discharge Date Admission Date: August 26, 2023 Subjective Joan is doing well reports she walked much better today with physical therapy went down the hub[place] and back. Right hip pain controlled on medications Is having small BMs and eating okay throat pain from thrush is improving Physical Exam 2 Physical Exam: PHYSICAL EXAMINATION Last 24h vital signs reviewed, see documentation in flowsheet General: sitting up in chair by window HEENT: Normocephalic, atraumatic, pupils round and equal, sclerae anicteric, no conjunctival injection, moist mucus membranes Lungs: Normal respiratory effort. Clear to auscultation bilaterally. No RRW Heart: Regular rate and rhythm, no murmurs. No JVD Abdomen: Soft, nontender, nondistended. Bowel sounds present. Extremities: Warm, dry, well-perfused. has 2+ symmetric woody lower extremity edema. Right upper extremity with AV fistula, right hip surgical incision dressed Neuro: Alert and oriented x 4, face symmetric, moves 4 extremities well Psych: Normal affect and behavior Results & Data Results & Data Vital Signs (Past 12 Hours) Vital Signs Temp Pulse Resp BP Pulse Ox O2 Del Method 09/06/23 16:22 Room Air 09/06/23 12:44 36.5 C 78 17 122/69 96 Room Air 09/06/23 07:37 36.3 C L 79 17 148/72 H 98 Room Air Laboratory Results 09/06/23 06:32 09/06/23 06:32 PG Care Time/CCT Total # of Minutes Spent Total Time Spent with Patient: Total time spent is greater than 50% in coordination of care (as documented) at patient's floor/unit and/or counseling patient: Coding Level of Care Code 31241 SUB INP/OBS CARE 2/35MIN Diagnoses Pathological fracture 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 Acute exacerbation of chronic low back pain M54.50; G89.29 Abnormal MRI, lumbar spine R93.7 Hypokalemia E87.6 ESRD (end stage renal disease) on dialysis N18.6; Z99.2 Diabetes mellitus E11.9 Obstructive sleep apnea G47.33 Acute encephalopathy G93.40 Candidiasis of mouth and esophagus B37.81; B37.0
--- NOTE | 2023-09-06 18:44 | XRay Report ---
TWO VIEW CHEST CLINICAL HISTORY: Screening for dialysis. Follow-up abnormal chest x-ray. FINDINGS: AP and lateral chest radiographs are compared to study performed earlier the same day 2023. The heart is enlarged noting atherosclerotic calcification of the thoracic aorta. The pulmonary vasculature is nondistended congested. There are nodular airspace opacities in the right upper lung and at the right lung base. Question a small right pleural effusion. The left lung appears clear. No pneumothorax is seen. The skeletal structures are osteopenic. The bony thorax appears intact. Arthrit ic change is seen in the shoulders. Fusion hardware is partially visualized in the lumbar spine. IMPRESSION: 1. There are abnormal nodular airspace opacities in the right upper and right lower lung. Correlate c linically for evidence of an infectious/inflammatory pneumonitis. Radiographic follow-up to resolutio n is recommended to exclude the possibility of underlying pulmonary lesions/neoplasm. 2. Suspect a small right pleural effusion. 3. Cardiomegaly without radiographic evidence of congestive failure ACT 112: Negative or not required by law. Electronically signed by: Valentin Esquivel M.D. 09/06/2023 6:42 PM
[2023-09-07] MEDS ORDERED: SODIUM CHLORIDE 0.9% 1,000 ML IV PRN (07:00)
--- NOTE | 2023-09-07 08:43 | Nephrology Progress Note ---
Date of Service September 07, 2023 Assessment & Plan (1) ESRD (end stage renal disease) on dialysis: Plan: * HD today to maintain TTS schedule. Orders have been entered into EMR and HD RN notified * Outpatient Rx 3.5 hrs, 180 optiflux, 350/800, 2K, 137Na, 35HCO3. BETSY AVF. EDW 79. (2) Secondary hyperparathyroidism: Plan: * Patient reports thrush following general anesthesia and has difficulty swall owing Renvela. Phosphate binder has been stopped due to difficulty swallowing. Will resume as outpatient (3) Spinal stenosis, lumbar region with neurogenic claudication: Plan: * MRI with possible discitis/osteomyelitis in the lumber spine. 08/31/23 Orthopedic evaluation was that without low back pain concern for discitis was low. Recommended continued monitoring w/ follow up MRI if symptoms develop (4) Pathological fracture of right hip due to age-related osteoporosis: Plan: * R displaced femoral neck fracture s/p cemented bipolar arthroplasty 08/30/23 * Continue PT * Awaiting transfer to [facility] Admission and Anticipated Discharge Date Admission Date: August 26, 2023 Subjective Mrs. Barboza was evaluated in her hospital room this morning. She denied fever, angina, dyspnea or hip discomfort. She reports being able to walk short distances w/ PT yesterday. Mrs. Barboza hopes to be transferred to [facility] once a bed is available Review of Systems Constitutional: no fever Eyes: no problem reported Ear, Nose, Mouth, Throat: no problem reported Respiratory: no cough and no dyspnea Cardiovascular: no chest pain Gastrointestinal: no abdominal pain, no nausea, no vomiting and no diarrhea/loose stools Genitourinary: no dysuria and no hematuria Physical Exam Constitutional: + frail appearing Eyes: PERRL, conjunctivae normal, anicteric sclerae ENMT: external ear and nose normal, oropharynx normal Neck: trachea midline, no thyromegaly Respiratory: normal respiratory effort, lungs clear to auscultation Cardiovascular: RRR, no murmur, no edema Gastrointestinal (Abdomen): normal bowel sounds, soft, nontender, no hepatosplenomegaly Skin: no rashes, warm and dry Neurologic: Speech / Cognition: normal speech and normal cognition Results & Data Vital Signs (Past 12 Hours) Vital Signs Temp Pulse Pulse Resp BP Pulse Ox O2 Del Method 09/07/23 07:33 36.5 C 77 16 156/68 H 92 Room Air 09/07/23 02:43 82 20 97 09/06/23 22:50 22 97 09/06/23 21:45 CPAP Laboratory Results Laboratory Results - last 24 hr 09/06/23 09/06/23 09/06/23 11:44 12:07 17:01 POC Glucose 119 H 107 H Hep B Core IgM Ab Pending 09/06/23 09/07/23 20:31 07:36 POC Glucose 120 H 99 Hep B Core IgM Ab PG Care Time/CCT Total # of Minutes Spent Total Time Spent with Patient: Total time spent is greater than 50% in coordination of care (as documented) at patient's floor/unit and/or counseling patient: Coding Level of Care Code 77488 SUB INP/OBS CARE 3/50MIN Diagnoses ESRD (end stage renal disease) on dialysis N18.6; Z99.2 Secondary hyperparathyroidism N25.81 Spinal stenosis, lumbar region with neurogenic claudication M48.062 Pathological fracture 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
[2023-09-07] MEDS: EPOETIN ALFA 4,000 UNIT/ML VIAL IV ONE (10:53)
[2023-09-07] MEDS: HEPARIN SOD (PORCINE) 1000 UNIT/ML IV SCH (11:35)
[2023-09-07] MEDS: HEPARIN SOD (PORCINE) 1000 UNIT/ML IV ONE (11:35)
--- NOTE | 2023-09-07 14:57 | CT Scan Report ---
CT chest diagnostic wo con CT DOSE: 432.29 mGy.cm HISTORY: RUL and RLL nodular opacities, no recent pneumonia TECHNIQUE: Multiaxial CT images of the chest were performed without contrast. A dose lowering techni que was utilized adhering to the principles of ALARA. COMPARISON: Abdomen and pelvis CT 02/22/2022. FINDINGS: No suspicious lytic or blastic osseous lesions. Within the left paraspinal musculature from the T9-T11 level there is a 6.0 x 3.5 x 2.2 cm soft tissue mass. This is best seen on axial image 17 3. Mild body wall edema is noted. There is an 11 mm subcutaneous nodule within the left shoulder on i mage 3. Multinodular thyroid gland with the dominant nodule on the right measuring 2.3 cm. There is a small right pleural effusion. The heart is mildly enlarged. Normal esophagus. No definite hilar lymp hadenopathy. Mildly enlarged right paratracheal lymph nodes measuring up to 10 mm in short axis diame ter. Moderate coronary artery calcifications. Normal caliber thoracic aorta. No pericardial effusion. Limited views of the upper abdomen demonstrate a partially visualized gastrohepatic lymphadenopathy with the dominant lymph node measuring 2.2 x 1.6 cm. There are multiple ill-defined hepatic masses wi th the dominant central mass measuring 6.7 cm. These are highly suspicious for metastatic disease. No pneumothorax. The central airways are patent. There are similar-appearing lobular masslike opacities within the right upper lobe and right lower lobe. These could represent primary bronchogenic maligna ncies or metastatic disease. The right lower lobe lobular masslike opacity measures approximately 4.6 x 2.8 cm and the right upper lobe lesion measures approximately 3.5 x 1.8 cm. There are few satellit e nodules also noted within the right upper lobe. There is also a 1 cm irregular nodule within the ri ght upper lobe posteriorly on image 87. There are few scattered subcentimeter nodules within the left measures approximately 5 mm. These are highly suspicious for metastatic disease. IMPRESSION: 1. There are similar-appearing lobular lesions within the right upper lobe and right lower lobe as de scribed above. These could represent primary bronchogenic malignancies or metastatic disease. 2. Additional scattered pulmonary nodules are highly suspicious for metastatic disease. 3. Multiple new hepatic lesions measuring up to 6.7 cm consistent with metastatic disease. 4. Mild right paratracheal and upper abdominal lymphadenopathy. This also likely represents metastati c disease. 5. A 6 cm soft tissue mass within the left paraspinal musculature at the lower thoracic region. There is also an 11 mm subcutaneous nodule within the left shoulder. These likely represent metastatic dis ease. 6. Small right pleural effusion. This could be malignant. 7. Bilateral thyroid nodules with the largest on the right measuring 2.3 cm. ACT 112: Negative or not required by law. Electronically signed by: Pierre Burnett M.D. 09/07/2023 2:56 PM
--- NOTE | 2023-09-07 18:21 | Hospitalist Progress Note ---
Date of Service September 07, 2023 Assessment & Plan (1) Pulmonary parenchymal mass: Plan: Obtained CXR as screening for centre care dialysis unit - nodular opacities RUL RLL Obtained chest CT - pulmonary masses could represent primary bronchogenic malignancies or metastatic disease, pulmonary nodules, multiple new hepatic lesions, LAD, right paraspinal mass, thyroid nodules, R pleural effusion Picture unfortunately consistent with metastatic disease. I discussed with Joan and her this afternoon. Consulted with IR - not available tomorrow but can get biopsy next week. Paraspinous mass easily accessible by ultrasound. Will obtain CT abdomen and pelvis with IV/po contrast in AM and discussed with Dr. Calhoun he will do dialysis after since she still urinates. Could then discharge to [facility] in afternoon and will arrange biopsy as outpatient next week. Staying in hospital entire weekend would prolong her hospitalization almost a week (biopsy mon/ then need to reapply for insurance auth), which will further impede her rehab potential. She is amenable to this plan. Will discuss with her primary Dr. Flores. (2) Pathological fracture of right hip due to age-related osteoporosis: Plan: 82-year-old woman with ESRD on dialysis admitted with initial symptoms of right buttock pain radiating down posterior right leg and wrapping around to foot consistent with sciatica/radicular pain. This was initially treated successfully with steroids but she was unable to tolerate standing or ambulation. X-ray of hip was obtained showing hip fracture. ORIF by Dr Reggie Ramirez 08/29 for her subacute right hip fracture. unclear when this happened because she did not report any falls. Very stable from ortho standpoint. DVT proph - heparin 5000 BID. 25-OH vit D level - wnl. Pain meds - cont scheduled tylenol 500mg TID. Cont norco 7.5's q6h prn. needing very little of such. Cont bowel regimen of senna/miralax WBAT on RLE. Cont PT/OT. Please follow-up with Dr. Ramirez 2-3 weeks (3) Acute exacerbation of chronic low back pain: Plan: Acute on chronic low back pain with RLE radicular pain - RESOLVED Does have prior history of lumbar spinal stenosis surgery - fusion L3-L5 by Dr Martinez in 2019 Typically gets steroid injections by Dr. Wilson - next was scheduled on 08/30 as outpatient recently prescribed prednisone on 08/23 as outpatient this had been continued in the hospital - completed a taper on 09/03/23 No fall or trauma, but pain worsened after long episode of house cleaning, then long car ride and sitting in wheelchair for her granddaughters graduation recently MRI l-spine with ?diskitis --> Dr Minor consulted CRP only 2 Blood cx's negative She has had NO back pain this week; NO RLE radicular pain pain either Thus, MRI findings likely due to advanced DJD rather than infection - low suspicion for discitis Plan - would repeat a noncontrast MRI lumbar spine in about 2 weeks post-discharge and have her f/u with Dr Minor in his office -see above re: metastatic disease, will reevaluate plan once Ct abdomen completed. (4) Abnormal MRI, lumbar spine: Plan: see above (5) Hypokalemia: Plan: replaced resolved (6) ESRD (end stage renal disease) on dialysis: Plan: appreciate nephrology assistance typical schedule - //Mon access - RUE AVF (7) Diabetes mellitus: Plan: controlled most recent a1c was <6% but may not be accurate due to mild anemia however, with that said, BSGs have been well-controlled even on steroids cont novolog [facility] glycemic management appreciated at goal 09/06 (8) Obstructive sleep apnea: Plan: cont HS CPAP (9) Acute encephalopathy: Plan: toxic, from pain meds resolved (10) Candidiasis of mouth and esophagus: Plan: nystatin solution 5ml QID swish/spit x 7 days improved Plan CBC and BMP reviewed 09/05 and stable/unremarkable DVT ppx - cont heparin 5000 units BID cont PT/OT - Center care hopefully tomorrow afternoon discussed with care coord updated at bedside 09/03, 09/06 Admission and Anticipated Discharge Date Admission Date: August 26, 2023 Subjective feeling ok today and no shortness of breath, occasionally has cough nothing particular now, R hip pain controlled on meds Physical Exam Physical Exam: PHYSICAL EXAMINATION Last 24h vital signs reviewed, see documentation in flowsheet General: on dialysis HEENT: Normocephalic, atraumatic, pupils round and equal, sclerae anicteric, no conjunctival injection, moist mucus membranes Lungs: Normal respiratory effort. Clear to auscultation bilaterally. No RRW Heart: Regular rate and rhythm, no murmurs. No JVD Abdomen: Soft, nontender, nondistended. Bowel sounds present. Extremities: Warm, dry, well-perfused. has 2+ symmetric woody lower extremity edema. Right upper extremity with AV fistula in use, right hip surgical incision dressed no swelling/ecchymosis Neuro: Alert and oriented x 4, face symmetric, moves 4 extremities well Psych: Normal affect and behavior Results & Data Results & Data Vital Signs (Past 12 Hours) Vital Signs Temp Pulse Pulse Pulse Resp BP BP 09/07/23 16:12 36.7 C 84 16 150/69 H 09/07/23 13:00 36.5 C 81 138/68 09/07/23 12:30 78 135/56 L 09/07/23 12:00 81 119/92 09/07/23 11:30 72 124/60 09/07/23 11:00 72 133/65 09/07/23 10:30 70 129/52 L 09/07/23 10:00 72 125/51 L 09/07/23 09:30 72 119/75 09/07/23 09:18 36.4 C L 79 09/07/23 07:45 09/07/23 07:33 36.5 C 77 16 156/68 H Pulse Ox O2 Del Method 09/07/23 16:12 100 Room Air 09/07/23 13:00 09/07/23 12:30 09/07/23 12:00 09/07/23 11:30 09/07/23 11:00 09/07/23 10:30 09/07/23 10:00 09/07/23 09:30 09/07/23 09:18 09/07/23 07:45 Room Air 09/07/23 07:33 92 Room Air Diagnostic Findings Chest X-Ray 09/06/23 15:32 TWO VIEW CHEST CLINICAL HISTORY: Screening for dialysis. Follow-up abnormal chest x-ray. FINDINGS: AP and lateral chest radiographs are compared to study performed earlier the same day 09/06/2023. The heart is enlarged noting atherosclerotic calcification of the thoracic aorta. The pulmonary vasculature is nondistended congested. There are nodular airspace opacities in the right upper lung and at the right lung base. Question a small right pleural effusion. The left lung appears clear. No pneumothorax is seen. The skeletal structures are osteopenic. The bony thorax appears intact. Arthritic change is seen in the shoulders. Fusion hardware is partially visualized in the lumbar spine. IMPRESSION: 1. There are abnormal nodular airspace opacities in the right upper and right lower lung. Correlate clinically for evidence of an infectious/inflammatory pneumonitis. Radiographic follow-up to resolution is recommended to exclude the possibility of underlying pulmonary lesions/neoplasm. 2. Suspect a small right pleural effusion. 3. Cardiomegaly without radiographic evidence of congestive failure ACT 112: Negative or not required by law. Electronically signed by: Valentin Esquivel M.D. 09/06/2023 6:[address] 09/07/23 08:30 CT chest diagnostic wo con CT DOSE: 432.29 mGy.cm HISTORY: RUL and RLL nodular opacities, no recent pneumonia TECHNIQUE: Multiaxial CT images of the chest were performed without contrast. A dose lowering technique was utilized adhering to the principles of ALARA. COMPARISON: Abdomen and pelvis CT 02/22/2022. FINDINGS: No suspicious lytic or blastic osseous lesions. Within the left paraspinal musculature from the T9-T11 level there is a 6.0 x 3.5 x 2.2 cm soft tissue mass. This is best seen on axial image 173. Mild body wall edema is noted. There is an 11 mm subcutaneous nodule within the left shoulder on image 3. Multinodular thyroid gland with the dominant nodule on the right measuring 2.3 cm. There is a small right pleural effusion. The heart is mildly enlarged. Normal esophagus. No definite hilar lymphadenopathy. Mildly enlarged right paratracheal lymph nodes measuring up to 10 mm in short axis diameter. Moderate coronary artery calcifications. Normal caliber thoracic aorta. No pericardial effusion. Limited views of the upper abdomen demonstrate a partially visualized gastrohepatic lymphadenopathy with the dominant lymph node measuring 2.2 x 1.6 cm. There are multiple ill-defined hepatic masses with the dominant central mass measuring 6.7 cm. These are highly suspicious for metastatic disease. No pneumothorax. The central airways are patent. There are similar-appearing lobular masslike opacities within the right upper lobe and right lower lobe. These could represent primary bronchogenic malignancies or metastatic disease. The right lower lobe lobular masslike opacity measures approximately 4.6 x 2.8 cm and the right upper lobe lesion measures approximately 3.5 x 1.8 cm. There are few satellite nodules also noted within the right upper lobe. There is also a 1 cm irregular nodule within the right upper lobe posteriorly on image 87. There are few scattered subcentimeter nodules within the left measures approximately 5 mm. These are highly suspicious for metastatic disease. IMPRESSION: 1. There are similar-appearing lobular lesions within the right upper lobe and right lower lobe as described above. These could represent primary bronchogenic malignancies or metastatic disease. 2. Additional scattered pulmonary nodules are highly suspicious for metastatic disease. 3. Multiple new hepatic lesions measuring up to 6.7 cm consistent with metastatic disease. 4. Mild right paratracheal and upper abdominal lymphadenopathy. This also likely represents metastatic disease. 5. A 6 cm soft tissue mass within the left paraspinal musculature at the lower thoracic region. There is also an 11 mm subcutaneous nodule within the left shoulder. These likely represent metastatic disease. 6. Small right pleural effusion. This could be malignant. 7. Bilateral thyroid nodules with the largest on the right measuring 2.3 cm. ACT 112: Negative or not required by law. Electronically signed by: Pierre Burnett M.D. 09/07/2023 2:56 PM PG Care Time/CCT Total # of Minutes Spent Total Time Spent with Patient: I personally spent: 60 minutes today on clinical care activities including: reviewing chart notes and vital signs reviewing labs reviewing studies, chest CT films, discussion with radiologist discussion with interventional radiologist, registered mail clerk discussions with respiratory care instructor examining and counseling the patient counseling the patient's family writing orders documentation Coding Level of Care Code 04129 SUB INP/OBS CARE 3/50MIN Diagnoses Pulmonary parenchymal mass R91.8 Pathological fracture 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 Acute exacerbation of chronic low back pain M54.50; G89.29 Abnormal MRI, lumbar spine R93.7 Hypokalemia E87.6 ESRD (end stage renal disease) on dialysis N18.6; Z99.2 Diabetes mellitus E11.9 Obstructive sleep apnea G47.33 Acute encephalopathy G93.40 Candidiasis of mouth and esophagus B37.81; B37.0
[2023-09-08] MEDS ORDERED: SODIUM CHLORIDE 0.9% 1,000 ML IV PRN (07:00)
[2023-09-08] MEDS: OPTIRAY 320 100ml IV ONE (08:30)
--- NOTE | 2023-09-08 08:46 | Nephrology Progress Note ---
Date of Service September 08, 2023 Assessment & Plan (1) ESRD (end stage renal disease) on dialysis: Plan: * HD today to reduce risk of GUSTAVO. Patient does still make urine. Orders have been entered into EMR and HD RN notified * Outpatient Rx 3.5 hrs, 180 optiflux, 350/800, 2K, 137Na, 35HCO3. RUE AVF. EDW 79 * Will reassess need for HD tomorrow but hope to postpone next treatment until Monday to allow patient to rest over weekend (2) Secondary hyperparathyroidism: Plan: * Patient reports thrush following general anesthesia and has difficulty swallowing Renvela. Phosphate binder has been stopped due to difficulty swallowing. Will resume as outpatient (3) Spinal stenosis, lumbar region with neurogenic claudication: Plan: * MRI with possible discitis/osteomyelitis in the lumber spine. 08/31/23 Orthopedic evaluation was that without low back pain concern for discitis was low. Recommended continued monitoring w/ follow up MRI if symptoms develop (4) Pathological fracture of right hip due to age-related osteoporosis: Plan: * R displaced femoral neck fracture s/p cemented bipolar arthroplasty 08/30/23 * Continue PT * Awaiting transfer to [facility] (5) Pulmonary parenchymal mass: Plan: * CXR and CT with RUL, RLL lesions concerning for metastatic disease * Abdominal CT completed this morning Admission and Anticipated Discharge Date Admission Date: August 26, 2023 Subjective Mrs. Barboza was evaluated in her hospital room this morning. She denied fever, angina, dyspnea or hip discomfort. She had just returned from CT imaging and is awaiting HD today Review of Systems Constitutional: no fever Eyes: no problem reported Ear, Nose, Mouth, Throat: no problem reported Respiratory: no cough and no dyspnea Cardiovascular: no chest pain Gastrointestinal: no abdominal pain, no nausea, no vomiting and no diarrhea/loose stools Genitourinary: no dysuria and no hematuria Physical Exam Constitutional: + frail appearing Eyes: PERRL, conjunctivae normal, anicteric sclerae ENMT: external ear and nose normal, oropharynx normal Neck: trachea midline, no thyromegaly Respiratory: normal respiratory effort, lungs clear to auscultation Cardiovascular: RRR, no murmur, no edema Gastrointestinal (Abdomen): normal bowel sounds, soft, nontender, no hepatosplenomegaly Skin: no rashes, warm and dry Neurologic: Speech / Cognition: normal speech and normal cognition Results & Data Vital Signs (Past 12 Hours) Vital Signs Temp Pulse Pulse Resp BP Pulse Ox O2 Del Method 09/08/23 08:17 36.6 C 84 16 154/74 H 100 Room Air 09/08/23 02:33 17 09/07/23 22:30 58 L 21 97 09/07/23 21:00 CPAP FiO2 09/08/23 08:17 09/08/23 02:33 21 09/07/23 22:30 21 09/07/23 21:00 Laboratory Results Laboratory Results - last 24 hr 09/06/23 09/07/23 09/07/23 12:07 13:39 16:40 POC Glucose 92 116 H Hep B Core IgM Ab NON-REACTIVE 09/07/23 09/08/23 20:38 07:28 POC Glucose 103 H 100 H Hep B Core IgM Ab PG Care Time/CCT Total # of Minutes Spent Total Time Spent with Patient: Total time spent is greater than 50% in coordination of care (as documented) at patient's floor/unit and/or counseling patient: Coding Level of Care Code 94388 SUB INP/OBS CARE 3/50MIN Diagnoses ESRD (end stage renal disease) on dialysis N18.6; Z99.2 Secondary hyperparathyroidism N25.81 Spinal stenosis, lumbar region with neurogenic claudication M48.062 Pathological fracture 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 Pulmonary parenchymal mass R91.8
--- NOTE | 2023-09-08 10:32 | CT Scan Report ---
ABDOMEN AND PELVIS CT WITH IV AND ORAL CONTRAST CT DOSE: 1373.81 mGy.cm HISTORY: Follow-up study in a patient with history of metastatic disease. Hepatic lesions described o n yesterday's chest CT is suspicious for metastasis. Upper abdominal lymphadenopathy. metastatic dise ase, will dialyze after TECHNIQUE: Multiaxial CT images of the abdomen and pelvis were performed following the IV administrat ion of 94 cc of Optiray and oral contrast. A dose lowering technique was utilized adhering to the pr inciples of INGRIS. COMPARISON STUDY: Chest CT 09/07/2023, CT abdomen and pelvis 02/22/2022, MRI lumbar spine 08/29/2023. FINDINGS: Thoracic findings are discussed on the chest CT from yesterday. Possible soft tissue lesion within the right upper image 1 series 3, which is partially imaged. There is diffuse subcutaneous ed víctor. A 6 cm enhancing soft tissue attenuating lesion within the left paraspinal musculature on image 67 series 3 is redemonstrated. Cardiomegaly. Stable right pleural effusion. Right basilar predominant consolidation is again noted along with a 4.9 cm lobular lesion within the right lower lobe. Unchang ed additional pulmonary nodules compared to yesterday's chest CT. The spleen is unremarkable. Unremarkable appearance of the moderately atrophic pancreas. Adrenal glan ds are unremarkable. Cholelithiasis with borderline gallbladder wall thickening. There are several sc attered hepatic lesions present including a dominant central liver 7.4 cm mass on image 98 series 3. There is associated capsular retraction with marginal nodularity of the liver. The visualized hepatic and portal veins appear patent. Atrophic kidneys with numerous bilateral hypodense lesions again noted, suggestive of probable cysts. Several lesions are too small to adequately characterize. Decompressed urinary bladder with mild wal l thickening. Fibroid uterus. Pelvic structures are suboptimally visualized secondary to streak artif act from the right hip arthroplasty. Pathologic lymph nodes include gastrohepatic adenopathy measurin g up to 2.8 x 1.7 cm. Periportal lymph nodes measure up to 2.3 x 2.1 cm. Additional pathologic periao rtic and pericaval lymph nodes are present. Subcentimeter nodular foci within the right perirenal spa ce on image 183 likely represent metastasis. No bowel obstruction. Anasarca with mesenteric edema and trace ascites. Colonic diverticulosis withou t acute diverticulitis. Noninflamed appendix. Wall thickening of the stomach, which is partially deco mpressed. Subcutaneous edema lateral to the right hip with soft tissue gas, likely expected postopera tive changes. No definitively destructive bone lesions are identified. Findings of the lumbar spine a ppears similar to the 08/29/2023 study. Endplate irregularity with anterolisthesis is again seen at L5- S1. IMPRESSION: 1. Multifocal hepatic metastasis with pathologic lymphadenopathy suggestive of lymphatic metastasis. 2. Mass of the right lower lobe with likely malignant right pleural effusion is redemonstrated. Pleas e refer to the chest CT of 08/28/2023 for additional intrathoracic findings. 3. Probable metastatic deposits within the right perirenal space and left paraspinal tissues. 4. Fluid overload with anasarca and trace ascites. 5. Cholelithiasis with nonspecific gallbladder wall thickening. 6. Additional findings as above. ACT 112: Negative or not required by law. The above report was generated using voice recognition software. It may contain grammatical, syntax o r spelling errors. Dictated: 09/08/2023 9:37 AM Transcribed: 09/08/2023 10:13 AM Raz [id number] [email or web address] Electronically signed by: Guilherme Pepper M.D. 09/08/2023 10:31 AM
--- NOTE | 2023-09-08 11:01 | Surgery Progress Note ---
Date of Service September 08, 2023 Assessment & Plan (1) Pathological fracture of right hip due to age-related osteoporosis: Plan: 82-year-old female now 9 days out from a cemented bipolar hip arthroplasty for fracture. Orthopedically she is done well. Got multiple medical comorbidities and currently undergoing workup workup for metastatic disease. Plan: 1. DVT prophylaxis including thigh-high teds, SCDs, and heparin every 12 hours as per the medicine service. 2. PT/OT. She can weight-bear as tolerated. She does [employer] hip precautions. 3. Pain control doing fine with current pain regimen. 4. Medical management as per the medicine service. 5. Disposition she is orthopedically okay for discharge anytime medically stable. Sound like she is undergoing a metastatic workup currently. Her plan is to discharge to a [facility] when the time comes. I need to see her back 2 to 3 weeks out from her surgery date. Any orthopedic questions can be directly [phone]. Admission and Anticipated Discharge Date Admission Date: August 26, 2023 Subjective 82-year-old female now 9 days out from a right cemented bipolar hip arthroplasty for fracture. Orthopedically she is doing pretty well. I really not have much hip pain. She is undergoing a pretty extensive evaluation for metastatic disease currently. Physical Exam Physical Exam: Physical examination was a pleasant elderly female. She is lying in bed looks comfortable. Examination of the right hip and leg reveals the incision to be well-approximated. The Prevena VAC dressing is off. There is minimal drainage and what there is a very yellow serous. Got diffuse edema. She can dorsiflex and plantarflex her foot appropriately. Leg lengths are equal. Hip is located. Results & Data Vital Signs (Past 12 Hours) Vital Signs Temp Pulse Resp BP Pulse Ox O2 Del Method FiO2 09/08/23 08:17 36.6 C 84 16 154/74 H 100 Room Air 09/08/23 02:33 17 21 PG Care Time/CCT Total # of Minutes Spent Total Time Spent with Patient: Total time spent is greater than 50% in coordination of care (as documented) at patient's floor/unit and/or counseling patient: Coding Level of Care Code 18308 Post Operative Follow-Up Diagnoses Pathological fracture 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
--- NOTE | 2023-09-08 18:36 | Discharge Summary ---
Discharge Summary Date of Service September 08, 2023 Notes For Next Care Provider metastatic cancer discovered 09/[address] imaging, Joan is aware of the diagnosis, we will schedule outpatient US guided biopsy of paraspinous mass for next week (IR not open today so we will call to schedule Monday) her PCP Dr. Flores is aware of this plan. Once path resulted referral to medical oncology is indicated. Schedule follow up with Dr. Minor (ortho spine) in about 2 weeks with repeat noncontrast MRI lumbar spine to follow up L2/3 and L3/4 disc edema, thought to be degenerative vs less likely early discitis/osteomyelitis Medication Changes From Visit occasional wilbur for acute pain from hip fracture bowel regimen increased Admission HPI Per Admitting Provider Joan is an 82 year old female with a PMH significant for lumbar spinal stenosis, ESRD on HD TTSat, previous hx of DVT. DM, HTN, ANA PAULA, gastritis who presented to the [facility] ED on 08/26/23 after her chronic low back pain flared due to increased time sitting today while traveling to and from her Granddaughter's graduation. The patient reported had recently started a prednisone taper on 08/24/23 from her PCP for the initial flare and was improving. She had a long car ride to and from her Granddaughter's graduation and also was in a wheelchair during the ceremony itself. When she returned home this evening her pain was so severe she could not get out of the car. She was initially noted to be hypertensive on arrival at 180/76 but was otherwise stable. Labs were significant for a potassium of 3.2. Imaging was not obtained in the ED as the patient did not have recent trauma and symptoms slowly progressed during the day without red flag symptoms. The patient was given 10 mg IV dexamethasone, 1gm IV tylenol, and 1mg PO Diazepam with minimal improvement in symptoms. At the time of the exam the patient was lying in bed in no acute distress with her and daughter bedside. Her initial back flare occurred approximately 3 weeks ago. She was cleaning up a mess on the floor of their home and had to bend over multiple times. No recent trauma. She started the prednisone taper from her PCP on 08/23 which seemed to be helping. Confirms that her back was very still this evening with radicular back pain down the RLE, which she experiences with exacerbation of her chronic back pain. Denies saddle anesthesia, loss of bowel or bladder function compared to baseline, and new paresthesias. She last had dialysis yesterday as she adjusted her schedule so she could see her Granddaughter graduate. She is a full code. 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 This was initially treated successfully with steroids but she was unable to tolerate standing or ambulation. X-ray of hip was obtained showing hip fracture. ORIF by Dr Reggie Ramirez 08/29 for her subacute right hip fracture. Unclear when this happened because she did not report any falls. Prior to discharge on 09/06 obtained screening CXR for admission to dialysis unit and there were R sided opacities. Proceeded to chest CT and unfortunately consistent with metastatic disease (see below). Workup ongoing but she needs to rehab from her hip and regain independence in order to consider future cancer treatment. Very stable from ortho standpoint. DVT proph - heparin 5000 BID. 25-OH vit D level - wnl. Pain meds - cont scheduled tylenol 500mg TID. Cont norco 7.5's q6h prn. needing very little of such. Cont bowel regimen of senna/miralax WBAT on RLE. Cont PT/OT. Please follow-up with Dr. Ramirez 2.5-3 weeks from surgery (that will be around 09/13-09/19). I spoke with him today - leave laine in place until she sees him in follow up. (2) Pulmonary parenchymal mass: Obtained CXR as screening for [facility] dialysis unit - nodular opacities RUL RLL Obtained chest CT - pulmonary masses could represent primary bronchogenic malignancies or metastatic disease, pulmonary nodules, multiple new hepatic lesions, LAD, right paraspinal mass, thyroid nodules, R pleural effusion Picture unfortunately consistent with metastatic disease. I discussed with Joan and her 09/06, 09/07. Consulted with IR - not available 09/07 but can get biopsy next week as outpatient. Paraspinous mass easily accessible by ultrasound. Obtained CT abdomen and pelvis with IV/po contrast this morning and had dialysis after. Similar findings (see report). I updated her primary care Dr. Flores. Will need medical oncology referral once pathology results are available. (3) Acute exacerbation of chronic low back pain: Acute on chronic low back pain with RLE radicular pain - RESOLVED Does have prior history of lumbar spinal stenosis surgery - fusion L3-L5 by Dr Martinez in 2019 Typically gets steroid injections by Dr. Wilson recently prescribed prednisone on 08/23 as outpatient this had been continued in the hospital - completed a taper on 09/03/23 No fall or trauma, but pain worsened after long episode of house cleaning, then long car ride and sitting in wheelchair for her granddaughters graduation recently MRI l-spine with ?diskitis --> Dr Minor consulted CRP only 2 Blood cx's negative She has had NO back pain this week; NO RLE radicular pain pain either Thus, MRI findings likely due to advanced DJD rather than infection - low suspicion for discitis Plan - would repeat a noncontrast MRI lumbar spine in about 2 weeks post-discharge and have her f/u with Dr Minor in his office -see above re: metastatic disease, will reevaluate plan once Ct abdomen completed. (4) Abnormal MRI, lumbar spine: see above (5) Hypokalemia: replaced resolved (6) ESRD (end stage renal disease) on dialysis: appreciate nephrology assistance typical schedule - //Mon access - RUE AVF (7) Diabetes mellitus: controlled most recent a1c was <6% but may not be accurate due to mild anemia however, with that said, BSGs have been well-controlled even on steroids (8) Obstructive sleep apnea: cont HS CPAP (9) Acute encephalopathy: toxic, from pain meds resolved (10) Candidiasis of mouth and esophagus: nystatin solution 5ml QID swish/spit x 7 days improved Discharge Exam PHYSICAL EXAMINATION Last 24h vital signs reviewed, see documentation in flowsheet General: awake sitting in bed HEENT: Normocephalic, atraumatic, pupils round and equal, sclerae anicteric, no conjunctival injection, moist mucus membranes Lungs: Normal respiratory effort. Heart: def Abdomen: nondistended. Extremities: Warm, dry, well-perfused. has 2+ symmetric woody lower extremity edema. Right upper extremity with AV fistula, right hip surgical incision dressed no swelling/ecchymosis Neuro: Alert and oriented x 4, face symmetric, moves 4 extremities well Psych: Normal affect and behavior Updated Medication List Medication Instructions Recorded Confirmed Type docusate sodium 100 mg capsule 100 mg PO QAM 10/11/18 08/26/23 History (Stool Softener) sevelamer carbonate 800 mg tablet 800 mg PO UD 12/14/18 08/26/23 History (Renvela) vit B complx, C-iron 8 mg-folic 1 tab PO DAILY 02/22/22 08/26/23 History acid 800 mcg-D3 1,000 unit-zinc tablet (ProRenal) epinephrine 0.3 mg/0.3 mL 0.3 mg (0.3 mL) subcut Q15M PRN 10/26/22 08/26/23 Rx injection, auto-injector anaphylaxis #1 ea atorvastatin 40 mg tablet (Lipitor) 40 mg PO PM #90 tabs 07/03/23 08/26/23 Rx metoprolol succinate 50 mg 50 mg PO DAILY #90 tabs 07/03/23 08/26/23 Rx tablet,extended release 24 hr mirabegron 50 mg tablet,extended 50 mg PO QAM #90 tabs 07/03/23 08/26/23 Rx release 24 hr (Myrbetriq) omeprazole 20 mg tablet,delayed 20 mg PO QAM #90 tabs 07/03/23 08/26/23 Rx release acetaminophen 500 mg tablet 500 mg PO TID #0 tabs 09/08/23 Rx (Tylenol Extra Strength) heparin, porcine (PF) 5,000 5,000 unit (0.5 mL) subcut Q12 #0 09/08/23 Rx unit/0.5 mL injection syringe mL hydrocodone 7.5 mg-acetaminophen 1 tab PO Q6H PRN pain #14 tabs 09/08/23 Rx 325 mg tablet lidocaine 5 % topical patch 2 patch transdermal QAM #0 ea 09/08/23 Rx polyethylene glycol 3350 17 gram 17 g PO BID #0 ea 09/08/23 Rx oral powder packet (Miralax) sennosides 8.6 mg tablet (Senokot) 17.2 mg (2 x 8.6 mg) PO QAM #0 tabs 09/08/23 Rx Hospital Stay Data Consultations 08/26/23 21:02 ED Decision to Admit Stat 08/26/23 21:38 Consult Nephrology Routine 08/30/23 07:54 Consult Orthopedic Surgery Routine 08/30/23 09:11 Consult Orthopedic Spine Surgery Routine Procedures Performed Operation Date: 08/30/23 11:50 Actual Procedures p Right Cemented Bipolar(Right) - Reggie Ramirez MD Diagnostic Imagining Performed 08/29/23 14:15 MR lumbar spine wo con Routine 09/07/23 08:30 CT chest diagnostic wo con Routine 09/08/23 07:35 CT Abd and Pelvis [CT abd pelvis oral and IV con] Urgent Hip X-Ray 08/29/23 14:15 XR hip RT min 2V CLINICAL HISTORY: ?OA right hip? TECHNIQUE: 2 views of the right hip and single frontal view of the pelvis were obtained. Comparison: Comparison is made to pelvic radiograph 06/27/2018 FINDINGS: There is impacted and angulated fracture of the right femoral neck. Degenerative changes are seen and there is posterior fixation hardware spanning L4-S1. Vascular calcifications are noted. IMPRESSION: Impacted angulated fracture of the right femoral neck. ACT 112: Negative or not required by law. Electronically signed by: Samir Garcia M.D. 08/30/2023 7:21 AM Lumbar Spine MRI 08/29/23 14:15 CR Exam(s): MRI L SPINE Without Contrast EXAM: MR Lumbar Spine Without Intravenous Contrast CLINICAL HISTORY: Reason for exam: severe RLE radic pain, known L-spine disease. TECHNIQUE: Magnetic resonance images of the lumbar spine without intravenous contrast in multiple planes. COMPARISON: Comparison made to prior plain film images of the lumbar spine from August 29, 2023. FINDINGS: Vertebrae: There are 5 lumbar type vertebral bodies with a mild levoscoliosis and normal lumbar lordosis. There is a mild grade 1 antral listhesis of L4 on L5 measuring 7 mm and anterolisthesis of L5 on S1 measuring 7 mm. Otherwise, there is normal vertebral body height and alignment. Patient is status post posterior decompression and fusion of L3, L4 and L5 with a stricture screws and connecting rods in place. No acute fracture. There is increased edema signal at L2-3, L3-4 and L5-S1. Spinal cord: The conus is normal size, shape and signal characteristics, terminating at L1-L2. Soft tissues: There is extensive edema within the paraspinous muscles and left to the right prevertebral soft tissues. There is advanced atrophy of the iliopsoas, paraspinous and intraspinous musculature. The aorta and IVC flow voids are intact. Advanced atrophy of the kidneys with bilateral cysts. IMPRESSION: Findings concerning for early acute discovertebral osteomyelitis at L2-3 and L3-4 with extensive prevertebral soft tissue swelling. Recommend postcontrast imaging for further evaluation. Communications: Verify Receipt Electronically signed by: Arlen Jean Baptiste MD 08/29/23 22:04 PM Lumbar Spine X-Ray 08/29/23 14:15 XR lumbar spine 2-3V CLINICAL HISTORY: h/o lumbar fusion, back pain COMPARISON STUDY: Lumbar spine MRI December 14, 2018. Lumbar spine fluoroscopic images February 15, 2019. FINDINGS: There are postoperative findings consistent with L3-L5 decompression and fusion. The hardware is intact. There is grade one anterolisthesis of L3 on L4, L4 and L5 and L5 and S1. No acute fractures are identified. There is moderate disc space narrowing at L2-L3. IMPRESSION: 1. No lumbar spine fractures. 2. Status post L3-L5 decompression and fusion. 3. Grade I anterolisthesis of L3 on L4, L4 on L5 and L5 on S1. ACT 112: Negative or not required by law. Electronically signed by: Andrew Kincaid M.D. 08/30/2023 7:16 AM KUB X-Ray 08/29/23 14:17 KUB CLINICAL HISTORY: Abdominal distension; impaction? COMPARISON STUDY: CT of the abdomen and pelvis February 22, 2022. FINDINGS: There are postoperative findings within the lumbosacral spine. The bowel gas pattern is normal. There is a moderate amount stool within the colon and rectum. Note is made of a displaced angulated basicervical fracture of the right femoral neck. IMPRESSION: 1. Displaced angulated right basicervical femoral neck fracture. 2. No evidence for a bowel obstruction. 3. Moderate amount of stool within the colon and rectum. ACT 112: Negative or not required by law. Electronically signed by: Andrew Kincaid M.D. 08/30/2023 7:03 AM Hip/Pelvis X-Ray 08/30/23 15:01 AP PELVIS, CROSSTABLE LATERAL RIGHT HIP History: Right total hip arthroplasty. Right hip fracture. Postop. FINDINGS: The patient is status post a right hip hemiarthroplasty. The hardware is intact. No fracture or dislocation. Skin laine are in place. IMPRESSION: Right hip hemiarthroplasty. No evidence for hardware complication ACT 112: Negative or not required by law. Electronically signed by: Pierre Burnett M.D. 08/30/2023 3:37 PM Chest X-Ray 09/06/23 11:41 SINGLE VIEW CHEST CLINICAL HISTORY: Renal insufficiency. Screening for dialysis. FINDINGS: An AP, portable, upright chest radiograph is compared to study dated 02/22/2022. The examination is degraded by portable technique and patient rotation. The heart is enlarged noting atherosclerotic calcification of the thoracic aorta. The pulmonary vasculature is noncontrast. Chronic interstitial thickening is similar to previous. Question airspace opacities in the right upper and lower lung. The left lung appears clear. No large pleural effusion or pneumothorax is seen. The skeletal structures are osteopenic. The bony thorax is grossly intact. Advanced arthritic change is noted in the shoulders. IMPRESSION: 1. The examination is significantly degraded by patient rotation. 2. Question airspace opacities in the right upper and lower lung. This is not well assessed due to the degree of rotation and may be artifactual. A dedicated PA and lateral examination is recommended for further assessment. 3. Cardiomegaly without radiographic evidence of congestive failure. ACT 112: Negative or not required by law. Electronically signed by: Valentin Esquivel M.D. 09/06/2023 12:20 PM Chest X-Ray 09/06/23 15:32 TWO VIEW CHEST CLINICAL HISTORY: Screening for dialysis. Follow-up abnormal chest x-ray. FINDINGS: AP and lateral chest radiographs are compared to study performed earlier the same day 09/06/2023. The heart is enlarged noting atherosclerotic calcification of the thoracic aorta. The pulmonary vasculature is nondistended congested. There are nodular airspace opacities in the right upper lung and at the right lung base. Question a small right pleural effusion. The left lung appears clear. No pneumothorax is seen. The skeletal structures are osteopenic. The bony thorax appears intact. Arthritic change is seen in the shoulders. Fusion hardware is partially visualized in the lumbar spine. IMPRESSION: 1. There are abnormal nodular airspace opacities in the right upper and right lower lung. Correlate clinically for evidence of an infectious/inflammatory pneumonitis. Radiographic follow-up to resolution is recommended to exclude the possibility of underlying pulmonary lesions/neoplasm. 2. Suspect a small right pleural effusion. 3. Cardiomegaly without radiographic evidence of congestive failure ACT 112: Negative or not required by law. Electronically signed by: Valentin Esquivel M.D. 09/06/2023 6:[address] 09/07/23 08:30 CT chest diagnostic wo con CT DOSE: 432.29 mGy.cm HISTORY: RUL and RLL nodular opacities, no recent pneumonia TECHNIQUE: Multiaxial CT images of the chest were performed without contrast. A dose lowering technique was utilized adhering to the principles of ALARA. COMPARISON: Abdomen and pelvis CT 02/22/2022. FINDINGS: No suspicious lytic or blastic osseous lesions. Within the left paraspinal musculature from the T9-T11 level there is a 6.0 x 3.5 x 2.2 cm soft tissue mass. This is best seen on axial image 173. Mild body wall edema is noted. There is an 11 mm subcutaneous nodule within the left shoulder on image 3. Multinodular thyroid gland with the dominant nodule on the right measuring 2.3 cm. There is a small right pleural effusion. The heart is mildly enlarged. Normal esophagus. No definite hilar lymphadenopathy. Mildly enlarged right paratracheal lymph nodes measuring up to 10 mm in short axis diameter. Moderate coronary artery calcifications. Normal caliber thoracic aorta. No pericardial effusion. Limited views of the upper abdomen demonstrate a partially visualized gastrohepatic lymphadenopathy with the dominant lymph node measuring 2.2 x 1.6 cm. There are multiple ill-defined hepatic masses with the dominant central mass measuring 6.7 cm. These are highly suspicious for metastatic disease. No pneumothorax. The central airways are patent. There are similar-appearing lobular masslike opacities within the right upper lobe and right lower lobe. These could represent primary bronchogenic malignancies or metastatic disease. The right lower lobe lobular masslike opacity measures approximately 4.6 x 2.8 cm and the right upper lobe lesion measures approximately 3.5 x 1.8 cm. There are few satellite nodules also noted within the right upper lobe. There is also a 1 cm irregular nodule within the right upper lobe posteriorly on image 87. There are few scattered subcentimeter nodules within the left measures approximately 5 mm. These are highly suspicious for metastatic disease. IMPRESSION: 1. There are similar-appearing lobular lesions within the right upper lobe and right lower lobe as described above. These could represent primary bronchogenic malignancies or metastatic disease. 2. Additional scattered pulmonary nodules are highly suspicious for metastatic disease. 3. Multiple new hepatic lesions measuring up to 6.7 cm consistent with metastatic disease. 4. Mild right paratracheal and upper abdominal lymphadenopathy. This also likely represents metastatic disease. 5. A 6 cm soft tissue mass within the left paraspinal musculature at the lower thoracic region. There is also an 11 mm subcutaneous nodule within the left shoulder. These likely represent metastatic disease. 6. Small right pleural effusion. This could be malignant. 7. Bilateral thyroid nodules with the largest on the right measuring 2.3 cm. ACT 112: Negative or not required by law. Electronically signed by: Pierre Burnett M.D. 09/07/2023 2:56 PM Abdomen/Pelvis CT 09/08/23 07:[address] WITH IV AND ORAL CONTRAST CT DOSE: 1373.81 mGy.cm HISTORY: Follow-up study in a patient with history of metastatic disease. Hepatic lesions described on yesterday's chest CT is suspicious for metastasis. Upper abdominal lymphadenopathy. metastatic disease, will dialyze after TECHNIQUE: Multiaxial CT images of the abdomen and pelvis were performed following the IV administration of 94 cc of Optiray and oral contrast. A dose lowering technique was utilized adhering to the principles of ALARA. COMPARISON STUDY: Chest CT 09/07/2023, CT abdomen and pelvis 02/22/2022, MRI lumbar spine 08/29/2023. FINDINGS: Thoracic findings are discussed on the chest CT from yesterday. Possible soft tissue lesion within the right upper image 1 series 3, which is partially imaged. There is diffuse subcutaneous edema. A 6 cm enhancing soft tissue attenuating lesion within the left paraspinal musculature on image 67 series 3 is redemonstrated. Cardiomegaly. Stable right pleural effusion. Right basilar predominant consolidation is again noted along with a 4.9 cm lobular lesion within the right lower lobe. Unchanged additional pulmonary nodules compared to yesterday's chest CT. The spleen is unremarkable. Unremarkable appearance of the moderately atrophic pancreas. Adrenal glands are unremarkable. Cholelithiasis with borderline gallbladder wall thickening. There are several scattered hepatic lesions present including a dominant central liver 7.4 cm mass on image 98 series 3. There is associated capsular retraction with marginal nodularity of the liver. The visualized hepatic and portal veins appear patent. Atrophic kidneys with numerous bilateral hypodense lesions again noted, suggestive of probable cysts. Several lesions are too small to adequately characterize. Decompressed urinary bladder with mild wall thickening. Fibroid uterus. Pelvic structures are suboptimally visualized secondary to streak artifact from the right hip arthroplasty. Pathologic lymph nodes include gastrohepatic adenopathy measuring up to 2.8 x 1.7 cm. Periportal lymph nodes measure up to 2.3 x 2.1 cm. Additional pathologic periaortic and pericaval lymph nodes are present. Subcentimeter nodular foci within the right perirenal space on image 183 likely represent metastasis. No bowel obstruction. Anasarca with mesenteric edema and trace ascites. Colonic diverticulosis without acute diverticulitis. Noninflamed appendix. Wall thickening of the stomach, which is partially decompressed. Subcutaneous edema lateral to the right hip with soft tissue gas, likely expected postoperative changes. No definitively destructive bone lesions are identified. Findings of the lumbar spine appears similar to the 08/29/2023 study. Endplate irregularity with anterolisthesis is again seen at L5-S1. IMPRESSION: 1. Multifocal hepatic metastasis with pathologic lymphadenopathy suggestive of lymphatic metastasis. 2. Mass of the right lower lobe with likely malignant right pleural effusion is redemonstrated. Please refer to the chest CT of 08/28/2023 for additional intrathoracic findings. 3. Probable metastatic deposits within the right perirenal space and left paraspinal tissues. 4. Fluid overload with anasarca and trace ascites. 5. Cholelithiasis with nonspecific gallbladder wall thickening. 6. Additional findings as above. ACT 112: Negative or not required by law. The above report was generated using voice recognition software. It may contain grammatical, syntax or spelling errors. Dictated: 09/08/2023 9:37 AM Transcribed: 09/08/2023 10:13 AM Raz [id number] [email or web address] Electronically signed by: Guilherme Pepper M.D. 09/08/2023 10:31 AM 09/06/23 06:32 09/06/23 06:32 Pending Results Patient Have Any Pending Studies at Discharge: No Discharge Instructions Given to Patient (Per Discharging Provider) For hip fracture: PT and OT evaluate and treat WBAT, follow hip precautions DVT prophylaxis Schedule follow up with Dr. Ramirez in 2-3 weeks New finding of metastatic cancer - lung and liver masses, left paraspinous mass We are scheduling outpatient IR biopsy for next week (no IR staff today so we need to call to schedule Monday) medical oncology referral once biopsy resulted primary care Dr. Flores is aware of this plan ESRD - continue hemodialysis Schedule follow up with Dr. Minor (ortho spine) in about 2 weeks with repeat noncontrast MRI lumbar spine to follow up L2/3 and L3/4 disc edema, thought to be degenerative vs less likely early discitis/osteomyelitis ACTIVITY RECOMMENDATIONS: Physical Therapy: * Aggressive physical therapy is not usually needed. You will learn to take care of yourself safely and walk. * Follow the "Hip Precautions Instructions." * In some cases, the social welfare administrator at the hospital will arrange to have a therapist come to your house for the first couple of weeks to help you learn these skills. * You need to practice on your own or with the help of a family member as needed. * When you learn these skills, most of the therapy can be done on your own. Home Exercise: * You were shown a series of exercises in the hospital. Do these exercises three to four times each day including the exercises you were shown in physical therapy. Walking: * Get up and walk several times each day. For the first four weeks, try not to stand or walk for more than one hour at a time. If you do stand or walk for more than one hour, you will not hurt anything, but your leg will likely swell. * As you feel comfortable, you may change from the walker or crutches to a cane and then to independent walking. MEDICATIONS: * The most common side effects of pain medicine and iron are nausea and constipation. If nausea or constipation is too much of a problem or if you have any questions about your new medicines or doses, call [facility] at [phone]. We will try to help you manage these issues. "VERY IMPORTANT TO READ AND REVIEW" Pain: * The immediate post-operative period after hip replacement surgery is often quite painful. * You are given a prescription for pain medicine. You should take it, as directed, when you need it, especially before physical therapy and before going to bed. Pain that interferes with sleep is very common and can last several months. * You will likely need pain medicine for the first two to four weeks. It will not stop all of the pain. The pain will lessen and as you feel better, you may change to milder pain medicine such as Tylenol. * The most common side effects of pain medicine are nausea and constipation, so don't take more than you need. SPECIAL CARE INSTRUCTIONS: TEDs/Elastic Stockings: * The white elastic stockings help limit swelling and prevent blood clots from forming in your legs. The more you wear them, the more they work. * Wear them for six weeks. Incision Site Care: * Remove dressing postoperative day 2 and then shower. Keep direct shower pressure off the incision site. * After showering, cover laine with dry gauze and change daily or more frequently if the dressing is getting saturated with drainage. * May completely stop using bandage if wound is dry and no drainage * [place] are removed between 2 and 3 weeks post-op. If your follow-up appointment is made before 2 weeks, please have your appointment re- scheduled. It is too early to remove the laine. Prevention of Infection: * Take antibiotics one hour before any dental cleaning, dental work, urological procedure, gastrointestinal procedure or any invasive surgery in order to prevent your new joint from getting infected. * You may get the antibiotics from the doctor performing the procedure or you may call our office at before and we will call in a prescription to the pharmacy of your choice. Things to Watch For: * Drainage from the incision site that occurs more than one week after your surgery. * Severely increased leg pain or swelling. * Increased redness at the incision site. * Fever above 102 degrees Fahrenheit. * Unusual chest pain or shortness of breath. * Unusual pain or burning with urination. Call [facility] at with any of the above problems or if you have any questions about your medicines or recovery. FOLLOW UP VISIT: Make an appointment to see your doctor for approximately two weeks after surgery for a progress check and staple removal by calling the office at . 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
== END 2023-09-08 16:10 | DRG 521 ==
LOC: ED 17:44 → EDINP 21:19 → SUATTDRO 21:19 → 3W 08-27 12:07
DX: I12.0 Hypertensive chronic kidney disease with stage 5 chronic kidney disease or end stage renal disease; M54.41 Lumbago with sciatica, right side; B37.81 Candidal esophagitis; K59.00 Constipation, unspecified; G92.8 Other toxic encephalopathy; Z86.718 Personal history of other venous thrombosis and embolism; Z99.2 Dependence on renal dialysis; Z79.899 Other long term (current) drug therapy; T50.995A Adverse effect of other drugs, medicaments and biological substances, initial encounter; K21.9 Gastro-esophageal reflux disease without esophagitis; M80.051A Age-related osteoporosis with current pathological fracture, right femur, initial encounter for fracture; Z79.01 Long term (current) use of anticoagulants; M19.90 Unspecified osteoarthritis, unspecified site; D49.1 Neoplasm of unspecified behavior of respiratory system; B37.0 Candidal stomatitis; M48.061 Spinal stenosis, lumbar region without neurogenic claudication; N18.6 End stage renal disease; E11.22 Type 2 diabetes mellitus with diabetic chronic kidney disease; E87.6 Hypokalemia; G47.33 Obstructive sleep apnea (adult) (pediatric); Z88.8 Allergy status to other drugs, medicaments and biological substances; N25.81 Secondary hyperparathyroidism of renal origin